=== PATIENT | male | born 1960 | race Caucasian/White ===

== ENCOUNTER → 2016-04-03 | Outpatient (CLI) | payer OTHER ==
[~2016-04-03] VITALS: Ht 170.2 cm; Wt 61.2 kg
[~2016-04-03] MED LIST: ASPI325T PO; ASPI81CH PO; FOLI1TAB86 PO; LIDOCAINE 2% INJ 100 MG/5 ML SDV (FOR ANES.) As Ordered ONE; LOPR50TA PO; METO50TA2 PO; MULT1TAB10 PO; NICO21PAT TD; NS 1,000 ML IV SCH; PROPOFOL 200 MG/20 ML VIAL As Ordered ONE; SPIR25TA2 PO; THERTAB30 PO; THIA50CA PO; TYLE325T5 PO; VITMTA PO; [UNRECOGNIZED DRUG - REMARK]
--- NOTE | 2016-04-03 10:13 | ROOR ---
Patient Name: Jayro Delgado Procedure Date: 04/03/2016 9:56 AM Date of : 1960 Age: 55 Room: [place] Gender: Male Note Status: Finalized Procedure: Colonoscopy Indications: Screening for colorectal malignant neoplasm, Last colonoscopy: December 2014, (Suboptimal prep on previous colon exam) Providers: Rajat PHILLIPS MD Referring MD: NOA VELAZQUEZ MD Requesting Provider: Medicines: Monitored Anesthesia Care Complications: No immediate complications. Procedure: Pre-Anesthesia Assessment: - The heart rate, respiratory rate, oxygen saturations, blood pressure, adequacy of pulmonary ventilation, and response to care were monitored throughout the procedure. The Colonoscope was introduced through the anus and advanced to the cecum, identified by appendiceal orifice and ileocecal valve. The colonoscopy was performed without difficulty. The patient tolerated the procedure well. The quality of the bowel preparation was adequate. Findings: The perianal and digital rectal examinations were normal. (EXAM: Complete, PREP:Adequate) Small Internal Hemorrhoids. The entire examined colon appeared normal on direct and retroflexion views. Impression: - (EXAM: Complete, PREP:Adequate) - Small Internal Hemorrhoids. - The entire examined colon is normal on direct and retroflexion views. - No specimens collected. Recommendation: - Repeat colonoscopy in 10 years for screening purposes. Rajat Phillips MD Rajat PHILLIPS MD 04/03/2016 10:12:49 AM This report has been signed electronically. Number of Addenda: 0 Note Initiated On: 04/03/2016 9:56 AM Estimated Blood Loss: Estimated blood loss: none.
[2016-04-03 10:45] VITALS: BP 150/107
== END ==
LOC: M OPP 08:28
PROVIDERS: ATTEND Internal Medicine Gastroenterology
DX: Z12.11 Encounter for screening for malignant neoplasm of colon (principal); K64.8 Other hemorrhoids; Z79.82 Long term (current) use of aspirin; Z79.899 Other long term (current) drug therapy

== ENCOUNTER 2016-05-23 13:35 | Emergency (ER) | payer OTHER ==
[~2016-05-23 13:35] MED LIST changes: -LIDOCAINE 2% INJ 100 MG/5 ML SDV (FOR ANES.) As Ordered ONE; -NS 1,000 ML IV SCH; -PROPOFOL 200 MG/20 ML VIAL As Ordered ONE
[2016-05-23] MEDS ORDERED: ONDANSETRON 4MG/2ML VIAL (J2405) As Ordered ONE (14:21)
[2016-05-23] MEDS ORDERED: MORPHINE 2 MG/ML 1ML SYRINGE As Ordered ONE (14:28)
[2016-05-23 14:50] LABS: BASO % 0.4 % (0.0-1.0); EOS % 0.2 % (0.0-3.0); LARGE UNSTAINED CELL # 0.2 K/mm3 (0.0-0.4); LARGE UNSTAINED CELL % 2.3 % (0.0-4.0); LYMPH # 1.3 K/mm3 (1.5-4.5); LYMPH % 16.3 % (24.0-44.0); MEAN CORPUSCULAR HEMOGLOBIN 33.9 pg (27.0-33.0); MEAN CORPUSCULAR HGB CONC 33.7 g/dl (32.0-36.5); MEAN CORPUSCULAR VOLUME 100.5 fl (80.0-96.0); MONO # 0.7 K/mm3 (0.0-0.8); MONO % 8.5 % (0.0-5.0); NEUTROPHILS # 5.7 K/mm3 (1.8-7.7); NEUTROPHILS % 72.3 % (36.0-66.0); PLATELET COUNT, AUTOMATED 210 k/mm3 (150-450); RED CELL DISTRIBUTION WIDTH 12.3 % (11.5-14.5); WHITE BLOOD COUNT 7.8 K/mm3 (4.0-10.0)
[2016-05-23 15:00] LABS: ALBUMIN 3.7 GM/DL (3.2-5.2); ALBUMIN/GLOBULIN RATIO 0.93 (1.00-1.93); ALKALINE PHOSPHATASE 121 U/L (45-117); ALT/SGPT 77 U/L (12-78); ANION GAP 19 MEQ/L (8-16); AST/SGOT 147 U/L (15-37); BILIRUBIN,DIRECT 0.4 MG/DL (0.0-0.2); BILIRUBIN,TOTAL 1.3 MG/DL (0.2-1.0); BLOOD UREA NITROGEN 10 MG/DL (7-18); CALCIUM LEVEL 8.6 MG/DL (8.5-10.1); CARBON DIOXIDE LEVEL 22 MEQ/L (21-32); CHLORIDE LEVEL 98 MEQ/L (98-107); CREATININE FOR GFR 1.04 MG/DL (0.70-1.30); GLOMERULAR FILTRATION RATE > 60.0 (>56); GLUCOSE, FASTING 107 MG/DL (70-105); POTASSIUM SERUM 4.1 MEQ/L (3.5-5.1); SODIUM LEVEL 139 MEQ/L (136-145); TOTAL PROTEIN 7.7 GM/DL (6.4-8.2)
[2016-05-23] MEDS ORDERED: ISOVUE-370 76% 100ML VIAL (Q9967) As Ordered ONE (16:00)
--- NOTE | 2016-05-23 16:28 | REP ---
Clinical: Abdominal pain. Technique: Axial contrast enhanced images from the lung bases to the pubic symphysis using 100 ml Isovue 370 intravenous contrast material with multiplanar re-formations. Findings: A 1 cm calcified granuloma in the left lower lobe is identified. Visualized heart and pericardium are normal. Fatty infiltration of the liver noted without focal hepatic lesion. The gallbladder is unremarkable. The spleen, pancreas, bilateral adrenal glands and kidneys are normal. The enteric system is without obstruction and a normal terminal ileum and appendix are identified in the right lower quadrant. No evidence for diverticulosis. Mild prominence to the sigmoid colon as well as loops of bowel in the left mid abdomen may reflect a mild enterocolitis and should be correlated clinically. Pelvis demonstrates normal bladder and age appropriate prostate/seminal vesicles. No ascites. No free air. No intraperitoneal or retroperitoneal adenopathy. Atherosclerotic changes to the aorta and vasculature noted without aneurysm or dissection. Surrounding musculoskeletal structures demonstrate degenerative change without focal osseous abnormality. Impression: 1. Possible mild enterocolitis. 2. No further acute abdominopelvic pathology appreciated. Signed by Martin Haynes MD 05/23/2016 04:20 P
--- NOTE | 2016-05-23 17:28 | EDDOCDS ---
Nurse's Notes [facility] Name: Jayro Delgado Age: 55 yrs Sex: Male : 1960 Arrival Date: 05/23/2016 Time: 13:35 Bed I3 / M3 Private MD: Diagnosis: Other and unspecified noninfective gastroenteritis and colitis Presentation: 05/23 13:45 Presenting complaint: Patient states: n/v/d and decreased appetite x "several weeks on kc3 and off" with chills reported. Adult Sepsis Screening: The patient does not have new or worsening altered mentation. Patient's respiratory rate is less than 22. Systolic blood pressure is greater than 100. Patient has a qSOFA score of 0- Negative Sepsis Screen. Suicide/Homicide risk assessment- the patient denies having any suicidal and/or homicidal ideations and does not present with any other emotional, behavioral or mental health complaints. Status: Patient is not a community service director or dependent. Transition of care: patient was not received from another setting of care. 13:45 Acuity: PAUL Level 3 kc3 13:45 Method Of Arrival: Walkin/Carried/Asstd kc3 Triage Assessment: 13:47 General: Appears in no apparent distress, comfortable, Behavior is appropriate for age, kc3 cooperative. Pain: Location: abdomen Pain currently is 5 out of 10 on a pain scale. HIV screening NA for this visit Offered previously. Respiratory: Respiratory effort is even, unlabored. GI: Reports diarrhea, upper abdominal pain, nausea, vomiting. Historical: - Allergies: no known allergies; - Home Meds: 1. multivitamin Oral tab daily 2. aspirin 162 mg Oral TbEC 1 tab once daily 3. Metoprolol 25mg daily - PMHx: afib; Hypertension; - PSHx: Tip of right middle finger amputated; left wrist surgery; - Social history: Smoking status: Patient uses tobacco products, heavy tobacco smoker. No barriers to communication noted, The patient speaks fluent [place]orese, Speaks appropriately for age. - Family history: Not pertinent. - : The pt / caregiver states he / she is not on anticoagulants. Home medication list is obtained from the patient. - Exposure Risk Screening:: None identified. Screenin:24 Screening information is obtained from the patient. Fall risk: No risks identified. rs3 Assistance ADL's: requires no assistance with activities of daily living. Abuse/DV Screen: The patient / caregiver reports he/she is: not in a situation that causes fear, pain or injury. Nutritional screening: No deficits noted. Advance Directives: Currently, there is no health care proxy. home support is adequate. Assessment: 14:26 General: Appears in no apparent distress, Behavior is appropriate for age, cooperative. rs3 Respiratory: Airway is patent Respiratory effort is even, unlabored, Respiratory pattern is regular, symmetrical. GI: Abdomen is non- distended Bowel sounds present X 4 quads. Abd is soft and non tender X 4 quads. Derm: Skin is pink, warm & dry. 15:51 General: Appears in no apparent distress, Behavior is appropriate for age, cooperative, rs3 denies of pain. improved after the pain medicine. resting comfortable. IVF NS bolus infusing. family at bedside. patient unable to urinate. waiting for urine sample. 16:14 General: Pt to CT via w/c and returned pts IV site remains patent and clear.. dls Vital Signs: 13:37 BP 108 / 87; Pulse 66; Resp 20; Temp 98.2(O); Pulse Ox 100% ; Weight 61.23 kg (R); lr2 Height 5 ft. 7 in. (170.18 cm) (R); Pain 5/10; 15:12 BP 124 / 76; Pulse 78; Resp 18; Temp 98.0(O); Pulse Ox 97% on R/A; Pain 0/10; dem1 17:21 BP 127 / 88; Pulse 77; Resp 18; Temp 97.8(O); Pulse Ox 100% on R/A; Pain 0/10; dem1 13:37 Body Mass Index 21.14 (61.23 kg, 170.18 cm) lr2 Vitals: 13:37 Log In Time: May 23, 2016 at 13:35. lr2 ED Course: 13:37 Patient visited by Hannah Whitaker. lr2 13:37 Patient moved to Waiting lr2 13:41 Patient moved to Pre RCE lr2 13:46 Triage Initiated kc3 13:48 Patient moved to Triage 2 kc3 13:57 [facility]. cc10 13:57 Chance Lewis MD is Attending Physician. cc10 13:57 Patient visited by Bob Redd PA-C. cc10 13:57 Patient visited by Bob Redd PA-C. cc10 14:07 Patient visited by Bob Redd PA-C. cc10 14:09 Patient moved to I3 / sew 14:24 Patient visited by Kaley Warren RN. rs3 15:01 [facility] Payment Agreement was scanned into [employer] and attached to record. lg 15:12 Patient visited by Migdalia Persaud. dem1 15:56 Patient visited by Kaley Warren RN. rs3 16:08 PHCP role handed off by Bob Redd PA-C ck7 16:08 Sly Kwok RPA-C is PHCP. ck7 16:28 Patient visited by Sly wKok RPA-C. ck7 16:31 CT ABD & PELVIS: IV Contrast Only Returned. EDMS 16:43 Urinalysis Sent. rs3 17:09 Patient visited by Kaley Warren RN. rs3 17:21 Patient visited by Migdalia Persaud. dem1 17:25 Discontinued IV lock intact, bleeding controlled, pressure dressing applied, No dls redness/swelling at site. No procedures done that require assistance. 17:27 The patient / caregiver is instructed regarding the plan of care and ED course. dls Administered Medications: 14:25 Drug: NS 0.9% 1000 ml [sodium chloride 0.9 % intravenous solution] Route: IV; Rate: dls bolus; Site: left antecubital; 17:26 Follow up: IV Status: Completed infusion dls 14:26 Drug: Ondansetron 4 mg [ondansetron HCl 2 mg/mL intravenous solution (2 mL)] Route: dls IVP; Site: left antecubital; 14:31 Drug: morphine 2 mg [morphine 2 mg/mL intravenous cartridge (1 mL)] Route: IVP; Site: dls left antecubital; 16:24 Follow up: Response: Pain is decreased rs3 Order Results: Lab Order: Basic Metabolic Profile; SPEC'M 05/23/16 14:23 Test: GLUCOSE, FASTING; Value: 107; Range: 70-105; Abnormal: Above high normal; Units: MG/DL; Status: F Test: BLOOD UREA NITROGEN; Value: 10; Range: 7-18; Units: MG/DL; Status: F Test: CREATININE FOR GFR; Value: 1.04; Range: 0.70-1.30; Units: MG/DL; Status: F Test: GLOMERULAR FILTRATION RATE; Value: > 60.0; Range: >56; Status: F Test: SODIUM LEVEL; Value: 139; Range: 136-145; Units: MEQ/L; Status: F Test: POTASSIUM SERUM; Value: 4.1; Range: 3.5-5.1; Units: MEQ/L; Status: F Test: CHLORIDE LEVEL; Value: 98; Range: 98-107; Units: MEQ/L; Status: F Test: CARBON DIOXIDE LEVEL; Value: 22; Range: 21-32; Units: MEQ/L; Status: F Test: ANION GAP; Value: 19; Range: 8-16; Abnormal: Above high normal; Units: MEQ/L; Status: F Test: CALCIUM LEVEL; Value: 8.6; Range: 8.5-10.1; Units: MG/DL; Status: F Test Note: ; Units are mL/min/1.73 m2 Chronic Kidney Disease Staging per NKF: Stage I & II GFR >=60 Normal to Mildly Decreased Stage III GFR 30-59 Moderately Decreased Stage IV GFR 15-29 Severely Decreased Stage V GFR <15 Very Little GFR Left ESRD GFR <15 on AUDIT ANALYST Lab Order: CBC with Diff; SPEC'M 05/23/16 14:23 Test: WHITE BLOOD COUNT; Value: 7.8; Range: 4.0-10.0; Units: K/mm3; Status: F Test: RED BLOOD COUNT; Value: 4.80; Range: 4.30-6.10; Units: M/mm3; Status: F Test: HEMOGLOBIN; Value: 16.3; Range: 14.0-18.0; Units: g/dl; Status: F Test: HEMATOCRIT; Value: 48.3; Range: 42.0-52.0; Units: %; Status: F Test: MEAN CORPUSCULAR VOLUME; Value: 100.5; Range: 80.0-96.0; Abnormal: Above high normal; Units: fl; Status: F Test: MEAN CORPUSCULAR HEMOGLOBIN; Value: 33.9; Range: 27.0-33.0; Abnormal: Above high normal; Units: pg; Status: F Test: MEAN CORPUSCULAR HGB CONC; Value: 33.7; Range: 32.0-36.5; Units: g/dl; Status: F Test: RED CELL DISTRIBUTION WIDTH; Value: 12.3; Range: 11.5-14.5; Units: %; Status: F Test: PLATELET COUNT, AUTOMATED; Value: 210; Range: 150-450; Units: k/mm3; Status: F Test: NEUTROPHILS %; Value: 72.3; Range: 36.0-66.0; Abnormal: Above high normal; Units: %; Status: F Test: LYMPH %; Value: 16.3; Range: 24.0-44.0; Abnormal: Below low normal; Units: %; Status: F Test: MONO %; Value: 8.5; Range: 0.0-5.0; Abnormal: Above high normal; Units: %; Status: F Test: EOS %; Value: 0.2; Range: 0.0-3.0; Units: %; Status: F Test: BASO %; Value: 0.4; Range: 0.0-1.0; Units: %; Status: F Test: LARGE UNSTAINED CELL %; Value: 2.3; Range: 0.0-4.0; Units: %; Status: F Test: NEUTROPHILS #; Value: 5.7; Range: 1.8-7.7; Units: K/mm3; Status: F Test: LYMPH #; Value: 1.3; Range: 1.5-4.5; Abnormal: Below low normal; Units: K/mm3; Status: F Test: MONO #; Value: 0.7; Range: 0.0-0.8; Units: K/mm3; Status: F Test: EOS #; Value: 0.0; Range: 0.0-0.50; Units: K/mm3; Status: F Test: BASO #; Value: 0.0; Range: 0.0-0.2; Units: K/mm3; Status: F Test: LARGE UNSTAINED CELL #; Value: 0.2; Range: 0.0-0.4; Units: K/mm3; Status: F Lab Order: Lipase; SPEC'M 05/23/16 14:23 Test: LIPASE; Value: 354; Range: 73-393; Units: U/L; Status: F Lab Order: Liver Profile; [facility] 05/23/16 14:23 Test: AST/SGOT; Value: 147; Range: 15-37; Abnormal: Above high normal; Units: U/L; Status: F Test: ALT/SGPT; Value: 77; Range: 12-78; Units: U/L; Status: F Test: ALKALINE PHOSPHATASE; Value: 121; Range: 45-117; Abnormal: Above high normal; Units: U/L; Status: F Test: BILIRUBIN,TOTAL; Value: 1.3; Range: 0.2-1.0; Abnormal: Above high normal; Units: MG/DL; Status: F Test: BILIRUBIN,DIRECT; Value: 0.4; Range: 0.0-0.2; Abnormal: Above high normal; Units: MG/DL; Status: F Test: TOTAL PROTEIN; Value: 7.7; Range: 6.4-8.2; Units: GM/DL; Status: F Test: ALBUMIN; Value: 3.7; Range: 3.2-5.2; Units: GM/DL; Status: F Test: ALBUMIN/GLOBULIN RATIO; Value: 0.93; Range: 1.00-1.93; Abnormal: Below low normal; Status: F Lab Order: Urinalysis; [facility] 05/23/16 16:31 Test: APPEARANCE, URINE; Value: CLEAR; Range: CLEAR; Status: F Test: COLOR, URINE; Value: STRAW; Range: YELLOW; Status: F Test: PH,URINE; Value: 6.0; Range: 5.0-9.0; Units: UNITS; Status: F Test: SPECIFIC GRAVITY URINE AUTO; Value: 1.042; Range: 1.002-1.035; Status: F Test: PROTEIN, URINE AUTO; Value: NEGATIVE; Range: NEGATIVE; Units: mg/dL; Status: F Test: GLUCOSE, URINE (UA) AUTO; Value: NEGATIVE; Range: NEGATIVE; Units: mg/dL; Status: F Test: KETONE, URINE AUTO; Value: 1+; Range: NEGATIVE; Abnormal: Above high normal; Units: mg/dL; Status: F Test: UROBILINOGEN, URINE AUTO; Value: 0.2; Range: 0.0-2.0; Units: mg/dL; Status: F Test: BILIRUBIN, URINE AUTO; Value: NEGATIVE; Range: NEGATIVE; Status: F Test: NITRITE, URINE AUTO; Value: NEGATIVE; Range: NEGATIVE; Status: F Test: LEUKOCYTE ESTERASE, URINE AUTO; Value: NEGATIVE; Range: NEGATIVE; Status: F Test: BLOOD, URINE BLOOD; Value: NEGATIVE; Range: NEGATIVE; Status: F Test: WBC, URINE AUTO; Value: 0; Range: 0-3; Units: /HPF; Status: F Test: RBC, URINE AUTO; Value: 2; Range: 0-3; Units: /HPF; Status: F Test: BACTERIA, URINE AUTO; Value: NEGATIVE; Range: NEGATIVE; Status: F Test: SQUAMOUS EPITHELIAL CELL UR AU; Value: 0; Range: 0-6; Units: /HPF; Status: F Test: MUCUS, URINE; Value: SMALL; Range: NEGATIVE; Status: F Test: HYALINE CAST, URINE AUTO; Value: 0; Range: 0-1; Units: /LPF; Status: F Radiology Order: CT ABD & PELVIS: IV Contrast Only Test: CT ABD & PELVIS: IV Contrast Only REASON FOR EXAMINATION: Diverticulitis; Clinical: Abdominal pain.; ; Technique: Axial contrast enhanced images from the lung bases to the pubic; symphysis using 100 ml Isovue 370 intravenous contrast material with multiplanar; re-formations.; ; Findings:; A 1 cm calcified granuloma in the left lower lobe is identified. Visualized; heart and pericardium are normal.; ; Fatty infiltration of the liver noted without focal hepatic lesion. The; gallbladder is unremarkable. The spleen, pancreas, bilateral adrenal glands and; kidneys are normal. The enteric system is without obstruction and a normal; terminal ileum and appendix are identified in the right lower quadrant. No; evidence for diverticulosis. Mild prominence to the sigmoid colon as well as; loops of bowel in the left mid abdomen may reflect a mild enterocolitis and; should be correlated clinically. Pelvis demonstrates normal bladder and age; appropriate prostate/seminal vesicles. No ascites. No free air. No; intraperitoneal or retroperitoneal adenopathy. Atherosclerotic changes to the; aorta and vasculature noted without aneurysm or dissection. Surrounding; musculoskeletal structures demonstrate degenerative change without focal osseous; abnormality.; ; Impression:; 1. Possible mild enterocolitis.; 2. No further acute abdominopelvic pathology appreciated.; ; ; Signed by; Martin Haynes MD 05/23/2016 04:20 P; Outcome: 17:14 Discharge ordered by Provider. ck7 17:26 Discharge Assessment: Patient awake, alert and oriented x 3. No cognitive and/or dls functional deficits noted. Patient verbalized understanding of disposition instructions. patient administered narcotics - yes. Pt provided with safe discharge. The following High Risk Discharge criteria are identified: None. Discharged to home ambulatory, with significant other. Condition: stable. Discharge instructions given to patient, Instructed on discharge instructions, follow up and referral plans. medication usage, Demonstrated understanding of instructions, medications, Pt was receptive of discharge instructions/ teaching. Prescriptions given X 3. CT Study completed. Property sent home with patient. 17:27 Patient left the ED. dls Signatures: Dispatcher [employer] EDMS Adilia Alvarez, JAIME RN dls Michaela Kearns, Reg Reg lg Kaley Warren RN RN rs3 Migdalia Persaud1 Sly Kwok, RPA-C RPA-Cck7 Meg Hernández Colin PA-C PA-C cc10 Margaret Marin RN RN kc3 Hannah Whitaker2 Corrections: (The following items were deleted from the chart) 15:57 15:51 General: Appears in no apparent distress, Behavior is appropriate for age, rs3 cooperative, denies of pain. improved after the pain medicine. resting comfortable. IVF NS bolus infusing. family at bedside. . rs3 MTDD
--- NOTE | 2016-05-23 17:28 | EDDOCDS ---
Physician Documentation [facility] Name: Jayro Delgado Age: 55 yrs Sex: Male : 1960 Arrival Date: 05/23/2016 Time: 13:35 Bed I3 / M3 Private MD: Disposition: 05/23/16 17:14 Discharged to Home/Self Care. Impression: Other and unspecified noninfective gastroenteritis and colitis. - Condition is Stable. - Discharge Instructions: Diarrhea, Nausea and Vomiting. - Prescriptions for Cipro 500 mg Oral Tablet - take 1 tablet by ORAL route every 12 hours; 14 tablet. Flagyl 500 mg Oral Tablet - take 1 tablet by ORAL route every 8 hours for 10 days; 30 tablet. Prednisone 20 mg Oral Tablet - take 2 tablet by ORAL route once daily for 5 days; 10 tablet. - Medication Reconciliation, Local Pharmacy Hours form. - Follow up: Private Physician; When: 1 - 2 days; Reason: Recheck today's complaints, Continuance of care. Follow up: Emergency Department; When: As needed; Reason: Worsening of conditions. - Problem is new. - Symptoms have improved. - Notes: USE MEDICATION INSTRUCTED, FOLLOW UP WITH YOUR DOCTOR ON WEDNESDAY, RETURN TO THE ER IF THE SYMPTOMS WORSEN OR BECOME CONCERNING Historical: - Allergies: no known allergies; - Home Meds: 1. multivitamin Oral tab daily 2. aspirin 162 mg Oral TbEC 1 tab once daily 3. Metoprolol 25mg daily - PMHx: afib; Hypertension; - PSHx: Tip of right middle finger amputated; left wrist surgery; - Social history: Smoking status: Patient uses tobacco products, heavy tobacco smoker. No barriers to communication noted, The patient speaks fluent Portuguese, Speaks appropriately for age. - Family history: Not pertinent. - : The pt / caregiver states he / she is not on anticoagulants. Home medication list is obtained from the patient. - Exposure Risk Screening:: None identified. Vital Signs: 05/23 13:37 BP 108 / 87; Pulse 66; Resp 20; Temp 98.2(O); Pulse Ox 100% ; Weight 61.23 kg / 134.99 lr2 lbs (R); Height 5 ft. 7 in. (170.18 cm) (R); Pain 5/10; 15:12 BP 124 / 76; Pulse 78; Resp 18; Temp 98.0(O); Pulse Ox 97% on R/A; Pain 0/10; dem1 17:21 BP 127 / 88; Pulse 77; Resp 18; Temp 97.8(O); Pulse Ox 100% on R/A; Pain 0/10; dem1 13:37 Body Mass Index 21.14 (61.23 kg, 170.18 cm) lr2 MDM: 13:58 Financial registration complete. lg 14:05 NS 0.9% 1000 ml IV at bolus once ordered. cc10 14:05 Ondansetron 4 mg IVP once ordered. cc10 14:05 IV Saline Lock ordered. cc10 14:05 Undress patient appropriately for examination ordered. cc10 14:06 Basic Metabolic Profile Ordered. EDMS 14:06 CBC with Diff Ordered. EDMS 14:06 Lipase Ordered. EDMS 14:06 Liver Profile Ordered. EDMS 14:06 Urinalysis Ordered. EDMS 14:06 morphine 2 mg IVP once ordered. cc10 14:07 NOTHING BY MOUTH+DIET ordered. EDMS 15:01 [facility] Payment Agreement was scanned into [employer] and attached to record. lg 15:52 Basic Metabolic Profile Reviewed. cc10 15:52 CBC with Diff Reviewed. cc10 15:52 Liver Profile Reviewed. cc10 15:52 Lipase Reviewed. cc10 15:54 CT ABD & PELVIS: IV Contrast Only Ordered. EDMS 16:54 CT ABD & PELVIS: IV Contrast Only Reviewed. ck7 17:17 Urinalysis Reviewed. ck7 Administered Medications: 14:25 Drug: NS 0.9% 1000 ml [sodium chloride 0.9 % intravenous solution] Route: IV; Rate: dls bolus; Site: left antecubital; 17:26 Follow up: IV Status: Completed infusion dls 14:26 Drug: Ondansetron 4 mg [ondansetron HCl 2 mg/mL intravenous solution (2 mL)] Route: dls IVP; Site: left antecubital; 14:31 Drug: morphine 2 mg [morphine 2 mg/mL intravenous cartridge (1 mL)] Route: IVP; Site: dls left antecubital; 16:24 Follow up: Response: Pain is decreased rs3 Signatures: Dispatcher [employer] EDMS Adilia Alvarez RN RN dls Michaela Kearns, Chapito Reg lg Sly Kwok, RPA-C RPA-Cck7 [place], Bob, PA-C PA-C cc10 Margaret Marin,RN RN kc3 Kaley Warren RN rs3 The chart was reviewed and I authenticate all verbal orders and agree with the evaluation and treatment provided.Attachments: 15:01 [facility] Payment Agreement lg MTDD
--- NOTE | 2016-05-25 18:28 | EDDOCDS ---
Nurse's Notes [facility] Name: Jayro Delgado Age: 55 yrs Sex: Male : 1960 Arrival Date: 05/23/2016 Time: 13:35 Bed I3 / M3 Private MD: Diagnosis: Other and unspecified noninfective gastroenteritis and colitis Presentation: 05/23 13:45 Presenting complaint: Patient states: n/v/d and decreased appetite x "several weeks on kc3 and off" with chills reported. Adult Sepsis Screening: The patient does not have new or worsening altered mentation. Patient's respiratory rate is less than 22. Systolic blood pressure is greater than 100. Patient has a qSOFA score of 0- Negative Sepsis Screen. Suicide/Homicide risk assessment- the patient denies having any suicidal and/or homicidal ideations and does not present with any other emotional, behavioral or mental health complaints. Status: Patient is not a director of rehabilitative services or dependent. Transition of care: patient was not received from another setting of care. 13:45 Acuity: PAUL Level 3 kc3 13:45 Method Of Arrival: Walkin/Carried/Asstd kc3 Triage Assessment: 13:47 General: Appears in no apparent distress, comfortable, Behavior is appropriate for age, kc3 cooperative. Pain: Location: abdomen Pain currently is 5 out of 10 on a pain scale. HIV screening NA for this visit Offered previously. Respiratory: Respiratory effort is even, unlabored. GI: Reports diarrhea, upper abdominal pain, nausea, vomiting. Historical: - Allergies: no known allergies; - Home Meds: 1. multivitamin Oral tab daily 2. aspirin 162 mg Oral TbEC 1 tab once daily 3. Metoprolol 25mg daily - PMHx: afib; Hypertension; - PSHx: Tip of right middle finger amputated; left wrist surgery; - Social history: Smoking status: Patient uses tobacco products, heavy tobacco smoker. No barriers to communication noted, The patient speaks fluent Bahamian, Speaks appropriately for age. - Family history: Not pertinent. - : The pt / caregiver states he / she is not on anticoagulants. Home medication list is obtained from the patient. - Exposure Risk Screening:: None identified. Screenin:24 Screening information is obtained from the patient. Fall risk: No risks identified. rs3 Assistance ADL's: requires no assistance with activities of daily living. Abuse/DV Screen: The patient / caregiver reports he/she is: not in a situation that causes fear, pain or injury. Nutritional screening: No deficits noted. Advance Directives: Currently, there is no health care proxy. home support is adequate. Assessment: 14:26 General: Appears in no apparent distress, Behavior is appropriate for age, cooperative. rs3 Respiratory: Airway is patent Respiratory effort is even, unlabored, Respiratory pattern is regular, symmetrical. GI: Abdomen is non- distended Bowel sounds present X 4 quads. Abd is soft and non tender X 4 quads. Derm: Skin is pink, warm & dry. 15:51 General: Appears in no apparent distress, Behavior is appropriate for age, cooperative, rs3 denies of pain. improved after the pain medicine. resting comfortable. IVF NS bolus infusing. family at bedside. patient unable to urinate. waiting for urine sample. 16:14 General: Pt to CT via w/c and returned pts IV site remains patent and clear.. dls Vital Signs: 13:37 BP 108 / 87; Pulse 66; Resp 20; Temp 98.2(O); Pulse Ox 100% ; Weight 61.23 kg (R); lr2 Height 5 ft. 7 in. (170.18 cm) (R); Pain 5/10; 15:12 BP 124 / 76; Pulse 78; Resp 18; Temp 98.0(O); Pulse Ox 97% on R/A; Pain 0/10; dem1 17:21 BP 127 / 88; Pulse 77; Resp 18; Temp 97.8(O); Pulse Ox 100% on R/A; Pain 0/10; dem1 13:37 Body Mass Index 21.14 (61.23 kg, 170.18 cm) lr2 Vitals: 13:37 Log In Time: May 23, 2016 at 13:35. lr2 ED Course: 13:37 Patient visited by Hannah Whitaker. lr2 13:37 Patient moved to Waiting lr2 13:41 Patient moved to Pre RCE lr2 13:46 Triage Initiated kc3 13:48 Patient moved to Triage 2 kc3 13:57 [facility] cc10 13:57 Chance Lewis MD is Attending Physician. cc10 13:57 Patient visited by Bob Redd PA-C. cc10 13:57 Patient visited by Bob Redd PA-C. cc10 14:07 Patient visited by Bob Redd PA-C. cc10 14:09 Patient moved to I3 / sew 14:24 Patient visited by Kaley Warren RN. rs3 15:01 [facility] Payment Agreement was scanned into [employer] and attached to record. lg 15:12 Patient visited by Migdalia Persaud. dem1 15:56 Patient visited by Kaley Warren RN. rs3 16:08 PHCP role handed off by Bob Redd PA-C ck7 16:08 Sly Kwok RPA-C is PHCP. ck7 16:28 Patient visited by Sly Kwok RPA-C. ck7 16:31 CT ABD & PELVIS: IV Contrast Only Returned. EDMS 16:43 Urinalysis Sent. rs3 17:09 Patient visited by Kaley Warren RN. rs3 17:21 Patient visited by Migdalia Persaud. dem1 17:25 Discontinued IV lock intact, bleeding controlled, pressure dressing applied, No dls redness/swelling at site. No procedures done that require assistance. 17:27 The patient / caregiver is instructed regarding the plan of care and ED course. dls 22:40 T-Sheet-- Draft Copy was scanned into [employer] and attached to record. klr Administered Medications: 14:25 Drug: NS 0.9% 1000 ml [sodium chloride 0.9 % intravenous solution] Route: IV; Rate: dls bolus; Site: left antecubital; 17:26 Follow up: IV Status: Completed infusion dls 14:26 Drug: Ondansetron 4 mg [ondansetron HCl 2 mg/mL intravenous solution (2 mL)] Route: dls IVP; Site: left antecubital; 14:31 Drug: morphine 2 mg [morphine 2 mg/mL intravenous cartridge (1 mL)] Route: IVP; Site: dls left antecubital; 16:24 Follow up: Response: Pain is decreased rs3 Order Results: Lab Order: Basic Metabolic Profile; SPEC'M 05/23/16 14:23 Test: GLUCOSE, FASTING; Value: 107; Range: 70-105; Abnormal: Above high normal; Units: MG/DL; Status: F Test: BLOOD UREA NITROGEN; Value: 10; Range: 7-18; Units: MG/DL; Status: F Test: CREATININE FOR GFR; Value: 1.04; Range: 0.70-1.30; Units: MG/DL; Status: F Test: GLOMERULAR FILTRATION RATE; Value: > 60.0; Range: >56; Status: F Test: SODIUM LEVEL; Value: 139; Range: 136-145; Units: MEQ/L; Status: F Test: POTASSIUM SERUM; Value: 4.1; Range: 3.5-5.1; Units: MEQ/L; Status: F Test: CHLORIDE LEVEL; Value: 98; Range: 98-107; Units: MEQ/L; Status: F Test: CARBON DIOXIDE LEVEL; Value: 22; Range: 21-32; Units: MEQ/L; Status: F Test: ANION GAP; Value: 19; Range: 8-16; Abnormal: Above high normal; Units: MEQ/L; Status: F Test: CALCIUM LEVEL; Value: 8.6; Range: 8.5-10.1; Units: MG/DL; Status: F Test Note: ; Units are mL/min/1.73 m2 Chronic Kidney Disease Staging per NKF: Stage I & II GFR >=60 Normal to Mildly Decreased Stage III GFR 30-59 Moderately Decreased Stage IV GFR 15-29 Severely Decreased Stage V GFR <15 Very Little GFR Left ESRD GFR <15 on [employer] Lab Order: CBC with Diff; SPEC'M 05/23/16 14:23 Test: WHITE BLOOD COUNT; Value: 7.8; Range: 4.0-10.0; Units: K/mm3; Status: F Test: RED BLOOD COUNT; Value: 4.80; Range: 4.30-6.10; Units: M/mm3; Status: F Test: HEMOGLOBIN; Value: 16.3; Range: 14.0-18.0; Units: g/dl; Status: F Test: HEMATOCRIT; Value: 48.3; Range: 42.0-52.0; Units: %; Status: F Test: MEAN CORPUSCULAR VOLUME; Value: 100.5; Range: 80.0-96.0; Abnormal: Above high normal; Units: fl; Status: F Test: MEAN CORPUSCULAR HEMOGLOBIN; Value: 33.9; Range: 27.0-33.0; Abnormal: Above high normal; Units: pg; Status: F Test: MEAN CORPUSCULAR HGB CONC; Value: 33.7; Range: 32.0-36.5; Units: g/dl; Status: F Test: RED CELL DISTRIBUTION WIDTH; Value: 12.3; Range: 11.5-14.5; Units: %; Status: F Test: PLATELET COUNT, AUTOMATED; Value: 210; Range: 150-450; Units: k/mm3; Status: F Test: NEUTROPHILS %; Value: 72.3; Range: 36.0-66.0; Abnormal: Above high normal; Units: %; Status: F Test: LYMPH %; Value: 16.3; Range: 24.0-44.0; Abnormal: Below low normal; Units: %; Status: F Test: MONO %; Value: 8.5; Range: 0.0-5.0; Abnormal: Above high normal; Units: %; Status: F Test: EOS %; Value: 0.2; Range: 0.0-3.0; Units: %; Status: F Test: BASO %; Value: 0.4; Range: 0.0-1.0; Units: %; Status: F Test: LARGE UNSTAINED CELL %; Value: 2.3; Range: 0.0-4.0; Units: %; Status: F Test: NEUTROPHILS #; Value: 5.7; Range: 1.8-7.7; Units: K/mm3; Status: F Test: LYMPH #; Value: 1.3; Range: 1.5-4.5; Abnormal: Below low normal; Units: K/mm3; Status: F Test: MONO #; Value: 0.7; Range: 0.0-0.8; Units: K/mm3; Status: F Test: EOS #; Value: 0.0; Range: 0.0-0.50; Units: K/mm3; Status: F Test: BASO #; Value: 0.0; Range: 0.0-0.2; Units: K/mm3; Status: F Test: LARGE UNSTAINED CELL #; Value: 0.2; Range: 0.0-0.4; Units: K/mm3; Status: F Lab Order: Lipase; [facility] 05/23/16 14:23 Test: LIPASE; Value: 354; Range: 73-393; Units: U/L; Status: F Lab Order: Liver Profile; [facility] 05/23/16 14:23 Test: AST/SGOT; Value: 147; Range: 15-37; Abnormal: Above high normal; Units: U/L; Status: F Test: ALT/SGPT; Value: 77; Range: 12-78; Units: U/L; Status: F Test: ALKALINE PHOSPHATASE; Value: 121; Range: 45-117; Abnormal: Above high normal; Units: U/L; Status: F Test: BILIRUBIN,TOTAL; Value: 1.3; Range: 0.2-1.0; Abnormal: Above high normal; Units: MG/DL; Status: F Test: BILIRUBIN,DIRECT; Value: 0.4; Range: 0.0-0.2; Abnormal: Above high normal; Units: MG/DL; Status: F Test: TOTAL PROTEIN; Value: 7.7; Range: 6.4-8.2; Units: GM/DL; Status: F Test: ALBUMIN; Value: 3.7; Range: 3.2-5.2; Units: GM/DL; Status: F Test: ALBUMIN/GLOBULIN RATIO; Value: 0.93; Range: 1.00-1.93; Abnormal: Below low normal; Status: F Lab Order: Urinalysis; [facility] 05/23/16 16:31 Test: APPEARANCE, URINE; Value: CLEAR; Range: CLEAR; Status: F Test: COLOR, URINE; Value: STRAW; Range: YELLOW; Status: F Test: PH,URINE; Value: 6.0; Range: 5.0-9.0; Units: UNITS; Status: F Test: SPECIFIC GRAVITY URINE AUTO; Value: 1.042; Range: 1.002-1.035; Status: F Test: PROTEIN, URINE AUTO; Value: NEGATIVE; Range: NEGATIVE; Units: mg/dL; Status: F Test: GLUCOSE, URINE (UA) AUTO; Value: NEGATIVE; Range: NEGATIVE; Units: mg/dL; Status: F Test: KETONE, URINE AUTO; Value: 1+; Range: NEGATIVE; Abnormal: Above high normal; Units: mg/dL; Status: F Test: UROBILINOGEN, URINE AUTO; Value: 0.2; Range: 0.0-2.0; Units: mg/dL; Status: F Test: BILIRUBIN, URINE AUTO; Value: NEGATIVE; Range: NEGATIVE; Status: F Test: NITRITE, URINE AUTO; Value: NEGATIVE; Range: NEGATIVE; Status: F Test: LEUKOCYTE ESTERASE, URINE AUTO; Value: NEGATIVE; Range: NEGATIVE; Status: F Test: BLOOD, URINE BLOOD; Value: NEGATIVE; Range: NEGATIVE; Status: F Test: WBC, URINE AUTO; Value: 0; Range: 0-3; Units: /HPF; Status: F Test: RBC, URINE AUTO; Value: 2; Range: 0-3; Units: /HPF; Status: F Test: BACTERIA, URINE AUTO; Value: NEGATIVE; Range: NEGATIVE; Status: F Test: SQUAMOUS EPITHELIAL CELL UR AU; Value: 0; Range: 0-6; Units: /HPF; Status: F Test: MUCUS, URINE; Value: SMALL; Range: NEGATIVE; Status: F Test: HYALINE CAST, URINE AUTO; Value: 0; Range: 0-1; Units: /LPF; Status: F Radiology Order: CT ABD & PELVIS: IV Contrast Only Test: CT ABD & PELVIS: IV Contrast Only REASON FOR EXAMINATION: Diverticulitis; Clinical: Abdominal pain.; ; Technique: Axial contrast enhanced images from the lung bases to the pubic; symphysis using 100 ml Isovue 370 intravenous contrast material with multiplanar; re-formations.; ; Findings:; A 1 cm calcified granuloma in the left lower lobe is identified. Visualized; heart and pericardium are normal.; ; Fatty infiltration of the liver noted without focal hepatic lesion. The; gallbladder is unremarkable. The spleen, pancreas, bilateral adrenal glands and; kidneys are normal. The enteric system is without obstruction and a normal; terminal ileum and appendix are identified in the right lower quadrant. No; evidence for diverticulosis. Mild prominence to the sigmoid colon as well as; loops of bowel in the left mid abdomen may reflect a mild enterocolitis and; should be correlated clinically. Pelvis demonstrates normal bladder and age; appropriate prostate/seminal vesicles. No ascites. No free air. No; intraperitoneal or retroperitoneal adenopathy. Atherosclerotic changes to the; aorta and vasculature noted without aneurysm or dissection. Surrounding; musculoskeletal structures demonstrate degenerative change without focal osseous; abnormality.; ; Impression:; 1. Possible mild enterocolitis.; 2. No further acute abdominopelvic pathology appreciated.; ; ; Signed by; Martin Haynes MD 05/23/2016 04:20 P; Outcome: 17:14 Discharge ordered by Provider. ck7 17:26 Discharge Assessment: Patient awake, alert and oriented x 3. No cognitive and/or dls functional deficits noted. Patient verbalized understanding of disposition instructions. patient administered narcotics - yes. Pt provided with safe discharge. The following High Risk Discharge criteria are identified: None. Discharged to home ambulatory, with significant other. Condition: stable. Discharge instructions given to patient, Instructed on discharge instructions, follow up and referral plans. medication usage, Demonstrated understanding of instructions, medications, Pt was receptive of discharge instructions/ teaching. Prescriptions given X 3. CT Study completed. Property sent home with patient. 17:27 Patient left the ED. dls Signatures: Dispatcher [employer] EDMS Adilia Alvarez, JAIME RN dls Michaela Kearns, [place] Reg Kaley WarrenRN RN rs3 Migdalia Persaud dem1 Sly Kwok, RPA-C RPA-Cck7 Meg Hernández Colin, PA-C PA-C cc10 Margaret Marin,JAIME RN neto3 Becki Dobbins Laura lr2 Corrections: (The following items were deleted from the chart) 15:57 15:51 General: Appears in no apparent distress, Behavior is appropriate for age, rs3 cooperative, denies of pain. improved after the pain medicine. resting comfortable. IVF NS bolus infusing. family at bedside. . rs3 Chart Complete MTDD
--- NOTE | 2016-05-25 18:28 | EDDOCDS ---
Physician Documentation [facility] Name: Jayro Delgado Age: 55 yrs Sex: Male : 1960 Arrival Date: 05/23/2016 Time: 13:35 Bed I3 / M3 Private MD: Disposition: 05/23/16 17:14 Discharged to Home/Self Care. Impression: Other and unspecified noninfective gastroenteritis and colitis. - Condition is Stable. - Discharge Instructions: Diarrhea, Nausea and Vomiting. - Prescriptions for Cipro 500 mg Oral Tablet - take 1 tablet by ORAL route every 12 hours; 14 tablet. Flagyl 500 mg Oral Tablet - take 1 tablet by ORAL route every 8 hours for 10 days; 30 tablet. Prednisone 20 mg Oral Tablet - take 2 tablet by ORAL route once daily for 5 days; 10 tablet. - Medication Reconciliation, Local Pharmacy Hours form. - Follow up: Private Physician; When: 1 - 2 days; Reason: Recheck today's complaints, Continuance of care. Follow up: Emergency Department; When: As needed; Reason: Worsening of conditions. - Problem is new. - Symptoms have improved. - Notes: USE MEDICATION INSTRUCTED, FOLLOW UP WITH YOUR DOCTOR ON WEDNESDAY, RETURN TO THE ER IF THE SYMPTOMS WORSEN OR BECOME CONCERNING Historical: - Allergies: no known allergies; - Home Meds: 1. multivitamin Oral tab daily 2. aspirin 162 mg Oral TbEC 1 tab once daily 3. Metoprolol 25mg daily - PMHx: afib; Hypertension; - PSHx: Tip of right middle finger amputated; left wrist surgery; - Social history: Smoking status: Patient uses tobacco products, heavy tobacco smoker. No barriers to communication noted, The patient speaks fluent Kuwaiti, Speaks appropriately for age. - Family history: Not pertinent. - : The pt / caregiver states he / she is not on anticoagulants. Home medication list is obtained from the patient. - Exposure Risk Screening:: None identified. Vital Signs: 05/23 13:37 BP 108 / 87; Pulse 66; Resp 20; Temp 98.2(O); Pulse Ox 100% ; Weight 61.23 kg / 134.99 lr2 lbs (R); Height 5 ft. 7 in. (170.18 cm) (R); Pain 5/10; 15:12 BP 124 / 76; Pulse 78; Resp 18; Temp 98.0(O); Pulse Ox 97% on R/A; Pain 0/10; dem1 17:21 BP 127 / 88; Pulse 77; Resp 18; Temp 97.8(O); Pulse Ox 100% on R/A; Pain 0/10; dem1 13:37 Body Mass Index 21.14 (61.23 kg, 170.18 cm) lr2 MDM: 13:58 Financial registration complete. lg 14:05 NS 0.9% 1000 ml IV at bolus once ordered. cc10 14:05 Ondansetron 4 mg IVP once ordered. cc10 14:05 IV Saline Lock ordered. cc10 14:05 Undress patient appropriately for examination ordered. cc10 14:06 Basic Metabolic Profile Ordered. EDMS 14:06 CBC with Diff Ordered. EDMS 14:06 Lipase Ordered. EDMS 14:06 Liver Profile Ordered. EDMS 14:06 Urinalysis Ordered. EDMS 14:06 morphine 2 mg IVP once ordered. cc10 14:07 NOTHING BY MOUTH+DIET ordered. EDMS 15:01 [facility] Payment Agreement was scanned into [employer] and attached to record. lg 15:52 Basic Metabolic Profile Reviewed. cc10 15:52 CBC with Diff Reviewed. cc10 15:52 Liver Profile Reviewed. cc10 15:52 Lipase Reviewed. cc10 15:54 CT ABD & PELVIS: IV Contrast Only Ordered. EDMS 16:54 CT ABD & PELVIS: IV Contrast Only Reviewed. ck7 17:17 Urinalysis Reviewed. ck7 22:40 T-Sheet-- Draft Copy was scanned into [employer] and attached to record. klr Administered Medications: 14:25 Drug: NS 0.9% 1000 ml [sodium chloride 0.9 % intravenous solution] Route: IV; Rate: dls bolus; Site: left antecubital; 17:26 Follow up: IV Status: Completed infusion dls 14:26 Drug: Ondansetron 4 mg [ondansetron HCl 2 mg/mL intravenous solution (2 mL)] Route: dls IVP; Site: left antecubital; 14:31 Drug: morphine 2 mg [morphine 2 mg/mL intravenous cartridge (1 mL)] Route: IVP; Site: dls left antecubital; 16:24 Follow up: Response: Pain is decreased rs3 Signatures: Dispatcher [employer] EDMS Adilia Alvarez RN RN dls iMchaela Kearns, Reg Reg lg Sly Kwok, RPA-C RPA-Cck7 Bob Redd, PA-C PA-C cc10 Margaret Marin RN RN kc3 Becki Dobbins Rosemary RN rs3 The chart was reviewed and I authenticate all verbal orders and agree with the evaluation and treatment provided.Attachments: 15:[address] [facility] Payment Agreement lg 22:40 T-Sheet-- Draft Copy klr Chart Complete MTDD
--- NOTE | 2016-05-25 18:28 | EDDOCDS ---
Physician Documentation [facility] Name: Jayro Delgado Age: 55 yrs Sex: Male : 1960 Arrival Date: 05/23/2016 Time: 13:35 Bed I3 / M3 Private MD: Disposition: 05/23/16 17:14 Discharged to Home/Self Care. Impression: Other and unspecified noninfective gastroenteritis and colitis. - Condition is Stable. - Discharge Instructions: Diarrhea, Nausea and Vomiting. - Prescriptions for Cipro 500 mg Oral Tablet - take 1 tablet by ORAL route every 12 hours; 14 tablet. Flagyl 500 mg Oral Tablet - take 1 tablet by ORAL route every 8 hours for 10 days; 30 tablet. Prednisone 20 mg Oral Tablet - take 2 tablet by ORAL route once daily for 5 days; 10 tablet. - Medication Reconciliation, Local Pharmacy Hours form. - Follow up: Private Physician; When: 1 - 2 days; Reason: Recheck today's complaints, Continuance of care. Follow up: Emergency Department; When: As needed; Reason: Worsening of conditions. - Problem is new. - Symptoms have improved. - Notes: USE MEDICATION INSTRUCTED, FOLLOW UP WITH YOUR DOCTOR ON WEDNESDAY, RETURN TO THE ER IF THE SYMPTOMS WORSEN OR BECOME CONCERNING Historical: - Allergies: no known allergies; - Home Meds: 1. multivitamin Oral tab daily 2. aspirin 162 mg Oral TbEC 1 tab once daily 3. Metoprolol 25mg daily - PMHx: afib; Hypertension; - PSHx: Tip of right middle finger amputated; left wrist surgery; - Social history: Smoking status: Patient uses tobacco products, heavy tobacco smoker. No barriers to communication noted, The patient speaks fluent Nicaraguan, Speaks appropriately for age. - Family history: Not pertinent. - : The pt / caregiver states he / she is not on anticoagulants. Home medication list is obtained from the patient. - Exposure Risk Screening:: None identified. Vital Signs: 05/23 13:37 BP 108 / 87; Pulse 66; Resp 20; Temp 98.2(O); Pulse Ox 100% ; Weight 61.23 kg / 134.99 lr2 lbs (R); Height 5 ft. 7 in. (170.18 cm) (R); Pain 5/10; 15:12 BP 124 / 76; Pulse 78; Resp 18; Temp 98.0(O); Pulse Ox 97% on R/A; Pain 0/10; dem1 17:21 BP 127 / 88; Pulse 77; Resp 18; Temp 97.8(O); Pulse Ox 100% on R/A; Pain 0/10; dem1 13:37 Body Mass Index 21.14 (61.23 kg, 170.18 cm) lr2 MDM: 13:58 Financial registration complete. lg 14:05 NS 0.9% 1000 ml IV at bolus once ordered. cc10 14:05 Ondansetron 4 mg IVP once ordered. cc10 14:05 IV Saline Lock ordered. cc10 14:05 Undress patient appropriately for examination ordered. cc10 14:06 Basic Metabolic Profile Ordered. EDMS 14:06 CBC with Diff Ordered. EDMS 14:06 Lipase Ordered. EDMS 14:06 Liver Profile Ordered. EDMS 14:06 Urinalysis Ordered. EDMS 14:06 morphine 2 mg IVP once ordered. cc10 14:07 NOTHING BY MOUTH+DIET ordered. EDMS 15:01 [facility] Payment Agreement was scanned into [employer] and attached to record. lg 15:52 Basic Metabolic Profile Reviewed. cc10 15:52 CBC with Diff Reviewed. cc10 15:52 Liver Profile Reviewed. cc10 15:52 Lipase Reviewed. cc10 15:54 CT ABD & PELVIS: IV Contrast Only Ordered. EDMS 16:54 CT ABD & PELVIS: IV Contrast Only Reviewed. ck7 17:17 Urinalysis Reviewed. ck7 22:40 T-Sheet-- Draft Copy was scanned into [employer] and attached to record. klr Administered Medications: 14:25 Drug: NS 0.9% 1000 ml [sodium chloride 0.9 % intravenous solution] Route: IV; Rate: dls bolus; Site: left antecubital; 17:26 Follow up: IV Status: Completed infusion dls 14:26 Drug: Ondansetron 4 mg [ondansetron HCl 2 mg/mL intravenous solution (2 mL)] Route: dls IVP; Site: left antecubital; 14:31 Drug: morphine 2 mg [morphine 2 mg/mL intravenous cartridge (1 mL)] Route: IVP; Site: dls left antecubital; 16:24 Follow up: Response: Pain is decreased rs3 Signatures: Dispatcher [employer] EDMS Adilia Alvarez RN RN dls Michaela Kearns, Reg Reg lg Sly Kwok, RPA-C RPA-Cck7 Bob Redd, PA-C PA-C cc10 Margaret Marin RN RN kc3 Becki Dobbins Rosemary RN rs3 The chart was reviewed and I authenticate all verbal orders and agree with the evaluation and treatment provided.Attachments: 15:01 [facility] Payment Agreement lg 22:40 T-Sheet-- Draft Copy klr Chart Complete MTDD
== END 2016-05-23 17:27 | disposition home or self-care (01) ==
LOC: M ED 13:35
DX: K52.9 Noninfective gastroenteritis and colitis, unspecified (principal); I48.91 Unspecified atrial fibrillation; I10 Essential (primary) hypertension; Z72.0 Tobacco use; Z79.82 Long term (current) use of aspirin; Z79.899 Other long term (current) drug therapy
CPT/HCPCS: 74177; 80048; 80076; 81001; 83690; 85025; 96361; 96374; 96375; 99284; J2405; Q9967

== ENCOUNTER 2016-05-25 11:23 | Inpatient (IN) | payer OTHER ==
[~2016-05-25] VITALS: Ht 170.2 cm; Wt 63.8 kg
[2016-05-25 13:44] LABS: BASO % 0.2 % (0.0-1.0); EOS % 0.3 % (0.0-3.0); LARGE UNSTAINED CELL # 0.2 K/mm3 (0.0-0.4); LARGE UNSTAINED CELL % 2.4 % (0.0-4.0); LYMPH # 1.3 K/mm3 (1.5-4.5); LYMPH % 16.9 % (24.0-44.0); MEAN CORPUSCULAR HEMOGLOBIN 32.7 pg (27.0-33.0); MEAN CORPUSCULAR HGB CONC 33.5 g/dl (32.0-36.5); MEAN CORPUSCULAR VOLUME 97.7 fl (80.0-96.0); MONO # 0.5 K/mm3 (0.0-0.8); MONO % 6.3 % (0.0-5.0); NEUTROPHILS # 5.9 K/mm3 (1.8-7.7); PLATELET COUNT, AUTOMATED 171 k/mm3 (150-450); RED CELL DISTRIBUTION WIDTH 12.2 % (11.5-14.5); WHITE BLOOD COUNT 7.9 K/mm3 (4.0-10.0)
[2016-05-25 13:53] LABS: ANION GAP 11 MEQ/L (8-16); BLOOD UREA NITROGEN 9 MG/DL (7-18); CALCIUM LEVEL 9.2 MG/DL (8.5-10.1); CARBON DIOXIDE LEVEL 30 MEQ/L (21-32); CHLORIDE LEVEL 96 MEQ/L (98-107); CREATININE FOR GFR 1.03 MG/DL (0.70-1.30); GLOMERULAR FILTRATION RATE > 60.0 (>56); GLUCOSE, FASTING 100 MG/DL (70-105); POTASSIUM SERUM 3.2 MEQ/L (3.5-5.1); SODIUM LEVEL 137 MEQ/L (136-145)
[2016-05-25 13:57] LABS: ABG BASE EXCESS 3.7 (-2.0-2.0); ABG DEVICE NASAL CANN; ABG PARTIAL PRESSURE CO2 25.7 mmHg (35.0-45.0); ABG PARTIAL PRESSURE O2 99.7 mmHg (75.0-100.0); ABG STANDARD HCO3 27.8 MEQ/L (22.0-26.0); ABG TOTAL CO2 24.8 MEQ/L (22.0-29.0); ABG pH (ARTERIAL) 7.588 UNITS (7.350-7.450)
--- NOTE | 2016-05-25 14:23 | REP ---
PORTABLE CHEST: AP portable view of the chest is performed. There is no acute infiltrate or pulmonary edema. The heart is normal in size. The mediastinal silhouette is unremarkable. There is a calcified granuloma in the left lung base. IMPRESSION: No acute pulmonary disease. Signed by Manuel Valerio MD 05/25/2016 04:59 P
[2016-05-25] MEDS ORDERED: ISOVUE-370 76% 100ML VIAL (Q9967) As Ordered ONE (14:37)
[2016-05-25] MEDS ORDERED: ATENOLOL 25 MG TAB As Ordered ONE (15:33)
--- NOTE | 2016-05-25 15:52 | REP ---
CT ANGIO CHEST: HISTORY: Shortness of breath. CONTRAST: Isovue-370, 75 mL Emboli are present in the distal main right and left pulmonary arteries and their proximal branches. A calcified granuloma is present in the left lower lobe. The right lung is clear. There is no pleural effusion. There is no hilar or mediastinal mass. Atherosclerotic calcification is present in the thoracic aorta. There is an old compression fracture of the T7 vertebral body with minimal height loss. IMPRESSION: There are emboli in the distal main right and left pulmonary arteries and their proximal branches. Signed by Raheel Rao MD 05/25/2016 03:57 P
[2016-05-25] MEDS ORDERED: ASPI1TAB PO (16:26)
[2016-05-25] MEDS ORDERED: FLAG500T PO (16:26)
[2016-05-25] MEDS ORDERED: METO12TA PO (16:26)
[2016-05-25] MEDS ORDERED: VITMTA PO (16:26)
[2016-05-25] MEDS ORDERED: PRED20TA PO (16:26)
[2016-05-25] MEDS ORDERED: CIPR500T3 PO (16:26)
[2016-05-25 16:36] LABS: INR 0.89
[2016-05-25] MEDS ORDERED: ENOXAPARIN 60 MG/0.6 ML SYR (J1650) As Ordered ONE (17:12)
[2016-05-25] MEDS ORDERED: ACETAMINOPHEN 500 MG TAB PO PRN (17:15)
[2016-05-25] MEDS ORDERED: ONDANSETRON 4MG/2ML VIAL (J2405) IV PRN (17:15)
--- NOTE | 2016-05-25 17:28 | REP ---
Duplex extremity venous ultrasound: Bilateral lower extremity. History: Multiple pulmonary emboli. Findings: The deep veins are anechoic and fully compressible from the groin to the popliteal fossa in the right and left lower extremity. Color flow imaging is homogeneous. Spectral Doppler interrogation demonstrates intact respiratory variation in flow and normal manual augmentation of flow. There is no evidence of deep vein thrombosis. Impression: Negative bilateral lower extremity duplex venous ultrasound. No evidence of deep vein thrombosis. Signed by Leonidas Ceballos MD 05/25/2016 05:20 P
[2016-05-25] MEDS ORDERED: KCL 40MEQ in NS 1000ML 1,000 ML IV SCH (18:00)
[2016-05-25] MEDS ORDERED: POTASSIUM CHLORIDE 10 MEQ SR TABLET PO ONE (18:30)
--- NOTE | 2016-05-25 19:39 | HPE ---
DATE OF ADMISSION: 05/25/2016 PRIMARY CARE PROVIDER: Dr. Chance Vora CHIEF COMPLAINT: Dizziness and shortness of breath for two weeks, diarrhea, and vomiting for four days. PAST MEDICAL HISTORY: Atrial fibrillation, paroxysmal. HISTORY OF PRESENT ILLNESS: This is a 55-year-old male who was in his usual state of health about 2 weeks ago, and since then he has been feeling dizziness and shortness of breath on ambulation. He would be fine, and then he would start ambulating, feel dizzy, and then he would have to sit down or squat down before his symptoms get better, and then he is able to continue walking again. About 6 days ago, he started having intractable nausea, vomiting, and diarrhea, which lasted about 4 days and now has resolved 2 days ago but came into the emergency room because his dizziness is worse, and he is getting short of breath, and he is getting more dizzy and short of breath on exertion. On presentation, patient was noted to be in sinus rhythm with a pulse rate in 80s; however, in the emergency room during evaluation, patient was noted to go into atrial fibrillation with rapid ventricular response (RVR) with rates up to 170s on ambulation. Emergency department (ED) physician spoke with Dr. Woodard and was given one dose of atenolol 25 mg and his pulse rate is settling down to around 120s. Further investigation in the emergency room showed an elevated D-dimer of greater than 2769, so patient had a CT angiogram, which revealed multiple pulmonary emboli on the right distal main and also left distal main arteries and the proximal branches. Subsequently, patient had a DVT scan of the lower extremities, which was negative. Patient is not on any anticoagulation for his atrial fibrillation. Patient only takes metoprolol and aspirin. Hospitalist service was subsequently consulted for admission for atrial fibrillation with RVR and multiple pulmonary emboli. PAST SURGICAL HISTORY: 1. 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 2. Left wrist surgery. SOCIAL HISTORY: Smokes about a pack per day. Drinks about four beers per day. Last drink was about 6-7 days ago. Does not abuse recreational drugs. ALLERGIES: No known allergies. HOME MEDICATIONS: - aspirin 81 mg daily - metoprolol 25 mg twice a day - ciprofloxacin and metronidazole, which was prescribed from the emergency room 2 days ago when he had come for evaluation for nausea, vomiting, and diarrhea. A CT scan at that time read as possible mild enterocolitis. REVIEW OF SYSTEMS: Patient denies any fevers or chills. Denies any nausea, vomiting, diarrhea at this point. Denies any crampy abdominal pain. Does complain of dizziness on ambulation and shortness of breath on ambulation. PHYSICAL EXAMINATION: VITAL SIGNS: Pulse 120, blood pressure 115/83, respiratory rate 16, temperature 98.7, pulse oximetry 98% in room air. GENERAL: Patient awake, alert, oriented times three, sitting up in bed in no acute distress. HEENT: Normocephalic, atraumatic. Moist mucous membranes. Anicteric eyes. CHEST: Clear to auscultation. CARDIOVASCULAR: S1, S2, irregular, tachycardic. No rub, murmur, or gallop. ABDOMEN: Soft, nontender. Bowel sounds present. EXTREMITIES: No edema. LABORATORY DATA: WBC 7.9, hemoglobin 15.1. Platelets 171. Sodium 137, potassium 3.2, chloride 96, bicarbonate 30, BUN 9, creatinine 1, glucose 100, calcium 9.2. Cardiac enzymes, four sets, negative. BNP 172. Blood gas: PH 7.58, pCO2 of 25, pO2 of 99. Coagulation studies have been ordered. INR Is normal. ASSESSMENT: This is a 55-year-old male admitted for multiple bilateral pulmonary emboli and atrial fibrillation with rapid ventricular response (RVR). PLAN: 1. For pulmonary embolism, will start the patient on Lovenox twice a day and then switch to oral anticoagulants when the patient is ready for discharge. There is some concern about medication compliance, so patient will need counseling prior to discharge. Will also get an echo. Will repeat cardiac enzymes. 2. Atrial fibrillation with RVR. Patient's heart rate is better controlled after one dose of atenolol. Will continue with atenolol twice a day. Further evaluation is to be done by Dr. Woodard, and then medication as per his directions. Patient did have some slightly low blood pressures in the 90s in the emergency room, so patient is getting some intravenous (IV) fluids. Patient also has hypokalemia. For that he is getting potassium replacement. 3. Deep vein thrombosis (DVT) prophylaxis. Patient is on therapeutic dose Lovenox. 4. Gastrointestinal (GI) prophylaxis has been ordered.
--- NOTE | 2016-05-25 20:20 | EDDOCDS ---
Nurse's Notes [facility] Name: Jayro Delgado Age: 55 yrs Sex: Male : 1960 Arrival Date: 05/25/2016 Time: 11:23 Bed 11 Private MD: Chance Vora J Diagnosis: Pulmonary embolism;Persistent atrial fibrillation;Hypotension;Patient's noncompliance with medical treatment and regimen Presentation: 05/25 11:28 Presenting complaint: Patient states: was seen here sat diagnosed with diarrhea, nausea dsf and vomiting. Since then when pt walks he gets dizzy and gets SOB. Adult Sepsis Screening: The patient does not have new or worsening altered mentation. Patient's respiratory rate is less than 22. Systolic blood pressure is greater than 100. Patient has a qSOFA score of 0- Negative Sepsis Screen. Suicide/Homicide risk assessment- the patient denies having any suicidal and/or homicidal ideations and does not present with any other emotional, behavioral or mental health complaints. 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 Transition of care: patient was not received from another setting of care. 11:28 Acuity: PAUL Level 3 dsf 11:28 Method Of Arrival: Wheelchair dsf Triage Assessment: 11:31 General: Appears in no apparent distress, Behavior is appropriate for age, cooperative. dsf Pain: Denies pain. HIV screening NA for this visit Offered previously. Neurological: Reports dizziness with walking . Respiratory: Onset: The symptoms/episode began/occurred yesterday, Reports shortness of breath on exertion since yesterday. Historical: - Allergies: no known allergies; - Home Meds: 1. aspirin 162 mg Oral TbEC 1 tab once daily (Last dose: 05/24/2016) 2. Metoprolol 25mg daily (Last dose: 05/24/2016) 3. multivitamin Oral tab daily (Last dose: 05/24/2016) 4. prednisone 20 mg Oral tab 2 tabs once daily (Last dose: 05/24/2016) 5. Cipro 500 mg Oral tab 1 tab every 12 hours (Last dose: 05/24/2016) 6. Flagyl 500 mg Oral tab 1 tab every 8 hours (Last dose: 05/24/2016) - PMHx: afib; Hypertension; - PSHx: Tip of right middle finger amputated; left wrist surgery; - The history from nurses notes was reviewed: and I agree with what is documented. - Social history: Smoking status: Patient uses tobacco products, current every day smoker. No barriers to communication noted, The patient speaks fluent Kyrgyz, Speaks appropriately for age. - : The pt / caregiver states he / she is not on anticoagulants. Home medication list is obtained from the patient. - Hospitalizations: : No recent hospitalization is reported. - Exposure Risk Screening:: None identified. - Immunization history:: All immunizations up-to-date. - Family history: Not pertinent. - Social history:: the patient smokes cigarettes the patient drinks alcohol. Screenin:42 Screening information is obtained from the patient. Fall risk: No risks identified. ja5 Assistance ADL's: requires no assistance with activities of daily living. Abuse/DV Screen: The patient / caregiver reports he/she is: not in a situation that causes fear, pain or injury. Nutritional screening: On low sodium, no caffeine. Advance Directives: Currently, there is no health care proxy. There is no active DNR order. There is no living will. There is no Power of Auto Specialty Services Manager. home support is adequate. Assessment: 12:39 General: Appears in no apparent distress, Behavior is appropriate for age, cooperative. ja5 Pain: Denies pain. Neurological: Level of Consciousness is awake, alert, Oriented to person, place, time. Cardiovascular: Capillary refill < 3 seconds Heart tones S1 S2 present Rhythm is sinus rhythm No ectopy. Cardiovascular: Chest pain is denied. Respiratory: Airway is patent Respiratory effort is even, unlabored, Respiratory pattern is regular, symmetrical, Breath sounds are clear bilaterally. Derm: Skin is pink, warm & dry. 13:31 General: Appears in no apparent distress, patient is resting comfortably. Harshad HARRIS in hs1 to see patient and has no other questions at this time. . Pain: Denies pain. 14:11 General: Patient up to bathroom. Ambulated with steady gait and no signs of respiratory ja5 distress noted. . 14:20 General: Upon exiting the bathroom patient became dizzy and was returned to his room ja5 via wheelchair. Patient was hooked up to the monitor which displayed a HR 170-190 afib RVR, intermittent SR with bigeminal PVCs and a triplet. Dr. Patricia aware of change in patient status.. 15:11 General: Patient is laying in stretcher with visitors at bedside. 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 Respirations are even and unlabored, color is pink. Bed in low position, call lynne in reach. . 16:06 General: Patient is laying in stretcher, awake and alert with no complaints of pain. ja5 Respirations are even and unlabored, patient denies being SOB. HR 160 afib RVR on footwear sales coordinator. Patient stated that if "feels like I have a bubble in my chest." Bed in low position, call lynne in reach, family at bedside.. 17:59 General: Appears in no apparent distress, Behavior is appropriate for age, cooperative. ja5 Pain: Denies pain. Neurological: Level of Consciousness is awake, alert, Oriented to person, place, time. Cardiovascular: Capillary refill < 3 seconds Rhythm is atrial fibrillation with rapid ventricular response. Respiratory: Airway is patent Respiratory effort is even, unlabored, Respiratory pattern is regular, symmetrical, Denies shortness of breath at rest. Derm: Skin is pink, warm & dry. 19:39 General: Appears in no apparent distress, comfortable, Behavior is cooperative, mlc pleasant. Pain: Denies pain. Neurological: Level of Consciousness is awake, alert, Oriented to person, place, time. Respiratory: Airway is patent Respiratory effort is even, unlabored, Respiratory pattern is regular. Derm: Skin is pink, warm & dry. 20:18 General: Appears in no apparent distress, comfortable. Pain: Denies pain. Neurological: mlc Level of Consciousness is awake, alert, Oriented to person, place, time. Respiratory: Airway is patent Respiratory effort is even, unlabored, Respiratory pattern is regular. Vital Signs: 11:24 BP 102 / 78; Pulse 101; Resp 18; Temp 98.0(O); Pulse Ox 100% ; Weight 61.23 kg (R); lr2 Height 5 ft. 7 in. (170.18 cm) (R); Pain 2/10; 12:01 BP 153 / 76 (auto/); ja5 12:01 Pulse 80 MON; Pulse Ox 100% ; ja5 12:44 BP 112 / 84 Supine; Pulse 98; ja5 12:44 BP 103 / 85 Sitting; Pulse 100; ja5 12:44 BP 108 / 90 Standing; Pulse 109; ja5 12:55 BP 111 / 83 (auto/); ja5 12:55 Pulse 84 MON; Pulse Ox 99% ; ja5 13:25 BP 118 / 89 (auto/); ja5 13:25 Pulse 90 MON; Pulse Ox 98% ; ja5 13:54 Pulse 76 MON; Pulse Ox 97% ; ja5 13:55 BP 88 / 63 (auto/); ja5 13:59 BP 108 / 73 (auto/); ja5 13:59 Pulse 80 MON; Pulse Ox 95% ; ja5 14:08 Pulse 76 MON; Pulse Ox 97% ; ja5 14:20 BP 108 / 78 (auto/); ja5 15:06 Pulse 138 MON; Pulse Ox 99% ; ja5 15:07 BP 108 / 67 (auto/); ja5 15:21 Pulse 152 MON; Pulse Ox 98% ; ja5 15:22 BP 110 / 59 (auto/); ja5 15:37 BP 120 / 59 (auto/); ja5 15:37 Pulse 156 MON; Pulse Ox 97% ; ja5 16:01 Pulse 126 MON; Pulse Ox 98% ; ja5 16:02 BP 88 / 59 (auto/); ja5 16:07 Pulse 156 MON; Pulse Ox 96% ; ja5 16:08 BP 85 / 64 (auto/); ja5 16:10 BP 85 / 64; Pulse 150; Resp 16; Temp 98.7(O); Pulse Ox 98% on R/A; Pain 0/10; ja5 16:18 Weight 59.87 kg (M); rn1 16:32 BP 84 / 56 LA Supine (man/reg); ja5 17:18 BP 115 / 83 (auto/); ja5 17:20 Pulse 92 MON; Pulse Ox 98% ; ja5 17:59 BP 115 / 83; Pulse 120; Resp 20; Temp 97.4(A); Pulse Ox 94% on R/A; Pain 0/10; ja5 19:38 BP 103 / 75 (auto/); mlc 19:38 Pulse 86 MON; Pulse Ox 97% ; mlc 20:08 BP 111 / 80 (auto/); mlc 20:09 Pulse 78 MON; Pulse Ox 96% ; mlc 20:18 BP 106 / 71; Pulse 91; Resp 18; Temp 99.0; Pulse Ox 98% on R/A; Pain 0/10; mlc 16:18 Body Mass Index 20.67 (59.87 kg, 170.18 cm) rn1 Vitals: 11:24 Log In Time: May 25, 2016 at 11:23. lr2 ED Course: 11:24 Patient visited by Hannah Whitaker. lr2 11:24 Patient moved to Waiting lr2 11:25 Chance Vora is Private Physician. lr2 11:26 Patient moved to Pre RCE lr2 11:29 Triage Initiated dsf 11:55 Patient moved to PR2 / 26 ead 12:01 EKG done. (by ED staff). Reviewed by Grupo Patricia MD. ar3 12:02 Patient visited by Danielle Jain PCA. ar3 12:12 Patient moved to Triage 2 dsf 12:20 Riya Hinojosa,RN is Primary Nurse. nb2 12:20 Mariah Acevedo, JAIME is Primary Nurse. nb2 12:20 Patient moved to 11 nb2 12:24 [facility] Payment Agreement was scanned into [employer] and attached to record. lg 12:26 Patient visited by Nayeli Robles. nb2 12:26 Placed in gown. Bed in low position. Call light in reach. Side rails up X2. Cardiac nb2 monitor on. Pulse ox on. NIBP on. 12:40 The patient / caregiver is instructed regarding the plan of care and ED course. ja5 12:43 Patient visited by Riya Hinojosa RN. ja5 13:05 Grupo Patricia MD is Attending Physician. pc 13:29 Patient visited by Grupo Patricia MD. pc 13:30 Inserted saline lock: 20 gauge in right antecubital area. ja5 13:49 Patient visited by Nayeli Robles. nb2 13:51 -Arterial Blood Gas Sent. js11 13:58 -Blood Culture Sent. jc4 14:25 Chest, 1 View Returned. EDMS 14:48 Patient visited by Riya Hinojosa RN. ja5 15:57 Patient visited by Riya Hinojosa RN. ja5 16:24 CT Chest Angio R/O PE Returned. EDMS 16:26 Patient moved to Ultrasound br3 16:45 Protein S Functional Activity Sent. rn1 16:45 Protein C Functional Activity Sent. rn1 16:45 Lupus Type Anticoagulant Sent. rn1 16:45 Factor V Leiden Sent. rn1 16:45 Anti-Cardiolipin Antibodies Sent. rn1 16:45 Anti Thrombin 3 Panel (ag/ac) Sent. rn1 17:06 Chest, 1 View Returned. EDMS 17:10 Patient moved to 11 br3 17:12 Patient visited by Riya Hinojosa RN. ja5 17:26 MartyYoly is Hospitalizing Provider. pc 17:51 Duplex, Ext LOWER veins, bilat Returned. EDMS 18:02 No procedures done that require assistance. ja5 19:02 Keysha Gomez,RN is Primary Nurse. mlc 19:07 Primary Nurse role handed off by Riya Hinojosa RN ja5 19:07 Primary Nurse role handed off by Mariah Acevedo RN ja5 19:40 Patient visited by Keysha Gomez RN. mlc Administered Medications: 15:35 CANCELLED (Other Intervention Used): Atenolol 25 mg PO once pc 16:20 Drug: NS 0.9% 1000 ml [sodium chloride 0.9 % intravenous solution] Route: IV; Rate: ja5 bolus; Site: right antecubital; 17:15 Drug: Enoxaparin (1mg/kg) 60 mg [enoxaparin 60 mg/0.6 mL subcutaneous syringe (0.6 mL)] ja5 {Co-Signature: jc4 (Mariah Acevedo RN).} Route: Sub-Q; Site: right lower abdomen; 19:04 CANCELLED (Other Intervention Used): Atenolol 25 mg PO once ja5 RT: 13:51 ABG's drawn from right radial artery allens test done and positive pressure held for 5 js11 minutes no bleeding noted specimen sent pt. tolerated well. Order Results: Lab Order: -Arterial Blood Gas; SPEC'M 05/25/16 13:41 Test: ABG pH (ARTERIAL); Value: 7.588; Range: 7.350-7.450; Abnormal: Above high normal; Units: UNITS; Status: F Test: ABG PARTIAL PRESSURE CO2; Value: 25.7; Range: 35.0-45.0; Abnormal: Below low normal; Units: mmHg; Status: F Test: ABG PARTIAL PRESSURE O2; Value: 99.7; Range: 75.0-100.0; Units: mmHg; Status: F Test: ABG TOTAL CO2; Value: 24.8; Range: 22.0-29.0; Units: MEQ/L; Status: F Test: ABG HCO3; Value: 24.0; Range: 22.0-26.0; Units: MEQ/L; Status: F Test: ABG BASE EXCESS; Value: 3.7; Range: -2.0-2.0; Abnormal: Above high normal; Status: F Test: ABG STANDARD HCO3; Value: 27.8; Range: 22.0-26.0; Abnormal: Above high normal; Units: MEQ/L; Status: F Test: ABG O2 SATURATION; Value: 98.4; Range: 95.0-99.0; Units: %; Status: F Test: ABG DEVICE; Value: NASAL LUIS; Status: F Lab Order: B-Type Natiuretic Peptide; [facility]' 05/25/16 12:54 Test: BRAIN NATRIURETIC PEPTIDE; Value: 172; Range: <100; Abnormal: Above high normal; Units: PG/ML; Status: F Lab Order: Basic Metabolic Profile; SPEC' 05/25/16 12:54 Test: GLUCOSE, FASTING; Value: 100; Range: 70-105; Units: MG/DL; Status: F Test: BLOOD UREA NITROGEN; Value: 9; Range: 7-18; Units: MG/DL; Status: F Test: CREATININE FOR GFR; Value: 1.03; Range: 0.70-1.30; Units: MG/DL; Status: F Test: GLOMERULAR FILTRATION RATE; Value: > 60.0; Range: >56; Status: F Test: SODIUM LEVEL; Value: 137; Range: 136-145; Units: MEQ/L; Status: F Test: POTASSIUM SERUM; Value: 3.2; Range: 3.5-5.1; Units: MEQ/L; Status: F Test: CHLORIDE LEVEL; Value: 96; Range: 98-107; Abnormal: Below low normal; Units: MEQ/L; Status: F Test: CARBON DIOXIDE LEVEL; Value: 30; Range: 21-32; Units: MEQ/L; Status: F Test: ANION GAP; Value: 11; Range: 8-16; Units: MEQ/L; Status: F Test: CALCIUM LEVEL; Value: 9.2; Range: 8.5-10.1; Units: MG/DL; Status: F Test Note: ; Units are mL/min/1.73 m2 Chronic Kidney Disease Staging per NKF: Stage I & II GFR >=60 Normal to Mildly Decreased Stage III GFR 30-59 Moderately Decreased Stage IV GFR 15-29 Severely Decreased Stage V GFR <15 Very Little GFR Left ESRD GFR <15 on SMELTER LINER Lab Order: CBC with Diff; LAMAR'Joshua 05/25/16 12:54 Test: WHITE BLOOD COUNT; Value: 7.9; Range: 4.0-10.0; Units: K/mm3; Status: F Test: RED BLOOD COUNT; Value: 4.63; Range: 4.30-6.10; Units: M/mm3; Status: F Test: HEMOGLOBIN; Value: 15.1; Range: 14.0-18.0; Units: g/dl; Status: F Test: HEMATOCRIT; Value: 45.2; Range: 42.0-52.0; Units: %; Status: F Test: MEAN CORPUSCULAR VOLUME; Value: 97.7; Range: 80.0-96.0; Abnormal: Above high normal; Units: fl; Status: F Test: MEAN CORPUSCULAR HEMOGLOBIN; Value: 32.7; Range: 27.0-33.0; Units: pg; Status: F Test: MEAN CORPUSCULAR HGB CONC; Value: 33.5; Range: 32.0-36.5; Units: g/dl; Status: F Test: RED CELL DISTRIBUTION WIDTH; Value: 12.2; Range: 11.5-14.5; Units: %; Status: F Test: PLATELET COUNT, AUTOMATED; Value: 171; Range: 150-450; Units: k/mm3; Status: F Test: NEUTROPHILS %; Value: 74.0; Range: 36.0-66.0; Abnormal: Above high normal; Units: %; Status: F Test: LYMPH %; Value: 16.9; Range: 24.0-44.0; Abnormal: Below low normal; Units: %; Status: F Test: MONO %; Value: 6.3; Range: 0.0-5.0; Abnormal: Above high normal; Units: %; Status: F Test: EOS %; Value: 0.3; Range: 0.0-3.0; Units: %; Status: F Test: BASO %; Value: 0.2; Range: 0.0-1.0; Units: %; Status: F Test: LARGE UNSTAINED CELL %; Value: 2.4; Range: 0.0-4.0; Units: %; Status: F Test: NEUTROPHILS #; Value: 5.9; Range: 1.8-7.7; Units: K/mm3; Status: F Test: LYMPH #; Value: 1.3; Range: 1.5-4.5; Abnormal: Below low normal; Units: K/mm3; Status: F Test: MONO #; Value: 0.5; Range: 0.0-0.8; Units: K/mm3; Status: F Test: EOS #; Value: 0.0; Range: 0.0-0.50; Units: K/mm3; Status: F Test: BASO #; Value: 0.0; Range: 0.0-0.2; Units: K/mm3; Status: F Test: LARGE UNSTAINED CELL #; Value: 0.2; Range: 0.0-0.4; Units: K/mm3; Status: F Lab Order: Cardiac Injury Profile; [facility] 05/25/16 12:54 Test: CPK CREATINE PHOSPHOKINASE; Value: 51; Range: 39-308; Units: U/L; Status: F Test: CK-MB VALUE MASS; Value: 1.5; Range: 0.0-3.6; Units: NG/ML; Status: F Test: MB/CK RELATIVE INDEX; Value: 2.94; Range: < OR =4; Status: F Test Note: ; DIAGNOSIS CRITERIA MMB ng/ml Relative Index (RI) NON-AMI < or = 5 N/A VALERIO ZONE > 5 < or = 4 AMI > 5 > 4 Lab Order: D-Dimer Quant; [facility]' 05/25/16 12:54 Test: D-DIMER QUANT; Value: 2769.0; Range: <500; Abnormal: Above high normal; Units: ng/ml; Status: F Lab Order: Troponin; [facility]' 05/25/16 12:54 Test: TROPONIN I; Value: < 0.02; Range: < 0.10; Units: NG/ML; Status: F Test Note: ; Troponin I Reference Interval for [employer] LOCI: 99th Percentile= 0.00-0.045 ng/ml Risk Stratification: <= 0.10 ng/ml Decreased Risk for Adverse Clinical Events. 0.10-1.50 ng/ml Increased Risk for Adverse Clinical Events. Evaluation of additional criterion and/or repeat testing in 2-6 hours is suggested to rule out myocardial damage. >= 1.50 ng/ml Indicative of Myocardial Injury. Lab Order: PT & APTT; SPEC' 05/25/16 12:54 Test: PROTHROMBIN TIME; Value: 12.1; Range: 12.3-14.5; Abnormal: Below low normal; Units: SECONDS; Status: F Test: INR; Value: 0.89; Status: F Test: PARTIAL THROMBOPLASTIN TIME; Value: 25.3; Range: 26.6-37.1; Abnormal: Below low normal; Units: SECONDS; Status: F Test Note: ; THERAPUTIC HUMAN INR VALUES INDICATIONS NORMAL RANGES PROPHYLAXIS/TREATMENT OF: VENOUS THROMBOSIS 2.0-3.0 PULMONARY EMBOLISM 2.0-3.0 PREVENTION OF SYSTEMIC EMBOLISM FROM: TISSUE HEART VALVES 2.0-3.0 ACUTE MYOCARDIAL INFARCTION 2.0-3.0 VALVULAR HEART DISEASE 2.0-3.0 ATRIAL FIBRILLATION 2.0-3.0 MECHANICAL VALVES(HIGH RISK) 2.5-3.5 RECURRENT MYOCARDIAL INFARCTION 2.5-3.5 Lab Order: CARDIAC MARKER PANEL; SPEC' 05/25/16 17:35 Test: CPK CREATINE PHOSPHOKINASE; Value: 42; Range: 39-308; Units: U/L; Status: F Test: CK-MB VALUE MASS; Value: 1.9; Range: 0.0-3.6; Units: NG/ML; Status: F Test: MB/CK RELATIVE INDEX; Value: 4.52; Range: < OR =4; Abnormal: Above high normal; Status: F Test: TROPONIN I; Value: < 0.02; Range: < 0.10; Units: NG/ML; Status: F Test Note: ; DIAGNOSIS CRITERIA MMB ng/ml Relative Index (RI) NON-AMI < or = 5 N/A VALERIO ZONE > 5 < or = 4 AMI > 5 > 4 Lab Order: ETHYL ALCOHOL (ETHANOL); SPEC' 05/25/16 17:35 Test: ETHYL ALCOHOL (ETHANOL); Value: < 0.003; Range: 0.000-0.010; Units: %; Status: F Radiology Order: Chest, 1 View Test: Chest, 1 View REASON FOR EXAMINATION: Shortness of Breath; PORTABLE CHEST:; ; AP portable view of the chest is performed.; ; There is no acute infiltrate or pulmonary edema. The heart is normal in size.; The mediastinal silhouette is unremarkable. There is a calcified granuloma in the; left lung base.; ; IMPRESSION:; ; No acute pulmonary disease.; ; ; Signed by; Manuel Valerio MD 05/25/2016 04:59 P; Radiology Order: CT Chest Angio R/O PE Test: CT Chest Angio R/O PE REASON FOR EXAMINATION: r/o PE; CT ANGIO CHEST:; ; HISTORY: Shortness of breath.; ; CONTRAST: Isovue-370, 75 mL; ; Emboli are present in the distal main right and left pulmonary arteries and; their proximal branches. A calcified granuloma is present in the left lower lobe.; The right lung is clear. There is no pleural effusion. There is no hilar or; mediastinal mass. Atherosclerotic calcification is present in the thoracic aorta.; There is an old compression fracture of the T7 vertebral body with minimal height; loss.; ; IMPRESSION:; ; There are emboli in the distal main right and left pulmonary arteries and their; proximal branches.; ; ; Signed by; Rahele Rao MD 05/25/2016 03:57 P; Radiology Order: Duplex, Ext LOWER veins, bilat Test: Duplex, Ext LOWER veins, bilat REASON FOR EXAMINATION: multiple PEs; Duplex extremity venous ultrasound: Bilateral lower extremity.; ; History: Multiple pulmonary emboli.; ; Findings: The deep veins are anechoic and fully compressible from the groin to; the popliteal fossa in the right and left lower extremity. Color flow imaging is; homogeneous. Spectral Doppler interrogation demonstrates intact respiratory; variation in flow and normal manual augmentation of flow. There is no evidence; of deep vein thrombosis.; ; Impression:; ; Negative bilateral lower extremity duplex venous ultrasound. No evidence of deep; vein thrombosis.; ; ; Signed by; Leonidas Ceballos MD 05/25/2016 05:20 P; Outcome: 17:26 Decision to Hospitalize by Provider. pc 18:01 CT Study completed. Ultrasound Study completed. [facility] 18:01 Discharge Assessment: Patient awake and alert. Oriented to person, place and time. ja5 patient administered narcotics - no. The following High Risk Discharge criteria are identified: None. Admitted to PCU accompanied by nurse, family with patient, via stretcher, on monitor, with chart. Condition: stable. Property :Personal belongings accompany Pt. 20:18 Admitted to PCU accompanied by nurse, accompanied by tech, via stretcher, with chart. mlc Condition: stable. 20:19 Patient left the ED. [facility] [place] Signatures: Dispatcher [employer] EDMS Grupo Patricia MD MD pc Ganter, Michaela, Reg Reg lg Stephanie Lemos br3 Danielle Jain, THERESA CHILD CUSTODY EVALUATOR ar3 Anna Joe, RN RN hs1 Mariah Acevedo RN RN jc4 Ami Villatoro,RN RN ellaf Juan R Ross11 Nova Karimi,RN RN Keysha SandovalRN RN Cecil Juarez rn1 Nayeli Robles2 Riya HinojosaRN RN ja5 Hannah Whitaker2 Mariah Acevedo RN jc4 Corrections: (The following items were deleted from the chart) 12:13 12:01 EKG done. (by ED staff). Reviewed by Chance Lewis MD ar3 ar3 18:04 18:04 Inserted saline lock: 20 gauge in right antecubital area [facility] ADAMD
--- NOTE | 2016-05-25 20:20 | EDDOCDS ---
Physician Documentation [facility] Name: Jayro Delgado Age: 55 yrs Sex: Male : 1960 Arrival Date: 05/25/2016 Time: 11:23 Bed 11 Private MD: Chance Vora J Disposition: 05/25 17:26 Critical Care:. pc Disposition: 05/25/16 17:26 Hospitalization ordered by Yoly Ferguson for Inpatient Admission. Preliminary diagnosis are Pulmonary embolism, Persistent atrial fibrillation, Hypotension, Patient's noncompliance with medical treatment and regimen. - Bed requested for M PCU. - Status is Inpatient Admission. mlc - Condition is Stable. - Problem is new. - Symptoms are unchanged. HPI: 13:34 This 55 yrs old Male presents to ER via Wheelchair with complaints of pc Shortness Of Breath, Dizziness. 13:34 The history is obtained from the patient. For 2 weeks, he has been having SOBOE, now pc only able to walk 20 feet without feeling dizzy, lightheaded and becoming SOB. He denies any headache, chest pain at those times. He has to sit or squat to the floor to prevent from passing out. He stays in that position for 1-2 minutes until the symptoms resolve, and then is able to continue. He had these symptoms for 10-12 days when he developed n/v/d. He was seen here 2 days ago for the GI symptoms and was started on meds. He is now able to tolerate oral fluids and food and has had only one loose stooling since. However, he is now dizzy upon standing and is debilitated with any exertion. The patient has not experienced similar symptoms in the past. Historical: - Allergies: no known allergies; - Home Meds: 1. aspirin 162 mg Oral TbEC 1 tab once daily (Last dose: 05/24/2016) 2. Metoprolol 25mg daily (Last dose: 05/24/2016) 3. multivitamin Oral tab daily (Last dose: 05/24/2016) 4. prednisone 20 mg Oral tab 2 tabs once daily (Last dose: 05/24/2016) 5. Cipro 500 mg Oral tab 1 tab every 12 hours (Last dose: 05/24/2016) 6. Flagyl 500 mg Oral tab 1 tab every 8 hours (Last dose: 05/24/2016) - PMHx: afib; Hypertension; - PSHx: Tip of right middle finger amputated; left wrist surgery; - The history from nurses notes was reviewed: and I agree with what is documented. - Social history: Smoking status: Patient uses tobacco products, current every day smoker. No barriers to communication noted, The patient speaks fluent [place], Speaks appropriately for age. - : The pt / caregiver states he / she is not on anticoagulants. Home medication list is obtained from the patient. - Hospitalizations: : No recent hospitalization is reported. - Exposure Risk Screening:: None identified. - Immunization history:: All immunizations up-to-date. - Family history: Not pertinent. - Social history:: the patient smokes cigarettes the patient drinks alcohol. ROS: 13:34 All systems are negative except as listed. pc Exam: 13:34 General Appearance: no acute distress, alert. pc 13:34 EENT: normal eye inspection, ears, nose and throat normal, pharynx normal, mucous membranes moist 13:34 Neck: The exam reveals no acute abnormalities. ROM is normal and painless. No nuchal rigidity is noted.. 13:34 Respiratory: no respiratory distress, normal breath sounds. 13:34 CVS: regular pulse rate, regular rhythm, normal S1 and S2, no murmurs, strong peripheral pulses, normal capillary refill. 13:34 Abdomen: soft, non-tender, no organomegaly, normal bowel sounds. 13:34 Back: normal inspection. 13:34 Skin: skin color is normal, warm, dry. 13:34 Extremities: The extremities have a grossly normal appearance, are non-tender, without acute ROM abnormalities. 13:34 Neuro: oriented x 3, cranial nerves normal as tested, no motor deficits, no sensory deficits. 13:34 Psych: normal mood. Vital Signs: 11:24 BP 102 / 78; Pulse 101; Resp 18; Temp 98.0(O); Pulse Ox 100% ; Weight 61.23 kg / 134.99 lr2 lbs (R); Height 5 ft. 7 in. (170.18 cm) (R); Pain 2/10; 12:01 BP 153 / 76 (auto/); ja5 12:01 Pulse 80 MON; Pulse Ox 100% ; ja5 12:44 BP 112 / 84 Supine; Pulse 98; ja5 12:44 BP 103 / 85 Sitting; Pulse 100; ja5 12:44 BP 108 / 90 Standing; Pulse 109; ja5 12:55 BP 111 / 83 (auto/); ja5 12:55 Pulse 84 MON; Pulse Ox 99% ; ja5 13:25 BP 118 / 89 (auto/); ja5 13:25 Pulse 90 MON; Pulse Ox 98% ; ja5 13:54 Pulse 76 MON; Pulse Ox 97% ; ja5 13:55 BP 88 / 63 (auto/); ja5 13:59 BP 108 / 73 (auto/); ja5 13:59 Pulse 80 MON; Pulse Ox 95% ; ja5 14:08 Pulse 76 MON; Pulse Ox 97% ; ja5 14:20 BP 108 / 78 (auto/); ja5 15:06 Pulse 138 MON; Pulse Ox 99% ; ja5 15:07 BP 108 / 67 (auto/); ja5 15:21 Pulse 152 MON; Pulse Ox 98% ; ja5 15:22 BP 110 / 59 (auto/); ja5 15:37 BP 120 / 59 (auto/); ja5 15:37 Pulse 156 MON; Pulse Ox 97% ; ja5 16:01 Pulse 126 MON; Pulse Ox 98% ; ja5 16:02 BP 88 / 59 (auto/); ja5 16:07 Pulse 156 MON; Pulse Ox 96% ; ja5 16:08 BP 85 / 64 (auto/); ja5 16:10 BP 85 / 64; Pulse 150; Resp 16; Temp 98.7(O); Pulse Ox 98% on R/A; Pain 0/10; ja5 16:18 Weight 59.87 kg / 131.99 lbs (M); rn1 16:32 BP 84 / 56 LA Supine (man/reg); ja5 17:18 BP 115 / 83 (auto/); ja5 17:20 Pulse 92 MON; Pulse Ox 98% ; ja5 17:59 BP 115 / 83; Pulse 120; Resp 20; Temp 97.4(A); Pulse Ox 94% on R/A; Pain 0/10; ja5 19:38 BP 103 / 75 (auto/); mlc 19:38 Pulse 86 MON; Pulse Ox 97% ; mlc 20:08 BP 111 / 80 (auto/); mlc 20:09 Pulse 78 MON; Pulse Ox 96% ; mlc 20:18 BP 106 / 71; Pulse 91; Resp 18; Temp 99.0; Pulse Ox 98% on R/A; Pain 0/10; mlc 16:18 Body Mass Index 20.67 (59.87 kg, 170.18 cm) rn1 MDM: 11:57 ECG WITH READING ER PHYS+CARDIAG ordered. EDMS 12:24 [facility] Payment Agreement was scanned into [employer] and attached to record. lg 13:30 Financial registration complete. lg 13:30 -Blood Culture (Adults Only), peripheral from different site, or from device/port/PICC pc etc. if present ordered. 13:30 Call Respiratory ordered. pc 13:30 Seismograph Supervisor/Pulse Ox/q 15 min VS ordered. pc 13:30 IV Saline Lock ordered. pc 13:30 Rhythm Strip to chart ordered. pc 13:32 -Arterial Blood Gas Ordered. EDMS 13:32 B-Type Natiuretic Peptide Ordered. EDMS 13:32 Basic Metabolic Profile Ordered. EDMS 13:32 CBC with Diff Ordered. EDMS 13:32 Cardiac Injury Profile Ordered. EDMS 13:32 D-Dimer Quant Ordered. EDMS 13:32 Troponin Ordered. EDMS 13:32 -Blood Culture Ordered. EDMS 13:32 Chest, 1 View Ordered. EDMS 13:34 Differential Diagnosis: exertional dyspnea r/o AFib with RVR/ACS/PE; dizziness r/o pc dehydration, electrolyte changes. Plan: labs, EKG, imaging. Test interpretation: EKG. 13:41 Call Respiratory complete. deg 13:42 -Blood Culture (Adults Only), peripheral from different site, or from device/port/PICC deg etc. if present complete. 13:43 BLOOD CULTURES Ordered. EDMS 14:28 -Arterial Blood Gas Reviewed. pc 14:28 B-Type Natiuretic Peptide Reviewed. pc 14:28 Basic Metabolic Profile Reviewed. pc 14:28 CBC with Diff Reviewed. pc 14:28 D-Dimer Quant Reviewed. pc 14:28 Cardiac Injury Profile Reviewed. pc 14:28 Troponin Reviewed. pc 14:28 Chest, 1 View Reviewed. pc 14:29 CT Chest Angio R/O PE Ordered. EDMS 15:34 Physician consultation: Dr. Odell Woodard was contacted at 15:34, regarding patient's pc condition, and advises the medications/treatment as provided. 15:37 BED REQUEST+ADM ordered. EDMS 15:53 requires 7 blue tops, 1 tiger top, 3 purple tops per lab 4.21.14 ordered. pc 15:53 Weigh Pt on scale, in Kg (Do Not Use Reported Weight) ordered. pc 15:53 Anti Thrombin 3 Panel (ag/ac) Ordered. EDMS 15:53 Anti-Cardiolipin Antibodies Ordered. EDMS 15:53 Factor V Leiden Ordered. EDMS 15:53 Lupus Type Anticoagulant Ordered. EDMS 15:53 Protein C Functional Activity Ordered. EDMS 15:53 Protein S Functional Activity Ordered. EDMS 15:56 Duplex, Ext LOWER veins, bilat Ordered. EDMS 16:13 NS 0.9% 1000 ml IV at bolus once ordered. pc 16:17 REGULAR+DIET ordered. EDMS 16:29 PT & APTT Ordered. EDMS 17:04 Enoxaparin (1mg/kg) 60 mg Sub-Q once; Ensure no Heparin in past 6hrs. Ensure any pc baseline labs are drawn. ordered. 17:23 Admission / Observation Status ordered. EDMS 17:23 ECHOCARD,DOPPLER/COLOR FLOW ordered. EDMS 17:23 REGULAR DIET ordered. EDMS 17:24 CARDIAC MARKER PANEL Ordered. EDMS 17:24 ETHYL ALCOHOL (ETHANOL) Ordered. EDMS 17:24 FACTOR II PROTHROMBIN GENE AN Ordered. EDMS 17:26 Data reviewed: old medical records, vital signs, nurses notes, EKG(s), lab test pc results, all radiology studies and available results. Test interpretation: LAB - all labs as ordered have been reviewed, interpreted and considered in the overall management of the clinical presentation; X-RAY - interpreted by Radiologist and personally reviewed, 1 view chest no acute disease, interpreted by Radiologist and personally reviewed, Chest CT; multiple PEs. The patient has been re-examined and re-evaluated. There is no appreciated change of the patient's symptoms at this time. Physician consultation: Dr. Yoly Ferguson regarding admission. Disposition: The historical points, examination findings, and any diagnostic results supporting the provided diagnosis, were discussed with the patient or legal guardian. The need for further work-up and/or treatment in the hospital was explained. 19:31 CARDIAC MARKER PANEL Ordered. EDMS 19:31 CARDIAC MARKER PANEL Ordered. EDMS 19:31 CBC WITH DIFFERENTIAL Ordered. EDMS 19:31 BASIC METABOLIC PROFILE Ordered. EDMS EC:34 Rate is 88 beats/min. Rhythm is regular, Normal Sinus Rhythm. QRS Rosser is Normal. VT pc interval is normal. QRS interval is normal. QT interval is normal. No Q waves. T waves are Normal. No ST changes noted. Clinical impression: Normal Sinus Rhythm and possible LAE. No change from previous ECG in October,. Administered Medications: 15:35 CANCELLED (Other Intervention Used): Atenolol 25 mg PO once pc 16:20 Drug: NS 0.9% 1000 ml [sodium chloride 0.9 % intravenous solution] Route: IV; Rate: ja5 bolus; Site: right antecubital; 17:15 Drug: Enoxaparin (1mg/kg) 60 mg [enoxaparin 60 mg/0.6 mL subcutaneous syringe (0.6 mL)] ja5 {Co-Signature: [email or web address] (Mariah Acevedo RN).} Route: Sub-Q; Site: right lower abdomen; 19:04 CANCELLED (Other Intervention Used): Atenolol 25 mg PO once ja5 Critical Care Time: 17:26 Critical care time: Bedside Care: 30 minutes, Consultation: 20 minutes, Family pc Intervention: 15 minutes. Total time: 65 minutes Signatures: Dispatcher [employer] EDGrupo Moore MD MD pc Analia Rosado, Tie Tamper Unit deg Michaela Kearns, Reg Reg lg Ami Villatoro,RN RN Keysha Spivey,RN RN Lakia Morris, JAIME [email or web address] Riya Hinojosa RN5 Mariah Acevedo RN [email or web address] The chart was reviewed and I authenticate all verbal orders and agree with the evaluation and treatment provided.Corrections: (The following items were deleted from the chart) 15:35 15:30 Atenolol 25 mg PO once ordered. pc pc 15:35 15:35 Atenolol 25 mg PO once ordered. pc pc 15:56 15:55 Duplex, Ext,LOWER veins,unilat+US ordered. EDMS EDMS 16:29 15:53 PT & APTT+LAB ordered. EDMS EDMS 19:04 15:39 Atenolol 25 mg PO once ordered. pc ja5 Attachments: 12:24 [place] [place] MTDD
[2016-05-25] MEDS ORDERED: LORazepam 2 MG/ML VIAL (J2060) As Ordered ONE (20:24)
[2016-05-25] MEDS ORDERED: LORazepam 2 MG/ML VIAL (J2060) IV PRN ×2 (20:45)
--- NOTE | 2016-05-25 20:55 | EDDOCDS ---
Nurse's Notes [facility] Name: Jayro Delgado Age: 55 yrs Sex: Male : 1960 Arrival Date: 05/25/2016 Time: 11:23 Bed 11 Private MD: Chance Vora J Diagnosis: Pulmonary embolism;Persistent atrial fibrillation;Hypotension;Patient's noncompliance with medical treatment and regimen Presentation: 05/25 11:28 Presenting complaint: Patient states: was seen here sat diagnosed with diarrhea, nausea dsf and vomiting. Since then when pt walks he gets dizzy and gets SOB. Adult Sepsis Screening: The patient does not have new or worsening altered mentation. Patient's respiratory rate is less than 22. Systolic blood pressure is greater than 100. Patient has a qSOFA score of 0- Negative Sepsis Screen. Suicide/Homicide risk assessment- the patient denies having any suicidal and/or homicidal ideations and does not present with any other emotional, behavioral or mental health complaints. 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 Transition of care: patient was not received from another setting of care. 11:28 Acuity: PAUL Level 3 dsf 11:28 Method Of Arrival: Wheelchair dsf Triage Assessment: 11:31 General: Appears in no apparent distress, Behavior is appropriate for age, cooperative. dsf Pain: Denies pain. HIV screening NA for this visit Offered previously. Neurological: Reports dizziness with walking . Respiratory: Onset: The symptoms/episode began/occurred yesterday, Reports shortness of breath on exertion since yesterday. Historical: - Allergies: no known allergies; - Home Meds: 1. aspirin 162 mg Oral TbEC 1 tab once daily (Last dose: 05/24/2016) 2. Metoprolol 25mg daily (Last dose: 05/24/2016) 3. multivitamin Oral tab daily (Last dose: 05/24/2016) 4. prednisone 20 mg Oral tab 2 tabs once daily (Last dose: 05/24/2016) 5. Cipro 500 mg Oral tab 1 tab every 12 hours (Last dose: 05/24/2016) 6. Flagyl 500 mg Oral tab 1 tab every 8 hours (Last dose: 05/24/2016) - PMHx: afib; Hypertension; - PSHx: Tip of right middle finger amputated; left wrist surgery; - The history from nurses notes was reviewed: and I agree with what is documented. - Social history: Smoking status: Patient uses tobacco products, current every day smoker. No barriers to communication noted, The patient speaks fluent [place]an, Speaks appropriately for age. - : The pt / caregiver states he / she is not on anticoagulants. Home medication list is obtained from the patient. - Hospitalizations: : No recent hospitalization is reported. - Exposure Risk Screening:: None identified. - Immunization history:: All immunizations up-to-date. - Family history: Not pertinent. - Social history:: the patient smokes cigarettes the patient drinks alcohol. Screenin:42 Screening information is obtained from the patient. Fall risk: No risks identified. ja5 Assistance ADL's: requires no assistance with activities of daily living. Abuse/DV Screen: The patient / caregiver reports he/she is: not in a situation that causes fear, pain or injury. Nutritional screening: On low sodium, no caffeine. Advance Directives: Currently, there is no health care proxy. There is no active DNR order. There is no living will. There is no Power of Human Resources Department Supervisor. home support is adequate. Assessment: 12:39 General: Appears in no apparent distress, Behavior is appropriate for age, cooperative. ja5 Pain: Denies pain. Neurological: Level of Consciousness is awake, alert, Oriented to person, place, time. Cardiovascular: Capillary refill < 3 seconds Heart tones S1 S2 present Rhythm is sinus rhythm No ectopy. Cardiovascular: Chest pain is denied. Respiratory: Airway is patent Respiratory effort is even, unlabored, Respiratory pattern is regular, symmetrical, Breath sounds are clear bilaterally. Derm: Skin is pink, warm & dry. 13:31 General: Appears in no apparent distress, patient is resting comfortably. Harshad HARRIS in hs1 to see patient and has no other questions at this time. . Pain: Denies pain. 14:11 General: Patient up to bathroom. Ambulated with steady gait and no signs of respiratory ja5 distress noted. . 14:20 General: Upon exiting the bathroom patient became dizzy and was returned to his room ja5 via wheelchair. Patient was hooked up to the monitor which displayed a HR 170-190 afib RVR, intermittent SR with bigeminal PVCs and a triplet. Dr. Patricia aware of change in patient status.. 15:11 General: Patient is laying in stretcher with visitors at bedside. HR 140s afib RVR on ja5 school lunch monitor. Respirations are even and unlabored, color is pink. Bed in low position, call lynne in reach. . 16:06 General: Patient is laying in stretcher, awake and alert with no complaints of pain. ja5 Respirations are even and unlabored, patient denies being SOB. HR 160 afib RVR on school lunch monitor. Patient stated that if "feels like I have a bubble in my chest." Bed in low position, call lynne in reach, family at bedside.. 17:59 General: Appears in no apparent distress, Behavior is appropriate for age, cooperative. ja5 Pain: Denies pain. Neurological: Level of Consciousness is awake, alert, Oriented to person, place, time. Cardiovascular: Capillary refill < 3 seconds Rhythm is atrial fibrillation with rapid ventricular response. Respiratory: Airway is patent Respiratory effort is even, unlabored, Respiratory pattern is regular, symmetrical, Denies shortness of breath at rest. Derm: Skin is pink, warm & dry. 19:39 General: Appears in no apparent distress, comfortable, Behavior is cooperative, mlc pleasant. Pain: Denies pain. Neurological: Level of Consciousness is awake, alert, Oriented to person, place, time. Respiratory: Airway is patent Respiratory effort is even, unlabored, Respiratory pattern is regular. Derm: Skin is pink, warm & dry. 20:18 General: Appears in no apparent distress, comfortable. Pain: Denies pain. Neurological: mlc Level of Consciousness is awake, alert, Oriented to person, place, time. Respiratory: Airway is patent Respiratory effort is even, unlabored, Respiratory pattern is regular. 20:30 General: Pt found to be having seizure activity lasting approx 90-120 Dr Patricia present edwardo and order for Ativan 1 mg ordered... 20:46 General: Dr Ferguson examining patient at this time, he awake and alert.. mar Vital Signs: 11:24 BP 102 / 78; Pulse 101; Resp 18; Temp 98.0(O); Pulse Ox 100% ; Weight 61.23 kg (R); lr2 Height 5 ft. 7 in. (170.18 cm) (R); Pain 2/10; 12:01 BP 153 / 76 (auto/); ja5 12:01 Pulse 80 MON; Pulse Ox 100% ; ja5 12:44 BP 112 / 84 Supine; Pulse 98; ja5 12:44 BP 103 / 85 Sitting; Pulse 100; ja5 12:44 BP 108 / 90 Standing; Pulse 109; ja5 12:55 BP 111 / 83 (auto/); ja5 12:55 Pulse 84 MON; Pulse Ox 99% ; ja5 13:25 BP 118 / 89 (auto/); ja5 13:25 Pulse 90 MON; Pulse Ox 98% ; ja5 13:54 Pulse 76 MON; Pulse Ox 97% ; ja5 13:55 BP 88 / 63 (auto/); ja5 13:59 BP 108 / 73 (auto/); ja5 13:59 Pulse 80 MON; Pulse Ox 95% ; ja5 14:08 Pulse 76 MON; Pulse Ox 97% ; ja5 14:20 BP 108 / 78 (auto/); ja5 15:06 Pulse 138 MON; Pulse Ox 99% ; ja5 15:07 BP 108 / 67 (auto/); ja5 15:21 Pulse 152 MON; Pulse Ox 98% ; ja5 15:22 BP 110 / 59 (auto/); ja5 15:37 BP 120 / 59 (auto/); ja5 15:37 Pulse 156 MON; Pulse Ox 97% ; ja5 16:01 Pulse 126 MON; Pulse Ox 98% ; ja5 16:02 BP 88 / 59 (auto/); ja5 16:07 Pulse 156 MON; Pulse Ox 96% ; ja5 16:08 BP 85 / 64 (auto/); ja5 16:10 BP 85 / 64; Pulse 150; Resp 16; Temp 98.7(O); Pulse Ox 98% on R/A; Pain 0/10; ja5 16:18 Weight 59.87 kg (M); rn1 16:32 BP 84 / 56 LA Supine (man/reg); ja5 17:18 BP 115 / 83 (auto/); ja5 17:20 Pulse 92 MON; Pulse Ox 98% ; ja5 17:59 BP 115 / 83; Pulse 120; Resp 20; Temp 97.4(A); Pulse Ox 94% on R/A; Pain 0/10; ja5 19:38 BP 103 / 75 (auto/); mlc 19:38 Pulse 86 MON; Pulse Ox 97% ; mlc 20:08 BP 111 / 80 (auto/); mlc 20:09 Pulse 78 MON; Pulse Ox 96% ; mlc 20:18 BP 106 / 71; Pulse 91; Resp 18; Temp 99.0; Pulse Ox 98% on R/A; Pain 0/10; mlc 20:40 BP 123 / 83; Pulse 90; Resp 18; Pulse Ox 96% on R/A; Pain 0/10; ar3 16:18 Body Mass Index 20.67 (59.87 kg, 170.18 cm) rn1 Vitals: 11:24 Log In Time: May 25, 2016 at 11:23. lr2 ED Course: 11:24 Patient visited by Hannah Whitaker. lr2 11:24 Patient moved to Waiting lr2 11:25 Chance Vora is Private Physician. lr2 11:26 Patient moved to Pre RCE lr2 11:29 Triage Initiated dsf 11:55 Patient moved to PR2 / ead 12:01 EKG done. (by ED staff). Reviewed by Grupo Patircia MD. ar3 12:02 Patient visited by Danielle Jain PCA. ar3 12:12 Patient moved to Triage 2 dsf 12:20 Riya Hinojosa,RN is Primary Nurse. nb2 12:20 Mariah Acevedo, JAIME is Primary Nurse. nb2 12:20 Patient moved to 11 nb2 12:24 [facility] Payment Agreement was scanned into Pact and attached to record. lg 12:26 Patient visited by Nayeli Robles. nb2 12:26 Placed in gown. Bed in low position. Call light in reach. Side rails up X2. Cardiac nb2 monitor on. Pulse ox on. NIBP on. 12:40 The patient / caregiver is instructed regarding the plan of care and ED course. ja5 12:43 Patient visited by Riya Hinojosa RN. ja5 13:05 Grupo Patricia MD is Attending Physician. pc 13:29 Patient visited by Grupo Patricia MD. pc 13:30 Inserted saline lock: 20 gauge in right antecubital area. ja5 13:49 Patient visited by Nayeli Robles. nb2 13:51 -Arterial Blood Gas Sent. js11 13:58 -Blood Culture Sent. jc4 14:25 Chest, 1 View Returned. EDMS 14:48 Patient visited by Riya Hinojosa RN. ja5 15:57 Patient visited by Riya Hinojosa RN. ja5 16:24 CT Chest Angio R/O PE Returned. EDMS 16:26 Patient moved to Ultrasound br3 16:45 Protein S Functional Activity Sent. rn1 16:45 Protein C Functional Activity Sent. rn1 16:45 Lupus Type Anticoagulant Sent. rn1 16:45 Factor V Leiden Sent. rn1 16:45 Anti-Cardiolipin Antibodies Sent. rn1 16:45 Anti Thrombin 3 Panel (ag/ac) Sent. rn1 17:06 Chest, 1 View Returned. EDMS 17:10 Patient moved to 11 br3 17:12 Patient visited by Riya Hinojosa RN. ja5 17:26 oYly Ferguson is Hospitalizing Provider. pc 17:51 Duplex, Ext LOWER veins, bilat Returned. EDMS 18:02 No procedures done that require assistance. ja5 19:02 Keysha Gomez,RN is Primary Nurse. mlc 19:07 Primary Nurse role handed off by Riya Hinojosa RN ja5 19:07 Primary Nurse role handed off by Mariah Acevedo RN ja5 19:40 Patient visited by Keysha Gomez RN. mlc 20:40 Patient visited by Danielle Jain PCA. ar3 Administered Medications: 15:35 CANCELLED (Other Intervention Used): Atenolol 25 mg PO once pc 16:20 Drug: NS 0.9% 1000 ml [sodium chloride 0.9 % intravenous solution] Route: IV; Rate: ja5 bolus; Site: right antecubital; 17:15 Drug: Enoxaparin (1mg/kg) 60 mg [enoxaparin 60 mg/0.6 mL subcutaneous syringe (0.6 mL)] ja5 {Co-Signature: jc4 (Mariah Acevedo RN).} Route: Sub-Q; Site: right lower abdomen; 19:04 CANCELLED (Other Intervention Used): Atenolol 25 mg PO once ja5 20:27 Drug: LORazepam 1 mg [lorazepam 2 mg/mL injection solution (0.5 mL)] Route: IVP; Site: ko2 right antecubital; RT: 13:51 ABG's drawn from right radial artery allens test done and positive pressure held for 5 js11 minutes no bleeding noted specimen sent pt. tolerated well. Order Results: Lab Order: -Arterial Blood Gas; [facility] 05/25/16 13:41 Test: ABG pH (ARTERIAL); Value: 7.588; Range: 7.350-7.450; Abnormal: Above high normal; Units: UNITS; Status: F Test: ABG PARTIAL PRESSURE CO2; Value: 25.7; Range: 35.0-45.0; Abnormal: Below low normal; Units: mmHg; Status: F Test: ABG PARTIAL PRESSURE O2; Value: 99.7; Range: 75.0-100.0; Units: mmHg; Status: F Test: ABG TOTAL CO2; Value: 24.8; Range: 22.0-29.0; Units: MEQ/L; Status: F Test: ABG HCO3; Value: 24.0; Range: 22.0-26.0; Units: MEQ/L; Status: F Test: ABG BASE EXCESS; Value: 3.7; Range: -2.0-2.0; Abnormal: Above high normal; Status: F Test: ABG STANDARD HCO3; Value: 27.8; Range: 22.0-26.0; Abnormal: Above high normal; Units: MEQ/L; Status: F Test: ABG O2 SATURATION; Value: 98.4; Range: 95.0-99.0; Units: %; Status: F Test: ABG DEVICE; Value: NASAL LUIS; Status: F Lab Order: B-Type Natiuretic Peptide; [facility] 05/25/16 12:54 Test: BRAIN NATRIURETIC PEPTIDE; Value: 172; Range: <100; Abnormal: Above high normal; Units: PG/ML; Status: F Lab Order: Basic Metabolic Profile; [facility] 05/25/16 12:54 Test: GLUCOSE, FASTING; Value: 100; Range: 70-105; Units: MG/DL; Status: F Test: BLOOD UREA NITROGEN; Value: 9; Range: 7-18; Units: MG/DL; Status: F Test: CREATININE FOR GFR; Value: 1.03; Range: 0.70-1.30; Units: MG/DL; Status: F Test: GLOMERULAR FILTRATION RATE; Value: > 60.0; Range: >56; Status: F Test: SODIUM LEVEL; Value: 137; Range: 136-145; Units: MEQ/L; Status: F Test: POTASSIUM SERUM; Value: 3.2; Range: 3.5-5.1; Units: MEQ/L; Status: F Test: CHLORIDE LEVEL; Value: 96; Range: 98-107; Abnormal: Below low normal; Units: MEQ/L; Status: F Test: CARBON DIOXIDE LEVEL; Value: 30; Range: 21-32; Units: MEQ/L; Status: F Test: ANION GAP; Value: 11; Range: 8-16; Units: MEQ/L; Status: F Test: CALCIUM LEVEL; Value: 9.2; Range: 8.5-10.1; Units: MG/DL; Status: F Test Note: ; Units are mL/min/1.73 m2 Chronic Kidney Disease Staging per NKF: Stage I & II GFR >=60 Normal to Mildly Decreased Stage III GFR 30-59 Moderately Decreased Stage IV GFR 15-29 Severely Decreased Stage V GFR <15 Very Little GFR Left ESRD GFR <15 on INBOUND INGREDIENT LOGISTICS SPECIALIST Lab Order: CBC with Diff; SPEC'M 05/25/16 12:54 Test: WHITE BLOOD COUNT; Value: 7.9; Range: 4.0-10.0; Units: K/mm3; Status: F Test: RED BLOOD COUNT; Value: 4.63; Range: 4.30-6.10; Units: M/mm3; Status: F Test: HEMOGLOBIN; Value: 15.1; Range: 14.0-18.0; Units: g/dl; Status: F Test: HEMATOCRIT; Value: 45.2; Range: 42.0-52.0; Units: %; Status: F Test: MEAN CORPUSCULAR VOLUME; Value: 97.7; Range: 80.0-96.0; Abnormal: Above high normal; Units: fl; Status: F Test: MEAN CORPUSCULAR HEMOGLOBIN; Value: 32.7; Range: 27.0-33.0; Units: pg; Status: F Test: MEAN CORPUSCULAR HGB CONC; Value: 33.5; Range: 32.0-36.5; Units: g/dl; Status: F Test: RED CELL DISTRIBUTION WIDTH; Value: 12.2; Range: 11.5-14.5; Units: %; Status: F Test: PLATELET COUNT, AUTOMATED; Value: 171; Range: 150-450; Units: k/mm3; Status: F Test: NEUTROPHILS %; Value: 74.0; Range: 36.0-66.0; Abnormal: Above high normal; Units: %; Status: F Test: LYMPH %; Value: 16.9; Range: 24.0-44.0; Abnormal: Below low normal; Units: %; Status: F Test: MONO %; Value: 6.3; Range: 0.0-5.0; Abnormal: Above high normal; Units: %; Status: F Test: EOS %; Value: 0.3; Range: 0.0-3.0; Units: %; Status: F Test: BASO %; Value: 0.2; Range: 0.0-1.0; Units: %; Status: F Test: LARGE UNSTAINED CELL %; Value: 2.4; Range: 0.0-4.0; Units: %; Status: F Test: NEUTROPHILS #; Value: 5.9; Range: 1.8-7.7; Units: K/mm3; Status: F Test: LYMPH #; Value: 1.3; Range: 1.5-4.5; Abnormal: Below low normal; Units: K/mm3; Status: F Test: MONO #; Value: 0.5; Range: 0.0-0.8; Units: K/mm3; Status: F Test: EOS #; Value: 0.0; Range: 0.0-0.50; Units: K/mm3; Status: F Test: BASO #; Value: 0.0; Range: 0.0-0.2; Units: K/mm3; Status: F Test: LARGE UNSTAINED CELL #; Value: 0.2; Range: 0.0-0.4; Units: K/mm3; Status: F Lab Order: Cardiac Injury Profile; SPEC'M 05/25/16 12:54 Test: CPK CREATINE PHOSPHOKINASE; Value: 51; Range: 39-308; Units: U/L; Status: F Test: CK-MB VALUE MASS; Value: 1.5; Range: 0.0-3.6; Units: NG/ML; Status: F Test: MB/CK RELATIVE INDEX; Value: 2.94; Range: < OR =4; Status: F Test Note: ; DIAGNOSIS CRITERIA MMB ng/ml Relative Index (RI) NON-AMI < or = 5 N/A VALERIO ZONE > 5 < or = 4 AMI > 5 > 4 Lab Order: D-Dimer Quant; [facility] 05/25/16 12:54 Test: D-DIMER QUANT; Value: 2769.0; Range: <500; Abnormal: Above high normal; Units: ng/ml; Status: F Lab Order: Troponin; [facility] 05/25/16 12:54 Test: TROPONIN I; Value: < 0.02; Range: < 0.10; Units: NG/ML; Status: F Test Note: ; Troponin I Reference Interval for [employer] LOCI: 99th Percentile= 0.00-0.045 ng/ml Risk Stratification: <= 0.10 ng/ml Decreased Risk for Adverse Clinical Events. 0.10-1.50 ng/ml Increased Risk for Adverse Clinical Events. Evaluation of additional criterion and/or repeat testing in 2-6 hours is suggested to rule out myocardial damage. >= 1.50 ng/ml Indicative of Myocardial Injury. Lab Order: PT & APTT; [facility] 05/25/16 12:54 Test: PROTHROMBIN TIME; Value: 12.1; Range: 12.3-14.5; Abnormal: Below low normal; Units: SECONDS; Status: F Test: INR; Value: 0.89; Status: F Test: PARTIAL THROMBOPLASTIN TIME; Value: 25.3; Range: 26.6-37.1; Abnormal: Below low normal; Units: SECONDS; Status: F Test Note: ; THERAPUTIC HUMAN INR VALUES INDICATIONS NORMAL RANGES PROPHYLAXIS/TREATMENT OF: VENOUS THROMBOSIS 2.0-3.0 PULMONARY EMBOLISM 2.0-3.0 PREVENTION OF SYSTEMIC EMBOLISM FROM: TISSUE HEART VALVES 2.0-3.0 ACUTE MYOCARDIAL INFARCTION 2.0-3.0 VALVULAR HEART DISEASE 2.0-3.0 ATRIAL FIBRILLATION 2.0-3.0 MECHANICAL VALVES(HIGH RISK) 2.5-3.5 RECURRENT MYOCARDIAL INFARCTION 2.5-3.5 Lab Order: CARDIAC MARKER PANEL; [facility] 05/25/16 17:35 Test: CPK CREATINE PHOSPHOKINASE; Value: 42; Range: 39-308; Units: U/L; Status: F Test: CK-MB VALUE MASS; Value: 1.9; Range: 0.0-3.6; Units: NG/ML; Status: F Test: MB/CK RELATIVE INDEX; Value: 4.52; Range: < OR =4; Abnormal: Above high normal; Status: F Test: TROPONIN I; Value: < 0.02; Range: < 0.10; Units: NG/ML; Status: F Test Note: ; DIAGNOSIS CRITERIA MMB ng/ml Relative Index (RI) NON-AMI < or = 5 N/A VALERIO ZONE > 5 < or = 4 AMI > 5 > 4 Lab Order: ETHYL ALCOHOL (ETHANOL); SPEC'M 05/25/16 17:35 Test: ETHYL ALCOHOL (ETHANOL); Value: < 0.003; Range: 0.000-0.010; Units: %; Status: F Radiology Order: Chest, 1 View Test: Chest, 1 View REASON FOR EXAMINATION: Shortness of Breath; PORTABLE CHEST:; ; AP portable view of the chest is performed.; ; There is no acute infiltrate or pulmonary edema. The heart is normal in size.; The mediastinal silhouette is unremarkable. There is a calcified granuloma in the; left lung base.; ; IMPRESSION:; ; No acute pulmonary disease.; ; ; Signed by; Manuel Valerio MD 05/25/2016 04:59 P; Radiology Order: CT Chest Angio R/O PE Test: CT Chest Angio R/O PE REASON FOR EXAMINATION: r/o PE; CT ANGIO CHEST:; ; HISTORY: Shortness of breath.; ; CONTRAST: Isovue-370, 75 mL; ; Emboli are present in the distal main right and left pulmonary arteries and; their proximal branches. A calcified granuloma is present in the left lower lobe.; The right lung is clear. There is no pleural effusion. There is no hilar or; mediastinal mass. Atherosclerotic calcification is present in the thoracic aorta.; There is an old compression fracture of the T7 vertebral body with minimal height; loss.; ; IMPRESSION:; ; There are emboli in the distal main right and left pulmonary arteries and their; proximal branches.; ; ; Signed by; Raheel Rao MD 05/25/2016 03:57 P; Radiology Order: Duplex, Ext LOWER veins, bilat Test: Duplex, Ext LOWER veins, bilat REASON FOR EXAMINATION: multiple PEs; Duplex extremity venous ultrasound: Bilateral lower extremity.; ; History: Multiple pulmonary emboli.; ; Findings: The deep veins are anechoic and fully compressible from the groin to; the popliteal fossa in the right and left lower extremity. Color flow imaging is; homogeneous. Spectral Doppler interrogation demonstrates intact respiratory; variation in flow and normal manual augmentation of flow. There is no evidence; of deep vein thrombosis.; ; Impression:; ; Negative bilateral lower extremity duplex venous ultrasound. No evidence of deep; vein thrombosis.; ; ; Signed by; Leonidas Ceballos MD 05/25/2016 05:20 P; Outcome: 17:26 Decision to Hospitalize by Provider. pc 18:01 CT Study completed. Ultrasound Study completed. ja5 18:01 Discharge Assessment: Patient awake and alert. Oriented to person, place and time. ja5 patient administered narcotics - no. The following High Risk Discharge criteria are identified: None. Admitted to PCU accompanied by nurse, family with patient, via stretcher, on monitor, with chart. Condition: stable. Property :Personal belongings accompany Pt. 20:18 Admitted to PCU accompanied by nurse, accompanied by tech, via stretcher, [place] [facility] [place]. 20:19 Patient left the [place]. [facility] [place] Discharge Assessment: pt now leaving ED, no seizure activity at this time. mar 20:54 Patient left the ED. mar Signatures: Dispatcher [employer] EDMS Grupo Patricia MD MD pc Newman, JAIME Berger RN, LoriLee, Chapito Reg lg Stephanie Lemos br3 Danielle Jain, LEAD BURNER SUPERVISOR LEAD BURNER SUPERVISOR ar3 Anna Joe RN RN hs1 Mariah Acevedo RN RN jc4 Ami VillatoroRN RN Juan R Pham js11 Nova KarimiRN RN Keysha SandovalRN RN mlc Hui Garcia RN RN ko2 Newman, Robert rn1 Nayeli Robles Jessica, RN RN ja5 Ross, Laura lr2 Mariah Acevedo RN jc4 Corrections: (The following items were deleted from the chart) 12:13 12:01 EKG done. (by ED staff). Reviewed by Chance Lewis MD ar3 ar3 18:04 18:04 Inserted saline lock: 20 gauge in right antecubital area ja5 ja5 MTDD
--- NOTE | 2016-05-25 20:55 | EDDOCDS ---
Physician Documentation [facility] Name: Jayro Delgado Age: 55 yrs Sex: Male : 1960 Arrival Date: 05/25/2016 Time: 11:23 Bed 11 Private MD: Chance Vora J Disposition: 05/25 17:26 Critical Care:. pc Disposition: 05/25/16 17:26 Hospitalization ordered by Yoly Ferguson for Inpatient Admission. Preliminary diagnosis are Pulmonary embolism, Persistent atrial fibrillation, Hypotension, Patient's noncompliance with medical treatment and regimen. - Bed requested for PCU. - Status is Inpatient Admission. edwardo - Condition is Stable. - Problem is new. - Symptoms are unchanged. HPI: 13:34 This 55 yrs old Male presents to ER via Wheelchair with complaints of pc Shortness Of Breath, Dizziness. 13:34 The history is obtained from the patient. For 2 weeks, he has been having SOBOE, now pc only able to walk 20 feet without feeling dizzy, lightheaded and becoming SOB. He denies any headache, chest pain at those times. He has to sit or squat to the floor to prevent from passing out. He stays in that position for 1-2 minutes until the symptoms resolve, and then is able to continue. He had these symptoms for 10-12 days when he developed n/v/d. He was seen here 2 days ago for the GI symptoms and was started on meds. He is now able to tolerate oral fluids and food and has had only one loose stooling since. However, he is now dizzy upon standing and is debilitated with any exertion. The patient has not experienced similar symptoms in the past. Historical: - Allergies: no known allergies; - Home Meds: 1. aspirin 162 mg Oral TbEC 1 tab once daily (Last dose: 05/24/2016) 2. Metoprolol 25mg daily (Last dose: 05/24/2016) 3. multivitamin Oral tab daily (Last dose: 05/24/2016) 4. prednisone 20 mg Oral tab 2 tabs once daily (Last dose: 05/24/2016) 5. Cipro 500 mg Oral tab 1 tab every 12 hours (Last dose: 05/24/2016) 6. Flagyl 500 mg Oral tab 1 tab every 8 hours (Last dose: 05/24/2016) - PMHx: afib; Hypertension; - PSHx: Tip of right middle finger amputated; left wrist surgery; - The history from nurses notes was reviewed: and I agree with what is documented. - Social history: Smoking status: Patient uses tobacco products, current every day smoker. No barriers to communication noted, The patient speaks fluent Icelandic, Speaks appropriately for age. - : The pt / caregiver states he / she is not on anticoagulants. Home medication list is obtained from the patient. - Hospitalizations: : No recent hospitalization is reported. - Exposure Risk Screening:: None identified. - Immunization history:: All immunizations up-to-date. - Family history: Not pertinent. - Social history:: the patient smokes cigarettes the patient drinks alcohol. ROS: 13:34 All systems are negative except as listed. pc Exam: 13:34 General Appearance: no acute distress, alert. pc 13:34 EENT: normal eye inspection, ears, nose and throat normal, pharynx normal, mucous membranes moist 13:34 Neck: The exam reveals no acute abnormalities. ROM is normal and painless. No nuchal rigidity is noted.. 13:34 Respiratory: no respiratory distress, normal breath sounds. 13:34 CVS: regular pulse rate, regular rhythm, normal S1 and S2, no murmurs, strong peripheral pulses, normal capillary refill. 13:34 Abdomen: soft, non-tender, no organomegaly, normal bowel sounds. 13:34 Back: normal inspection. 13:34 Skin: skin color is normal, warm, dry. 13:34 Extremities: The extremities have a grossly normal appearance, are non-tender, without acute ROM abnormalities. 13:34 Neuro: oriented x 3, cranial nerves normal as tested, no motor deficits, no sensory deficits. 13:34 Psych: normal mood. Vital Signs: 11:24 BP 102 / 78; Pulse 101; Resp 18; Temp 98.0(O); Pulse Ox 100% ; Weight 61.23 kg / 134.99 lr2 lbs (R); Height 5 ft. 7 in. (170.18 cm) (R); Pain 2/10; 12:01 BP 153 / 76 (auto/); ja5 12:01 Pulse 80 MON; Pulse Ox 100% ; ja5 12:44 BP 112 / 84 Supine; Pulse 98; ja5 12:44 BP 103 / 85 Sitting; Pulse 100; ja5 12:44 BP 108 / 90 Standing; Pulse 109; ja5 12:55 BP 111 / 83 (auto/); ja5 12:55 Pulse 84 MON; Pulse Ox 99% ; ja5 13:25 BP 118 / 89 (auto/); ja5 13:25 Pulse 90 MON; Pulse Ox 98% ; ja5 13:54 Pulse 76 MON; Pulse Ox 97% ; ja5 13:55 BP 88 / 63 (auto/); ja5 13:59 BP 108 / 73 (auto/); ja5 13:59 Pulse 80 MON; Pulse Ox 95% ; ja5 14:08 Pulse 76 MON; Pulse Ox 97% ; ja5 14:20 BP 108 / 78 (auto/); ja5 15:06 Pulse 138 MON; Pulse Ox 99% ; ja5 15:07 BP 108 / 67 (auto/); ja5 15:21 Pulse 152 MON; Pulse Ox 98% ; ja5 15:22 BP 110 / 59 (auto/); ja5 15:37 BP 120 / 59 (auto/); ja5 15:37 Pulse 156 MON; Pulse Ox 97% ; ja5 16:01 Pulse 126 MON; Pulse Ox 98% ; ja5 16:02 BP 88 / 59 (auto/); ja5 16:07 Pulse 156 MON; Pulse Ox 96% ; ja5 16:08 BP 85 / 64 (auto/); ja5 16:10 BP 85 / 64; Pulse 150; Resp 16; Temp 98.7(O); Pulse Ox 98% on R/A; Pain 0/10; ja5 16:18 Weight 59.87 kg / 131.99 lbs (M); rn1 16:32 BP 84 / 56 LA Supine (man/reg); ja5 17:18 BP 115 / 83 (auto/); ja5 17:20 Pulse 92 MON; Pulse Ox 98% ; ja5 17:59 BP 115 / 83; Pulse 120; Resp 20; Temp 97.4(A); Pulse Ox 94% on R/A; Pain 0/10; ja5 19:38 BP 103 / 75 (auto/); mlc 19:38 Pulse 86 MON; Pulse Ox 97% ; mlc 20:08 BP 111 / 80 (auto/); mlc 20:09 Pulse 78 MON; Pulse Ox 96% ; mlc 20:18 BP 106 / 71; Pulse 91; Resp 18; Temp 99.0; Pulse Ox 98% on R/A; Pain 0/10; mlc 20:40 BP 123 / 83; Pulse 90; Resp 18; Pulse Ox 96% on R/A; Pain 0/10; ar3 16:18 Body Mass Index 20.67 (59.87 kg, 170.18 cm) rn1 MDM: 11:57 ECG WITH READING ER PHYS+CARDIAG ordered. EDMS 12:24 [facility] Payment Agreement was scanned into [email or web address] and attached to record. lg 13:30 Financial registration complete. lg 13:30 -Blood Culture (Adults Only), peripheral from different site, or from device/port/PICC pc etc. if present ordered. 13:30 Call Respiratory ordered. pc 13:30 Eligibility Supervisor/Pulse Ox/q 15 min VS ordered. pc 13:30 IV Saline Lock ordered. pc 13:30 Rhythm Strip to chart ordered. pc 13:32 -Arterial Blood Gas Ordered. EDMS 13:32 B-Type Natiuretic Peptide Ordered. EDMS 13:32 Basic Metabolic Profile Ordered. EDMS 13:32 CBC with Diff Ordered. EDMS 13:32 Cardiac Injury Profile Ordered. EDMS 13:32 D-Dimer Quant Ordered. EDMS 13:32 Troponin Ordered. EDMS 13:32 -Blood Culture Ordered. EDMS 13:32 Chest, 1 View Ordered. EDMS 13:34 Differential Diagnosis: exertional dyspnea r/o AFib with RVR/ACS/PE; dizziness r/o pc dehydration, electrolyte changes. Plan: labs, EKG, imaging. Test interpretation: EKG. 13:41 Call Respiratory complete. deg 13:42 -Blood Culture (Adults Only), peripheral from different site, or from device/port/PICC deg etc. if present complete. 13:43 BLOOD CULTURES Ordered. EDMS 14:28 -Arterial Blood Gas Reviewed. pc 14:28 B-Type Natiuretic Peptide Reviewed. pc 14:28 Basic Metabolic Profile Reviewed. pc 14:28 CBC with Diff Reviewed. pc 14:28 D-Dimer Quant Reviewed. pc 14:28 Cardiac Injury Profile Reviewed. pc 14:28 Troponin Reviewed. pc 14:28 Chest, 1 View Reviewed. pc 14:29 CT Chest Angio R/O PE Ordered. EDMS 15:34 Physician consultation: Dr. Odell Woodard was contacted at 15:34, regarding patient's pc condition, and advises the medications/treatment as provided. 15:37 BED REQUEST+ADM ordered. EDMS 15:53 requires 7 blue tops, 1 tiger top, 3 purple tops per lab 4.21.14 ordered. pc 15:53 Weigh Pt on scale, in Kg (Do Not Use Reported Weight) ordered. pc 15:53 Anti Thrombin 3 Panel (ag/ac) Ordered. EDMS 15:53 Anti-Cardiolipin Antibodies Ordered. EDMS 15:53 Factor V Leiden Ordered. EDMS 15:53 Lupus Type Anticoagulant Ordered. EDMS 15:53 Protein C Functional Activity Ordered. EDMS 15:53 Protein S Functional Activity Ordered. EDMS 15:56 Duplex, Ext LOWER veins, bilat Ordered. EDMS 16:13 NS 0.9% 1000 ml IV at bolus once ordered. pc 16:29 PT & APTT Ordered. EDMS 17:04 Enoxaparin (1mg/kg) 60 mg Sub-Q once; Ensure no Heparin in past 6hrs. Ensure any pc baseline labs are drawn. ordered. 17:23 Admission / Observation Status ordered. EDMS 17:23 ECHOCARD,DOPPLER/COLOR FLOW ordered. EDMS 17:24 CARDIAC MARKER PANEL Ordered. EDMS 17:24 ETHYL ALCOHOL (ETHANOL) Ordered. EDMS 17:24 FACTOR II PROTHROMBIN GENE AN Ordered. EDMS 17:26 Data reviewed: old medical records, vital signs, nurses notes, EKG(s), lab test pc results, all radiology studies and available results. Test interpretation: LAB - all labs as ordered have been reviewed, interpreted and considered in the overall management of the clinical presentation; X-RAY - interpreted by Radiologist and personally reviewed, 1 view chest no acute disease, interpreted by Radiologist and personally reviewed, Chest CT; multiple PEs. The patient has been re-examined and re-evaluated. There is no appreciated change of the patient's symptoms at this time. Physician consultation: Dr. Yoly Ferguson regarding admission. Disposition: The historical points, examination findings, and any diagnostic results supporting the provided diagnosis, were discussed with the patient or legal guardian. The need for further work-up and/or treatment in the hospital was explained. 19:31 CARDIAC MARKER PANEL Ordered. EDMS 19:31 CARDIAC MARKER PANEL Ordered. EDMS 19:31 CBC WITH DIFFERENTIAL Ordered. EDMS 19:31 BASIC METABOLIC PROFILE Ordered. EDMS 20:23 LORazepam 1 mg IVP once ordered. pc 20:39 NPO DIET ordered. EDMS 20:52 CT Head without contrast Ordered. EDMS EC:34 Rate is 88 beats/min. Rhythm is regular, Normal Sinus Rhythm. QRS [place] is Normal. DC pc interval is normal. QRS interval is normal. QT interval is normal. No Q waves. T waves are Normal. No ST changes noted. Clinical impression: Normal Sinus Rhythm and possible LAE. No change from previous ECG in October,. Administered Medications: 15:35 CANCELLED (Other Intervention Used): Atenolol 25 mg PO once pc 16:20 Drug: NS 0.9% 1000 ml [sodium chloride 0.9 % intravenous solution] Route: IV; Rate: ja5 bolus; Site: right antecubital; 17:15 Drug: Enoxaparin (1mg/kg) 60 mg [enoxaparin 60 mg/0.6 mL subcutaneous syringe (0.6 mL)] ja5 {Co-Signature: dorotyh (Mariah Acevedo RN).} Route: Sub-Q; Site: right lower abdomen; 19:04 CANCELLED (Other Intervention Used): Atenolol 25 mg PO once ja5 20:27 Drug: LORazepam 1 mg [lorazepam 2 mg/mL injection solution (0.5 mL)] Route: IVP; Site: ko2 right antecubital; Critical Care Time: 17:26 Critical care time: Bedside Care: 30 minutes, Consultation: 20 minutes, Family pc Intervention: 15 minutes. Total time: 65 minutes Signatures: Dispatcher [employer] Patricia MD MD pc Murray, Denise, [employer] Ashley Mooney, RN Michaela Luo Reg Reg lg Fuller, Desiree,RN RN Keysha SpiveyRN Lakia Carrizales RN RN sls2 Ogden, Kari RN ko2 Anderson, Jessica RN ja5 Mariah [id number] The chart was reviewed and I authenticate all verbal orders and agree with the evaluation and treatment provided.Corrections: (The following items were deleted from the chart) 15:35 15:30 Atenolol 25 mg PO once ordered. pc pc 15:35 15:35 Atenolol 25 mg PO once ordered. pc pc 15:56 15:55 Duplex, Ext,LOWER veins,unilat+US ordered. EDMS EDMS 16:29 15:53 PT & APTT+LAB ordered. EDMS EDMS 19:04 15:39 Atenolol 25 mg PO once ordered. pc ja5 20:39 16:17 REGULAR+DIET ordered. EDMS EDMS 20:39 17:23 REGULAR DIET ordered. EDMS EDMS Attachments: 12:24 [facility] Agreement lg MTDD
[2016-05-25 21:00] VITALS: BP_SYST 142; BP_SYST 168; BP_DIAS 60; BP_DIAS 80
[2016-05-25] MEDS ORDERED: DIGOXIN INJ 0.5 MG/2 ML AMP (J1160) IV ONE (21:00)
[2016-05-25] MEDS: OXAZEPAM 10 MG CAP PO SCH (21:30)
--- NOTE | 2016-05-25 22:20 | REPUSA ---
CT of the head Clinical history: seizure. Technique: Multiple axial CT images were obtained through the head without administration of contrast . Comparison: 05/19/2015. Findings: The ventricles and sulci are symmetric bilaterally. There is no evidence of acute hemorrhag e or infarct. There is no midline shift, mass effect, or extra-axial fluid collection. The osseous st ructures are unremarkable. The visualized paranasal sinuses and mastoid air cells are clear. Impression: Negative study.
[2016-05-26] VITALS: BP 118/79
[2016-05-26] MEDS ORDERED: METOPROLOL 5 MG/5 ML VIAL IV STA (02:46)
--- NOTE | 2016-05-26 03:01 | IPNPDOC ---
Date Seen The patient was seen on 05/26/16. Progress Note SUBJECTIVE: Called to evaluate pt because telemetry showed afib. OBJECTIVE PHYSICAL EXAMINATION: VITAL SIGNS: Please see below. GENERAL: Sleeping, woke up and conversed. NAD CARDIOVASCULAR: irregular, no murmurs RESPIRATORY: clear b/l ASSESSMENT AND PLAN: This is a 55 y/o male admitted for PE and Atrial fibrillation with RVR. Pt is converting in and out of afib. We will give IV dose of Lopressor 5mg and continue to monitor. Pt appears asymptomatic at this time. VS, I&O, 24H, Fishbone Vital Signs/I&O Vital Signs Date Time Temp Pulse Resp B/P Pulse Ox O2 Delivery O2 Flow Rate FiO2 05/26/16 00:00 96.3 71 18 118/79 96 Room Air I&O- Last 24 Hours up to 6 AM 05/26/16 06:00 Intake Total 695 ml Output Total 0 ml Balance 695 ml Laboratory Data 24H LABS Laboratory Tests 2 05/25/16 12:54: Activated Partial Thromboplast Time 25.3L, Anion Gap 11, B-Type Natriuretic Peptide 172H, White Blood Count 7.9, Red Blood Count 4.63, Hemoglobin 15.1, Hematocrit 45.2, Mean Corpuscular Volume 97.7H, Mean Corpuscular Hemoglobin 32.7 , Mean Corpuscular Hemoglobin Concent 33.5, Red Cell Distribution Width 12.2, Platelet Count 171, Neutrophils (%) (Auto) 74.0H, Lymphocytes (%) (Auto) 16.9L, Monocytes (%) (Auto) 6.3H, Eosinophils (%) (Auto) 0.3, Basophils (%) (Auto) 0.2 , Neutrophils # (Auto) 5.9, Lymphocytes # (Auto) 1.3L, Monocytes # (Auto) 0.5, Eosinophils # (Auto) 0.0, Basophils # (Auto) 0.0, Blood Urea Nitrogen 9, Creatinine 1.03, Sodium Level 137, Potassium Level 3.2#L, Chloride Level 96L, Carbon Dioxide Level 30, Calcium Level 9.2, Total Creatine Kinase 51, Creatine Kinase MB 1.5, Creatine Kinase MB Relative Index 2.94, D-Dimer, Quantitative 2769.0H, Glomerular Filtration Rate > 60.0, Large Unclassified Cells # 0.2, Large Unclassified Cells % 2.4, Prothromb Time International Ratio 0.89, Prothrombin Time 12.1L, Troponin I < 0.02 05/25/16 13:41: Arterial Blood pH 7.588H, Arterial Blood Partial Pressure CO2 25.7L, Arterial Blood Partial Pressure O2 99.7, Arterial Blood Total CO2 24.8, Arterial Blood HCO3 24.0, Arterial Blood Base Excess 3.7H, Arterial Blood Oxygen Saturation 98.4, Blood Gas Bicarbonate Standard 27.8H, Oxygen Delivery Device NASAL LUIS 05/25/16 16:38: 05/25/16 16:40: 05/25/16 17:35: Creatine Kinase MB 1.9, Creatine Kinase MB Relative Index 4.52H, Ethyl Alcohol Level < 0.003, Total Creatine Kinase 42, Troponin I < 0.02 05/25/16 23:44: Creatine Kinase MB 2.9, Creatine Kinase MB Relative Index 3.62, Total Creatine Kinase 80#, Troponin I < 0.02 CBC/BMP Laboratory Tests 05/25/16 12:54 Calcium Level 9.2, Total Creatine Kinase 51, Red Blood Count 4.63, Mean Corpuscular Volume 97.7 H, Mean Corpuscular Hemoglobin 32.7, Mean Corpuscular Hemoglobin Concent 33.5, Red Cell Distribution Width 12.2, Neutrophils (%) (Auto ) 74.0 H, Lymphocytes (%) (Auto) 16.9 L, Monocytes (%) (Auto) 6.3 H, Eosinophils (%) (Auto) 0.3, Basophils (%) (Auto) 0.2, Neutrophils # (Auto) 5.9, Lymphocytes # (Auto) 1.3 L, Monocytes # (Auto) 0.5, Eosinophils # (Auto) 0.0, Basophils # (Auto) 0.0 Microbiology Microbiology 05/25/16 Blood Culture, Received Pending 05/25/16 Blood Culture, Received Pending GME ATTESTATION GME ATTESTATION My preceptor for this patient encounter was physically present in the building during the encounter and was fully available. As needed, all aspects of the patient interview, examination, medical decision making process, and medical care plan development were reviewed and approved by the preceptor. Preceptor is aware and concurs with the plan as stated in the body of this note and will attest to such by his/her cosignature. RICHARD VITAL DO May 26, 2016 03:01 FERCHO WEIR MD May 26, 2016 05:18
[2016-05-26 04:00] VITALS: BP 120/88
[2016-05-26] MEDS ORDERED: ENOXAPARIN 60 MG/0.6 ML SYR (J1650) SC SCH (06:00)
[2016-05-26] MEDS ORDERED: METOPROLOL TART 25 MG TABLET PO SCH (06:00)
[2016-05-26 06:30] LABS: BASO % 0.5 % (0.0-1.0); EOS # 0.2 K/mm3 (0.0-0.50); EOS % 2.3 % (0.0-3.0); LARGE UNSTAINED CELL # 0.2 K/mm3 (0.0-0.4); LARGE UNSTAINED CELL % 2.9 % (0.0-4.0); LYMPH # 2.4 K/mm3 (1.5-4.5); LYMPH % 33.3 % (24.0-44.0); MEAN CORPUSCULAR HEMOGLOBIN 33.7 pg (27.0-33.0); MEAN CORPUSCULAR HGB CONC 33.6 g/dl (32.0-36.5); MEAN CORPUSCULAR VOLUME 100.4 fl (80.0-96.0); MONO # 0.6 K/mm3 (0.0-0.8); MONO % 8.5 % (0.0-5.0); NEUTROPHILS # 3.5 K/mm3 (1.8-7.7); NEUTROPHILS % 52.6 % (36.0-66.0); PLATELET COUNT, AUTOMATED 159 k/mm3 (150-450); RED CELL DISTRIBUTION WIDTH 12.5 % (11.5-14.5); WHITE BLOOD COUNT 6.6 K/mm3 (4.0-10.0)
--- NOTE | 2016-05-26 06:31 | ECHO ---
DATE OF PROCEDURE: 05/25/2016 AGE: 55 GENDER: Male REFERRING PHYSICIAN: Dr. Yoly Ferguson. HEIGHT: 67 inches. WEIGHT: 134 pounds. BODY SURFACE AREA: 1.71 sq m. INPATIENT: PCU. INDICATION: Dyspnea. MEASUREMENTS: 2D MEASUREMENTS: RV - 4.2 cm LV- 3.5 cm Septum - 1.1 cm Posterior wall - 1.1 cm Aortic root: 3.6 cm LA - 2.8 cm LVEF - 75% DOPPLER MEASUREMENTS: AV - 1.3 m/s LVOT - 1.0 m/s LVOT diameter - 2.0 cm MV-E: 42 A: 51 EA ratio 0.8 Early mitral deacceleration time - 165 ms E-prime - 5.2 A-prime - 11 E/E prime ratio - 8 PV - 0.6 m/s Pulmonary artery acceleration time - 92 ms RVSP - 38 mmHg IVC - 1.5 cm COMMENTS: Normal sinus rhythm without intraventricular conduction disturbance. Normal left heart chamber sizes. Borderline dilated right heart chambers. Normal LV wall thickness. On real-time imaging from the parasternal and apical projections, wall motion was symmetrical and hyperkinetic. Normal-appearing mitral valvular apparatus and leaflet excursion with no posterior systolic buckling. Three equal size aortic cusps of normal thickness and cusp separation. Normal appearing aortic root size. No intracardiac mass or pericardial effusion. Color flow Doppler study taken from the parasternal and apical projection showed very mild mitral and mild tricuspid but no aortic insufficiency (physiological findings). Guided continuous wave Doppler of his aortic valve showed a normal peak systolic velocity against LV outflow tract obstruction. Pulsed and continuous wave Doppler of his LV inflow tract taken from the apical four-chamber projection showed normal diastolic filling velocities against mitral stenosis. There was a marginally more prominent late diastolic/atrial dependent filling pattern. There were no other Doppler findings to suggest LV diastolic dysfunction. Estimated mean left atrial pressure was within normal limits. Pulsed and continuous wave Doppler of his pulmonary trunk showed a normal peak systolic velocity against RV outflow tract obstruction. His pulmonary artery acceleration time was abbreviated suggestive of a mildly elevated pulmonary vascular resistance. Guided continuous wave Doppler of his tricuspid valve allowed our estimation of his right ventricular systolic pressure (mildly increased). His inferior vena cava was of normal size with normal respiratory collapse against an elevated central venous pressure. CONCLUSIONS: Normal left ventricular size, wall thickness and hyperkinetic wall motion. Normal left atrial size and Doppler assessment of LV diastolic function and estimated mean left atrial pressure. Mildly dilated right heart chambers with Doppler evidence of at least mild pulmonary hypertension. Normal IVC size and collapse against right heart failure.
[2016-05-26 06:43] LABS: ANION GAP 10 MEQ/L (8-16); BLOOD UREA NITROGEN 9 MG/DL (7-18); CALCIUM LEVEL 8.2 MG/DL (8.5-10.1); CARBON DIOXIDE LEVEL 25 MEQ/L (21-32); CHLORIDE LEVEL 105 MEQ/L (98-107); CREATININE FOR GFR 0.69 MG/DL (0.70-1.30); GLOMERULAR FILTRATION RATE > 60.0 (>56); GLUCOSE, FASTING 80 MG/DL (70-105); POTASSIUM SERUM 3.5 MEQ/L (3.5-5.1); SODIUM LEVEL 140 MEQ/L (136-145)
[2016-05-26 07:45] VITALS: BP 108/75
[2016-05-26] MEDS: FOLIC ACID 1 MG TAB PO SCH (08:48)
[2016-05-26] MEDS: OXAZEPAM 10 MG CAP PO SCH ×3 (08:48→20:55)
[2016-05-26] MEDS: PANTOPRAZOLE 40MG TAB (PROTONIX) PO SCH (08:48)
[2016-05-26] MEDS: THIAMINE 100 MG TAB PO SCH (08:48)
[2016-05-26] MEDS ORDERED: DIGOXIN 0.25 MG TAB PO SCH (09:00)
[2016-05-26] MEDS ORDERED: ATENOLOL 25 MG TAB PO SCH ×2 (09:00)
[2016-05-26 10:19] LABS: T UPTAKE 36 % (33-40); THYROXINE (T4) 6.6 UG/DL (4.5-12.0)
[2016-05-26 12:00] VITALS: BP 107/76
--- NOTE | 2016-05-26 14:16 | IPNPDOC ---
Subjective Date Seen The patient was seen on 05/26/16. Subjective Chief Complaint/HPI The patient is a 55-year-old male admitted with a reason for visit of Afib; Pulmonary Embolism. Events since last encounter Patient admitted yesterday, seizure overnight, with afib RVR on tele, back to sinus is am, aaox3, no chest pain, headache, lightheadedness, reported a bit tired almost back to baseline. dose not remenber the seizure General: Reports: Fatigue, Denies: Chills Constitutional: Denies: Chills, Fever, Night Sweats Eyes: Denies: Pain, Vision change ENT: Denies: Ear Pain, Head Aches Skin: Denies: Lesions, Rash Pulmonary: Denies: Dyspnea Cardiovascular: Denies: Chest Pain, Palpitations Gastrointestinal: Denies: Abdominal Pain, Nausea, Vomiting Genitourinary: Denies: Dysuria Hematologic: Denies: Bruising Objective Physical Examination General Exam: Positive: Alert, Cooperative, No Acute Distress Eye Exam: Positive: Conjunctiva & lids normal, EOMI, PERRLA ENT Exam: Positive: Atraumatic, Mucous membr. moist/pink Neck Exam: Positive: Supple Chest Exam: Positive: Clear to auscultation, Normal air movement Heart Exam: Positive: Normal S1, Normal S2, Rate Normal Telemetry: Positive: Other Telemetry: (episode of afib with rvr overnight), Sinus Abdomen Exam: Positive: Normal bowel sounds, Soft, Negative: Hepatospenomegaly, Tenderness Male Exam: Positive: Normal Genital Exam Extremity Exam: Negative: Edema Assessment /Plan Problems (1) Withdrawal seizures Status: Acute Problem Text: withdraw precaution serax standing PRN valium (2) Pulmonary embolism Status: Acute Problem Text: eliquis (3) Afib Status: Acute Problem Text: h/o a fib a fib with RVR given dig, cardiac enzyme appreciated thyroid profile appreciated cardiology consulted tele atenolol Elquis (4) Hypertension Status: Chronic Problem Text: borderline bp, close monitor (5) Tobacco abuse Status: Acute Problem Text: counseling provider refused nicotine patch (6) Alcohol dependence Status: Acute (7) Syncope Status: Acute Problem Text: possible related to PE vs ETOH, PT, orthostatic BP, tele Plan/VTE VTE Prophylaxis Ordered?: Yes (Eliquis) Disposition Pending PT, clinical improvement, VS, I&O, 24H, Lucian Vital Signs/I&O Vital Signs Date Time Temp Pulse Resp B/P Pulse Ox O2 Delivery O2 Flow Rate FiO2 05/26/16 08:47 84 05/26/16 08:00 05/26/16 07:45 98.3 22 97 Room Air I&O- Last 24 Hours up to 6 AM 05/26/16 06:00 Intake Total 1265 ml Output Total 0 ml Balance 1265 ml Laboratory Data 24H LABS Laboratory Tests 2 05/25/16 13:41: Arterial Blood pH 7.588H, Arterial Blood Partial Pressure CO2 25.7L, Arterial Blood Partial Pressure O2 99.7, Arterial Blood Total CO2 24.8, Arterial Blood HCO3 24.0, Arterial Blood Base Excess 3.7H, Arterial Blood Oxygen Saturation 98.4, Blood Gas Bicarbonate Standard 27.8H, Oxygen Delivery Device NASAL LUIS 05/25/16 16:38: 05/25/16 16:40: 05/25/16 17:35: Creatine Kinase MB 1.9, Creatine Kinase MB Relative Index 4.52H, Ethyl Alcohol Level < 0.003, Total Creatine Kinase 42, Troponin I < 0.02 05/25/16 23:44: Creatine Kinase MB 2.9, Creatine Kinase MB Relative Index 3.62, Total Creatine Kinase 80#, Troponin I < 0.02 05/26/16 06:12: Anion Gap 10, White Blood Count 6.6, Red Blood Count 3.96L, Hemoglobin 13.4L, Hematocrit 39.8L, Mean Corpuscular Volume 100.4H, Mean Corpuscular Hemoglobin 33.7H, Mean Corpuscular Hemoglobin Concent 33.6, Red Cell Distribution Width 12.5, Platelet Count 159, Neutrophils (%) (Auto) 52.6, Lymphocytes (%) (Auto) 33.3, Monocytes (%) (Auto) 8.5H, Eosinophils (%) (Auto) 2.3, Basophils (%) (Auto ) 0.5, Neutrophils # (Auto) 3.5, Lymphocytes # (Auto) 2.4, Monocytes # (Auto) 0.6, Eosinophils # (Auto) 0.2, Basophils # (Auto) 0.0, Blood Urea Nitrogen 9, Creatinine 0.69L, Sodium Level 140, Potassium Level 3.5, Chloride Level 105, Carbon Dioxide Level 25, Calcium Level 8.2L, Glomerular Filtration Rate > 60.0, Large Unclassified Cells # 0.2, Large Unclassified Cells % 2.9 05/26/16 09:22: Creatine Kinase MB 3.7H, Creatine Kinase MB Relative Index 3.24, Total Creatine Kinase 114, Troponin I < 0.02, Free Thyroxine Index 2.4, Thyroid Stimulating Hormone (TSH) 1.420, Thyroxine (T4) 6.6, Triiodothyronine (T3) Uptake 36 CBC/BMP Laboratory Tests 05/26/16 06:12 Calcium Level 8.2 L, Red Blood Count 3.96 L, Mean Corpuscular Volume 100.4 H, Mean Corpuscular Hemoglobin 33.7 H, Mean Corpuscular Hemoglobin Concent 33.6, Red Cell Distribution Width 12.5, Neutrophils (%) (Auto) 52.6, Lymphocytes (%) ( Auto) 33.3, Monocytes (%) (Auto) 8.5 H, Eosinophils (%) (Auto) 2.3, Basophils (% ) (Auto) 0.5, Neutrophils # (Auto) 3.5, Lymphocytes # (Auto) 2.4, Monocytes # ( Auto) 0.6, Eosinophils # (Auto) 0.2, Basophils # (Auto) 0.0 Microbiology Microbiology 05/25/16 Blood Culture, Received Pending 05/25/16 Blood Culture, Received Pending SUSANNE DIXON MD May 26, 2016 14:16
[2016-05-26 16:30] VITALS: BP_SYST 107; BP_SYST 120; BP_SYST 140; BP_DIAS 69; BP_DIAS 72; BP_DIAS 83
[2016-05-26 19:45] VITALS: BP 114/72
[2016-05-26] MEDS: APIXABAN 5 MG TAB (ELIQUIS) PO SCH (20:54)
[2016-05-26] MEDS: ATENOLOL 25 MG TAB PO SCH (20:55)
--- NOTE | 2016-05-26 22:06 | ECGEPIP ---
Stationary ECG Study [facility] Test Date: 2016-05-26 Pat Name: LAILA BLEDSOE Department: PCU Room: [place] [address] Gender: M Director [employer]: SHEILA : 1960 Requested By: ASHU SANTIZO Order Number: [id number] Reading MD: Rajat Harper Measurements Intervals [place] Rate: 117 P: ND: 0 QRS: 66 QRSD: 110 T: 43 QT: 347 QTc: 486 Interpretive Statements ATRIAL FIBRILLATION WITH RAPID VENTRICULAR RESPONSE Nonspecific ST-T wave abnormalities Electronically Signed On 05-26-2016 22:06:24 EST by Rajat Harper
[2016-05-27] VITALS: BP 108/59
[2016-05-27] MEDS ORDERED: SLF 3 ML SYR IV PRN (03:30)
[2016-05-27 04:00] VITALS: BP 106/73
[2016-05-27] MEDS: SLF 3 ML SYR IV SCH ×3 (05:39→20:38)
[2016-05-27 05:51] LABS: BASO % 0.4 % (0.0-1.0); EOS # 0.2 K/mm3 (0.0-0.50); EOS % 3.5 % (0.0-3.0); LARGE UNSTAINED CELL # 0.3 K/mm3 (0.0-0.4); LARGE UNSTAINED CELL % 3.8 % (0.0-4.0); LYMPH # 2.3 K/mm3 (1.5-4.5); LYMPH % 34.1 % (24.0-44.0); MEAN CORPUSCULAR HEMOGLOBIN 33.3 pg (27.0-33.0); MEAN CORPUSCULAR HGB CONC 33.1 g/dl (32.0-36.5); MEAN CORPUSCULAR VOLUME 100.4 fl (80.0-96.0); MONO # 0.5 K/mm3 (0.0-0.8); MONO % 7.7 % (0.0-5.0); NEUTROPHILS # 3.4 K/mm3 (1.8-7.7); NEUTROPHILS % 50.5 % (36.0-66.0); PLATELET COUNT, AUTOMATED 177 k/mm3 (150-450); RED CELL DISTRIBUTION WIDTH 12.3 % (11.5-14.5); WHITE BLOOD COUNT 6.7 K/mm3 (4.0-10.0)
[2016-05-27 06:08] LABS: ALBUMIN 2.7 GM/DL (3.2-5.2); ALKALINE PHOSPHATASE 103 U/L (45-117); ALT/SGPT 68 U/L (12-78); ANION GAP 7 MEQ/L (8-16); AST/SGOT 84 U/L (15-37); BILIRUBIN,TOTAL 0.3 MG/DL (0.2-1.0); BLOOD UREA NITROGEN 9 MG/DL (7-18); CALCIUM LEVEL 8.6 MG/DL (8.5-10.1); CARBON DIOXIDE LEVEL 29 MEQ/L (21-32); CHLORIDE LEVEL 104 MEQ/L (98-107); CREATININE FOR GFR 0.77 MG/DL (0.70-1.30); GLOMERULAR FILTRATION RATE > 60.0 (>56); GLUCOSE, FASTING 91 MG/DL (70-105); POTASSIUM SERUM 3.8 MEQ/L (3.5-5.1); SODIUM LEVEL 140 MEQ/L (136-145); TOTAL PROTEIN 5.7 GM/DL (6.4-8.2)
[2016-05-27 07:30] VITALS: BP_SYST 117; BP_SYST 127; BP_SYST 132; BP_DIAS 89; BP_DIAS 93
[2016-05-27] MEDS: APIXABAN 5 MG TAB (ELIQUIS) PO SCH ×2 (08:28→20:36)
[2016-05-27] MEDS: FOLIC ACID 1 MG TAB PO SCH (08:29)
[2016-05-27] MEDS: OXAZEPAM 10 MG CAP PO SCH ×2 (08:29→20:37)
[2016-05-27] MEDS: ATENOLOL 25 MG TAB PO SCH ×2 (08:29→20:37)
[2016-05-27] MEDS: PANTOPRAZOLE 40MG TAB (PROTONIX) PO SCH (08:29)
[2016-05-27] MEDS: THIAMINE 100 MG TAB PO SCH (08:29)
[2016-05-27] MEDS ORDERED: INFLUENZA QUADRIVALENT PF VACCINE 0.5ML SYRINGE/VIAL (90686) IM ONE (09:00)
--- NOTE | 2016-05-27 09:17 | CR ---
DATE OF CARDIOLOGY CONSULTATION: 05/26/2016 REFERRING PHYSICIAN: Yoly Ferguson MD INDICATION: Recurrent paroxysmal atrial fibrillation with rapid ventricular response. 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 He is known to my cardiology practice since outpatient consultation April 2013 for most intermittent palpitations and near syncope. 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 Had been having palpitations beginning approximately 2012, presented to [facility] Emergency Room then subsequently referred to my cardiology practice. In light of his history of palpitations, near syncope and abnormal EKG, an echocardiogram was performed April 2013, which showed normal cardiac chamber sizes, wall thickness and wall motion with pulmonary arterial pressure upper limits of normal, but normal appearing and functioning valvular structures. A treadmill study May 25, 2013 showed fair exercise tolerance with him completing 9 minutes of standard [facility] protocol. Peak heart rate (HR) 181, blood pressure 130/95. Effort limited by shortness of breath and calf discomfort. Baseline chest discomfort did not change. No EKG ST-T wave abnormality or arhythmia was observed. A 30 day event monitor was performed May 2013 and showed underlying sinus rhythm with premature atrial contractions (PACs) and episodic nonsustained bouts of paroxysmal supraventricular tachyarrhythmias. There were 38 mostly asymptomatic bouts of brief multifocal atrial tachycardia with maximal rate 150-170 beats per minute (BPM). A followup presentation to [facility] for sustained palpitations documented atrial fibrillation. His rhythm disturbances were believed to be related to his longstanding smoking history and moderate alcoholism. He had been encouraged to stop smoking and drinking. He was placed on metoprolol 50 mg twice a day with spironolactone 12.5 mg daily and aspirin 81 mg tablets, two tablets daily. He was again encouraged to stop drinking. A nicotine patch was prescribed briefly to help him stop smoking. His last office visit with us was April 19, 2015. He was given a followup appointment for 12 months, but he did not show for this visit May 12, 2016. He presented to [facility] ER May 23, 2016 with nausea, vomiting and diarrhea-diagnosed with noninfective gastroenteritis/colitis attributed to alcoholism. He admits to not having taken his customary medications but interestingly was in sustained sinus rhythm during his visit May 23, 2016. He presented back to the [facility] emergency room May 25, 2016 because of recurrent palpitations and bouts of near syncope/dyspnea. Again he was not taking his antiarrhythmic medications. Upon his presentation, his initial pulse was 101 and subsequently in the 80s per minute and regular. EKG showed sinus rhythm at 80 beats per minute but while in the emergency room he had paroxysmal atrial fibrillation with rapid ventricular response up to 150 beats per minute with associated drop in his blood pressure to 85/64. ER investigations included complete blood count, chemistry and D-dimer with troponin I as well as blood cultures. His D-dimer was markedly elevated at 2769. Chest x-ray was reported as showing normal heart size and clear lung hartman, but in light of his positive D-dimer a chest CT angiogram was performed which showed multiple pulmonary emboli in the distal right and left main pulmonary arteries and their proximal branches. In light of this he was admitted to the hospitalist service for anticoagulation. Consultation was placed with out cardiology service because of his current bout of atrial fibrillation with some rapid ventricular response. Given a single dose of atenolol in the emergency room his blood pressure, systolic, was in the 90s, but he was asymptomatic. He was receiving IV fluids in light of his recent GI problems. When I saw him this morning he claimed to be comfortable while at rest, but describes dyspnea with simply even walking in his room with subsequent palpitations and near-syncope. He has not fallen. Denies any chest discomfort but has had epigastric distress and abdominal pain with his GI upset as described above. Denies any lateralized neurological deficit, flank pain, hematuria or blue toe syndrome. Does admit to ingesting alcohol and smoking. Denies any calf discomfort or lower leg swelling. CORONARY RISK FACTORS: Male gender, age, longstanding smoking history. No history of obesity, hypercholesterolemia, hypertension, diabetes mellitus or family history of premature coronary heart disease. OTHER PAST MEDICAL HISTORY/SURGICAL HISTORY: History of moderate alcoholism complicated digital paresthesia. Chest CT angiogram March 2013 showed bibasilar bronchiectasis with 1 cm calcified granuloma left lower lobe, which is unchanged at the present. There was no pulmonary embolism on that study, but his liver showed diffuse hepatic hypodensities in keeping with cirrhosis. There was also a small left thyroid nodule. Remote right third distal third finger amputation. Colonoscopy 2014, which was reportedly negative. Raynaud's disease. SYSTEMS REVIEW: Denies any actual fever, chills or rigors, but does describe episodic diaphoresis with his profound lightheadedness. No apparent visual problems. Does not wear glasses. No hearing problems. Intermittent cough, nonproductive. Denies prior history of hemoptysis or pneumonia. Reduces appetite and occasional difficulty swallowing, abdominal cramps and loose motions as mentioned, but denies actually GI bleeding or melena. No urinary complaints. 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 Some cold intolerance and Raynaud's phenomenon as mentioned. No recent weight loss. All other systems review is negative. MEDICATIONS: When we last saw him he was prescribed Lopressor 50 mg twice a day, spironolactone 12.5 mg daily, aspirin 81 mg two tablets daily and a multivitamin. His dosage of Lopressor had been decreased to 25 mg twice a day by his primary care physician. ALLERGIES: None known. PHYSICAL EXAMINATION: VITAL SIGNS: Current heart rate was 78 BPM and regular. Blood pressure 110/75, respiratory rate 18 per minute with O2 saturation 97% on room air. He was afebrile. Weight 132 pounds, height 67 inches, body mass index (BMI) 20.7. CONSTITUTIONAL: Middle-aged male of medium body build with slight facial rubor, rhinophyma, and sun exposure. No current distress at rest. EYES: Conjunctiva were slightly injected. No pallor or icterus. No xanthelasma. ENT: Edentulous upper jaw with lower teeth showing decay. Smells of tobacco. Normal oral moisture. NECK: Trachea midline, thyroid not enlarged. Jugular veins were at the level of the sternal angle. RESPIRATORY: Slightly increased anterior to posterior chest diameter with slightly decreased respiratory excursion. A few scattered inspiratory crepitations both lower lobes posteriorly. Slight prolongation of expiration but no audible wheeze. CARDIOVASCULAR: Apical impulse was not palpable. Heart sounds were distant. No audible gallop or murmur. Normal carotids upstrokes and volume with no bruits. Abdominal aorta was not palpable. No bruits. Femoral pulses were symmetrical and normal as were pedal pulses. EXTREMITIES: There was no dependent edema. No varicose veins. No clubbing, peripheral cyanosis or splinter hemorrhages. GI: Currently soft with slightly tender epigastric region to deep palpations. Normal bowel sounds. No hepatosplenomegaly. Liver span 9 cm in the right midclavicular line. RECTAL EXAM: Not indicated at this time. MUSCULOSKELETAL: Gait was not tested at this time. No obvious joint deformities. Muscular strength and tone appeared to be fairly normal. SKIN: Facial changes as mentioned above. No other rashes, ecchymotic lesions. NEUROLOGICAL/PSYCH: Bright, alert and oriented. Gave a lucid history. Eye, facial and extremity movements were symmetrical with no abnormal movements. Affect was normal. INVESTIGATIONS: Chest x-ray May 25, 2016 performed in the emergency room yesterday afternoon was reviewed independently - portable upright study showing a normal appearing heart size even allowing for this technique. Greater vessels were also normal. Lung hartman appear to be slightly hyperinflated with calcified nodule left lower lobe as previously noted. Chest CT angiogram performed yesterday was also reviewed independently and has obvious cut off both pulmonary arteries related to thrombus/emboli. Heart chamber sizes appeared to be abnormal with slightly dilated right ventricle and right atrium as well as pulmonary trunk with the latter measuring 3.0 cm. His inferior vena cava (IVC) measures 2.2 cm upper limits of normal to mildly dilated. There was no pericardial effusion. Thoracic aorta was not abnormal. EKG: Study performed May 25 at 12:00 noon showed sinus rhythm at 88 BPM with left atrial conduction disturbance. There was an incomplete left bundle branch block configuration. This did not appear dramatically changed from our last study April 19, 2015. Followup study May 26 at 2:40 a.m. showed atrial fibrillation with somewhat rapid ventricular response averaging 117 BPM. Associated with his rhythm change, he did develop subtle diffuse ST-T wave abnormalities. LABORATORY DATA: Admission hemoglobin 15.1 with normal white blood cell count and platelet count with IV fluid administration. His hemoglobin has drifted to 13.4. Baseline PT/INR/PTT were essentially normal. Arterial blood gas on supplemental oxygen by nasal prongs showed a pH of 7.59, pCO2 of 26, pO2 of 99.7. Admission chemistry showed hypokalemia, calcium 3.2, other electrolytes were normal. BUN 9, creatinine 1.0. Random glucose 100. CPK was normal. Troponin I was negative. BNP was marginally increased at 172. Believed to be a reflection of his pulmonary embolism. Ultrasensitive TSH was normal. His followup serial troponin I levels have been negative. Following potassium replacement his potassium this morning was 3.5. Urine toxicology yesterday: Ethyl alcohol was negative. Study for hypercoagulative state were requested yesterday. Echocardiogram: A followup study was requested yesterday by the primary physician and this showed normal left heart chamber sizes and left ventricle (LV) wall thickness with hyperkinetic wall motion estimated left ventricular ejection fraction (LVEF) of 75%. Normal Doppler assessment of LV diastolic function. His right heart chambers were mildly dilated with Doppler evidence of at least mild pulmonary hypertension. His IVC size was upper limits of normal with normal respiratory collapse against right heart failure. Normal appearing and functioning valvular structures. IMPRESSION/PLAN: 1. Paroxysmal atrial fibrillation: Well recognized entity in this gentleman, believed to be related to his alcoholism. Admits to continuing to drink caffeinated beverages and imbibe alcohol despite this problem. Current relatively rapid ventricular responses observed due to recent inability to keep his medications down with his GI upset. It is likely his recent pulmonary emboli may well have contributed to atrial ectopic activity and increased risk of recurrent atrial tachyarrhythmias. As there appears to be a clear cut trigger for his rhythm disturbance that he is not modifying on his own, I would focus on control of his ventricular response with paroxysms of arrhythmia rather than administer antiarrhythmic therapy especially with prior CT scan evidence suggestive of cirrhosis. I believe this may require a combination of digoxin with low dose atenolol. I would recommend going for once a day medications in order to improve compliance. Aspirin antiplatelet therapy of course at this point is replaced with anticoagulation primarily because of his multiple pulmonary emboli. Fortunately, he has been of any symptom or sign to suggest systemic embolic phenomenon. 2. Abnormal EKG: Despite his multiple pulmonary emboli and multiple coronary risks factors, he has been free of chest pain. Despite the observed ST-T wave abnormalities noted with his paroxysm of atrial fibrillation with rapid ventricular response, prior regular treadmill study showed a favorable coronary prognosis in 2014. Despite his tachyarrhythmia and the stress of his pulmonary emboli, serial troponin I levels here have been negative. Will continue on protective beta otis atenolol and oral anticoagulation. I would recommend the use of once a day Xarelto upon his discharge again primarily to improve compliance. 3. Shortness of breath. Believed to be related to multiple factors including his longstanding smoking induced obstructive lung disease. Chest x-ray shows hyperinflated lung hartman consistent with air trapping. Obviously his multiple pulmonary emboli are also contributing. We have again emphasized the importance of smoking cessation. He is being treated with oral anticoagulation per his primary service for his pulmonary emboli. I believe anticoagulation therapy should be lifelong in the absence of clear cut precipitating factor and his multiple pulmonary emboli. 4. Cor pulmonale: Has both CT scan and echocardiographic evidence of at least right heart chamber enlargement and dilatation of his pulmonary trunk in keeping with pulmonary hypertension that is not attributable to left heart disease. Fortunately, though he described effort related near-syncope, and has had soft blood pressures with bouts of his atrial fibrillation and rapid ventricular response, his current blood pressure in sinus rhythm is fine and he does not have elevated neck veins to suggest right heart failure. We will follow him briefly with you and appreciate the opportunity to participate in his care. Best regards, Odell Woodard MD [facility]
--- NOTE | 2016-05-27 09:46 | ECGEPIP ---
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
[2016-05-27] MEDS ORDERED: ELIQ5TAB PO (11:31)
[2016-05-27 12:00] VITALS: BP 131/91
[2016-05-27] MEDS: DIGOXIN 0.25 MG TAB PO SCH (14:08)
[2016-05-27 16:00] VITALS: BP 116/76
--- NOTE | 2016-05-27 18:59 | IPNPDOC ---
Subjective Date Seen The patient was seen on 05/27/16. Subjective Chief Complaint/HPI The patient is a 55-year-old male admitted with a reason for visit of Afib; Pulmonary Embolism. Events since last encounter no acute events, denied cp, sob, f/c/n/v. no further seizure General: Denies: Chills, Fatigue Constitutional: Denies: Chills, Fever, Weakness Eyes: Denies: Pain, Vision change ENT: Denies: Ear Pain, Head Aches Skin: Denies: Rash Pulmonary: Denies: Cough, Dyspnea Cardiovascular: Denies: Chest Pain, Palpitations Gastrointestinal: Denies: Abdominal Pain, Nausea, Vomiting Genitourinary: Denies: Dysuria, Frequency Objective Physical Examination General Exam: Positive: Alert, Cooperative, No Acute Distress Eye Exam: Positive: Conjunctiva & lids normal, EOMI, PERRLA ENT Exam: Positive: Atraumatic, Mucous membr. moist/pink Neck Exam: Positive: Supple Chest Exam: Positive: Clear to auscultation, Normal air movement Heart Exam: Positive: Normal S1, Normal S2, Rate Normal Telemetry: Positive: Other Telemetry: (episode of afib with rvr overnight), Sinus Abdomen Exam: Positive: Normal bowel sounds, Soft, Negative: Hepatospenomegaly, Tenderness Male Exam: Positive: Normal Genital Exam Extremity Exam: Negative: Edema Assessment /Plan Problems (1) Withdrawal seizures Status: Acute Problem Text: withdraw precaution serax standing decreased PRN valium (2) Pulmonary embolism Status: Acute Problem Text: eliquis PFS for aproval (3) Afib Status: Acute Problem Text: h/o a fib a fib with RVR given dig, cardiac enzyme appreciated thyroid profile appreciated cardiology consulted tele atenolol Elquis (4) Hypertension Status: Chronic Problem Text: borderline bp, close monitor, orthostatic + likely 2/2 to autonomic disfuction 2/2 to ETOH (5) Tobacco abuse Status: Acute Problem Text: counseling provider refused nicotine patch (6) Alcohol dependence Status: Acute (7) Syncope Status: Acute Problem Text: possible related to PE vs ETOH, PT, orthostatic BP + 2/2 to likely autonomic dysfunction due to ETOH , tele Plan/VTE VTE Prophylaxis Ordered?: Yes (Eliquis) Disposition PT, PFS for Eliquis VS, I&O, 24H, Fishbone Vital Signs/I&O Vital Signs Date Time Temp Pulse Resp B/P Pulse Ox O2 Delivery O2 Flow Rate FiO2 05/27/16 14:08 69 05/27/16 12:00 98.2 20 131/91 97 Room Air I&O- Last 24 Hours up to 6 AM 05/27/16 05:59 Intake Total 2070 ml Output Total 0 ml Balance 2070 ml Laboratory Data 24H LABS Laboratory Tests 2 05/27/16 05:31: Blood Urea Nitrogen 9, Creatinine 0.77, Sodium Level 140, Potassium Level 3.8, Chloride Level 104, Carbon Dioxide Level 29, Calcium Level 8.6, Aspartate Amino Transf (AST/SGOT) 84H, Alanine Aminotransferase (ALT/SGPT) 68, Alkaline Phosphatase 103, Total Bilirubin 0.3, Total Protein 5.7L, Albumin 2.7L, Albumin/ Globulin Ratio 0.90L, Anion Gap 7L, White Blood Count 6.7, Red Blood Count 3.89L , Hemoglobin 12.9L, Hematocrit 39.0L, Mean Corpuscular Volume 100.4H, Mean Corpuscular Hemoglobin 33.3H, Mean Corpuscular Hemoglobin Concent 33.1, Red Cell Distribution Width 12.3, Platelet Count 177, Neutrophils (%) (Auto) 50.5, Lymphocytes (%) (Auto) 34.1, Monocytes (%) (Auto) 7.7H, Eosinophils (%) (Auto) 3.5H, Basophils (%) (Auto) 0.4, Neutrophils # (Auto) 3.4, Lymphocytes # (Auto) 2.3, Monocytes # (Auto) 0.5, Eosinophils # (Auto) 0.2, Basophils # (Auto) 0.0, Glomerular Filtration Rate > 60.0, Large Unclassified Cells # 0.3, Large Unclassified Cells % 3.8 05/27/16 17:02: Bedside Glucose (Misc Panel) 108H CBC/BMP Laboratory Tests 05/27/16 05:31 Calcium Level 8.6, Aspartate Amino Transf (AST/SGOT) 84 H, Alanine Aminotransferase (ALT/SGPT) 68, Alkaline Phosphatase 103, Total Bilirubin 0.3, Total Protein 5.7 L, Albumin 2.7 L, Red Blood Count 3.89 L, Mean Corpuscular Volume 100.4 H, Mean Corpuscular Hemoglobin 33.3 H, Mean Corpuscular Hemoglobin Concent 33.1, Red Cell Distribution Width 12.3, Neutrophils (%) (Auto) 50.5, Lymphocytes (%) (Auto) 34.1, Monocytes (%) (Auto) 7.7 H, Eosinophils (%) (Auto) 3.5 H, Basophils (%) (Auto) 0.4, Neutrophils # (Auto) 3.4, Lymphocytes # (Auto) 2.3, Monocytes # (Auto) 0.5, Eosinophils # (Auto) 0.2, Basophils # (Auto) 0.0 Microbiology Microbiology 05/25/16 Blood Culture - Preliminary, Resulted No Growth after 48 hours. All Specime... 05/25/16 Blood Culture - Preliminary, Resulted No Growth after 48 hours. All Specime... SUSANNE DIXON MD May 27, 2016 18:59
--- NOTE | 2016-05-27 19:06 | IPN ---
DATE: 05/27/2016 CARDIOLOGY PROGRESS NOTE SUBJECTIVE: Has been up on the hirsch ambulating with physical therapy and has been free of effort dyspnea or recurrent effort dizziness as he had when he came into the hospital. No recurrent palpitations today. Denies any bleeding problems on his current oral anticoagulation. OBJECTIVE: Pleasant, middle-aged male, of medium body build, in no acute distress. Heart rate 74 beats per minute (BPM) and regular, blood pressure 118/70 supine, 112/70 standing, respiratory rate 16 per minute, oxygen saturation 97% on room air. Afebrile. Curiously, his weight is 3 kg more than yesterday, questionable, questionable. No pallor or cyanosis, normal oral moisture. Trachea midline. Neck veins did not appear to be elevated. Has good air entry over both lung hartman at this time with no inspiratory rales. Slight prolongation of expiration but no audible wheeze. Heart sounds were unchanged. No dependent edema. 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 On his combination therapy has been free of recurrent atrial fibrillation with rapid ventricular response as we observed yesterday. INVESTIGATIONS: Blood work today showed hemoglobin had drifted slightly down to 12.9 from 13.4 yesterday. Normal white blood cell count and platelet count. His chemistry confirmed an electrolyte balance with normal BUN and creatinine, fasting glucose 91, serum albumin 2.7, with calcium 8.6. Liver function studies were normal. IMPRESSION/PLAN: 1. Paroxysmal atrial fibrillation: Gratifyingly, on his combination digoxin, atenolol, and oral anticoagulation, has been free of recurrent atrial tachyarrhythmia. I would like to monitor him with increasing ambulation for the next 48 hours in order to confirm the efficacy of his current combination beta otis and digoxin. I am sure his pulmonary embolic events contributed to triggering recurrent atrial tachyarrhythmia. 2. Shortness of breath: Undoubtedly related to his multiple pulmonary emboli. The fact he has been able to ambulate without dyspnea or faintness I believe is a reflection of a reduction in pulmonary vascular resistance and improved flow to the left ventricle now that he has been receiving his oral anticoagulation. 3. Abnormal EKG: Has remained free of effort related chest pressure. Tolerating his beta otis therapy without aggravating his pulmonic problems. Will remain on combination of protective atenolol and oral anticoagulant indefinitely. 4. Cor pulmonale: Noninvasive cardiac testing has confirmed significant right heart chamber enlargement and pulmonary hypertension likely related to his multiple pulmonary emboli. I am convinced oral anticoagulation and gradual relief of pulmonary vascular obstruction posed by his pulmonary emboli will improve his pulmonary arterial pressure. I will plan on continuing to follow him with you and appreciate the opportunity to participate in his care. Best regards.
[2016-05-27 20:00] VITALS: BP_SYST 123; BP_SYST 127; BP_SYST 140; BP_DIAS 81; BP_DIAS 88; BP_DIAS 91
[2016-05-27] MEDS: LR 1,000 ML IV SCH (20:36)
--- NOTE | 2016-05-27 21:56 | EDDOCDS ---
Nurse's Notes [facility] Name: Jayro Delgado Age: 55 yrs Sex: Male : 1960 Arrival Date: 05/25/2016 Time: 11:23 Bed 11 Private MD: Chance Vora J Diagnosis: Pulmonary embolism;Persistent atrial fibrillation;Hypotension;Patient's noncompliance with medical treatment and regimen Presentation: 05/25 11:28 Presenting complaint: Patient states: was seen here sat diagnosed with diarrhea, nausea dsf and vomiting. Since then when pt walks he gets dizzy and gets SOB. Adult Sepsis Screening: The patient does not have new or worsening altered mentation. Patient's respiratory rate is less than 22. Systolic blood pressure is greater than 100. Patient has a qSOFA score of 0- Negative Sepsis Screen. Suicide/Homicide risk assessment- the patient denies having any suicidal and/or homicidal ideations and does not present with any other emotional, behavioral or mental health complaints. 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 Transition of care: patient was not received from another setting of care. 11:28 Acuity: PAUL Level 3 dsf 11:28 Method Of Arrival: Wheelchair dsf Triage Assessment: 11:31 General: Appears in no apparent distress, Behavior is appropriate for age, cooperative. dsf Pain: Denies pain. HIV screening NA for this visit Offered previously. Neurological: Reports dizziness with walking . Respiratory: Onset: The symptoms/episode began/occurred yesterday, Reports shortness of breath on exertion since yesterday. Historical: - Allergies: no known allergies; - Home Meds: 1. aspirin 162 mg Oral TbEC 1 tab once daily (Last dose: 05/24/2016) 2. Metoprolol 25mg daily (Last dose: 05/24/2016) 3. multivitamin Oral tab daily (Last dose: 05/24/2016) 4. prednisone 20 mg Oral tab 2 tabs once daily (Last dose: 05/24/2016) 5. Cipro 500 mg Oral tab 1 tab every 12 hours (Last dose: 05/24/2016) 6. Flagyl 500 mg Oral tab 1 tab every 8 hours (Last dose: 05/24/2016) - PMHx: afib; Hypertension; - PSHx: Tip of right middle finger amputated; left wrist surgery; - The history from nurses notes was reviewed: and I agree with what is documented. - Social history: Smoking status: Patient uses tobacco products, current every day smoker. No barriers to communication noted, The patient speaks fluent Pakistani, Speaks appropriately for age. - : The pt / caregiver states he / she is not on anticoagulants. Home medication list is obtained from the patient. - Hospitalizations: : No recent hospitalization is reported. - Exposure Risk Screening:: None identified. - Immunization history:: All immunizations up-to-date. - Family history: Not pertinent. - Social history:: the patient smokes cigarettes the patient drinks alcohol. Screenin:42 Screening information is obtained from the patient. Fall risk: No risks identified. ja5 Assistance ADL's: requires no assistance with activities of daily living. Abuse/DV Screen: The patient / caregiver reports he/she is: not in a situation that causes fear, pain or injury. Nutritional screening: On low sodium, no caffeine. Advance Directives: Currently, there is no health care proxy. There is no active DNR order. There is no living will. There is no Power of Ophthalmic Asst. home support is adequate. Assessment: 12:39 General: Appears in no apparent distress, Behavior is appropriate for age, cooperative. ja5 Pain: Denies pain. Neurological: Level of Consciousness is awake, alert, Oriented to person, place, time. Cardiovascular: Capillary refill < 3 seconds Heart tones S1 S2 present Rhythm is sinus rhythm No ectopy. Cardiovascular: Chest pain is denied. Respiratory: Airway is patent Respiratory effort is even, unlabored, Respiratory pattern is regular, symmetrical, Breath sounds are clear bilaterally. Derm: Skin is pink, warm & dry. 13:31 General: Appears in no apparent distress, patient is resting comfortably. Harshad HARRIS in hs1 to see patient and has no other questions at this time. . Pain: Denies pain. 14:11 General: Patient up to bathroom. Ambulated with steady gait and no signs of respiratory ja5 distress noted. . 14:20 General: Upon exiting the bathroom patient became dizzy and was returned to his room ja5 via wheelchair. Patient was hooked up to the monitor which displayed a HR 170-190 afib RVR, intermittent SR with bigeminal PVCs and a triplet. Dr. Patricia aware of change in patient status.. 15:11 General: Patient is laying in stretcher with visitors at bedside. HR 140s afib RVR on ja5 hall monitor. Respirations are even and unlabored, color is pink. Bed in low position, call lynne in reach. . 16:06 General: Patient is laying in stretcher, awake and alert with no complaints of pain. ja5 Respirations are even and unlabored, patient denies being SOB. HR 160 afib RVR on hall monitor. Patient stated that if "feels like I have a bubble in my chest." Bed in low position, call lynne in reach, family at bedside.. 17:59 General: Appears in no apparent distress, Behavior is appropriate for age, cooperative. ja5 Pain: Denies pain. Neurological: Level of Consciousness is awake, alert, Oriented to person, place, time. Cardiovascular: Capillary refill < 3 seconds Rhythm is atrial fibrillation with rapid ventricular response. Respiratory: Airway is patent Respiratory effort is even, unlabored, Respiratory pattern is regular, symmetrical, Denies shortness of breath at rest. Derm: Skin is pink, warm & dry. 19:39 General: Appears in no apparent distress, comfortable, Behavior is cooperative, mlc pleasant. Pain: Denies pain. Neurological: Level of Consciousness is awake, alert, Oriented to person, place, time. Respiratory: Airway is patent Respiratory effort is even, unlabored, Respiratory pattern is regular. Derm: Skin is pink, warm & dry. 20:18 General: Appears in no apparent distress, comfortable. Pain: Denies pain. Neurological: mlc Level of Consciousness is awake, alert, Oriented to person, place, time. Respiratory: Airway is patent Respiratory effort is even, unlabored, Respiratory pattern is regular. 20:30 General: Pt found to be having seizure activity lasting approx 90-120 Dr Patricia present edwardo and order for Ativan 1 mg ordered... 20:46 General: Dr Ferguson examining patient at this time, he awake and alert.. mar Vital Signs: 11:24 BP 102 / 78; Pulse 101; Resp 18; Temp 98.0(O); Pulse Ox 100% ; Weight 61.23 kg (R); lr2 Height 5 ft. 7 in. (170.18 cm) (R); Pain 2/10; 12:01 BP 153 / 76 (auto/); ja5 12:01 Pulse 80 MON; Pulse Ox 100% ; ja5 12:44 BP 112 / 84 Supine; Pulse 98; ja5 12:44 BP 103 / 85 Sitting; Pulse 100; ja5 12:44 BP 108 / 90 Standing; Pulse 109; ja5 12:55 BP 111 / 83 (auto/); ja5 12:55 Pulse 84 MON; Pulse Ox 99% ; ja5 13:25 BP 118 / 89 (auto/); ja5 13:25 Pulse 90 MON; Pulse Ox 98% ; ja5 13:54 Pulse 76 MON; Pulse Ox 97% ; ja5 13:55 BP 88 / 63 (auto/); ja5 13:59 BP 108 / 73 (auto/); ja5 13:59 Pulse 80 MON; Pulse Ox 95% ; ja5 14:08 Pulse 76 MON; Pulse Ox 97% ; ja5 14:20 BP 108 / 78 (auto/); ja5 15:06 Pulse 138 MON; Pulse Ox 99% ; ja5 15:07 BP 108 / 67 (auto/); ja5 15:21 Pulse 152 MON; Pulse Ox 98% ; ja5 15:22 BP 110 / 59 (auto/); ja5 15:37 BP 120 / 59 (auto/); ja5 15:37 Pulse 156 MON; Pulse Ox 97% ; ja5 16:01 Pulse 126 MON; Pulse Ox 98% ; ja5 16:02 BP 88 / 59 (auto/); ja5 16:07 Pulse 156 MON; Pulse Ox 96% ; ja5 16:08 BP 85 / 64 (auto/); ja5 16:10 BP 85 / 64; Pulse 150; Resp 16; Temp 98.7(O); Pulse Ox 98% on R/A; Pain 0/10; ja5 16:18 Weight 59.87 kg (M); rn1 16:32 BP 84 / 56 LA Supine (man/reg); ja5 17:18 BP 115 / 83 (auto/); ja5 17:20 Pulse 92 MON; Pulse Ox 98% ; ja5 17:59 BP 115 / 83; Pulse 120; Resp 20; Temp 97.4(A); Pulse Ox 94% on R/A; Pain 0/10; ja5 19:38 BP 103 / 75 (auto/); mlc 19:38 Pulse 86 MON; Pulse Ox 97% ; mlc 20:08 BP 111 / 80 (auto/); mlc 20:09 Pulse 78 MON; Pulse Ox 96% ; mlc 20:18 BP 106 / 71; Pulse 91; Resp 18; Temp 99.0; Pulse Ox 98% on R/A; Pain 0/10; mlc 20:40 BP 123 / 83; Pulse 90; Resp 18; Pulse Ox 96% on R/A; Pain 0/10; ar3 16:18 Body Mass Index 20.67 (59.87 kg, 170.18 cm) rn1 Vitals: 11:24 Log In Time: May 25, 2016 at 11:23. lr2 ED Course: 11:24 Patient visited by Hannah Whitaker. lr2 11:24 Patient moved to Waiting lr2 11:25 Chance Vora is Private Physician. lr2 11:26 Patient moved to Pre RCE lr2 11:29 Triage Initiated dsf 11:55 Patient moved to PR2 / ead 12:01 EKG done. (by ED staff). Reviewed by Grupo aPtricia MD. ar3 12:02 Patient visited by Danielle Jain PCA. ar3 12:12 Patient moved to Triage 2 dsf 12:20 Riya Hinojosa,RN is Primary Nurse. nb2 12:20 Mariah Acevedo, JAIME is Primary Nurse. nb2 12:20 Patient moved to 11 nb2 12:24 COUNTS INCLUDE 234 BEDS AT THE [facility] Payment Agreement was scanned into [employer] and attached to record. lg 12:26 Patient visited by Nayeli Robles. nb2 12:26 Placed in gown. Bed in low position. Call light in reach. Side rails up X2. Cardiac nb2 monitor on. Pulse ox on. NIBP on. 12:40 The patient / caregiver is instructed regarding the plan of care and ED course. ja5 12:43 Patient visited by Riya Hinojosa RN. ja5 13:05 Grupo Patricia MD is Attending Physician. pc 13:29 Patient visited by Grupo Patricia MD. pc 13:30 Inserted saline lock: 20 gauge in right antecubital area. ja5 13:49 Patient visited by Nayeli Robles. nb2 13:51 -Arterial Blood Gas Sent. js11 13:58 -Blood Culture Sent. jc4 14:25 Chest, 1 View Returned. EDMS 14:48 Patient visited by Riya Hinojosa RN. ja5 15:57 Patient visited by Riya Hinojosa RN. ja5 16:24 CT Chest Angio R/O PE Returned. EDMS 16:26 Patient moved to Ultrasound br3 16:45 Protein S Functional Activity Sent. rn1 16:45 Protein C Functional Activity Sent. rn1 16:45 Lupus Type Anticoagulant Sent. rn1 16:45 Factor V Leiden Sent. rn1 16:45 Anti-Cardiolipin Antibodies Sent. rn1 16:45 Anti Thrombin 3 Panel (ag/ac) Sent. rn1 17:06 Chest, 1 View Returned. EDMS 17:10 Patient moved to 11 br3 17:12 Patient visited by Riya Hinojosa RN. ja5 17:26 Yoly Ferguson is Hospitalizing Provider. pc 17:51 Duplex, Ext LOWER veins, bilat Returned. EDMS 18:02 No procedures done that require assistance. ja5 19:02 Keysha Gomez,RN is Primary Nurse. mlc 19:07 Primary Nurse role handed off by Riya Hinojosa RN ja5 19:07 Primary Nurse role handed off by Mariah Acevedo RN ja5 19:40 Patient visited by Keysha Gomez RN. mlc 20:40 Patient visited by Danielle Jain PCA. ar3 Administered Medications: 15:35 CANCELLED (Other Intervention Used): Atenolol 25 mg PO once pc 16:20 Drug: NS 0.9% 1000 ml [sodium chloride 0.9 % intravenous solution] Route: IV; Rate: ja5 bolus; Site: right antecubital; 17:15 Drug: Enoxaparin (1mg/kg) 60 mg [enoxaparin 60 mg/0.6 mL subcutaneous syringe (0.6 mL)] ja5 {Co-Signature: jc4 (Mariah Acevedo RN).} Route: Sub-Q; Site: right lower abdomen; 19:04 CANCELLED (Other Intervention Used): Atenolol 25 mg PO once ja5 20:27 Drug: LORazepam 1 mg [lorazepam 2 mg/mL injection solution (0.5 mL)] Route: IVP; Site: ko2 right antecubital; RT: 13:51 ABG's drawn from right radial artery allens test done and positive pressure held for 5 js11 minutes no bleeding noted specimen sent pt. tolerated well. Order Results: Lab Order: -Arterial Blood Gas; [facility] 05/25/16 13:41 Test: ABG pH (ARTERIAL); Value: 7.588; Range: 7.350-7.450; Abnormal: Above high normal; Units: UNITS; Status: F Test: ABG PARTIAL PRESSURE CO2; Value: 25.7; Range: 35.0-45.0; Abnormal: Below low normal; Units: mmHg; Status: F Test: ABG PARTIAL PRESSURE O2; Value: 99.7; Range: 75.0-100.0; Units: mmHg; Status: F Test: ABG TOTAL CO2; Value: 24.8; Range: 22.0-29.0; Units: MEQ/L; Status: F Test: ABG HCO3; Value: 24.0; Range: 22.0-26.0; Units: MEQ/L; Status: F Test: ABG BASE EXCESS; Value: 3.7; Range: -2.0-2.0; Abnormal: Above high normal; Status: F Test: ABG STANDARD HCO3; Value: 27.8; Range: 22.0-26.0; Abnormal: Above high normal; Units: MEQ/L; Status: F Test: ABG O2 SATURATION; Value: 98.4; Range: 95.0-99.0; Units: %; Status: F Test: ABG DEVICE; Value: NASAL LUIS; Status: F Lab Order: B-Type Natiuretic Peptide; [facility] 05/25/16 12:54 Test: BRAIN NATRIURETIC PEPTIDE; Value: 172; Range: <100; Abnormal: Above high normal; Units: PG/ML; Status: F Lab Order: Basic Metabolic Profile; [facility] 05/25/16 12:54 Test: GLUCOSE, FASTING; Value: 100; Range: 70-105; Units: MG/DL; Status: F Test: BLOOD UREA NITROGEN; Value: 9; Range: 7-18; Units: MG/DL; Status: F Test: CREATININE FOR GFR; Value: 1.03; Range: 0.70-1.30; Units: MG/DL; Status: F Test: GLOMERULAR FILTRATION RATE; Value: > 60.0; Range: >56; Status: F Test: SODIUM LEVEL; Value: 137; Range: 136-145; Units: MEQ/L; Status: F Test: POTASSIUM SERUM; Value: 3.2; Range: 3.5-5.1; Units: MEQ/L; Status: F Test: CHLORIDE LEVEL; Value: 96; Range: 98-107; Abnormal: Below low normal; Units: MEQ/L; Status: F Test: CARBON DIOXIDE LEVEL; Value: 30; Range: 21-32; Units: MEQ/L; Status: F Test: ANION GAP; Value: 11; Range: 8-16; Units: MEQ/L; Status: F Test: CALCIUM LEVEL; Value: 9.2; Range: 8.5-10.1; Units: MG/DL; Status: F Test Note: ; Units are mL/min/1.73 m2 Chronic Kidney Disease Staging per NKF: Stage I & II GFR >=60 Normal to Mildly Decreased Stage III GFR 30-59 Moderately Decreased Stage IV GFR 15-29 Severely Decreased Stage V GFR <15 Very Little GFR Left ESRD GFR <15 on JACKET CHANGER Lab Order: CBC with Diff; [facility] 05/25/16 12:54 Test: WHITE BLOOD COUNT; Value: 7.9; Range: 4.0-10.0; Units: K/mm3; Status: F Test: RED BLOOD COUNT; Value: 4.63; Range: 4.30-6.10; Units: M/mm3; Status: F Test: HEMOGLOBIN; Value: 15.1; Range: 14.0-18.0; Units: g/dl; Status: F Test: HEMATOCRIT; Value: 45.2; Range: 42.0-52.0; Units: %; Status: F Test: MEAN CORPUSCULAR VOLUME; Value: 97.7; Range: 80.0-96.0; Abnormal: Above high normal; Units: fl; Status: F Test: MEAN CORPUSCULAR HEMOGLOBIN; Value: 32.7; Range: 27.0-33.0; Units: pg; Status: F Test: MEAN CORPUSCULAR HGB CONC; Value: 33.5; Range: 32.0-36.5; Units: g/dl; Status: F Test: RED CELL DISTRIBUTION WIDTH; Value: 12.2; Range: 11.5-14.5; Units: %; Status: F Test: PLATELET COUNT, AUTOMATED; Value: 171; Range: 150-450; Units: k/mm3; Status: F Test: NEUTROPHILS %; Value: 74.0; Range: 36.0-66.0; Abnormal: Above high normal; Units: %; Status: F Test: LYMPH %; Value: 16.9; Range: 24.0-44.0; Abnormal: Below low normal; Units: %; Status: F Test: MONO %; Value: 6.3; Range: 0.0-5.0; Abnormal: Above high normal; Units: %; Status: F Test: EOS %; Value: 0.3; Range: 0.0-3.0; Units: %; Status: F Test: BASO %; Value: 0.2; Range: 0.0-1.0; Units: %; Status: F Test: LARGE UNSTAINED CELL %; Value: 2.4; Range: 0.0-4.0; Units: %; Status: F Test: NEUTROPHILS #; Value: 5.9; Range: 1.8-7.7; Units: K/mm3; Status: F Test: LYMPH #; Value: 1.3; Range: 1.5-4.5; Abnormal: Below low normal; Units: K/mm3; Status: F Test: MONO #; Value: 0.5; Range: 0.0-0.8; Units: K/mm3; Status: F Test: EOS #; Value: 0.0; Range: 0.0-0.50; Units: K/mm3; Status: F Test: BASO #; Value: 0.0; Range: 0.0-0.2; Units: K/mm3; Status: F Test: LARGE UNSTAINED CELL #; Value: 0.2; Range: 0.0-0.4; Units: K/mm3; Status: F Lab Order: Cardiac Injury Profile; [facility] 05/25/16 12:54 Test: CPK CREATINE PHOSPHOKINASE; Value: 51; Range: 39-308; Units: U/L; Status: F Test: CK-MB VALUE MASS; Value: 1.5; Range: 0.0-3.6; Units: NG/ML; Status: F Test: MB/CK RELATIVE INDEX; Value: 2.94; Range: < OR =4; Status: F Test Note: ; DIAGNOSIS CRITERIA MMB ng/ml Relative Index (RI) NON-AMI < or = 5 N/A VALERIO ZONE > 5 < or = 4 AMI > 5 > 4 Lab Order: D-Dimer Quant; [facility] 05/25/16 12:54 Test: D-DIMER QUANT; Value: 2769.0; Range: <500; Abnormal: Above high normal; Units: ng/ml; Status: F Lab Order: Troponin; [facility] 05/25/16 12:54 Test: TROPONIN I; Value: < 0.02; Range: < 0.10; Units: NG/ML; Status: F Test Note: ; Troponin I Reference Interval for [employer] LOCI: 99th Percentile= 0.00-0.045 ng/ml Risk Stratification: <= 0.10 ng/ml Decreased Risk for Adverse Clinical Events. 0.10-1.50 ng/ml Increased Risk for Adverse Clinical Events. Evaluation of additional criterion and/or repeat testing in 2-6 hours is suggested to rule out myocardial damage. >= 1.50 ng/ml Indicative of Myocardial Injury. Lab Order: PT & APTT; [facility] 05/25/16 12:54 Test: PROTHROMBIN TIME; Value: 12.1; Range: 12.3-14.5; Abnormal: Below low normal; Units: SECONDS; Status: F Test: INR; Value: 0.89; Status: F Test: PARTIAL THROMBOPLASTIN TIME; Value: 25.3; Range: 26.6-37.1; Abnormal: Below low normal; Units: SECONDS; Status: F Test Note: ; THERAPUTIC HUMAN INR VALUES INDICATIONS NORMAL RANGES PROPHYLAXIS/TREATMENT OF: VENOUS THROMBOSIS 2.0-3.0 PULMONARY EMBOLISM 2.0-3.0 PREVENTION OF SYSTEMIC EMBOLISM FROM: TISSUE HEART VALVES 2.0-3.0 ACUTE MYOCARDIAL INFARCTION 2.0-3.0 VALVULAR HEART DISEASE 2.0-3.0 ATRIAL FIBRILLATION 2.0-3.0 MECHANICAL VALVES(HIGH RISK) 2.5-3.5 RECURRENT MYOCARDIAL INFARCTION 2.5-3.5 Lab Order: CARDIAC MARKER PANEL; [facility] 05/25/16 17:35 Test: CPK CREATINE PHOSPHOKINASE; Value: 42; Range: 39-308; Units: U/L; Status: F Test: CK-MB VALUE MASS; Value: 1.9; Range: 0.0-3.6; Units: NG/ML; Status: F Test: MB/CK RELATIVE INDEX; Value: 4.52; Range: < OR =4; Abnormal: Above high normal; Status: F Test: TROPONIN I; Value: < 0.02; Range: < 0.10; Units: NG/ML; Status: F Test Note: ; DIAGNOSIS CRITERIA MMB ng/ml Relative Index (RI) NON-AMI < or = 5 N/A VALERIO ZONE > 5 < or = 4 AMI > 5 > 4 Lab Order: ETHYL ALCOHOL (ETHANOL); SPEC'[facility] 05/25/16 17:35 Test: ETHYL ALCOHOL (ETHANOL); Value: < 0.003; Range: 0.000-0.010; Units: %; Status: F Radiology Order: Chest, 1 View Test: Chest, 1 View REASON FOR EXAMINATION: Shortness of Breath; PORTABLE CHEST:; ; AP portable view of the chest is performed.; ; There is no acute infiltrate or pulmonary edema. The heart is normal in size.; The mediastinal silhouette is unremarkable. There is a calcified granuloma in the; left lung base.; ; IMPRESSION:; ; No acute pulmonary disease.; ; ; Signed by; Manuel Valerio MD 05/25/2016 04:59 P; Radiology Order: CT Chest Angio R/O PE Test: CT Chest Angio R/O PE REASON FOR EXAMINATION: r/o PE; CT ANGIO CHEST:; ; HISTORY: Shortness of breath.; ; CONTRAST: Isovue-370, 75 mL; ; Emboli are present in the distal main right and left pulmonary arteries and; their proximal branches. A calcified granuloma is present in the left lower lobe.; The right lung is clear. There is no pleural effusion. There is no hilar or; mediastinal mass. Atherosclerotic calcification is present in the thoracic aorta.; There is an old compression fracture of the T7 vertebral body with minimal height; loss.; ; IMPRESSION:; ; There are emboli in the distal main right and left pulmonary arteries and their; proximal branches.; ; ; Signed by; Raheel Rao MD 05/25/2016 03:57 P; Radiology Order: Duplex, Ext LOWER veins, bilat Test: Duplex, Ext LOWER veins, bilat REASON FOR EXAMINATION: multiple PEs; Duplex extremity venous ultrasound: Bilateral lower extremity.; ; History: Multiple pulmonary emboli.; ; Findings: The deep veins are anechoic and fully compressible from the groin to; the popliteal fossa in the right and left lower extremity. Color flow imaging is; homogeneous. Spectral Doppler interrogation demonstrates intact respiratory; variation in flow and normal manual augmentation of flow. There is no evidence; of deep vein thrombosis.; ; Impression:; ; Negative bilateral lower extremity duplex venous ultrasound. No evidence of deep; vein thrombosis.; ; ; Signed by; Leonidas Ceballos MD 05/25/2016 05:20 P; Outcome: 17:26 Decision to Hospitalize by Provider. pc 18:01 CT Study completed. Ultrasound Study completed. ja5 18:01 Discharge Assessment: Patient awake and alert. Oriented to person, place and time. ja5 patient administered narcotics - no. The following High Risk Discharge criteria are identified: None. Admitted to PCU accompanied by nurse, family with patient, via stretcher, on monitor, with chart. Condition: stable. Property :Personal belongings accompany Pt. 20:18 Admitted to PCU accompanied by nurse, accompanied by tech, via stretcher, with chart. [facility] Condition: stable. 20:19 Patient left the ED. [facility] 20:52 Discharge Assessment: pt now leaving ED, no seizure activity at this time. mar 20:54 Patient left the ED. mar Signatures: Dispatcher [employer] EDMS Grupo Patricia MD MD pc Newman, JAIME Berger RN, LoriLee, Chapito Reg lg Stephanie Lemos br3 Danielle Jain, FACILITY ADMINISTRATOR FACILITY ADMINISTRATOR ar3 Anna Joe RN RN hs1 Mariah Acevedo RN RN jc4 Ami VillatoroRN RN Juan R Pham js11 Nova KarimiRN RN Keysha SandovalRN RN mlc Hui Garcia RN RN ko2 Newman, Robert rn1 Nayeli Robles Jessica, RN RN ja5 Ross, Laura lr2 Mariah Acevedo RN jc4 Corrections: (The following items were deleted from the chart) 12:13 12:01 EKG done. (by ED staff). Reviewed by Chance Lewis MD ar3 ar3 18:04 18:04 Inserted saline lock: 20 gauge in right antecubital area ja5 ja5 Chart Complete MTDD
--- NOTE | 2016-05-27 21:56 | EDDOCDS ---
Physician Documentation [facility] Name: Jayro Delgado Age: 55 yrs Sex: Male : 1960 Arrival Date: 05/25/2016 Time: 11:23 Bed 11 Private MD: Chance Vora J Disposition: 05/25 17:26 Critical Care:. pc Disposition: 05/25/16 17:26 Hospitalization ordered by Yoly Ferguson for Inpatient Admission. Preliminary diagnosis are Pulmonary embolism, Persistent atrial fibrillation, Hypotension, Patient's noncompliance with medical treatment and regimen. - Bed requested for PCU. - Status is Inpatient Admission. edwardo - Condition is Stable. - Problem is new. - Symptoms are unchanged. HPI: 13:34 This 55 yrs old Male presents to ER via Wheelchair with complaints of pc Shortness Of Breath, Dizziness. 13:34 The history is obtained from the patient. For 2 weeks, he has been having SOBOE, now pc only able to walk 20 feet without feeling dizzy, lightheaded and becoming SOB. He denies any headache, chest pain at those times. He has to sit or squat to the floor to prevent from passing out. He stays in that position for 1-2 minutes until the symptoms resolve, and then is able to continue. He had these symptoms for 10-12 days when he developed n/v/d. He was seen here 2 days ago for the GI symptoms and was started on meds. He is now able to tolerate oral fluids and food and has had only one loose stooling since. However, he is now dizzy upon standing and is debilitated with any exertion. The patient has not experienced similar symptoms in the past. Historical: - Allergies: no known allergies; - Home Meds: 1. aspirin 162 mg Oral TbEC 1 tab once daily (Last dose: 05/24/2016) 2. Metoprolol 25mg daily (Last dose: 05/24/2016) 3. multivitamin Oral tab daily (Last dose: 05/24/2016) 4. prednisone 20 mg Oral tab 2 tabs once daily (Last dose: 05/24/2016) 5. Cipro 500 mg Oral tab 1 tab every 12 hours (Last dose: 05/24/2016) 6. Flagyl 500 mg Oral tab 1 tab every 8 hours (Last dose: 05/24/2016) - PMHx: afib; Hypertension; - PSHx: Tip of right middle finger amputated; left wrist surgery; - The history from nurses notes was reviewed: and I agree with what is documented. - Social history: Smoking status: Patient uses tobacco products, current every day smoker. No barriers to communication noted, The patient speaks fluent [place] Zeal[place], Speaks appropriately for age. - : The pt / caregiver states he / she is not on anticoagulants. Home medication list is obtained from the patient. - Hospitalizations: : No recent hospitalization is reported. - Exposure Risk Screening:: None identified. - Immunization history:: All immunizations up-to-date. - Family history: Not pertinent. - Social history:: the patient smokes cigarettes the patient drinks alcohol. ROS: 13:34 All systems are negative except as listed. pc Exam: 13:34 General Appearance: no acute distress, alert. pc 13:34 EENT: normal eye inspection, ears, nose and throat normal, pharynx normal, mucous membranes moist 13:34 Neck: The exam reveals no acute abnormalities. ROM is normal and painless. No nuchal rigidity is noted.. 13:34 Respiratory: no respiratory distress, normal breath sounds. 13:34 CVS: regular pulse rate, regular rhythm, normal S1 and S2, no murmurs, strong peripheral pulses, normal capillary refill. 13:34 Abdomen: soft, non-tender, no organomegaly, normal bowel sounds. 13:34 Back: normal inspection. 13:34 Skin: skin color is normal, warm, dry. 13:34 Extremities: The extremities have a grossly normal appearance, are non-tender, without acute ROM abnormalities. 13:34 Neuro: oriented x 3, cranial nerves normal as tested, no motor deficits, no sensory deficits. 13:34 Psych: normal mood. Vital Signs: 11:24 BP 102 / 78; Pulse 101; Resp 18; Temp 98.0(O); Pulse Ox 100% ; Weight 61.23 kg / 134.99 lr2 lbs (R); Height 5 ft. 7 in. (170.18 cm) (R); Pain 2/10; 12:01 BP 153 / 76 (auto/); ja5 12:01 Pulse 80 MON; Pulse Ox 100% ; ja5 12:44 BP 112 / 84 Supine; Pulse 98; ja5 12:44 BP 103 / 85 Sitting; Pulse 100; ja5 12:44 BP 108 / 90 Standing; Pulse 109; ja5 12:55 BP 111 / 83 (auto/); ja5 12:55 Pulse 84 MON; Pulse Ox 99% ; ja5 13:25 BP 118 / 89 (auto/); ja5 13:25 Pulse 90 MON; Pulse Ox 98% ; ja5 13:54 Pulse 76 MON; Pulse Ox 97% ; ja5 13:55 BP 88 / 63 (auto/); ja5 13:59 BP 108 / 73 (auto/); ja5 13:59 Pulse 80 MON; Pulse Ox 95% ; ja5 14:08 Pulse 76 MON; Pulse Ox 97% ; ja5 14:20 BP 108 / 78 (auto/); ja5 15:06 Pulse 138 MON; Pulse Ox 99% ; ja5 15:07 BP 108 / 67 (auto/); ja5 15:21 Pulse 152 MON; Pulse Ox 98% ; ja5 15:22 BP 110 / 59 (auto/); ja5 15:37 BP 120 / 59 (auto/); ja5 15:37 Pulse 156 MON; Pulse Ox 97% ; ja5 16:01 Pulse 126 MON; Pulse Ox 98% ; ja5 16:02 BP 88 / 59 (auto/); ja5 16:07 Pulse 156 MON; Pulse Ox 96% ; ja5 16:08 BP 85 / 64 (auto/); ja5 16:10 BP 85 / 64; Pulse 150; Resp 16; Temp 98.7(O); Pulse Ox 98% on R/A; Pain 0/10; ja5 16:18 Weight 59.87 kg / 131.99 lbs (M); rn1 16:32 BP 84 / 56 LA Supine (man/reg); ja5 17:18 BP 115 / 83 (auto/); ja5 17:20 Pulse 92 MON; Pulse Ox 98% ; ja5 17:59 BP 115 / 83; Pulse 120; Resp 20; Temp 97.4(A); Pulse Ox 94% on R/A; Pain 0/10; ja5 19:38 BP 103 / 75 (auto/); mlc 19:38 Pulse 86 MON; Pulse Ox 97% ; mlc 20:08 BP 111 / 80 (auto/); mlc 20:09 Pulse 78 MON; Pulse Ox 96% ; mlc 20:18 BP 106 / 71; Pulse 91; Resp 18; Temp 99.0; Pulse Ox 98% on R/A; Pain 0/10; mlc 20:40 BP 123 / 83; Pulse 90; Resp 18; Pulse Ox 96% on R/A; Pain 0/10; ar3 16:18 Body Mass Index 20.67 (59.87 kg, 170.18 cm) rn1 MDM: 11:57 ECG WITH READING ER PHYS+CARDIAG ordered. EDMS 12:24 [facility] Payment Agreement was scanned into [employer] [place] and attached to record. lg 13:30 Financial registration complete. lg 13:30 -Blood Culture (Adults Only), peripheral from different site, or from device/port/PICC pc etc. if present ordered. 13:30 Call Respiratory ordered. pc 13:30 Psychiatric Rn/Pulse Ox/q 15 min VS ordered. pc 13:30 IV Saline Lock ordered. pc 13:30 Rhythm Strip to chart ordered. pc 13:32 -Arterial Blood Gas Ordered. EDMS 13:32 B-Type Natiuretic Peptide Ordered. EDMS 13:32 Basic Metabolic Profile Ordered. EDMS 13:32 CBC with Diff Ordered. EDMS 13:32 Cardiac Injury Profile Ordered. EDMS 13:32 D-Dimer Quant Ordered. EDMS 13:32 Troponin Ordered. EDMS 13:32 -Blood Culture Ordered. EDMS 13:32 Chest, 1 View Ordered. EDMS 13:34 Differential Diagnosis: exertional dyspnea r/o AFib with RVR/ACS/PE; dizziness r/o pc dehydration, electrolyte changes. Plan: labs, EKG, imaging. Test interpretation: EKG. 13:41 Call Respiratory complete. deg 13:42 -Blood Culture (Adults Only), peripheral from different site, or from device/port/PICC deg etc. if present complete. 13:43 BLOOD CULTURES Ordered. EDMS 14:28 -Arterial Blood Gas Reviewed. pc 14:28 B-Type Natiuretic Peptide Reviewed. pc 14:28 Basic Metabolic Profile Reviewed. pc 14:28 CBC with Diff Reviewed. pc 14:28 D-Dimer Quant Reviewed. pc 14:28 Cardiac Injury Profile Reviewed. pc 14:28 Troponin Reviewed. pc 14:28 Chest, 1 View Reviewed. pc 14:29 CT Chest Angio R/O PE Ordered. EDMS 15:34 Physician consultation: Dr. Odell Woodard was contacted at 15:34, regarding patient's pc condition, and advises the medications/treatment as provided. 15:37 BED REQUEST+ADM ordered. EDMS 15:53 requires 7 blue tops, 1 tiger top, 3 purple tops per lab 4.21.14 ordered. pc 15:53 Weigh Pt on scale, in Kg (Do Not Use Reported Weight) ordered. pc 15:53 Anti Thrombin 3 Panel (ag/ac) Ordered. EDMS 15:53 Anti-Cardiolipin Antibodies Ordered. EDMS 15:53 Factor V Leiden Ordered. EDMS 15:53 Lupus Type Anticoagulant Ordered. EDMS 15:53 Protein C Functional Activity Ordered. EDMS 15:53 Protein S Functional Activity Ordered. EDMS 15:56 Duplex, Ext LOWER veins, bilat Ordered. EDMS 16:13 NS 0.9% 1000 ml IV at bolus once ordered. pc 16:29 PT & APTT Ordered. EDMS 17:04 Enoxaparin (1mg/kg) 60 mg Sub-Q once; Ensure no Heparin in past 6hrs. Ensure any pc baseline labs are drawn. ordered. 17:23 Admission / Observation Status ordered. EDMS 17:23 ECHOCARD,DOPPLER/COLOR FLOW ordered. EDMS 17:24 CARDIAC MARKER PANEL Ordered. EDMS 17:24 ETHYL ALCOHOL (ETHANOL) Ordered. EDMS 17:24 FACTOR II PROTHROMBIN GENE AN Ordered. EDMS 17:26 Data reviewed: old medical records, vital signs, nurses notes, EKG(s), lab test pc results, all radiology studies and available results. Test interpretation: LAB - all labs as ordered have been reviewed, interpreted and considered in the overall management of the clinical presentation; X-RAY - interpreted by Radiologist and personally reviewed, 1 view chest no acute disease, interpreted by Radiologist and personally reviewed, Chest CT; multiple PEs. The patient has been re-examined and re-evaluated. There is no appreciated change of the patient's symptoms at this time. Physician consultation: Dr. Yoly Ferguson regarding admission. Disposition: The historical points, examination findings, and any diagnostic results supporting the provided diagnosis, were discussed with the patient or legal guardian. The need for further work-up and/or treatment in the hospital was explained. 19:31 CARDIAC MARKER PANEL Ordered. EDMS 19:31 CARDIAC MARKER PANEL Ordered. EDMS 19:31 CBC WITH DIFFERENTIAL Ordered. EDMS 19:31 BASIC METABOLIC PROFILE Ordered. EDMS 20:23 LORazepam 1 mg IVP once ordered. pc 20:39 NPO DIET ordered. EDMS 20:52 CT Head without contrast Ordered. EDMS EC:34 Rate is 88 beats/min. Rhythm is regular, Normal Sinus Rhythm. QRS [place] is Normal. [place] pc interval is normal. QRS interval is normal. QT interval is normal. No Q waves. T waves are Normal. No ST changes noted. Clinical impression: Normal Sinus Rhythm and possible LAE. No change from previous ECG in October,. Administered Medications: 15:35 CANCELLED (Other Intervention Used): Atenolol 25 mg PO once pc 16:20 Drug: NS 0.9% 1000 ml [sodium chloride 0.9 % intravenous solution] Route: IV; Rate: ja5 bolus; Site: right antecubital; 17:15 Drug: Enoxaparin (1mg/kg) 60 mg [enoxaparin 60 mg/0.6 mL subcutaneous syringe (0.6 mL)] ja5 {Co-Signature: dorothy (Mariah Acevedo RN).} Route: Sub-Q; Site: right lower abdomen; 19:04 CANCELLED (Other Intervention Used): Atenolol 25 mg PO once ja5 20:27 Drug: LORazepam 1 mg [lorazepam 2 mg/mL injection solution (0.5 mL)] Route: IVP; Site: ko2 right antecubital; Critical Care Time: 17:26 Critical care time: Bedside Care: 30 minutes, Consultation: 20 minutes, Family pc Intervention: 15 minutes. Total time: 65 minutes Signatures: Dispatcher [employer] EDHI Grupo Patricia MD MD pc Murray, Denise, [employer]oving [employer] [facility] Ashley Mooney, RN Michaela Luo Reg Reg lg Fuller, Desiree,RN RN Keysha SpiveyRN Lakia Carrizales RN RN sls2 Ogden, Kari RN ko2 Anderson, Jessica RN ja5 Mariah [id number] The chart was reviewed and I authenticate all verbal orders and agree with the evaluation and treatment provided.Corrections: (The following items were deleted from the chart) 15:35 15:30 Atenolol 25 mg PO once ordered. pc pc 15:35 15:35 Atenolol 25 mg PO once ordered. pc pc 15:56 15:55 Duplex, Ext,LOWER veins,unilat+US ordered. EDMS EDMS 16:29 15:53 PT & APTT+LAB ordered. EDMS EDMS 19:04 15:39 Atenolol 25 mg PO once ordered. pc ja5 20:39 16:17 REGULAR+DIET ordered. EDMS EDMS 20:39 17:23 REGULAR DIET ordered. EDMS EDMS Attachments: 12:24 [facility] Payment Agreement lg Chart [facility]
[2016-05-28] VITALS (7 sets, daily range): BP systolic 110–140; BP diastolic 66–90
[2016-05-28] MEDS: SLF 3 ML SYR IV SCH ×3 (05:36→21:09)
[2016-05-28 06:09] LABS: ANION GAP 5 MEQ/L (8-16); BLOOD UREA NITROGEN 7 MG/DL (7-18); CALCIUM LEVEL 8.8 MG/DL (8.5-10.1); CARBON DIOXIDE LEVEL 31 MEQ/L (21-32); CHLORIDE LEVEL 101 MEQ/L (98-107); CREATININE FOR GFR 0.74 MG/DL (0.70-1.30); GLOMERULAR FILTRATION RATE > 60.0 (>56); GLUCOSE, FASTING 90 MG/DL (70-105); POTASSIUM SERUM 4.2 MEQ/L (3.5-5.1); SODIUM LEVEL 137 MEQ/L (136-145)
[2016-05-28 06:10] LABS: BASO % 0.7 % (0.0-1.0); EOS # 0.2 K/mm3 (0.0-0.50); LARGE UNSTAINED CELL # 0.2 K/mm3 (0.0-0.4); LARGE UNSTAINED CELL % 4.3 % (0.0-4.0); LYMPH # 1.3 K/mm3 (1.5-4.5); LYMPH % 24.5 % (24.0-44.0); MEAN CORPUSCULAR HEMOGLOBIN 33.3 pg (27.0-33.0); MEAN CORPUSCULAR HGB CONC 33.2 g/dl (32.0-36.5); MEAN CORPUSCULAR VOLUME 100.3 fl (80.0-96.0); MONO # 0.5 K/mm3 (0.0-0.8); MONO % 9.3 % (0.0-5.0); NEUTROPHILS % 58.3 % (36.0-66.0); PLATELET COUNT, AUTOMATED 189 k/mm3 (150-450); RED CELL DISTRIBUTION WIDTH 12.2 % (11.5-14.5); WHITE BLOOD COUNT 5.1 K/mm3 (4.0-10.0)
[2016-05-28] MEDS ORDERED: OXAZEPAM 10 MG CAP PO PRN (08:15)
--- NOTE | 2016-05-28 08:37 | EDDOCDS ---
Physician Documentation [facility] Name: Jayro Delgado Age: 55 yrs Sex: Male : 1960 Arrival Date: 05/25/2016 Time: 11:23 Bed 11 Private MD: Chance Vora J Disposition: 05/25 17:26 Critical Care:. pc Disposition: 05/25/16 17:26 Hospitalization ordered by Yoly Ferguson for Inpatient Admission. Preliminary diagnosis are Pulmonary embolism, Persistent atrial fibrillation, Hypotension, Patient's noncompliance with medical treatment and regimen. - Bed requested for PCU. - Status is Inpatient Admission. edwardo - Condition is Stable. - Problem is new. - Symptoms are unchanged. HPI: 13:34 This 55 yrs old Male presents to ER via Wheelchair with complaints of pc Shortness Of Breath, Dizziness. 13:34 The history is obtained from the patient. For 2 weeks, he has been having SOBOE, now pc only able to walk 20 feet without feeling dizzy, lightheaded and becoming SOB. He denies any headache, chest pain at those times. He has to sit or squat to the floor to prevent from passing out. He stays in that position for 1-2 minutes until the symptoms resolve, and then is able to continue. He had these symptoms for 10-12 days when he developed n/v/d. He was seen here 2 days ago for the GI symptoms and was started on meds. He is now able to tolerate oral fluids and food and has had only one loose stooling since. However, he is now dizzy upon standing and is debilitated with any exertion. The patient has not experienced similar symptoms in the past. Historical: - Allergies: no known allergies; - Home Meds: 1. aspirin 162 mg Oral TbEC 1 tab once daily (Last dose: 05/24/2016) 2. Metoprolol 25mg daily (Last dose: 05/24/2016) 3. multivitamin Oral tab daily (Last dose: 05/24/2016) 4. prednisone 20 mg Oral tab 2 tabs once daily (Last dose: 05/24/2016) 5. Cipro 500 mg Oral tab 1 tab every 12 hours (Last dose: 05/24/2016) 6. Flagyl 500 mg Oral tab 1 tab every 8 hours (Last dose: 05/24/2016) - PMHx: afib; Hypertension; - PSHx: Tip of right middle finger amputated; left wrist surgery; - The history from nurses notes was reviewed: and I agree with what is documented. - Social history: Smoking status: Patient uses tobacco products, current every day smoker. No barriers to communication noted, The patient speaks fluent Samoan, Speaks appropriately for age. - : The pt / caregiver states he / she is not on anticoagulants. Home medication list is obtained from the patient. - Hospitalizations: : No recent hospitalization is reported. - Exposure Risk Screening:: None identified. - Immunization history:: All immunizations up-to-date. - Family history: Not pertinent. - Social history:: the patient smokes cigarettes the patient drinks alcohol. ROS: 13:34 All systems are negative except as listed. pc Exam: 13:34 General Appearance: no acute distress, alert. pc 13:34 EENT: normal eye inspection, ears, nose and throat normal, pharynx normal, mucous membranes moist 13:34 Neck: The exam reveals no acute abnormalities. ROM is normal and painless. No nuchal rigidity is noted.. 13:34 Respiratory: no respiratory distress, normal breath sounds. 13:34 CVS: regular pulse rate, regular rhythm, normal S1 and S2, no murmurs, strong peripheral pulses, normal capillary refill. 13:34 Abdomen: soft, non-tender, no organomegaly, normal bowel sounds. 13:34 Back: normal inspection. 13:34 Skin: skin color is normal, warm, dry. 13:34 Extremities: The extremities have a grossly normal appearance, are non-tender, without acute ROM abnormalities. 13:34 Neuro: oriented x 3, cranial nerves normal as tested, no motor deficits, no sensory deficits. 13:34 Psych: normal mood. Vital Signs: 11:24 BP 102 / 78; Pulse 101; Resp 18; Temp 98.0(O); Pulse Ox 100% ; Weight 61.23 kg / 134.99 lr2 lbs (R); Height 5 ft. 7 in. (170.18 cm) (R); Pain 2/10; 12:01 BP 153 / 76 (auto/); ja5 12:01 Pulse 80 MON; Pulse Ox 100% ; ja5 12:44 BP 112 / 84 Supine; Pulse 98; ja5 12:44 BP 103 / 85 Sitting; Pulse 100; ja5 12:44 BP 108 / 90 Standing; Pulse 109; ja5 12:55 BP 111 / 83 (auto/); ja5 12:55 Pulse 84 MON; Pulse Ox 99% ; ja5 13:25 BP 118 / 89 (auto/); ja5 13:25 Pulse 90 MON; Pulse Ox 98% ; ja5 13:54 Pulse 76 MON; Pulse Ox 97% ; ja5 13:55 BP 88 / 63 (auto/); ja5 13:59 BP 108 / 73 (auto/); ja5 13:59 Pulse 80 MON; Pulse Ox 95% ; ja5 14:08 Pulse 76 MON; Pulse Ox 97% ; ja5 14:20 BP 108 / 78 (auto/); ja5 15:06 Pulse 138 MON; Pulse Ox 99% ; ja5 15:07 BP 108 / 67 (auto/); ja5 15:21 Pulse 152 MON; Pulse Ox 98% ; ja5 15:22 BP 110 / 59 (auto/); ja5 15:37 BP 120 / 59 (auto/); ja5 15:37 Pulse 156 MON; Pulse Ox 97% ; ja5 16:01 Pulse 126 MON; Pulse Ox 98% ; ja5 16:02 BP 88 / 59 (auto/); ja5 16:07 Pulse 156 MON; Pulse Ox 96% ; ja5 16:08 BP 85 / 64 (auto/); ja5 16:10 BP 85 / 64; Pulse 150; Resp 16; Temp 98.7(O); Pulse Ox 98% on R/A; Pain 0/10; ja5 16:18 Weight 59.87 kg / 131.99 lbs (M); rn1 16:32 BP 84 / 56 LA Supine (man/reg); ja5 17:18 BP 115 / 83 (auto/); ja5 17:20 Pulse 92 MON; Pulse Ox 98% ; ja5 17:59 BP 115 / 83; Pulse 120; Resp 20; Temp 97.4(A); Pulse Ox 94% on R/A; Pain 0/10; ja5 19:38 BP 103 / 75 (auto/); mlc 19:38 Pulse 86 MON; Pulse Ox 97% ; mlc 20:08 BP 111 / 80 (auto/); mlc 20:09 Pulse 78 MON; Pulse Ox 96% ; mlc 20:18 BP 106 / 71; Pulse 91; Resp 18; Temp 99.0; Pulse Ox 98% on R/A; Pain 0/10; mlc 20:40 BP 123 / 83; Pulse 90; Resp 18; Pulse Ox 96% on R/A; Pain 0/10; ar3 16:18 Body Mass Index 20.67 (59.87 kg, 170.18 cm) rn1 MDM: 11:57 ECG WITH READING ER PHYS+CARDIAG ordered. EDMS 12:24 [facility] Payment Agreement was scanned into [employer] and attached to record. lg 13:30 Financial registration complete. lg 13:30 -Blood Culture (Adults Only), peripheral from different site, or from device/port/PICC pc etc. if present ordered. 13:30 Call Respiratory ordered. pc 13:30 Party Plan Sales Unit Advisor/Pulse Ox/q 15 min VS ordered. pc 13:30 IV Saline Lock ordered. pc 13:30 Rhythm Strip to chart ordered. pc 13:32 -Arterial Blood Gas Ordered. EDMS 13:32 B-Type Natiuretic Peptide Ordered. EDMS 13:32 Basic Metabolic Profile Ordered. EDMS 13:32 CBC with Diff Ordered. EDMS 13:32 Cardiac Injury Profile Ordered. EDMS 13:32 D-Dimer Quant Ordered. EDMS 13:32 Troponin Ordered. EDMS 13:32 -Blood Culture Ordered. EDMS 13:32 Chest, 1 View Ordered. EDMS 13:34 Differential Diagnosis: exertional dyspnea r/o AFib with RVR/ACS/PE; dizziness r/o pc dehydration, electrolyte changes. Plan: labs, EKG, imaging. Test interpretation: EKG. 13:41 Call Respiratory complete. deg 13:42 -Blood Culture (Adults Only), peripheral from different site, or from device/port/PICC deg etc. if present complete. 13:43 BLOOD CULTURES Ordered. EDMS 14:28 -Arterial Blood Gas Reviewed. pc 14:28 B-Type Natiuretic Peptide Reviewed. pc 14:28 Basic Metabolic Profile Reviewed. pc 14:28 CBC with Diff Reviewed. pc 14:28 D-Dimer Quant Reviewed. pc 14:28 Cardiac Injury Profile Reviewed. pc 14:28 Troponin Reviewed. pc 14:28 Chest, 1 View Reviewed. pc 14:29 CT Chest Angio R/O PE Ordered. EDMS 15:34 Physician consultation: Dr. Odell Woodard was contacted at 15:34, regarding patient's pc condition, and advises the medications/treatment as provided. 15:37 BED REQUEST+ADM ordered. EDMS 15:53 requires 7 blue tops, 1 tiger top, 3 purple tops per lab 4.21.14 ordered. pc 15:53 Weigh Pt on scale, in Kg (Do Not Use Reported Weight) ordered. pc 15:53 Anti Thrombin 3 Panel (ag/ac) Ordered. EDMS 15:53 Anti-Cardiolipin Antibodies Ordered. EDMS 15:53 Factor V Leiden Ordered. EDMS 15:53 Lupus Type Anticoagulant Ordered. EDMS 15:53 Protein C Functional Activity Ordered. EDMS 15:53 Protein S Functional Activity Ordered. EDMS 15:56 Duplex, Ext LOWER veins, bilat Ordered. EDMS 16:13 NS 0.9% 1000 ml IV at bolus once ordered. pc 16:29 PT & APTT Ordered. EDMS 17:04 Enoxaparin (1mg/kg) 60 mg Sub-Q once; Ensure no Heparin in past 6hrs. Ensure any pc baseline labs are drawn. ordered. 17:23 Admission / Observation Status ordered. EDMS 17:23 ECHOCARD,DOPPLER/COLOR FLOW ordered. EDMS 17:24 CARDIAC MARKER PANEL Ordered. EDMS 17:24 ETHYL ALCOHOL (ETHANOL) Ordered. EDMS 17:24 FACTOR II PROTHROMBIN GENE AN Ordered. EDMS 17:26 Data reviewed: old medical records, vital signs, nurses notes, EKG(s), lab test pc results, all radiology studies and available results. Test interpretation: LAB - all labs as ordered have been reviewed, interpreted and considered in the overall management of the clinical presentation; X-RAY - interpreted by Radiologist and personally reviewed, 1 view chest no acute disease, interpreted by Radiologist and personally reviewed, Chest CT; multiple PEs. The patient has been re-examined and re-evaluated. There is no appreciated change of the patient's symptoms at this time. Physician consultation: Dr. Yoly Ferguson regarding admission. Disposition: The historical points, examination findings, and any diagnostic results supporting the provided diagnosis, were discussed with the patient or legal guardian. The need for further work-up and/or treatment in the hospital was explained. 19:31 CARDIAC MARKER PANEL Ordered. EDMS 19:31 CARDIAC MARKER PANEL Ordered. EDMS 19:31 CBC WITH DIFFERENTIAL Ordered. EDMS 19:31 BASIC METABOLIC PROFILE Ordered. EDMS 20:23 LORazepam 1 mg IVP once ordered. pc 20:39 NPO DIET ordered. EDMS 20:52 CT Head without contrast Ordered. EDMS EC:34 Rate is 88 beats/min. Rhythm is regular, Normal Sinus Rhythm. QRS [place] is Normal. [place] pc interval is normal. QRS interval is normal. QT interval is normal. No Q waves. T waves are Normal. No ST changes noted. Clinical impression: Normal Sinus Rhythm and possible LAE. No change from previous ECG in October,. Administered Medications: 15:35 CANCELLED (Other Intervention Used): Atenolol 25 mg PO once pc 16:20 Drug: NS 0.9% 1000 ml [sodium chloride 0.9 % intravenous solution] Route: IV; Rate: ja5 bolus; Site: right antecubital; 17:15 Drug: Enoxaparin (1mg/kg) 60 mg [enoxaparin 60 mg/0.6 mL subcutaneous syringe (0.6 mL)] ja5 {Co-Signature: dorothy (Mariah Acevedo RN).} Route: Sub-Q; Site: right lower abdomen; 19:04 CANCELLED (Other Intervention Used): Atenolol 25 mg PO once ja5 20:27 Drug: LORazepam 1 mg [lorazepam 2 mg/mL injection solution (0.5 mL)] Route: IVP; Site: ko2 right antecubital; Critical Care Time: 17:26 Critical care time: Bedside Care: 30 minutes, Consultation: 20 minutes, Family pc Intervention: 15 minutes. Total time: 65 minutes Signatures: Dispatcher [employer] EDAR Grupo Patricia MD MD pc Murray, Denise, [employer] Ashley Mooney, RN Michaela Luo Reg Reg lg Fuller, Desiree,RN RN Keysha SpiveyRN Lakia Carrizales RN RN sls2 Ogden, Kari RN ko2 Anderson, Jessica RN ja5 Mariah [id number] The chart was reviewed and I authenticate all verbal orders and agree with the evaluation and treatment provided.Corrections: (The following items were deleted from the chart) 15:35 15:30 Atenolol 25 mg PO once ordered. pc pc 15:35 15:35 Atenolol 25 mg PO once ordered. pc pc 15:56 15:55 Duplex, Ext,LOWER veins,unilat+US ordered. EDMS EDMS 16:29 15:53 PT & APTT+LAB ordered. EDMS EDMS 19:04 15:39 Atenolol 25 mg PO once ordered. pc ja5 20:39 16:17 REGULAR+DIET ordered. EDMS EDMS 20:39 17:23 REGULAR DIET ordered. EDMS EDMS Attachments: 12:24 [facility] Payment Agreement lg Chart [facility]
--- NOTE | 2016-05-28 08:37 | EDDOCDS ---
Nurse's Notes [facility] Name: Jayro Delgado Age: 55 yrs Sex: Male : 1960 Arrival Date: 05/25/2016 Time: 11:23 Bed 11 Private MD: Chance Vora J Diagnosis: Pulmonary embolism;Persistent atrial fibrillation;Hypotension;Patient's noncompliance with medical treatment and regimen Presentation: 05/25 11:28 Presenting complaint: Patient states: was seen here sat diagnosed with diarrhea, nausea dsf and vomiting. Since then when pt walks he gets dizzy and gets SOB. Adult Sepsis Screening: The patient does not have new or worsening altered mentation. Patient's respiratory rate is less than 22. Systolic blood pressure is greater than 100. Patient has a qSOFA score of 0- Negative Sepsis Screen. Suicide/Homicide risk assessment- the patient denies having any suicidal and/or homicidal ideations and does not present with any other emotional, behavioral or mental health complaints. 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 Transition of care: patient was not received from another setting of care. 11:28 Acuity: PAUL Level 3 dsf 11:28 Method Of Arrival: Wheelchair dsf Triage Assessment: 11:31 General: Appears in no apparent distress, Behavior is appropriate for age, cooperative. dsf Pain: Denies pain. HIV screening NA for this visit Offered previously. Neurological: Reports dizziness with walking . Respiratory: Onset: The symptoms/episode began/occurred yesterday, Reports shortness of breath on exertion since yesterday. Historical: - Allergies: no known allergies; - Home Meds: 1. aspirin 162 mg Oral TbEC 1 tab once daily (Last dose: 05/24/2016) 2. Metoprolol 25mg daily (Last dose: 05/24/2016) 3. multivitamin Oral tab daily (Last dose: 05/24/2016) 4. prednisone 20 mg Oral tab 2 tabs once daily (Last dose: 05/24/2016) 5. Cipro 500 mg Oral tab 1 tab every 12 hours (Last dose: 05/24/2016) 6. Flagyl 500 mg Oral tab 1 tab every 8 hours (Last dose: 05/24/2016) - PMHx: afib; Hypertension; - PSHx: Tip of right middle finger amputated; left wrist surgery; - The history from nurses notes was reviewed: and I agree with what is documented. - Social history: Smoking status: Patient uses tobacco products, current every day smoker. No barriers to communication noted, The patient speaks fluent Ghanaian, Speaks appropriately for age. - : The pt / caregiver states he / she is not on anticoagulants. Home medication list is obtained from the patient. - Hospitalizations: : No recent hospitalization is reported. - Exposure Risk Screening:: None identified. - Immunization history:: All immunizations up-to-date. - Family history: Not pertinent. - Social history:: the patient smokes cigarettes the patient drinks alcohol. Screenin:42 Screening information is obtained from the patient. Fall risk: No risks identified. ja5 Assistance ADL's: requires no assistance with activities of daily living. Abuse/DV Screen: The patient / caregiver reports he/she is: not in a situation that causes fear, pain or injury. Nutritional screening: On low sodium, no caffeine. Advance Directives: Currently, there is no health care proxy. There is no active DNR order. There is no living will. 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 home support is adequate. Assessment: 12:39 General: Appears in no apparent distress, Behavior is appropriate for age, cooperative. ja5 Pain: Denies pain. Neurological: Level of Consciousness is awake, alert, Oriented to person, place, time. Cardiovascular: Capillary refill < 3 seconds Heart tones S1 S2 present Rhythm is sinus rhythm No ectopy. Cardiovascular: Chest pain is denied. Respiratory: Airway is patent Respiratory effort is even, unlabored, Respiratory pattern is regular, symmetrical, Breath sounds are clear bilaterally. Derm: Skin is pink, warm & dry. 13:31 General: Appears in no apparent distress, patient is resting comfortably. Harshad HARRIS in hs1 to see patient and has no other questions at this time. . Pain: Denies pain. 14:11 General: Patient up to bathroom. Ambulated with steady gait and no signs of respiratory ja5 distress noted. . 14:20 General: Upon exiting the bathroom patient became dizzy and was returned to his room ja5 via wheelchair. Patient was hooked up to the monitor which displayed a HR 170-190 afib RVR, intermittent SR with bigeminal PVCs and a triplet. Dr. Patricia aware of change in patient status.. 15:11 General: Patient is laying in stretcher with visitors at bedside. HR 140s afib RVR on ja5 air sampling and monitoring. Respirations are even and unlabored, color is pink. Bed in low position, call lynne in reach. . 16:06 General: Patient is laying in stretcher, awake and alert with no complaints of pain. ja5 Respirations are even and unlabored, patient denies being SOB. HR 160 afib RVR on air sampling and monitoring. Patient stated that if "feels like I have a bubble in my chest." Bed in low position, call lynne in reach, family at bedside.. 17:59 General: Appears in no apparent distress, Behavior is appropriate for age, cooperative. ja5 Pain: Denies pain. Neurological: Level of Consciousness is awake, alert, Oriented to person, place, time. Cardiovascular: Capillary refill < 3 seconds Rhythm is atrial fibrillation with rapid ventricular response. Respiratory: Airway is patent Respiratory effort is even, unlabored, Respiratory pattern is regular, symmetrical, Denies shortness of breath at rest. Derm: Skin is pink, warm & dry. 19:39 General: Appears in no apparent distress, comfortable, Behavior is cooperative, mlc pleasant. Pain: Denies pain. Neurological: Level of Consciousness is awake, alert, Oriented to person, place, time. Respiratory: Airway is patent Respiratory effort is even, unlabored, Respiratory pattern is regular. Derm: Skin is pink, warm & dry. 20:18 General: Appears in no apparent distress, comfortable. Pain: Denies pain. Neurological: mlc Level of Consciousness is awake, alert, Oriented to person, place, time. Respiratory: Airway is patent Respiratory effort is even, unlabored, Respiratory pattern is regular. 20:30 General: Pt found to be having seizure activity lasting approx 90-120 Dr Patricia present edwardo and order for Ativan 1 mg ordered... 20:46 General: Dr Ferguson examining patient at this time, he awake and alert.. mar Vital Signs: 11:24 BP 102 / 78; Pulse 101; Resp 18; Temp 98.0(O); Pulse Ox 100% ; Weight 61.23 kg (R); lr2 Height 5 ft. 7 in. (170.18 cm) (R); Pain 2/10; 12:01 BP 153 / 76 (auto/); ja5 12:01 Pulse 80 MON; Pulse Ox 100% ; ja5 12:44 BP 112 / 84 Supine; Pulse 98; ja5 12:44 BP 103 / 85 Sitting; Pulse 100; ja5 12:44 BP 108 / 90 Standing; Pulse 109; ja5 12:55 BP 111 / 83 (auto/); ja5 12:55 Pulse 84 MON; Pulse Ox 99% ; ja5 13:25 BP 118 / 89 (auto/); ja5 13:25 Pulse 90 MON; Pulse Ox 98% ; ja5 13:54 Pulse 76 MON; Pulse Ox 97% ; ja5 13:55 BP 88 / 63 (auto/); ja5 13:59 BP 108 / 73 (auto/); ja5 13:59 Pulse 80 MON; Pulse Ox 95% ; ja5 14:08 Pulse 76 MON; Pulse Ox 97% ; ja5 14:20 BP 108 / 78 (auto/); ja5 15:06 Pulse 138 MON; Pulse Ox 99% ; ja5 15:07 BP 108 / 67 (auto/); ja5 15:21 Pulse 152 MON; Pulse Ox 98% ; ja5 15:22 BP 110 / 59 (auto/); ja5 15:37 BP 120 / 59 (auto/); ja5 15:37 Pulse 156 MON; Pulse Ox 97% ; ja5 16:01 Pulse 126 MON; Pulse Ox 98% ; ja5 16:02 BP 88 / 59 (auto/); ja5 16:07 Pulse 156 MON; Pulse Ox 96% ; ja5 16:08 BP 85 / 64 (auto/); ja5 16:10 BP 85 / 64; Pulse 150; Resp 16; Temp 98.7(O); Pulse Ox 98% on R/A; Pain 0/10; ja5 16:18 Weight 59.87 kg (M); rn1 16:32 BP 84 / 56 LA Supine (man/reg); ja5 17:18 BP 115 / 83 (auto/); ja5 17:20 Pulse 92 MON; Pulse Ox 98% ; ja5 17:59 BP 115 / 83; Pulse 120; Resp 20; Temp 97.4(A); Pulse Ox 94% on R/A; Pain 0/10; ja5 19:38 BP 103 / 75 (auto/); mlc 19:38 Pulse 86 MON; Pulse Ox 97% ; mlc 20:08 BP 111 / 80 (auto/); mlc 20:09 Pulse 78 MON; Pulse Ox 96% ; mlc 20:18 BP 106 / 71; Pulse 91; Resp 18; Temp 99.0; Pulse Ox 98% on R/A; Pain 0/10; mlc 20:40 BP 123 / 83; Pulse 90; Resp 18; Pulse Ox 96% on R/A; Pain 0/10; ar3 16:18 Body Mass Index 20.67 (59.87 kg, 170.18 cm) rn1 Vitals: 11:24 Log In Time: May 25, 2016 at 11:23. lr2 ED Course: 11:24 Patient visited by Hannah Whitaker. lr2 11:24 Patient moved to Waiting lr2 11:25 Chance Vora is Private Physician. lr2 11:26 Patient moved to Pre RCE lr2 11:29 Triage Initiated dsf 11:55 Patient moved to PR2 / ead 12:01 EKG done. (by ED staff). Reviewed by Grupo Patricia MD. ar3 12:02 Patient visited by Danielle Jain PCA. ar3 12:12 Patient moved to Triage 2 dsf 12:20 Riya Hinojosa,RN is Primary Nurse. nb2 12:20 Mariah Acevedo, JAIME is Primary Nurse. nb2 12:20 Patient moved to 11 nb2 12:24 [facility] Payment Agreement was scanned into [employer] and attached to record. lg 12:26 Patient visited by Nayeli Robles. nb2 12:26 Placed in gown. Bed in low position. Call light in reach. Side rails up X2. Cardiac nb2 monitor on. Pulse ox on. NIBP on. 12:40 The patient / caregiver is instructed regarding the plan of care and ED course. ja5 12:43 Patient visited by Riya Hinojosa RN. ja5 13:05 Grupo Patricia MD is Attending Physician. pc 13:29 Patient visited by Grupo Patricia MD. pc 13:30 Inserted saline lock: 20 gauge in right antecubital area. ja5 13:49 Patient visited by Nayeli Robles. nb2 13:51 -Arterial Blood Gas Sent. js11 13:58 -Blood Culture Sent. jc4 14:25 Chest, 1 View Returned. EDMS 14:48 Patient visited by Riya Hinojosa RN. ja5 15:57 Patient visited by Riya Hinojosa RN. ja5 16:24 CT Chest Angio R/O PE Returned. EDMS 16:26 Patient moved to Ultrasound br3 16:45 Protein S Functional Activity Sent. rn1 16:45 Protein C Functional Activity Sent. rn1 16:45 Lupus Type Anticoagulant Sent. rn1 16:45 Factor V Leiden Sent. rn1 16:45 Anti-Cardiolipin Antibodies Sent. rn1 16:45 Anti Thrombin 3 Panel (ag/ac) Sent. rn1 17:06 Chest, 1 View Returned. EDMS 17:10 Patient moved to 11 br3 17:12 Patient visited by Riya Hinojosa RN. ja5 17:26 Yoly Ferguson is Hospitalizing Provider. pc 17:51 Duplex, Ext LOWER veins, bilat Returned. EDMS 18:02 No procedures done that require assistance. ja5 19:02 Keysha Gomez,RN is Primary Nurse. mlc 19:07 Primary Nurse role handed off by Ryia Hinojosa RN ja5 19:07 Primary Nurse role handed off by Mariah Acevedo RN ja5 19:40 Patient visited by Keysha Gomez RN. mlc 20:40 Patient visited by Danielle Jain PCA. ar3 Administered Medications: 15:35 CANCELLED (Other Intervention Used): Atenolol 25 mg PO once pc 16:20 Drug: NS 0.9% 1000 ml [sodium chloride 0.9 % intravenous solution] Route: IV; Rate: ja5 bolus; Site: right antecubital; 17:15 Drug: Enoxaparin (1mg/kg) 60 mg [enoxaparin 60 mg/0.6 mL subcutaneous syringe (0.6 mL)] ja5 {Co-Signature: jc4 (Mariah Acevedo RN).} Route: Sub-Q; Site: right lower abdomen; 19:04 CANCELLED (Other Intervention Used): Atenolol 25 mg PO once ja5 20:27 Drug: LORazepam 1 mg [lorazepam 2 mg/mL injection solution (0.5 mL)] Route: IVP; Site: ko2 right antecubital; RT: 13:51 ABG's drawn from right radial artery allens test done and positive pressure held for 5 js11 minutes no bleeding noted specimen sent pt. tolerated well. Order Results: Lab Order: -Arterial Blood Gas; [facility] 05/25/16 13:41 Test: ABG pH (ARTERIAL); Value: 7.588; Range: 7.350-7.450; Abnormal: Above high normal; Units: UNITS; Status: F Test: ABG PARTIAL PRESSURE CO2; Value: 25.7; Range: 35.0-45.0; Abnormal: Below low normal; Units: mmHg; Status: F Test: ABG PARTIAL PRESSURE O2; Value: 99.7; Range: 75.0-100.0; Units: mmHg; Status: F Test: ABG TOTAL CO2; Value: 24.8; Range: 22.0-29.0; Units: MEQ/L; Status: F Test: ABG HCO3; Value: 24.0; Range: 22.0-26.0; Units: MEQ/L; Status: F Test: ABG BASE EXCESS; Value: 3.7; Range: -2.0-2.0; Abnormal: Above high normal; Status: F Test: ABG STANDARD HCO3; Value: 27.8; Range: 22.0-26.0; Abnormal: Above high normal; Units: MEQ/L; Status: F Test: ABG O2 SATURATION; Value: 98.4; Range: 95.0-99.0; Units: %; Status: F Test: ABG DEVICE; Value: NASAL LUIS; Status: F Lab Order: B-Type Natiuretic Peptide; [facility] 05/25/16 12:54 Test: BRAIN NATRIURETIC PEPTIDE; Value: 172; Range: <100; Abnormal: Above high normal; Units: PG/ML; Status: F Lab Order: Basic Metabolic Profile; [facility] 05/25/16 12:54 Test: GLUCOSE, FASTING; Value: 100; Range: 70-105; Units: MG/DL; Status: F Test: BLOOD UREA NITROGEN; Value: 9; Range: 7-18; Units: MG/DL; Status: F Test: CREATININE FOR GFR; Value: 1.03; Range: 0.70-1.30; Units: MG/DL; Status: F Test: GLOMERULAR FILTRATION RATE; Value: > 60.0; Range: >56; Status: F Test: SODIUM LEVEL; Value: 137; Range: 136-145; Units: MEQ/L; Status: F Test: POTASSIUM SERUM; Value: 3.2; Range: 3.5-5.1; Units: MEQ/L; Status: F Test: CHLORIDE LEVEL; Value: 96; Range: 98-107; Abnormal: Below low normal; Units: MEQ/L; Status: F Test: CARBON DIOXIDE LEVEL; Value: 30; Range: 21-32; Units: MEQ/L; Status: F Test: ANION GAP; Value: 11; Range: 8-16; Units: MEQ/L; Status: F Test: CALCIUM LEVEL; Value: 9.2; Range: 8.5-10.1; Units: MG/DL; Status: F Test Note: ; Units are mL/min/1.73 m2 Chronic Kidney Disease Staging per NKF: Stage I & II GFR >=60 Normal to Mildly Decreased Stage III GFR 30-59 Moderately Decreased Stage IV GFR 15-29 Severely Decreased Stage V GFR <15 Very Little GFR Left ESRD GFR <15 on BAND SHOVER Lab Order: CBC with Diff; SPEC'M 05/25/16 12:54 Test: WHITE BLOOD COUNT; Value: 7.9; Range: 4.0-10.0; Units: K/mm3; Status: F Test: RED BLOOD COUNT; Value: 4.63; Range: 4.30-6.10; Units: M/mm3; Status: F Test: HEMOGLOBIN; Value: 15.1; Range: 14.0-18.0; Units: g/dl; Status: F Test: HEMATOCRIT; Value: 45.2; Range: 42.0-52.0; Units: %; Status: F Test: MEAN CORPUSCULAR VOLUME; Value: 97.7; Range: 80.0-96.0; Abnormal: Above high normal; Units: fl; Status: F Test: MEAN CORPUSCULAR HEMOGLOBIN; Value: 32.7; Range: 27.0-33.0; Units: pg; Status: F Test: MEAN CORPUSCULAR HGB CONC; Value: 33.5; Range: 32.0-36.5; Units: g/dl; Status: F Test: RED CELL DISTRIBUTION WIDTH; Value: 12.2; Range: 11.5-14.5; Units: %; Status: F Test: PLATELET COUNT, AUTOMATED; Value: 171; Range: 150-450; Units: k/mm3; Status: F Test: NEUTROPHILS %; Value: 74.0; Range: 36.0-66.0; Abnormal: Above high normal; Units: %; Status: F Test: LYMPH %; Value: 16.9; Range: 24.0-44.0; Abnormal: Below low normal; Units: %; Status: F Test: MONO %; Value: 6.3; Range: 0.0-5.0; Abnormal: Above high normal; Units: %; Status: F Test: EOS %; Value: 0.3; Range: 0.0-3.0; Units: %; Status: F Test: BASO %; Value: 0.2; Range: 0.0-1.0; Units: %; Status: F Test: LARGE UNSTAINED CELL %; Value: 2.4; Range: 0.0-4.0; Units: %; Status: F Test: NEUTROPHILS #; Value: 5.9; Range: 1.8-7.7; Units: K/mm3; Status: F Test: LYMPH #; Value: 1.3; Range: 1.5-4.5; Abnormal: Below low normal; Units: K/mm3; Status: F Test: MONO #; Value: 0.5; Range: 0.0-0.8; Units: K/mm3; Status: F Test: EOS #; Value: 0.0; Range: 0.0-0.50; Units: K/mm3; Status: F Test: BASO #; Value: 0.0; Range: 0.0-0.2; Units: K/mm3; Status: F Test: LARGE UNSTAINED CELL #; Value: 0.2; Range: 0.0-0.4; Units: K/mm3; Status: F Lab Order: Cardiac Injury Profile; SPEC'M 05/25/16 12:54 Test: CPK CREATINE PHOSPHOKINASE; Value: 51; Range: 39-308; Units: U/L; Status: F Test: CK-MB VALUE MASS; Value: 1.5; Range: 0.0-3.6; Units: NG/ML; Status: F Test: MB/CK RELATIVE INDEX; Value: 2.94; Range: < OR =4; Status: F Test Note: ; DIAGNOSIS CRITERIA MMB ng/ml Relative Index (RI) NON-AMI < or = 5 N/A VALERIO ZONE > 5 < or = 4 AMI > 5 > 4 Lab Order: D-Dimer Quant; [facility] 05/25/16 12:54 Test: D-DIMER QUANT; Value: 2769.0; Range: <500; Abnormal: Above high normal; Units: ng/ml; Status: F Lab Order: Troponin; [facility] 05/25/16 12:54 Test: TROPONIN I; Value: < 0.02; Range: < 0.10; Units: NG/ML; Status: F Test Note: ; Troponin I Reference Interval for HRsoft LOCI: 99th Percentile= 0.00-0.045 ng/ml Risk Stratification: <= 0.10 ng/ml Decreased Risk for Adverse Clinical Events. 0.10-1.50 ng/ml Increased Risk for Adverse Clinical Events. Evaluation of additional criterion and/or repeat testing in 2-6 hours is suggested to rule out myocardial damage. >= 1.50 ng/ml Indicative of Myocardial Injury. Lab Order: PT & APTT; [facility] 05/25/16 12:54 Test: PROTHROMBIN TIME; Value: 12.1; Range: 12.3-14.5; Abnormal: Below low normal; Units: SECONDS; Status: F Test: INR; Value: 0.89; Status: F Test: PARTIAL THROMBOPLASTIN TIME; Value: 25.3; Range: 26.6-37.1; Abnormal: Below low normal; Units: SECONDS; Status: F Test Note: ; THERAPUTIC HUMAN INR VALUES INDICATIONS NORMAL RANGES PROPHYLAXIS/TREATMENT OF: VENOUS THROMBOSIS 2.0-3.0 PULMONARY EMBOLISM 2.0-3.0 PREVENTION OF SYSTEMIC EMBOLISM FROM: TISSUE HEART VALVES 2.0-3.0 ACUTE MYOCARDIAL INFARCTION 2.0-3.0 VALVULAR HEART DISEASE 2.0-3.0 ATRIAL FIBRILLATION 2.0-3.0 MECHANICAL VALVES(HIGH RISK) 2.5-3.5 RECURRENT MYOCARDIAL INFARCTION 2.5-3.5 Lab Order: CARDIAC MARKER PANEL; [facility] 05/25/16 17:35 Test: CPK CREATINE PHOSPHOKINASE; Value: 42; Range: 39-308; Units: U/L; Status: F Test: CK-MB VALUE MASS; Value: 1.9; Range: 0.0-3.6; Units: NG/ML; Status: F Test: MB/CK RELATIVE INDEX; Value: 4.52; Range: < OR =4; Abnormal: Above high normal; Status: F Test: TROPONIN I; Value: < 0.02; Range: < 0.10; Units: NG/ML; Status: F Test Note: ; DIAGNOSIS CRITERIA MMB ng/ml Relative Index (RI) NON-AMI < or = 5 N/A VALERIO ZONE > 5 < or = 4 AMI > 5 > 4 Lab Order: ETHYL ALCOHOL (ETHANOL); SPEC'M 05/25/16 17:35 Test: ETHYL ALCOHOL (ETHANOL); Value: < 0.003; Range: 0.000-0.010; Units: %; Status: F Radiology Order: Chest, 1 View Test: Chest, 1 View REASON FOR EXAMINATION: Shortness of Breath; PORTABLE CHEST:; ; AP portable view of the chest is performed.; ; There is no acute infiltrate or pulmonary edema. The heart is normal in size.; The mediastinal silhouette is unremarkable. There is a calcified granuloma in the; left lung base.; ; IMPRESSION:; ; No acute pulmonary disease.; ; ; Signed by; Manuel Valerio MD 05/25/2016 04:59 P; Radiology Order: CT Chest Angio R/O PE Test: CT Chest Angio R/O PE REASON FOR EXAMINATION: r/o PE; CT ANGIO CHEST:; ; HISTORY: Shortness of breath.; ; CONTRAST: Isovue-370, 75 mL; ; Emboli are present in the distal main right and left pulmonary arteries and; their proximal branches. A calcified granuloma is present in the left lower lobe.; The right lung is clear. There is no pleural effusion. There is no hilar or; mediastinal mass. Atherosclerotic calcification is present in the thoracic aorta.; There is an old compression fracture of the T7 vertebral body with minimal height; loss.; ; IMPRESSION:; ; There are emboli in the distal main right and left pulmonary arteries and their; proximal branches.; ; ; Signed by; Raheel Rao MD 05/25/2016 03:57 P; Radiology Order: Duplex, Ext LOWER veins, bilat Test: Duplex, Ext LOWER veins, bilat REASON FOR EXAMINATION: multiple PEs; Duplex extremity venous ultrasound: Bilateral lower extremity.; ; History: Multiple pulmonary emboli.; ; Findings: The deep veins are anechoic and fully compressible from the groin to; the popliteal fossa in the right and left lower extremity. Color flow imaging is; homogeneous. Spectral Doppler interrogation demonstrates intact respiratory; variation in flow and normal manual augmentation of flow. There is no evidence; of deep vein thrombosis.; ; Impression:; ; Negative bilateral lower extremity duplex venous ultrasound. No evidence of deep; vein thrombosis.; ; ; Signed by; Leonidas Ceballos MD 05/25/2016 05:20 P; Outcome: 17:26 Decision to Hospitalize by Provider. pc 18:01 CT Study completed. Ultrasound Study completed. ja5 18:01 Discharge Assessment: Patient awake and alert. Oriented to person, place and time. ja5 patient administered narcotics - no. The following High Risk Discharge criteria are identified: None. Admitted to PCU accompanied by nurse, family with patient, via stretcher, on monitor, with chart. Condition: stable. Property :Personal belongings accompany Pt. 20:18 Admitted to PCU accompanied by nurse, accompanied by tech, via stretcher, with chart[place] [facility] [place]: stable. 20:19 Patient left the ED. [facility] [place] Discharge Assessment: pt now leaving ED, no seizure activity at this time. mar 20:54 Patient left the ED. mar Addendum: 05/28/2016 08:35 Narrative:. as Signatures: Dispatcher [employer] EDMS Grupo Patricia MD MD pc Newman, JAIME Berger RN, LoriLee, Chapito Reg lg Short,Osmar as Stephanie Lemos br3 Danielle Jain, PHOTOGRAPHIC HAND DEVELOPER PHOTOGRAPHIC HAND DEVELOPER ar3 Anna Joe RN RN hs1 Mariah Acevedo RN RN jc4 Ami VillatoroRN RN ellaf Juan R Ross js11 Nova KarimiRN Keysha GarciaRN Hui Mcknight RN RN ko2 Newman, Robert rn1 Nayeli Robles nb2 Riya Hinojosa RN RN Hannah Aguilar lr2 Mariah Acevedo RN jc4 Corrections: (The following items were deleted from the chart) 05/25 12:13 12:01 EKG done. (by ED staff). Reviewed by Chance Lewis MD ar3 ar3 18:04 18:04 Inserted saline lock: 20 gauge in right antecubital area ja5 ja5 Chart Complete MTDD
--- NOTE | 2016-05-28 08:37 | EDDOCDS ---
Nurse's Notes [facility] Name: Jayro Delgado Age: 55 yrs Sex: Male : 1960 Arrival Date: 05/25/2016 Time: 11:23 Bed 11 Private MD: Chance Vora J Diagnosis: Pulmonary embolism;Persistent atrial fibrillation;Hypotension;Patient's noncompliance with medical treatment and regimen Presentation: 05/25 11:28 Presenting complaint: Patient states: was seen here sat diagnosed with diarrhea, nausea dsf and vomiting. Since then when pt walks he gets dizzy and gets SOB. Adult Sepsis Screening: The patient does not have new or worsening altered mentation. Patient's respiratory rate is less than 22. Systolic blood pressure is greater than 100. Patient has a qSOFA score of 0- Negative Sepsis Screen. Suicide/Homicide risk assessment- the patient denies having any suicidal and/or homicidal ideations and does not present with any other emotional, behavioral or mental health complaints. Status: Patient is not a clinical services consultant or dependent. Transition of care: patient was not received from another setting of care. 11:28 Acuity: PAUL Level 3 dsf 11:28 Method Of Arrival: Wheelchair dsf Triage Assessment: 11:31 General: Appears in no apparent distress, Behavior is appropriate for age, cooperative. dsf Pain: Denies pain. HIV screening NA for this visit Offered previously. Neurological: Reports dizziness with walking . Respiratory: Onset: The symptoms/episode began/occurred yesterday, Reports shortness of breath on exertion since yesterday. Historical: - Allergies: no known allergies; - Home Meds: 1. aspirin 162 mg Oral TbEC 1 tab once daily (Last dose: 05/24/2016) 2. Metoprolol 25mg daily (Last dose: 05/24/2016) 3. multivitamin Oral tab daily (Last dose: 05/24/2016) 4. prednisone 20 mg Oral tab 2 tabs once daily (Last dose: 05/24/2016) 5. Cipro 500 mg Oral tab 1 tab every 12 hours (Last dose: 05/24/2016) 6. Flagyl 500 mg Oral tab 1 tab every 8 hours (Last dose: 05/24/2016) - PMHx: afib; Hypertension; - PSHx: Tip of right middle finger amputated; left wrist surgery; - The history from nurses notes was reviewed: and I agree with what is documented. - Social history: Smoking status: Patient uses tobacco products, current every day smoker. No barriers to communication noted, The patient speaks fluent Faroese, Speaks appropriately for age. - : The pt / caregiver states he / she is not on anticoagulants. Home medication list is obtained from the patient. - Hospitalizations: : No recent hospitalization is reported. - Exposure Risk Screening:: None identified. - Immunization history:: All immunizations up-to-date. - Family history: Not pertinent. - Social history:: the patient smokes cigarettes the patient drinks alcohol. Screenin:42 Screening information is obtained from the patient. Fall risk: No risks identified. ja5 Assistance ADL's: requires no assistance with activities of daily living. Abuse/DV Screen: The patient / caregiver reports he/she is: not in a situation that causes fear, pain or injury. Nutritional screening: On low sodium, no caffeine. Advance Directives: Currently, there is no health care proxy. There is no active DNR order. There is no living will. There is no Power of Director Nurses' Registry. home support is adequate. Assessment: 12:39 General: Appears in no apparent distress, Behavior is appropriate for age, cooperative. ja5 Pain: Denies pain. Neurological: Level of Consciousness is awake, alert, Oriented to person, place, time. Cardiovascular: Capillary refill < 3 seconds Heart tones S1 S2 present Rhythm is sinus rhythm No ectopy. Cardiovascular: Chest pain is denied. Respiratory: Airway is patent Respiratory effort is even, unlabored, Respiratory pattern is regular, symmetrical, Breath sounds are clear bilaterally. Derm: Skin is pink, warm & dry. 13:31 General: Appears in no apparent distress, patient is resting comfortably. Harshad HARRIS in hs1 to see patient and has no other questions at this time. . Pain: Denies pain. 14:11 General: Patient up to bathroom. Ambulated with steady gait and no signs of respiratory ja5 distress noted. . 14:20 General: Upon exiting the bathroom patient became dizzy and was returned to his room ja5 via wheelchair. Patient was hooked up to the monitor which displayed a HR 170-190 afib RVR, intermittent SR with bigeminal PVCs and a triplet. Dr. Patricia aware of change in patient status.. 15:11 General: Patient is laying in stretcher with visitors at bedside. 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 Respirations are even and unlabored, color is pink. Bed in low position, call lynne in reach. . 16:06 General: Patient is laying in stretcher, awake and alert with no complaints of pain. ja5 Respirations are even and unlabored, patient denies being SOB. 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 Patient stated that if "feels like I have a bubble in my chest." Bed in low position, call lynne in reach, family at bedside.. 17:59 General: Appears in no apparent distress, Behavior is appropriate for age, cooperative. ja5 Pain: Denies pain. Neurological: Level of Consciousness is awake, alert, Oriented to person, place, time. Cardiovascular: Capillary refill < 3 seconds Rhythm is atrial fibrillation with rapid ventricular response. Respiratory: Airway is patent Respiratory effort is even, unlabored, Respiratory pattern is regular, symmetrical, Denies shortness of breath at rest. Derm: Skin is pink, warm & dry. 19:39 General: Appears in no apparent distress, comfortable, Behavior is cooperative, mlc pleasant. Pain: Denies pain. Neurological: Level of Consciousness is awake, alert, Oriented to person, place, time. Respiratory: Airway is patent Respiratory effort is even, unlabored, Respiratory pattern is regular. Derm: Skin is pink, warm & dry. 20:18 General: Appears in no apparent distress, comfortable. Pain: Denies pain. Neurological: mlc Level of Consciousness is awake, alert, Oriented to person, place, time. Respiratory: Airway is patent Respiratory effort is even, unlabored, Respiratory pattern is regular. 20:30 General: Pt found to be having seizure activity lasting approx 90-120 Dr Patricia present edwardo and order for Ativan 1 mg ordered... 20:46 General: Dr Ferguson examining patient at this time, he awake and alert.. mar Vital Signs: 11:24 BP 102 / 78; Pulse 101; Resp 18; Temp 98.0(O); Pulse Ox 100% ; Weight 61.23 kg (R); lr2 Height 5 ft. 7 in. (170.18 cm) (R); Pain 2/10; 12:01 BP 153 / 76 (auto/); ja5 12:01 Pulse 80 MON; Pulse Ox 100% ; ja5 12:44 BP 112 / 84 Supine; Pulse 98; ja5 12:44 BP 103 / 85 Sitting; Pulse 100; ja5 12:44 BP 108 / 90 Standing; Pulse 109; ja5 12:55 BP 111 / 83 (auto/); ja5 12:55 Pulse 84 MON; Pulse Ox 99% ; ja5 13:25 BP 118 / 89 (auto/); ja5 13:25 Pulse 90 MON; Pulse Ox 98% ; ja5 13:54 Pulse 76 MON; Pulse Ox 97% ; ja5 13:55 BP 88 / 63 (auto/); ja5 13:59 BP 108 / 73 (auto/); ja5 13:59 Pulse 80 MON; Pulse Ox 95% ; ja5 14:08 Pulse 76 MON; Pulse Ox 97% ; ja5 14:20 BP 108 / 78 (auto/); ja5 15:06 Pulse 138 MON; Pulse Ox 99% ; ja5 15:07 BP 108 / 67 (auto/); ja5 15:21 Pulse 152 MON; Pulse Ox 98% ; ja5 15:22 BP 110 / 59 (auto/); ja5 15:37 BP 120 / 59 (auto/); ja5 15:37 Pulse 156 MON; Pulse Ox 97% ; ja5 16:01 Pulse 126 MON; Pulse Ox 98% ; ja5 16:02 BP 88 / 59 (auto/); ja5 16:07 Pulse 156 MON; Pulse Ox 96% ; ja5 16:08 BP 85 / 64 (auto/); ja5 16:10 BP 85 / 64; Pulse 150; Resp 16; Temp 98.7(O); Pulse Ox 98% on R/A; Pain 0/10; ja5 16:18 Weight 59.87 kg (M); rn1 16:32 BP 84 / 56 LA Supine (man/reg); ja5 17:18 BP 115 / 83 (auto/); ja5 17:20 Pulse 92 MON; Pulse Ox 98% ; ja5 17:59 BP 115 / 83; Pulse 120; Resp 20; Temp 97.4(A); Pulse Ox 94% on R/A; Pain 0/10; ja5 19:38 BP 103 / 75 (auto/); mlc 19:38 Pulse 86 MON; Pulse Ox 97% ; mlc 20:08 BP 111 / 80 (auto/); mlc 20:09 Pulse 78 MON; Pulse Ox 96% ; mlc 20:18 BP 106 / 71; Pulse 91; Resp 18; Temp 99.0; Pulse Ox 98% on R/A; Pain 0/10; mlc 20:40 BP 123 / 83; Pulse 90; Resp 18; Pulse Ox 96% on R/A; Pain 0/10; ar3 16:18 Body Mass Index 20.67 (59.87 kg, 170.18 cm) rn1 Vitals: 11:24 Log In Time: May 25, 2016 at 11:23. lr2 ED Course: 11:24 Patient visited by Hannah Whitaker. lr2 11:24 Patient moved to Waiting lr2 11:25 Chance Vora is Private Physician. lr2 11:26 Patient moved to Pre RCE lr2 11:29 Triage Initiated dsf 11:55 Patient moved to PR2 / ead 12:01 EKG done. (by ED staff). Reviewed by Grupo Patricia MD. ar3 12:02 Patient visited by Danielle Jain PCA. ar3 12:12 Patient moved to Triage 2 dsf 12:20 Riya Hinojosa,RN is Primary Nurse. nb2 12:20 Mariah Acevedo, JAIME is Primary Nurse. nb2 12:20 Patient moved to 11 nb2 12:24 REPLACED BY [facility] Payment Agreement was scanned into [employer] and attached to record. lg 12:26 Patient visited by Nayeli Robles. nb2 12:26 Placed in gown. Bed in low position. Call light in reach. Side rails up X2. Cardiac nb2 monitor on. Pulse ox on. NIBP on. 12:40 The patient / caregiver is instructed regarding the plan of care and ED course. ja5 12:43 Patient visited by Riya Hinojosa RN. ja5 13:05 Grupo Patricia MD is Attending Physician. pc 13:29 Patient visited by Grupo Patricia MD. pc 13:30 Inserted saline lock: 20 gauge in right antecubital area. ja5 13:49 Patient visited by Nayeli Robles. nb2 13:51 -Arterial Blood Gas Sent. js11 13:58 -Blood Culture Sent. jc4 14:25 Chest, 1 View Returned. EDMS 14:48 Patient visited by Riya Hinojosa RN. ja5 15:57 Patient visited by Riya Hinojosa RN. ja5 16:24 CT Chest Angio R/O PE Returned. EDMS 16:26 Patient moved to Ultrasound br3 16:45 Protein S Functional Activity Sent. rn1 16:45 Protein C Functional Activity Sent. rn1 16:45 Lupus Type Anticoagulant Sent. rn1 16:45 Factor V Leiden Sent. rn1 16:45 Anti-Cardiolipin Antibodies Sent. rn1 16:45 Anti Thrombin 3 Panel (ag/ac) Sent. rn1 17:06 Chest, 1 View Returned. EDMS 17:10 Patient moved to 11 br3 17:12 Patient visited by Riya Hinojosa RN. ja5 17:26 Yoly Ferguson is Hospitalizing Provider. pc 17:51 Duplex, Ext LOWER veins, bilat Returned. EDMS 18:02 No procedures done that require assistance. ja5 19:02 Keysha Gomez,RN is Primary Nurse. mlc 19:07 Primary Nurse role handed off by Riya Hinojosa RN ja5 19:07 Primary Nurse role handed off by Mariah Acevedo RN ja5 19:40 Patient visited by Keysha Gomez RN. mlc 20:40 Patient visited by Danielle Jain PCA. ar3 Administered Medications: 15:35 CANCELLED (Other Intervention Used): Atenolol 25 mg PO once pc 16:20 Drug: NS 0.9% 1000 ml [sodium chloride 0.9 % intravenous solution] Route: IV; Rate: ja5 bolus; Site: right antecubital; 17:15 Drug: Enoxaparin (1mg/kg) 60 mg [enoxaparin 60 mg/0.6 mL subcutaneous syringe (0.6 mL)] ja5 {Co-Signature: jc4 (Mariah Acevedo RN).} Route: Sub-Q; Site: right lower abdomen; 19:04 CANCELLED (Other Intervention Used): Atenolol 25 mg PO once ja5 20:27 Drug: LORazepam 1 mg [lorazepam 2 mg/mL injection solution (0.5 mL)] Route: IVP; Site: ko2 right antecubital; RT: 13:51 ABG's drawn from right radial artery allens test done and positive pressure held for 5 js11 minutes no bleeding noted specimen sent pt. tolerated well. Order Results: Lab Order: -Arterial Blood Gas; [facility] 05/25/16 13:41 Test: ABG pH (ARTERIAL); Value: 7.588; Range: 7.350-7.450; Abnormal: Above high normal; Units: UNITS; Status: F Test: ABG PARTIAL PRESSURE CO2; Value: 25.7; Range: 35.0-45.0; Abnormal: Below low normal; Units: mmHg; Status: F Test: ABG PARTIAL PRESSURE O2; Value: 99.7; Range: 75.0-100.0; Units: mmHg; Status: F Test: ABG TOTAL CO2; Value: 24.8; Range: 22.0-29.0; Units: MEQ/L; Status: F Test: ABG HCO3; Value: 24.0; Range: 22.0-26.0; Units: MEQ/L; Status: F Test: ABG BASE EXCESS; Value: 3.7; Range: -2.0-2.0; Abnormal: Above high normal; Status: F Test: ABG STANDARD HCO3; Value: 27.8; Range: 22.0-26.0; Abnormal: Above high normal; Units: MEQ/L; Status: F Test: ABG O2 SATURATION; Value: 98.4; Range: 95.0-99.0; Units: %; Status: F Test: ABG DEVICE; Value: NASAL LUIS; Status: F Lab Order: B-Type Natiuretic Peptide; [facility] 05/25/16 12:54 Test: BRAIN NATRIURETIC PEPTIDE; Value: 172; Range: <100; Abnormal: Above high normal; Units: PG/ML; Status: F Lab Order: Basic Metabolic Profile; [facility] 05/25/16 12:54 Test: GLUCOSE, FASTING; Value: 100; Range: 70-105; Units: MG/DL; Status: F Test: BLOOD UREA NITROGEN; Value: 9; Range: 7-18; Units: MG/DL; Status: F Test: CREATININE FOR GFR; Value: 1.03; Range: 0.70-1.30; Units: MG/DL; Status: F Test: GLOMERULAR FILTRATION RATE; Value: > 60.0; Range: >56; Status: F Test: SODIUM LEVEL; Value: 137; Range: 136-145; Units: MEQ/L; Status: F Test: POTASSIUM SERUM; Value: 3.2; Range: 3.5-5.1; Units: MEQ/L; Status: F Test: CHLORIDE LEVEL; Value: 96; Range: 98-107; Abnormal: Below low normal; Units: MEQ/L; Status: F Test: CARBON DIOXIDE LEVEL; Value: 30; Range: 21-32; Units: MEQ/L; Status: F Test: ANION GAP; Value: 11; Range: 8-16; Units: MEQ/L; Status: F Test: CALCIUM LEVEL; Value: 9.2; Range: 8.5-10.1; Units: MG/DL; Status: F Test Note: ; Units are mL/min/1.73 m2 Chronic Kidney Disease Staging per NKF: Stage I & II GFR >=60 Normal to Mildly Decreased Stage III GFR 30-59 Moderately Decreased Stage IV GFR 15-29 Severely Decreased Stage V GFR <15 Very Little GFR Left ESRD 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 Lab Order: CBC with Diff; SPE[facility] 05/25/16 12:54 Test: WHITE BLOOD COUNT; Value: 7.9; Range: 4.0-10.0; Units: K/mm3; Status: F Test: RED BLOOD COUNT; Value: 4.63; Range: 4.30-6.10; Units: M/mm3; Status: F Test: HEMOGLOBIN; Value: 15.1; Range: 14.0-18.0; Units: g/dl; Status: F Test: HEMATOCRIT; Value: 45.2; Range: 42.0-52.0; Units: %; Status: F Test: MEAN CORPUSCULAR VOLUME; Value: 97.7; Range: 80.0-96.0; Abnormal: Above high normal; Units: fl; Status: F Test: MEAN CORPUSCULAR HEMOGLOBIN; Value: 32.7; Range: 27.0-33.0; Units: pg; Status: F Test: MEAN CORPUSCULAR HGB CONC; Value: 33.5; Range: 32.0-36.5; Units: g/dl; Status: F Test: RED CELL DISTRIBUTION WIDTH; Value: 12.2; Range: 11.5-14.5; Units: %; Status: F Test: PLATELET COUNT, AUTOMATED; Value: 171; Range: 150-450; Units: k/mm3; Status: F Test: NEUTROPHILS %; Value: 74.0; Range: 36.0-66.0; Abnormal: Above high normal; Units: %; Status: F Test: LYMPH %; Value: 16.9; Range: 24.0-44.0; Abnormal: Below low normal; Units: %; Status: F Test: MONO %; Value: 6.3; Range: 0.0-5.0; Abnormal: Above high normal; Units: %; Status: F Test: EOS %; Value: 0.3; Range: 0.0-3.0; Units: %; Status: F Test: BASO %; Value: 0.2; Range: 0.0-1.0; Units: %; Status: F Test: LARGE UNSTAINED CELL %; Value: 2.4; Range: 0.0-4.0; Units: %; Status: F Test: NEUTROPHILS #; Value: 5.9; Range: 1.8-7.7; Units: K/mm3; Status: F Test: LYMPH #; Value: 1.3; Range: 1.5-4.5; Abnormal: Below low normal; Units: K/mm3; Status: F Test: MONO #; Value: 0.5; Range: 0.0-0.8; Units: K/mm3; Status: F Test: EOS #; Value: 0.0; Range: 0.0-0.50; Units: K/mm3; Status: F Test: BASO #; Value: 0.0; Range: 0.0-0.2; Units: K/mm3; Status: F Test: LARGE UNSTAINED CELL #; Value: 0.2; Range: 0.0-0.4; Units: K/mm3; Status: F Lab Order: Cardiac Injury Profile; SPEC'M 05/25/16 12:54 Test: CPK CREATINE PHOSPHOKINASE; Value: 51; Range: 39-308; Units: U/L; Status: F Test: CK-MB VALUE MASS; Value: 1.5; Range: 0.0-3.6; Units: NG/ML; Status: F Test: MB/CK RELATIVE INDEX; Value: 2.94; Range: < OR =4; Status: F Test Note: ; DIAGNOSIS CRITERIA MMB ng/ml Relative Index (RI) NON-AMI < or = 5 N/A VALERIO ZONE > 5 < or = 4 AMI > 5 > 4 Lab Order: D-Dimer Quant; [facility] 05/25/16 12:54 Test: D-DIMER QUANT; Value: 2769.0; Range: <500; Abnormal: Above high normal; Units: ng/ml; Status: F Lab Order: Troponin; [facility] 05/25/16 12:54 Test: TROPONIN I; Value: < 0.02; Range: < 0.10; Units: NG/ML; Status: F Test Note: ; Troponin I Reference Interval for [employer] LOCI: 99th Percentile= 0.00-0.045 ng/ml Risk Stratification: <= 0.10 ng/ml Decreased Risk for Adverse Clinical Events. 0.10-1.50 ng/ml Increased Risk for Adverse Clinical Events. Evaluation of additional criterion and/or repeat testing in 2-6 hours is suggested to rule out myocardial damage. >= 1.50 ng/ml Indicative of Myocardial Injury. Lab Order: PT & APTT; [facility] 05/25/16 12:54 Test: PROTHROMBIN TIME; Value: 12.1; Range: 12.3-14.5; Abnormal: Below low normal; Units: SECONDS; Status: F Test: INR; Value: 0.89; Status: F Test: PARTIAL THROMBOPLASTIN TIME; Value: 25.3; Range: 26.6-37.1; Abnormal: Below low normal; Units: SECONDS; Status: F Test Note: ; THERAPUTIC HUMAN INR VALUES INDICATIONS NORMAL RANGES PROPHYLAXIS/TREATMENT OF: VENOUS THROMBOSIS 2.0-3.0 PULMONARY EMBOLISM 2.0-3.0 PREVENTION OF SYSTEMIC EMBOLISM FROM: TISSUE HEART VALVES 2.0-3.0 ACUTE MYOCARDIAL INFARCTION 2.0-3.0 VALVULAR HEART DISEASE 2.0-3.0 ATRIAL FIBRILLATION 2.0-3.0 MECHANICAL VALVES(HIGH RISK) 2.5-3.5 RECURRENT MYOCARDIAL INFARCTION 2.5-3.5 Lab Order: CARDIAC MARKER PANEL; [facility] 05/25/16 17:35 Test: CPK CREATINE PHOSPHOKINASE; Value: 42; Range: 39-308; Units: U/L; Status: F Test: CK-MB VALUE MASS; Value: 1.9; Range: 0.0-3.6; Units: NG/ML; Status: F Test: MB/CK RELATIVE INDEX; Value: 4.52; Range: < OR =4; Abnormal: Above high normal; Status: F Test: TROPONIN I; Value: < 0.02; Range: < 0.10; Units: NG/ML; Status: F Test Note: ; DIAGNOSIS CRITERIA MMB ng/ml Relative Index (RI) NON-AMI < or = 5 N/A VALERIO ZONE > 5 < or = 4 AMI > 5 > 4 Lab Order: ETHYL ALCOHOL (ETHANOL); SPEC'M 05/25/16 17:35 Test: ETHYL ALCOHOL (ETHANOL); Value: < 0.003; Range: 0.000-0.010; Units: %; Status: F Radiology Order: Chest, 1 View Test: Chest, 1 View REASON FOR EXAMINATION: Shortness of Breath; PORTABLE CHEST:; ; AP portable view of the chest is performed.; ; There is no acute infiltrate or pulmonary edema. The heart is normal in size.; The mediastinal silhouette is unremarkable. There is a calcified granuloma in the; left lung base.; ; IMPRESSION:; ; No acute pulmonary disease.; ; ; Signed by; Manuel Valerio MD 05/25/2016 04:59 P; Radiology Order: CT Chest Angio R/O PE Test: CT Chest Angio R/O PE REASON FOR EXAMINATION: r/o PE; CT ANGIO CHEST:; ; HISTORY: Shortness of breath.; ; CONTRAST: Isovue-370, 75 mL; ; Emboli are present in the distal main right and left pulmonary arteries and; their proximal branches. A calcified granuloma is present in the left lower lobe.; The right lung is clear. There is no pleural effusion. There is no hilar or; mediastinal mass. Atherosclerotic calcification is present in the thoracic aorta.; There is an old compression fracture of the T7 vertebral body with minimal height; loss.; ; IMPRESSION:; ; There are emboli in the distal main right and left pulmonary arteries and their; proximal branches.; ; ; Signed by; Raheel Rao MD 05/25/2016 03:57 P; Radiology Order: Duplex, Ext LOWER veins, bilat Test: Duplex, Ext LOWER veins, bilat REASON FOR EXAMINATION: multiple PEs; Duplex extremity venous ultrasound: Bilateral lower extremity.; ; History: Multiple pulmonary emboli.; ; Findings: The deep veins are anechoic and fully compressible from the groin to; the popliteal fossa in the right and left lower extremity. Color flow imaging is; homogeneous. Spectral Doppler interrogation demonstrates intact respiratory; variation in flow and normal manual augmentation of flow. There is no evidence; of deep vein thrombosis.; ; Impression:; ; Negative bilateral lower extremity duplex venous ultrasound. No evidence of deep; vein thrombosis.; ; ; Signed by; Leonidas Ceballos MD 05/25/2016 05:20 P; Outcome: 17:26 Decision to Hospitalize by Provider. pc 18:01 CT Study completed. Ultrasound Study completed. ja5 18:01 Discharge Assessment: Patient awake and alert. Oriented to person, place and time. ja5 patient administered narcotics - no. The following High Risk Discharge criteria are identified: None. Admitted to PCU accompanied by nurse, family with patient, via stretcher, on monitor, with chart. Condition: stable. Property :Personal belongings accompany Pt. 20:18 Admitted to PCU accompanied by nurse, accompanied by tech, via stretcher, with chart. [facility] [place], [place] Condition: stable. 20:19 Patient left the ED. [facility] [place], [place] 20:52 Discharge Assessment: pt now leaving ED, no seizure activity at this time. mar 20:54 Patient left the ED. mar Addendum: 05/28/2016 08:35 Narrative:. as Signatures: Dispatcher [employer] EDMS Grupo Patricia MD MD pc Newman, JAIME Berger RN, LoriLee, Chapito Reg lg Short,Osmar as Stephanie Lemos br3 Danielle Jain, INTERVENTIONAL SALE CONSULTANT INTERVENTIONAL SALE CONSULTANT ar3 Anna Joe RN RN hs1 Mariah Acevedo RN RN jc4 Ami VillatoroRN RN ellaf Juan R Ross js11 Nova KarimiRN Keysha GarciaRN Hui Mcknight RN RN ko2 Newman, Robert rn1 Nayeli Robles nb2 Riya Hinojosa RN RN Hannah Aguilar lr2 Mariah Acevedo RN jc4 Corrections: (The following items were deleted from the chart) 05/25 12:13 12:01 EKG done. (by ED staff). Reviewed by Chanec Lewis MD ar3 ar3 18:04 18:04 Inserted saline lock: 20 gauge in right antecubital area ja5 ja5 ADAMD
[2016-05-28] MEDS: THIAMINE 100 MG TAB PO SCH (09:40)
[2016-05-28] MEDS: ATENOLOL 25 MG TAB PO SCH ×2 (09:40→21:08)
[2016-05-28] MEDS: LR 1,000 ML IV SCH (09:40)
[2016-05-28] MEDS: FOLIC ACID 1 MG TAB PO SCH (09:40)
[2016-05-28] MEDS: PANTOPRAZOLE 40MG TAB (PROTONIX) PO SCH (09:40)
[2016-05-28] MEDS: APIXABAN 5 MG TAB (ELIQUIS) PO SCH (09:40)
[2016-05-28] MEDS: DIGOXIN 0.25 MG TAB PO SCH (09:41)
[2016-05-28] MEDS ORDERED: XARE20TA PO (10:48)
--- NOTE | 2016-05-28 12:55 | ECGEPIP ---
Stationary ECG Study [facility] Test Date: 2016-05-28 Pat Name: LAILA BLEDSOE Department: Room: [place] [address] Gender: M Winterizer: SHANIQUA : 1960 Requested By: SVETLANA Swenson Order Number: [id number] Reading MD: Rajat Harper Measurements Intervals [place] Rate: 62 P: 58 MA: 171 QRS: 57 QRSD: 104 T: 49 QT: 398 QTc: 407 Interpretive Statements SINUS RHYTHM Resolved atrial fibrillation and normalized rate when compared to tracing done 05-26-16 Electronically Signed On 05-28-2016 12:54:54 EST by Rajat Harper
--- NOTE | 2016-05-28 18:58 | IPN ---
DATE: 05/28/2016 CARDIOLOGY PROGRESS NOTE SUBJECTIVE: Has been ambulating on the floor without further shortness of breath or lightheadedness. Remained free of any chest discomfort or palpitations. Appears to tolerate his current medications without adverse effect. OBJECTIVE: Pleasant, middle-aged male, medium body build, currently in no distress. Heart rate 68 beats per minute and regular, blood pressure 122/68 sitting on the edge of his bed, respiratory rate 16 per minute, oxygen saturation 98% on room air. Afebrile. His weight has been stable. No pallor or cyanosis. Normal oral moisture. Trachea midline. Neck veins were not elevated. Good air entry over both lung hartman with no adventitious to sounds. No dependent edema. 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 LABORATORY DATA: Hemoglobin 13.7 with normal white blood cell count and platelet count. Electrolytes were normal with BUN 7, creatinine 0.7, glucose 90. Ultra-sensitive TSH earlier this week was normal at 1.4. IMPRESSION/PLAN: 1. Paroxysmal atrial fibrillation: It appears that his current combination of digoxin and atenolol has prevented him from having any further atrial tachyarrhythmia. Has been ambulating and tolerating these agents well. As discussed, we are hoping to switch his oral anticoagulation to Xarelto, so all of his medications will be once a day to improve compliance. 2. Shortness of breath: Currently free of further dyspnea or faintness that is most likely attributed to his pulmonary emboli. He is tolerating oral anticoagulation as mentioned above. 3. Abnormal EKG: No repeat study was performed but has been ambulating without chest pressure and tolerating his current beta otis therapy without a problem. 4. Cor pulmonale: Noninvasive studies have confirmed right heart enlargement and pulmonary hypertension but is free of right heart failure despite his pulmonary emboli. I agree with his tentative discharge home tomorrow. We will plan on seeing him in my office in approximately 7 days' time.
--- NOTE | 2016-05-28 21:11 | IPNPDOC ---
Subjective Date Seen The patient was seen on 05/28/16. Subjective Chief Complaint/HPI The patient is a 55-year-old male admitted with a reason for visit of Afib; Pulmonary Embolism. Events since last encounter No acute events overnight. able to ambulated. episodes of jeremiah on tele down to 47HR, asymptomatic stable vitals, cardio team informed. denied, n/v/cp/ abd pain. Objective Physical Examination General Exam: Positive: Alert, Cooperative, No Acute Distress Eye Exam: Positive: Conjunctiva & lids normal, EOMI, PERRLA ENT Exam: Positive: Atraumatic, Mucous membr. moist/pink Neck Exam: Positive: Supple Chest Exam: Positive: Clear to auscultation, Normal air movement Heart Exam: Positive: Irregular Rhythm, Normal S1, Normal S2 Telemetry: Positive: Atrial fibrillation, Other Telemetry: (episode of afib with rvr overnight) Abdomen Exam: Positive: Normal bowel sounds, Soft, Negative: Hepatospenomegaly, Tenderness Male Exam: Positive: Normal Genital Exam Extremity Exam: Negative: Edema Assessment /Plan Problems (1) Withdrawal seizures Status: Acute Problem Text: withdraw precaution serax down to PRN PRN valium DCed (2) Pulmonary embolism Status: Acute Problem Text: eliquis changed to xarelto as per cardiology PFS helped with xarelto approval (3) Afib Status: Acute Problem Text: h/o a fib a fib with RVR dig, atenolol cardiac enzyme appreciated thyroid profile appreciated cardiology consulted tele Elquis changed to xarelto as per cardio, given poor compliance once a day med is better for patient (4) Hypertension Status: Chronic Problem Text: borderline bp, close monitor, orthostatic + likely 2/2 to autonomic dysfunction 2/2 to ETOH (5) Tobacco abuse Status: Acute Problem Text: counseling provided refused nicotine patch (6) Alcohol dependence Status: Acute Problem Text: see above, counseling provided (7) Syncope Status: Acute Problem Text: possible related to PE vs ETOH, PT, orthostatic BP + 2/2 to likely autonomic dysfunction due to ETOH , tele Plan/VTE VTE Prophylaxis Ordered?: Yes (Xarelto) Disposition likely DC tomorrow, pending better A fib control VS, I&O, 24H, Fishbone Vital Signs/I&O Vital Signs Date Time Temp Pulse Resp B/P Pulse Ox O2 Delivery O2 Flow Rate FiO2 05/28/16 20:00 97.7 65 20 128/84 97 Room Air I&O- Last 24 Hours up to 6 AM 05/28/16 06:00 Intake Total 2440 ml Output Total 2475 ml Balance -35 ml Laboratory Data 24H LABS Laboratory Tests 2 05/28/16 05:30: Anion Gap 5L, White Blood Count 5.1, Red Blood Count 4.11L, Hemoglobin 13.7L, Hematocrit 41.2L, Mean Corpuscular Volume 100.3H, Mean Corpuscular Hemoglobin 33.3H, Mean Corpuscular Hemoglobin Concent 33.2, Red Cell Distribution Width 12.2, Platelet Count 189, Neutrophils (%) (Auto) 58.3, Lymphocytes (%) (Auto) 24.5, Monocytes (%) (Auto) 9.3H, Eosinophils (%) (Auto) 3.0, Basophils (%) (Auto ) 0.7, Neutrophils # (Auto) 3.0, Lymphocytes # (Auto) 1.3L, Monocytes # (Auto) 0.5, Eosinophils # (Auto) 0.2, Basophils # (Auto) 0.0, Blood Urea Nitrogen 7, Creatinine 0.74, Sodium Level 137, Potassium Level 4.2, Chloride Level 101, Carbon Dioxide Level 31, Calcium Level 8.8, Glomerular Filtration Rate > 60.0, Large Unclassified Cells # 0.2, Large Unclassified Cells % 4.3H CBC/BMP Laboratory Tests 05/28/16 05:30 Calcium Level 8.8, Red Blood Count 4.11 L, Mean Corpuscular Volume 100.3 H, Mean Corpuscular Hemoglobin 33.3 H, Mean Corpuscular Hemoglobin Concent 33.2, Red Cell Distribution Width 12.2, Neutrophils (%) (Auto) 58.3, Lymphocytes (%) ( Auto) 24.5, Monocytes (%) (Auto) 9.3 H, Eosinophils (%) (Auto) 3.0, Basophils (% ) (Auto) 0.7, Neutrophils # (Auto) 3.0, Lymphocytes # (Auto) 1.3 L, Monocytes # (Auto) 0.5, Eosinophils # (Auto) 0.2, Basophils # (Auto) 0.0 Microbiology Microbiology 05/25/16 Blood Culture - Preliminary, Resulted No Growth after 72 hours. All specime... 05/25/16 Blood Culture - Preliminary, Resulted No Growth after 72 hours. All specime... SUSANNE DIXON MD May 28, 2016 21:11
[2016-05-28] MEDS ORDERED: RIVAROXABAN 20 MG TAB (XARELTO) PO ONE (22:00)
[2016-05-29 04:00] VITALS: BP 107/72
[2016-05-29 05:56] LABS: BASO % 0.5 % (0.0-1.0); EOS # 0.3 K/mm3 (0.0-0.50); EOS % 3.8 % (0.0-3.0); LARGE UNSTAINED CELL # 0.4 K/mm3 (0.0-0.4); LARGE UNSTAINED CELL % 6.2 % (0.0-4.0); LYMPH # 1.5 K/mm3 (1.5-4.5); LYMPH % 21.8 % (24.0-44.0); MEAN CORPUSCULAR HEMOGLOBIN 32.8 pg (27.0-33.0); MEAN CORPUSCULAR HGB CONC 32.9 g/dl (32.0-36.5); MEAN CORPUSCULAR VOLUME 99.8 fl (80.0-96.0); MONO # 0.9 K/mm3 (0.0-0.8); MONO % 13.4 % (0.0-5.0); NEUTROPHILS # 3.7 K/mm3 (1.8-7.7); NEUTROPHILS % 54.3 % (36.0-66.0); PLATELET COUNT, AUTOMATED 243 k/mm3 (150-450); RED CELL DISTRIBUTION WIDTH 12.3 % (11.5-14.5); WHITE BLOOD COUNT 6.9 K/mm3 (4.0-10.0)
[2016-05-29 06:10] LABS: BLOOD UREA NITROGEN 8 MG/DL (7-18); CARBON DIOXIDE LEVEL 31 MEQ/L (21-32); CREATININE FOR GFR 0.75 MG/DL (0.70-1.30); GLUCOSE, FASTING 90 MG/DL (70-105)
[2016-05-29 06:20] LABS: ANION GAP 4 MEQ/L (8-16); CHLORIDE LEVEL 102 MEQ/L (98-107); SODIUM LEVEL 137 MEQ/L (136-145)
[2016-05-29] MEDS: SLF 3 ML SYR IV SCH (06:50)
[2016-05-29 07:35] VITALS: BP 114/82
[2016-05-29] MEDS: DIGOXIN 0.25 MG TAB PO SCH (08:37)
[2016-05-29 08:38] VITALS: BP 107/72
[2016-05-29] MEDS: THIAMINE 100 MG TAB PO SCH (08:38)
[2016-05-29] MEDS: PANTOPRAZOLE 40MG TAB (PROTONIX) PO SCH (08:38)
[2016-05-29] MEDS: ATENOLOL 25 MG TAB PO SCH (08:38)
[2016-05-29] MEDS: FOLIC ACID 1 MG TAB PO SCH (08:38)
[2016-05-29] MEDS ORDERED: MULT1TAB18 PO (10:35)
[2016-05-29] MEDS ORDERED: THIA100TA PO (10:35)
[2016-05-29] MEDS ORDERED: DIGO0.25 PO (10:35)
[2016-05-29] MEDS ORDERED: ATEN25TA PO (10:35)
[2016-05-29] MEDS ORDERED: FOLI1TAB2 PO (10:35)
[2016-05-29] MEDS ORDERED: ASPI1TAB PO (16:22)
[2016-05-29] MEDS ORDERED: RIVAROXABAN 20 MG TAB (XARELTO) PO SCH (18:00)
--- NOTE | 2016-05-31 11:35 | DSES ---
DATE OF ADMISSION: 05/25/2016 DATE OF DISCHARGE: 05/29/2016 PRIMARY CARE PROVIDER: Dr. Chance Vora. JIG BORE OPERATOR: Dr. Woodard. FINAL DIAGNOSES: Withdrawal seizure. Acute pulmonary embolism (PE). Atrial fibrillation (AFIB) with rapid ventricular response. Hypertension. Smoking. Alcohol dependence. Alcohol withdrawal. Syncope. Orthostatic positive blood pressure. 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 About two weeks ago since then, he has been feeling dizzy, had shortness of breath with ambulation. Furthermore, patient also reported stop alcohol drinking about 5-6 days ago. He used to drink a lot. Patient reports feeling lightheaded and has to squat down before symptoms get better and continues to walk again. About 6 days ago, patient started having nausea and vomiting and diarrhea which lasted 4 days and now has resolved. Two days ago before coming to the emergency room with worsening lightheadedness and dizziness and shortness of breath. He has worsening dyspnea on exertion. On presentation, patient was noted to be in sinus rhythm with a pulse of 80, however, in the emergency room, patient noted to be in atrial fibrillation with rapid ventricular response, given Lopressor. Atenolol was given with improvement of heart rate. Furthermore, investigation with D-dimer was very elevated. CT angio shows multiple pulmonary embolism on right distal main and also left distal main artery and proximal branches. Ultrasound Doppler negative for deep venous thrombosis (DVT). Patient was not on any anticoagulation for atrial fibrillation, taking only metoprolol and aspirin. Hospitalist service was consulted for admission. Subsequently patient was admitted to the hospital. Anticoagulation, patient initially placed on Eliquis. Cardiology was consulted. Patient's Lopressor was switch to metoprolol and digoxin has also been given. Patient reverted back to sinus. Cardiac enzyme was done. Thyroid profile was done. Telemetry was observed. Eliquis was switched to Xarelto as per cardiology recommendation given Xarelto is a once a day medication, patient is reportedly compliant. Patient and family services (PFS) consulted for prior authorization. During the hospital course, patient developed episode of withdrawal seizure, given Ativan and was placed on Serax standing and also as needed Valium with alcohol withdrawal. Vitamins provided to the patient. Serax was progressively tapered off. Smoking cessation and alcohol cessation consultation was provided. Social work was consulted. Patient's IV fluids were given for orthostatic positive vital signs which has improved. Was thought to be possibly associated with autonomic dysfunction due to alcohol versus pulmonary embolism. Nicotine patch was offered but patient refused. Patient currently comfortable. Passed physical therapy evaluation. Tolerating oral. Ready for discharge for further care and management as outpatient. Vital signs: Temperature 96.3, pulse 59, respiration 18, blood pressure 107/72, pulse ox 97% on room air. Laboratory: WBC 6.9, hemoglobin and hematocrit 13.2/40, platelets 243. Chemistry: Sodium 137, potassium 4, chloride 102, bicarbonate 31, BUN 8, creatinine 0.75. DISCHARGE MEDICATION: - atenolol 25 mg by mouth twice daily with holding parameter - digoxin 0.25 mg by mouth daily - folic acid 1 mg by mouth daily - multivitamin one tablet by mouth daily - Xarelto 20 mg by mouth daily - thiamine 100 mg by mouth daily - aspirin 81 mg by mouth daily - multivitamin one tablet by mouth daily DISCHARGE INSTRUCTIONS: Patient is instructed to followup with primary care provider in 7 days and also followup with student outreach coordinator Dr. Woodard in 7 days. Return to the hospital if symptoms worsen. Fall precaution.
== END 2016-05-29 13:41 | disposition home or self-care (01) | DRG 201 ==
LOC: M ED 11:23 → M ED INP 17:14 → M PCU 20:56
PROVIDERS: ADMIT Internal Medicine Nephrology; ATTEND Internal Medicine
DX: I48.0 Paroxysmal atrial fibrillation (principal); I26.99 Other pulmonary embolism without acute cor pulmonale; I27.81 Cor pulmonale (chronic); G40.89 Other seizures; I10 Essential (primary) hypertension; F17.210 Nicotine dependence, cigarettes, uncomplicated; F10.239 Alcohol dependence with withdrawal, unspecified; R55 Syncope and collapse; Z79.82 Long term (current) use of aspirin; Z79.899 Other long term (current) drug therapy; Z89.021 Acquired absence of right finger(s)

== ENCOUNTER 2016-07-21 23:06 | Emergency (ER) | payer OTHER ==
[~2016-07-21] VITALS: Ht 170.2 cm; Wt 61.2 kg
[~2016-07-21 23:06] MED LIST changes: +ASPI1TAB PO; +ATEN25TA PO; +CIPR500T3 PO; +DIGO0.25 PO; +ELIQ5TAB PO; +FLAG500T PO; +FOLI1TAB2 PO; +METO12TA PO; +MULT1TAB18 PO; +PRED20TA PO; +THIA100TA PO; +XARE20TA PO
[2016-07-21 23:39] LABS: BASO % 0.3 % (0.0-1.0); EOS # 0.1 K/mm3 (0.0-0.50); EOS % 2.5 % (0.0-3.0); LARGE UNSTAINED CELL # 0.2 K/mm3 (0.0-0.4); LARGE UNSTAINED CELL % 3.4 % (0.0-4.0); LYMPH # 2.7 K/mm3 (1.5-4.5); LYMPH % 55.9 % (24.0-44.0); MEAN CORPUSCULAR HEMOGLOBIN 33.2 pg (27.0-33.0); MEAN CORPUSCULAR HGB CONC 32.9 g/dl (32.0-36.5); MONO # 0.2 K/mm3 (0.0-0.8); MONO % 5.2 % (0.0-5.0); NEUTROPHILS # 1.5 K/mm3 (1.8-7.7); NEUTROPHILS % 32.7 % (36.0-66.0); PLATELET COUNT, AUTOMATED 133 k/mm3 (150-450); RED CELL DISTRIBUTION WIDTH 13.3 % (11.5-14.5); WHITE BLOOD COUNT 4.2 K/mm3 (4.0-10.0)
[2016-07-21 23:58] LABS: ANION GAP 11 MEQ/L (8-16); BLOOD UREA NITROGEN 4 MG/DL (7-18); CALCIUM LEVEL 8.7 MG/DL (8.5-10.1); CARBON DIOXIDE LEVEL 29 MEQ/L (21-32); CHLORIDE LEVEL 95 MEQ/L (98-107); CREATININE FOR GFR 0.78 MG/DL (0.70-1.30); GLOMERULAR FILTRATION RATE > 60.0 (>56); GLUCOSE, FASTING 110 MG/DL (70-105); POTASSIUM SERUM 3.7 MEQ/L (3.5-5.1); SODIUM LEVEL 135 MEQ/L (136-145)
--- NOTE | 2016-07-22 00:10 | REPUSA ---
CT of the head Clinical history: Headache, trauma. Technique: Multiple axial CT images were obtained through the head without administration of contrast . Findings: The ventricles and sulci are symmetric bilaterally. There is no evidence of acute hemorrhag e or infarct. There is no midline shift, mass effect, or extra-axial fluid collection. The osseous st ructures are unremarkable. The visualized paranasal sinuses and mastoid air cells are clear. Impression: Negative study.
[2016-07-22] MEDS ORDERED: MORPHINE 4 MG/ML 1ML SYRINGE IV ONE (00:15)
[2016-07-22] MEDS ORDERED: ONDANSETRON 4MG/2ML VIAL (J2405) IV ONE (00:15)
[2016-07-22] MEDS ORDERED: ISOVUE-370 76% 100ML VIAL (Q9967) As Ordered ONE (00:26)
[2016-07-22] MEDS ORDERED: METAL LOCK LOOP XX ONE (01:42)
--- NOTE | 2016-07-22 05:58 | ECGEPIP ---
Stationary ECG Study [facility] - ED Test Date: 2016-07-21 Pat Name: LAILA BLEDSOE Department: Room: - Gender: M Manager Procurement: samuel : 1960 Requested By: MELY Wilhelm Order Number: [id number] Reading MD: Grupo Patricia Measurements Intervals [place] Rate: 84 P: 54 TN: 148 QRS: 64 QRSD: 114 T: 48 QT: 370 QTc: 439 Interpretive Statements SINUS RHYTHM POSSIBLE INFERIOR MYOCARDIAL INFARCTION, PROBABLY OLD SIMILAR TO 05/28/16 Electronically Signed On 07-22-2016 5:58:30 EDT by Grupo Patricia
[2016-07-22 06:33] VITALS: BP 104/71
[2016-07-22] MEDS ORDERED: traMADol 50 MG TAB As Ordered ONE (06:34)
[2016-07-22] MEDS ORDERED: traMADol 50 MG TAB (BULK 4 TAB ED) PO ONE (06:45)
--- NOTE | 2016-07-22 09:18 | REP ---
Chest CT with IV contrast, CT pulmonary angiography: Comparisons 05/25/2016. The multiple bilateral pulmonary emboli identified on the previous study have resolved. There are no pulmonary emboli today. The lung hartman are clear. There are no infiltrates, effusions, or masses. There is a left lower lobe calcified granuloma, unchanged. The thoracic aorta is unremarkable. Cardiac size is normal. There is no pericardial effusion. In the upper abdomen. The hepatic parenchyma is diffusely less dense than the spleen compatible with hepato steatosis. Chronic grade 1 compression deformity of the T7 vertebral body is again noted, unchanged. Impression: No pulmonary emboli. No infiltrates, effusions or masses. Stable calcified granuloma. Chronic grade 1 compression of the T7 vertebral body, unchanged. Signed by Manuel Campos MD 07/22/2016 09:10 A
--- NOTE | 2016-07-22 11:45 | ED PDOC ---
Post-Departure Follow-Up This record was completely or partially completed on paper due to EMR downtime. Please see scanned paper chart. Meg Awan MD Jul 22, 2016 11:45
--- NOTE | 2016-08-03 18:26 | ECGEPIP ---
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
== END 2016-07-22 06:46 | disposition home or self-care (01) ==
LOC: EDBD 23:06 → M ED 23:45
DX: R07.89 Other chest pain (principal); S06.0X0A Concussion without loss of consciousness, initial encounter; W01.198A Fall on same level from slipping, tripping and stumbling with subsequent striking against other object, initial encounter; Y92.099 Unspecified place in other non-institutional residence as the place of occurrence of the external cause; Y93.89 Activity, other specified; Y99.8 Other external cause status; Z79.899 Other long term (current) drug therapy; Z79.01 Long term (current) use of anticoagulants; Z79.82 Long term (current) use of aspirin
CPT/HCPCS: 70450; 71275; 80048; 82550; 82553; 85025; 93005; 93041; 94760; 96374; 96375; 99285; J2405; Q9967

== ENCOUNTER 2016-10-05 13:34 | Emergency (ER) | payer OTHER ==
[~2016-10-05] VITALS: Ht 170.2 cm; Wt 59.6 kg
[~2016-10-05 13:34] MED LIST changes: -FOLI1TAB2 PO; +FOLI1TAB4 PO; -METO12TA PO; +METO1TAB87 PO; -METO50TA2 PO; +METO50TA7 PO
[2016-10-05] MEDS ORDERED: NS 1,000 ML IV SCH (13:57)
[2016-10-05] MEDS ORDERED: PANTOPRAZOLE 40MG INJ (PROTONIX) (C9113) IV ONE (14:00)
[2016-10-05] MEDS ORDERED: METOCLOPRAMIDE INJ 10MG/2ML VIAL (J2765) IV ONE (14:00)
[2016-10-05 14:43] LABS: BASO % 0.7 % (0.0-1.0); EOS % 0.6 % (0.0-3.0); LARGE UNSTAINED CELL # 0.2 K/mm3 (0.0-0.4); LARGE UNSTAINED CELL % 2.9 % (0.0-4.0); LYMPH # 2.1 K/mm3 (1.5-4.5); LYMPH % 29.9 % (24.0-44.0); MEAN CORPUSCULAR HEMOGLOBIN 35.7 pg (27.0-33.0); MONO # 0.6 K/mm3 (0.0-0.8); MONO % 7.7 % (0.0-5.0); NEUTROPHILS # 4.2 K/mm3 (1.8-7.7); NEUTROPHILS % 58.2 % (36.0-66.0); PLATELET COUNT, AUTOMATED 171 k/mm3 (150-450); RED CELL DISTRIBUTION WIDTH 14.8 % (11.5-14.5); WHITE BLOOD COUNT 7.2 K/mm3 (4.0-10.0)
[2016-10-05 15:04] LABS: ALBUMIN 2.1 GM/DL (3.2-5.2); ALBUMIN/GLOBULIN RATIO 0.51 (1.00-1.93); ALKALINE PHOSPHATASE 415 U/L (45-117); ALT/SGPT 87 U/L (12-78); AMYLASE 57 U/L (25-115); ANION GAP 10 MEQ/L (8-16); AST/SGOT 235 U/L (15-37); BILIRUBIN,DIRECT 1.4 MG/DL (0.0-0.2); BILIRUBIN,TOTAL 2.2 MG/DL (0.2-1.0); BLOOD UREA NITROGEN 5 MG/DL (7-18); CARBON DIOXIDE LEVEL 23 MEQ/L (21-32); CHLORIDE LEVEL 98 MEQ/L (98-107); CREATININE FOR GFR 0.46 MG/DL (0.70-1.30); GLOMERULAR FILTRATION RATE > 60.0 (>56); GLUCOSE, FASTING 112 MG/DL (70-105); POTASSIUM SERUM 3.6 MEQ/L (3.5-5.1); SODIUM LEVEL 131 MEQ/L (136-145); TOTAL PROTEIN 6.2 GM/DL (6.4-8.2)
--- NOTE | 2016-10-05 15:07 | REP ---
ABDOMINAL SERIES: Supine and erect views of the abdomen demonstrate no free air and no evidence for bowel obstruction. No dilated small bowel loops are seen. There are scattered vascular calcifications in the pelvis. There are degenerative changes of the spine. An accompanying view of the chest demonstrates a calcified granuloma in the left lung base with no acute infiltrate. Heart is normal in size. IMPRESSION: No free air or obstruction. Signed by Manuel Valerio MD 10/05/2016 05:09 P
[2016-10-05] MEDS ORDERED: NORCOTAB PO (15:25)
[2016-10-05] MEDS ORDERED: ZOFR4TAB3 PO (15:25)
[2016-10-05 15:35] VITALS: BP 119/78
[2016-11-16] MEDS ORDERED: VITA100T2 PO (13:50)
[2016-11-16] MEDS ORDERED: B-1100TA2 PO (13:50)
[2016-11-16] MEDS ORDERED: SPIR100T PO (13:50)
[2016-11-16] MEDS ORDERED: FOLI1TAB4 PO (13:50)
== END 2016-10-05 15:43 | disposition home or self-care (01) ==
LOC: M ED 13:34
DX: K85.90 Acute pancreatitis without necrosis or infection, unspecified (principal); B19.9 Unspecified viral hepatitis without hepatic coma; R91.1 Solitary pulmonary nodule; M79.89 Other specified soft tissue disorders; I10 Essential (primary) hypertension; F17.200 Nicotine dependence, unspecified, uncomplicated; Z86.711 Personal history of pulmonary embolism; Z79.82 Long term (current) use of aspirin; Z79.899 Other long term (current) drug therapy

== ENCOUNTER → 2016-10-21 | Outpatient (CLI) | payer OTHER ==
[~2016-10-21] MED LIST changes: +B-1100TA2 PO; +GASTROGRAFIN SOLUTION 30ML (Q9963) As Ordered ONE; +ISOVUE-370 76% 100ML VIAL (Q9967) As Ordered ONE; +NORCOTAB PO; +SPIR100T PO; +VITA100T2 PO; +ZOFR4TAB3 PO
[2016-10-21 14:04] LABS: ALBUMIN 2.1 GM/DL (3.2-5.2); ALBUMIN/GLOBULIN RATIO 0.53 (1.00-1.93); ALKALINE PHOSPHATASE 293 U/L (45-117); ALT/SGPT 48 U/L (12-78); AMYLASE 61 U/L (25-115); ANION GAP 9 MEQ/L (8-16); AST/SGOT 129 U/L (15-37); BILIRUBIN,TOTAL 1.4 MG/DL (0.2-1.0); BLOOD UREA NITROGEN 2 MG/DL (7-18); CALCIUM LEVEL 8.4 MG/DL (8.5-10.1); CARBON DIOXIDE LEVEL 27 MEQ/L (21-32); CHLORIDE LEVEL 101 MEQ/L (98-107); CREATININE FOR GFR 0.52 MG/DL (0.70-1.30); GLOMERULAR FILTRATION RATE > 60.0 (>56); GLUCOSE, FASTING 91 MG/DL (70-105); POTASSIUM SERUM 4.3 MEQ/L (3.5-5.1); SODIUM LEVEL 137 MEQ/L (136-145); TOTAL PROTEIN 6.1 GM/DL (6.4-8.2)
[2016-10-21 14:08] LABS: HEPATITIS B SURFACE ANTIBODY NEGATIVE (POSITIVE)
--- NOTE | 2016-10-22 04:51 | REP ---
Clinical: Ascites. Technique: Axial contrast enhanced images from the lung bases to the pubic symphysis using oral and 100 ml Isovue 370 intravenous contrast material with coronal and sagittal re-formations. Comparison: 05/23/2016. Findings: A moderate amount of ascites is appreciated predominately in the fidelina hepatic distribution and extending into the pelvis via the bilateral pericolic gutters. The liver demonstrates areas of low density in a somewhat geographic pattern without mass effect or changes to the vascular architecture, and findings may represent areas of fatty infiltration and/or hepatocellular disease. No focal hepatic lesion identified. Spleen, pancreas, gallbladder, bilateral adrenal glands and kidneys are normal. The enteric system is without obstruction or acute inflammatory process. Normal terminal ileum and appendix identified in the right lower quadrant. Pelvis demonstrates partially collapsed normal bladder and age appropriate prostate/seminal vesicles. Atherosclerotic changes to the aorta and vasculature noted without aneurysm or dissection. Surrounding musculoskeletal structures are intact. Lung bases are stable calcified granuloma in the left lower lobe again noted. Impression: Moderate ascites and changes related to the liver may reflect fatty infiltration and/or hepatocellular disease as well as cirrhosis. No focal hepatic lesion identified. Signed by Martin Haynes MD 10/22/2016 04:43 A
== END ==
LOC: M RAD 13:36
PROVIDERS: ATTEND Student in an Organized Health Care Education/Training Program
DX: R18.8 Other ascites (principal); Z11.59 Encounter for screening for other viral diseases; R79.89 Other specified abnormal findings of blood chemistry; Z12.5 Encounter for screening for malignant neoplasm of prostate; K85.90 Acute pancreatitis without necrosis or infection, unspecified; R93.8 Abnormal findings on diagnostic imaging of other specified body structures

== ENCOUNTER → 2016-10-30 | Outpatient (CLI) | payer OTHER ==
[~2016-10-30] MED LIST changes: -GASTROGRAFIN SOLUTION 30ML (Q9963) As Ordered ONE; -ISOVUE-370 76% 100ML VIAL (Q9967) As Ordered ONE
--- NOTE | 2016-10-30 10:40 | REP ---
Abdominal upper quadrant ultrasound: Comparison is the CT of the abdomen pelvis dated 10/21/2016. There is no cholelithiasis. There is a small volume of ascites surrounding the liver. The gallbladder wall is thickened measuring up to 6 mm, likely secondary to the ascites. There is no intrahepatic biliary duct dilatation. However, the common duct is dilated measuring up to 13 mm. This is similar to the comparison CT. The visualized portion of the pancreatic head is unremarkable. The body and tail are obscured by bowel gas. The pancreatic duct is not dilated measuring 1.8 mm. The hepatic parenchyma is mildly echogenic compatible with hepato steatosis. There are no hepatic masses. The margin of the liver is small. There is no right renal calculus, mass, cyst or hydronephrosis. The right kidney is normal size, and centimeters cranial caudad length. Impression: The hepatic parenchyma is mildly echogenic compatible with hepato steatosis. No hepatic masses. There is no intrahepatic biliary duct dilatation. The common duct is dilated measuring up to 13 mm. There is no pancreatic duct dilatation. There is a small volume of ascites surrounding the liver. The gallbladder wall is thickened measuring up to 6 mm, likely secondary to the ascites. There is no cholelithiasis. Signed by Manuel Campos MD 10/30/2016 10:31 A
== END ==
LOC: M RAD 08:46
PROVIDERS: ATTEND Student in an Organized Health Care Education/Training Program
DX: K70.31 Alcoholic cirrhosis of liver with ascites (principal)

== ENCOUNTER → 2016-11-12 | Outpatient (CLI) | payer OTHER ==
[2016-11-12 13:36] LABS: BASO % 0.4 % (0.0-1.0); EOS % 0.7 % (0.0-3.0); LARGE UNSTAINED CELL # 0.2 K/mm3 (0.0-0.4); LARGE UNSTAINED CELL % 2.3 % (0.0-4.0); LYMPH # 1.5 K/mm3 (1.5-4.5); LYMPH % 20.6 % (24.0-44.0); MEAN CORPUSCULAR HEMOGLOBIN 35.7 pg (27.0-33.0); MEAN CORPUSCULAR HGB CONC 34.4 g/dl (32.0-36.5); MONO # 0.6 K/mm3 (0.0-0.8); MONO % 7.9 % (0.0-5.0); NEUTROPHILS # 5.1 K/mm3 (1.8-7.7); PLATELET COUNT, AUTOMATED 306 k/mm3 (150-450); WHITE BLOOD COUNT 7.5 K/mm3 (4.0-10.0)
[2016-11-12 13:40] LABS: INR 1.08
[2016-11-12 14:39] LABS: ALBUMIN 2.9 GM/DL (3.2-5.2); ALBUMIN/GLOBULIN RATIO 0.67 (1.00-1.93); ALKALINE PHOSPHATASE 262 U/L (45-117); ALT/SGPT 51 U/L (12-78); ANION GAP 9 MEQ/L (8-16); AST/SGOT 120 U/L (15-37); BLOOD UREA NITROGEN 5 MG/DL (7-18); CARBON DIOXIDE LEVEL 27 MEQ/L (21-32); CHLORIDE LEVEL 98 MEQ/L (98-107); GLOMERULAR FILTRATION RATE > 60.0 (>56); GLUCOSE, FASTING 110 MG/DL (70-105); PERCENT SATURATION 41.7 % (19.7-50.0); POTASSIUM SERUM 4.5 MEQ/L (3.5-5.1); SODIUM LEVEL 134 MEQ/L (136-145); TOTAL IRON BINDING CAPACITY 264 UG/DL (250-450); TOTAL PROTEIN 7.2 GM/DL (6.4-8.2)
== END ==
LOC: M LAB 12:55
PROVIDERS: ATTEND Internal Medicine Gastroenterology
DX: K85.90 Acute pancreatitis without necrosis or infection, unspecified (principal); K70.31 Alcoholic cirrhosis of liver with ascites

== ENCOUNTER 2016-11-20 09:53 | Outpatient (CLI) | payer OTHER ==
[~2016-11-20] VITALS: Ht 170.2 cm; Wt 54.4 kg
[2016-11-20] MEDS ORDERED: NS 1,000 ML IV ONE (10:00)
[2016-11-20] MEDS ORDERED: LIDOCAINE 2% INJ 100 MG/5 ML SDV (FOR ANES.) As Ordered ONE (10:22)
[2016-11-20] MEDS ORDERED: PROPOFOL 200 MG/20 ML VIAL As Ordered ONE (10:22)
[2016-11-20] MEDS ORDERED: TRYPAN BLUE 0.06 % 2.25 ML OPHTH SYR (VISIONBLUE) As Ordered ONE (10:39)
[2016-11-20] MEDS ORDERED: PHENYLephrine HCL 500 MCG/5 ML (100MCG/ML) SYRINGE (J2370) As Ordered ONE (10:55)
--- NOTE | 2016-11-20 11:06 | ROOR ---
Patient Name: Jayro Delgado Procedure Date: 11/20/2016 10:45 AM Date of : 1960 Age: 56 Room: [facility] Gender: Male Note Status: Finalized Procedure: Upper GI endoscopy Indications: Cirrhosis rule out esophageal varices, For therapy of esophageal varices Providers: Rajat PHILLIPS MD Referring MD: NOA VELAZQUEZ MD Requesting Provider: Medicines: Monitored Anesthesia Care Complications: No immediate complications. Procedure: Pre-Anesthesia Assessment: - The heart rate, respiratory rate, oxygen saturations, blood pressure, adequacy of pulmonary ventilation, and response to care were monitored throughout the procedure. The Endoscope was introduced through the mouth, and advanced to the third part of duodenum. The upper GI endoscopy was accomplished without difficulty. The patient tolerated the procedure well. Findings: The examined esophagus was normal. Diffuse moderate inflammation characterized by congestion (edema) and erythema was found in the entire examined stomach. Biopsies were taken with a cold forceps for Helicobacter pylori testing. The exam of the stomach was otherwise normal. Mucosal flattening was found in the entire examined duodenum. Biopsies were taken with a cold forceps for histology. Impression: - Normal esophagus. No varices seen. - Mild to moderate Gastritis. - r/o H pylori, r/o portal gastropathy. Biopsied - Stomach otherwise normal. No varices seen. - Mildly flattened mucosa was found in the duodenum. Biopsied. - Duodenum otherwise normal. Recommendation: - Telephone endoscopist for pathology results in 2 weeks. - Return to referring physician as previously scheduled. - Repeat upper endoscopy in 1 year for surveillance. - Use Prilosec (omeprazole) 40 mg PO daily. - (the script was sent to your pharmacy on file) Rajat Phillips MD Rajat PHILLIPS MD 11/20/2016 11:06:22 AM This report has been signed electronically. Number of Addenda: 0 Note Initiated On: 11/20/2016 10:45 AM Estimated Blood Loss: Estimated blood loss: none.
[2016-11-20 11:24] VITALS: BP 116/79
== END 2016-11-20 11:27 | disposition home or self-care (01) ==
LOC: M OPP 09:53
PROVIDERS: ATTEND Internal Medicine Gastroenterology
DX: K74.60 Unspecified cirrhosis of liver (principal); I85.00 Esophageal varices without bleeding; K29.70 Gastritis, unspecified, without bleeding; K31.89 Other diseases of stomach and duodenum; I10 Essential (primary) hypertension; I48.91 Unspecified atrial fibrillation; M19.90 Unspecified osteoarthritis, unspecified site; J44.9 Chronic obstructive pulmonary disease, unspecified; F17.210 Nicotine dependence, cigarettes, uncomplicated; Z86.718 Personal history of other venous thrombosis and embolism; Z86.711 Personal history of pulmonary embolism; Z79.82 Long term (current) use of aspirin; Z79.899 Other long term (current) drug therapy
CPT/HCPCS: 43239; 87507; 88305; J2370

== ENCOUNTER → 2016-12-16 | Outpatient (CLI) | payer OTHER ==
[2016-12-16 19:28] LABS: ALBUMIN 3.2 GM/DL (3.2-5.2); ALBUMIN/GLOBULIN RATIO 0.74 (1.00-1.93); ALKALINE PHOSPHATASE 168 U/L (45-117); ALT/SGPT 43 U/L (12-78); ANION GAP 10 MEQ/L (8-16); AST/SGOT 69 U/L (15-37); BILIRUBIN,DIRECT 0.3 MG/DL (0.0-0.2); BILIRUBIN,TOTAL 0.5 MG/DL (0.2-1.0); BLOOD UREA NITROGEN 5 MG/DL (7-18); CALCIUM LEVEL 9.3 MG/DL (8.5-10.1); CARBON DIOXIDE LEVEL 28 MEQ/L (21-32); CHLORIDE LEVEL 93 MEQ/L (98-107); CREATININE FOR GFR 0.67 MG/DL (0.70-1.30); FERRITIN 342 NG/ML (26-388); GAMMA GLUTAMYLTRANSPEPTIDASE 446 U/L (15-85); GLOMERULAR FILTRATION RATE > 60.0 (>56); GLUCOSE, FASTING 104 MG/DL (70-105); POTASSIUM SERUM 4.2 MEQ/L (3.5-5.1); SODIUM LEVEL 131 MEQ/L (136-145); TOTAL PROTEIN 7.5 GM/DL (6.4-8.2)
== END ==
LOC: M WUC 13:37
PROVIDERS: ATTEND Student in an Organized Health Care Education/Training Program
DX: K70.31 Alcoholic cirrhosis of liver with ascites (principal); R73.03 Prediabetes

== ENCOUNTER → 2017-05-19 | Outpatient (CLI) | payer OTHER ==
[2017-05-19 13:46] LABS: BASO # 0.1 10^3/uL (0.0-0.2); BASO % 0.8 % (0.0-1.0); EOS # 0.2 10^3/uL (0.0-0.50); EOS % 2.7 % (0.0-3.0); HEMATOCRIT 46.1 % (42.0-52.0); HEMOGLOBIN 15.9 g/dl (14.0-18.0); IMMATURE GRANULOCYTE % 0.4 % (0-3.0); LYMPH % 28.7 % (24.0-44.0); MEAN CORPUSCULAR HEMOGLOBIN 33.1 pg (27.0-33.0); MEAN CORPUSCULAR HGB CONC 34.5 g/dl (32.0-36.5); MEAN CORPUSCULAR VOLUME 95.8 fl (80.0-96.0); MONO # 0.9 10^3/uL (0.0-0.8); NEUTROPHILS # 3.9 10^3/uL (1.8-7.7); NEUTROPHILS % 55.4 % (36.0-66.0); PLATELET COUNT, AUTOMATED 338 10^3/uL (150-450); RED BLOOD COUNT 4.81 10^6/uL (4.30-6.10); RED CELL DISTRIBUTION WIDTH 12.7 % (11.5-14.5); WHITE BLOOD COUNT 7.1 10^3/uL (4.0-10.0)
[2017-05-19 14:46] LABS: ALBUMIN 3.6 GM/DL (3.2-5.2); ALKALINE PHOSPHATASE 141 U/L (45-117); ALT/SGPT 63 U/L (12-78); ANION GAP 6 MEQ/L (8-16); AST/SGOT 91 U/L (7-37); BILIRUBIN,TOTAL 0.7 MG/DL (0.2-1.0); BLOOD UREA NITROGEN 6 MG/DL (7-18); CALCIUM LEVEL 9.3 MG/DL (8.5-10.1); CARBON DIOXIDE LEVEL 34 MEQ/L (21-32); CHLORIDE LEVEL 96 MEQ/L (98-107); CHOLESTEROL LEVEL 213 MG/DL (<200); CREATININE FOR GFR 0.72 MG/DL (0.70-1.30); DIGOXIN LEVEL 1.4 NG/ML (0.5-2.0); GLOMERULAR FILTRATION RATE > 60.0 (>56); GLUCOSE, FASTING 112 MG/DL (70-100); HDL CHOLESTEROL 59 MG/DL (>40); LDL CHOLESTEROL 127.2 MG/DL (<100); NON-HDL-C 154 MG/DL; POTASSIUM SERUM 4.3 MEQ/L (3.5-5.1); SODIUM LEVEL 136 MEQ/L (136-145); TOTAL PROTEIN 7.6 GM/DL (6.4-8.2); TRIGLYCERIDES LEVEL 134 MG/DL (<150)
== END ==
LOC: M WUC 08:37
DX: K21.9 Gastro-esophageal reflux disease without esophagitis (principal); I48.0 Paroxysmal atrial fibrillation; I10 Essential (primary) hypertension; Z13.220 Encounter for screening for lipoid disorders
CPT/HCPCS: 80162

== ENCOUNTER 2017-07-31 13:52 | Emergency (ER) | payer OTHER ==
[2017-07-31 14:23] LABS: BASO % 0.5 % (0.0-1.0); EOS % 0.4 % (0.0-3.0); HEMATOCRIT 42.6 % (42.0-52.0); HEMOGLOBIN 14.5 g/dl (13.5-17.5); IMMATURE GRANULOCYTE % 0.3 % (0-3.0); LYMPH # 1.4 10^3/uL (1.5-4.5); LYMPH % 17.2 % (24.0-44.0); MEAN CORPUSCULAR HEMOGLOBIN 32.1 pg (27.0-33.0); MEAN CORPUSCULAR VOLUME 94.2 fl (80.0-96.0); MONO # 0.8 10^3/uL (0.0-0.8); MONO % 9.5 % (0.0-5.0); NEUTROPHILS # 5.8 10^3/uL (1.8-7.7); NEUTROPHILS % 72.1 % (36.0-66.0); PLATELET COUNT, AUTOMATED 335 10^3/uL (150-450); RED BLOOD COUNT 4.52 10^6/uL (4.30-6.10); RED CELL DISTRIBUTION WIDTH 15.1 % (11.5-14.5)
[2017-07-31 14:33] LABS: INR 1.07
[2017-07-31 14:34] LABS: PARTIAL THROMBOPLASTIN TIME 28.5 SECONDS (26.8-37.9)
[2017-07-31 14:56] LABS: ALBUMIN 3.5 GM/DL (3.2-5.2); ALBUMIN/GLOBULIN RATIO 0.88 (1.00-1.93); ALKALINE PHOSPHATASE 151 U/L (45-117); ALT/SGPT 49 U/L (12-78); ANION GAP 9 MEQ/L (8-16); AST/SGOT 83 U/L (7-37); BILIRUBIN,DIRECT 0.3 MG/DL (0.0-0.2); BILIRUBIN,TOTAL 0.7 MG/DL (0.2-1.0); BLOOD UREA NITROGEN 3 MG/DL (7-18); CARBON DIOXIDE LEVEL 28 MEQ/L (21-32); CHLORIDE LEVEL 102 MEQ/L (98-107); CK-MB VALUE MASS < 1.0 NG/ML (<3.6); CPK CREATINE PHOSPHOKINASE 49 U/L (39-308); CREATININE FOR GFR 0.68 MG/DL (0.70-1.30); GLOMERULAR FILTRATION RATE > 60.0 (>56); GLUCOSE, FASTING 96 MG/DL (70-100); MB/CK RELATIVE INDEX 2.04 (< OR =4); POTASSIUM SERUM 3.9 MEQ/L (3.5-5.1); SODIUM LEVEL 139 MEQ/L (136-145); TOTAL PROTEIN 7.5 GM/DL (6.4-8.2); TROPONIN I < 0.02 NG/ML (< 0.10)
[2017-07-31] MEDS: GI COCKTAIL 50ML BTL(HYOSCYAMINE/MAALOX/LIDOCAINE VISCOUS)(1:3:1) PO (14:58)
[2017-07-31] MEDS: ONDANSETRON 4MG/2ML VIAL (J2405) IV (14:58)
[2017-07-31] MEDS: PANTOPRAZOLE 40MG INJ (PROTONIX) (C9113) IV (14:58)
[2017-07-31 15:04] LABS: LIPASE 482 U/L (73-393)
[2017-07-31] MEDS ORDERED: ISOVUE-370 76% 100ML VIAL (Q9967) As Ordered (15:06)
[2017-07-31] MEDS ORDERED: NITROGLYCERIN 0.4 MG SUBL TABLET SL (16:15)
[2017-07-31] MEDS: ASPIRIN 81 MG CHEW TABLET PO (16:18)
[2017-07-31] MEDS: NS 1,000 ML IV (16:18)
[2017-07-31 20:35] LABS: CK-MB VALUE MASS < 1.0 NG/ML (<3.6); CPK CREATINE PHOSPHOKINASE 46 U/L (39-308); LIPASE 395 U/L (73-393); MB/CK RELATIVE INDEX 2.17 (< OR =4); TROPONIN I < 0.02 NG/ML (< 0.10)
== END 2017-07-31 21:25 | disposition home or self-care (01) ==
LOC: M ED 13:52
DX: R07.9 Chest pain, unspecified (principal); R11.10 Vomiting, unspecified; I10 Essential (primary) hypertension; I48.91 Unspecified atrial fibrillation; K74.60 Unspecified cirrhosis of liver; Z86.711 Personal history of pulmonary embolism; Z79.01 Long term (current) use of anticoagulants; F17.200 Nicotine dependence, unspecified, uncomplicated
CPT/HCPCS: C9113

== ENCOUNTER → 2018-02-21 | Outpatient (CLI) | payer OTHER ==
[2018-02-21 20:16] LABS: BASO # 0.1 10^3/uL (0.0-0.2); BASO % 0.8 % (0.0-1.0); EOS # 0.2 10^3/uL (0.0-0.50); EOS % 1.7 % (0.0-3.0); HEMATOCRIT 45.2 % (42.0-52.0); HEMOGLOBIN 15.7 g/dl (13.5-17.5); IMMATURE GRANULOCYTE % 0.5 % (0-3.0); LYMPH # 3.4 10^3/uL (1.5-4.5); MEAN CORPUSCULAR HEMOGLOBIN 32.2 pg (27.0-33.0); MEAN CORPUSCULAR HGB CONC 34.7 g/dl (32.0-36.5); MEAN CORPUSCULAR VOLUME 92.8 fl (80.0-96.0); MONO # 1.4 10^3/uL (0.0-0.8); MONO % 12.8 % (0.0-5.0); NEUTROPHILS # 5.8 10^3/uL (1.8-7.7); NEUTROPHILS % 53.2 % (36.0-66.0); PLATELET COUNT, AUTOMATED 352 10^3/uL (150-450); RED BLOOD COUNT 4.87 10^6/uL (4.30-6.10); RED CELL DISTRIBUTION WIDTH 14.5 % (11.5-14.5)
[2018-02-21 20:49] LABS: ALBUMIN 3.8 GM/DL (3.2-5.2); ALBUMIN/GLOBULIN RATIO 0.97 (1.00-1.93); ALKALINE PHOSPHATASE 158 U/L (45-117); ALT/SGPT 45 U/L (12-78); ANION GAP 8 MEQ/L (8-16); AST/SGOT 61 U/L (7-37); BILIRUBIN,TOTAL 0.7 MG/DL (0.2-1.0); BLOOD UREA NITROGEN 6 MG/DL (7-18); CALCIUM LEVEL 8.9 MG/DL (8.5-10.1); CARBON DIOXIDE LEVEL 32 MEQ/L (21-32); CHLORIDE LEVEL 88 MEQ/L (98-107); CHOLESTEROL LEVEL 252 MG/DL (<200); CHOLESTEROL RISK RATIO 4.421 (<5); CREATININE FOR GFR 0.83 MG/DL (0.70-1.30); DIGOXIN LEVEL 2.1 NG/ML (0.5-2.0); GLOMERULAR FILTRATION RATE > 60.0 (>56); GLUCOSE, FASTING 114 MG/DL (70-100); HDL CHOLESTEROL 57 MG/DL (>40); LDL CHOLESTEROL 157 MG/DL (<100); NON-HDL-C 195 MG/DL; POTASSIUM SERUM 3.5 MEQ/L (3.5-5.1); SODIUM LEVEL 128 MEQ/L (136-145); TOTAL PROTEIN 7.7 GM/DL (6.4-8.2); TRIGLYCERIDES LEVEL 188 MG/DL (<150)
== END ==
LOC: M WUC 15:58
DX: I10 Essential (primary) hypertension (principal); I48.0 Paroxysmal atrial fibrillation; E78.5 Hyperlipidemia, unspecified
CPT/HCPCS: 80162

== ENCOUNTER → 2018-03-17 | Outpatient (CLI) | payer OTHER ==
[~2018-03-17] MED LIST changes: -FOLI1TAB4 PO; +FOLI1TAB5 PO; +FURO40TA2; +OMEP40CA2; +SPIR-10 PO; -SPIR100T PO; +SPIR100T3 PO; -SPIR25TA2 PO; -VITA100T2 PO; +VITA100T8 PO; +ZOFR4TAB14 PO; -ZOFR4TAB3 PO
== END ==
LOC: M LAB 08:51
PROVIDERS: ATTEND Internal Medicine Gastroenterology
DX: K70.31 Alcoholic cirrhosis of liver with ascites (principal)

== ENCOUNTER → 2018-03-17 | Outpatient (CLI) | payer OTHER ==
[2018-03-17 10:23] LABS: BLOOD UREA NITROGEN 5 MG/DL (7-18); CALCIUM LEVEL 8.6 MG/DL (8.5-10.1); CARBON DIOXIDE LEVEL 29 MEQ/L (21-32); CHLORIDE LEVEL 96 MEQ/L (98-107); CREATININE FOR GFR 0.75 MG/DL (0.70-1.30); GLOMERULAR FILTRATION RATE > 60.0 (>56); GLUCOSE, FASTING 112 MG/DL (70-100); SODIUM LEVEL 135 MEQ/L (136-145)
== END ==
LOC: M LAB 08:45
PROVIDERS: ATTEND Nurse Practitioner Family
DX: I48.0 Paroxysmal atrial fibrillation (principal); I10 Essential (primary) hypertension

== ENCOUNTER → 2018-03-23 | Outpatient (CLI) | payer OTHER ==
[~2018-03-23] MED LIST changes: +FOLI1TAB11 PO; -FOLI1TAB5 PO; +OMEP40CA2 PO
--- NOTE | 2018-03-23 08:26 | REP ---
Clinical: Alcoholic cirrhosis. Technique: Real time contreras scale ultrasound examination using curved array transducer. Findings: The liver is increased echogenicity with poor through transmission. No focal hepatic lesions are identified. The pancreas is incompletely evaluated due to interposed bowel gas but visualized portions appear normal. The gallbladder is unremarkable and without gallstones, wall thickening, or pericholecystic fluid. No biliary ductal dilatation is appreciated and the common bile duct measures 6.1 mm diameter. Right kidney is normal in reniform shape without hydronephrosis and measures 10.9 x 5.4 x 4.5 cm. No ascites. Impression: Hepatic steatosis. Electronically Signed by Martin Haynes MD 03/23/2018 08:17 A
== END ==
LOC: M RAD 07:35
PROVIDERS: ATTEND Internal Medicine Gastroenterology
DX: K76.0 Fatty (change of) liver, not elsewhere classified (principal); K70.30 Alcoholic cirrhosis of liver without ascites

== ENCOUNTER 2018-04-15 12:03 | Day surgery (SDC) | payer OTHER ==
[~2018-04-15] VITALS: Ht 172.7 cm; Wt 65.7 kg
[~2018-04-15 12:03] MED LIST changes: +NS 1,000 ML IV ONE
[2018-04-15] MEDS ORDERED: PROPOFOL 200 MG/20 ML VIAL As Ordered ONE (12:38)
[2018-04-15] MEDS ORDERED: LIDOCAINE 2% INJ 100 MG/5 ML SDV (FOR ANES.) As Ordered ONE (12:39)
[2018-04-15] MEDS ORDERED: fentaNYL 100 MCG/2 ML INJECTION (J3010) As Ordered ONE (12:40)
--- NOTE | 2018-04-15 13:24 | ROOR ---
Patient Name: Jayro Delgado Procedure Date: 04/15/2018 1:06 PM Date of : 1960 Age: 57 Room: [facility] Gender: Male Note Status: Finalized Procedure: Upper GI endoscopy Indications: Cirrhosis rule out esophageal varices Providers: Rajat MARKHAM MD Referring MD: Korey Flores NP Requesting Provider: Medicines: Monitored Anesthesia Care Complications: No immediate complications. Procedure: Pre-Anesthesia Assessment: - The heart rate, respiratory rate, oxygen saturations, blood pressure, adequacy of pulmonary ventilation, and response to care were monitored throughout the procedure. The Endoscope was introduced through the mouth, and advanced to the second part of duodenum. The upper GI endoscopy was accomplished without difficulty. The patient tolerated the procedure well. Findings: The examined esophagus was normal. There is no endoscopic evidence of varices in the entire esophagus. Mild portal hypertensive gastropathy was found in the stomach. The exam of the stomach was otherwise normal. There is no endoscopic evidence of varices in the cardia. The examined duodenum was normal. Impression: - Normal esophagus. - Mild portal hypertensive gastropathy. - The stomach is otherwise normal - Normal examined duodenum. - No specimens collected. -(no esophageal or gastric varices seen today) Recommendation: - Continue present medications. - Patient has a contact number available for emergencies. The signs and symptoms of potential delayed complications were discussed with the patient. Return to normal activities tomorrow. Written discharge instructions were provided to the patient. - Return to referring physician as previously scheduled. - Return to my office in 1 year. Rajat Markahm MD Rajat MARKHAM MD 04/15/2018 1:23:24 PM This report has been signed electronically. Number of Addenda: 0 Note Initiated On: 04/15/2018 1:06 PM Estimated Blood Loss: Estimated blood loss: none.
[2018-04-15 13:40] VITALS: BP 123/79
[2018-04-20 00:06] LABS: AFP TUMOR TOTAL 9.1 ng/mL (0.0-8.0)
== END 2018-04-15 13:52 | disposition home or self-care (01) ==
LOC: M OPP 12:03
PROVIDERS: ATTEND Internal Medicine Gastroenterology
DX: K74.60 Unspecified cirrhosis of liver (principal); K76.6 Portal hypertension; I48.91 Unspecified atrial fibrillation; I10 Essential (primary) hypertension; K21.9 Gastro-esophageal reflux disease without esophagitis; J44.9 Chronic obstructive pulmonary disease, unspecified; M19.90 Unspecified osteoarthritis, unspecified site; F17.210 Nicotine dependence, cigarettes, uncomplicated; Z98.890 Other specified postprocedural states; Z86.711 Personal history of pulmonary embolism; Z79.82 Long term (current) use of aspirin; Z79.899 Other long term (current) drug therapy; Z79.01 Long term (current) use of anticoagulants
CPT/HCPCS: 36415; 43235; 82107; J3010

== ENCOUNTER → 2018-08-16 | Outpatient (CLI) | payer OTHER ==
[~2018-08-16] MED LIST changes: -ASPI1TAB PO; -ASPI81CH PO; +ASPI81CH49 PO; +ASPI81TA26 PO; +HYDR-3715 PO; +NICO21DI3 TD; -NICO21PAT TD; -NORCOTAB PO; -NS 1,000 ML IV ONE
[2018-08-16 17:26] LABS: BASO # 0.1 10^3/uL (0.0-0.2); EOS # 0.1 10^3/uL (0.0-0.50); EOS % 1.8 % (0.0-3.0); HEMATOCRIT 42.2 % (42.0-52.0); HEMOGLOBIN 13.8 g/dl (13.5-17.5); LYMPH # 2.6 10^3/uL (1.5-4.5); LYMPH % 33.3 % (24.0-44.0); MEAN CORPUSCULAR HEMOGLOBIN 28.6 pg (27.0-33.0); MEAN CORPUSCULAR HGB CONC 32.7 g/dl (32.0-36.5); MEAN CORPUSCULAR VOLUME 87.4 fl (80.0-96.0); MONO % 12.2 % (0.0-5.0); NEUTROPHILS % 51.3 % (36.0-66.0); PLATELET COUNT, AUTOMATED 379 10^3/uL (150-450); RED BLOOD COUNT 4.83 10^6/uL (4.30-6.10); WHITE BLOOD COUNT 7.9 10^3/uL (4.0-10.0)
[2018-08-16 17:27] LABS: ALBUMIN 3.6 GM/DL (3.2-5.2); ALT/SGPT 41 U/L (12-78); BILIRUBIN,TOTAL 0.4 MG/DL (0.2-1.0); BLOOD UREA NITROGEN 6 MG/DL (7-18); CALCIUM LEVEL 8.8 MG/DL (8.5-10.1); CARBON DIOXIDE LEVEL 28 MEQ/L (21-32); CHLORIDE LEVEL 101 MEQ/L (98-107); CHOLESTEROL LEVEL 189 MG/DL (<200); CHOLESTEROL RISK RATIO 3.857 (<5); CREATININE FOR GFR 0.64 MG/DL (0.70-1.30); GLOMERULAR FILTRATION RATE > 60.0 (>56); GLUCOSE, FASTING 90 MG/DL (70-100); HDL CHOLESTEROL 49 MG/DL (>40); LDL CHOLESTEROL 120 MG/DL (<100); NON-HDL-C 140 MG/DL; POTASSIUM SERUM 4.4 MEQ/L (3.5-5.1); SODIUM LEVEL 136 MEQ/L (136-145); TOTAL PROTEIN 7.4 GM/DL (6.4-8.2); TRIGLYCERIDES LEVEL 98 MG/DL (<150)
[2018-08-19 00:06] LABS: PSA TOTAL 1.3 ng/mL (0.0-4.0)
== END ==
LOC: M WUC 13:59
PROVIDERS: ATTEND Nurse Practitioner Family
DX: Z12.5 Encounter for screening for malignant neoplasm of prostate (principal); E78.5 Hyperlipidemia, unspecified; I10 Essential (primary) hypertension

== ENCOUNTER → 2018-08-26 | Outpatient (CLI) | payer OTHER ==
--- NOTE | 2018-08-26 10:26 | REP ---
HEPATIC SONOGRAPHY: HISTORY: Alcoholic hepatitis with ascites. Comparison CT study July 31, 2017. Comparison sonography March 23, 2018. FINDINGS: Scanning through the right upper quadrant of the abdomen demonstrates normal sized thin-walled gallbladder without evidence of stone or polyp. Common bile duct is mildly prominent measuring 1.1 cm in diameter. No stone is seen. The main pancreatic duct is mildly prominent as well measuring 3 mm in diameter. The common bile and main pancreatic ducts showed mild prominence on July 31, 2017 and October 21, 2016 prior studies and are unchanged. No pancreatic mass or cyst is seen. There is no evidence of ascites. No right renal abnormality. The right kidney measures 10.5 x 4.8 x 5.2 cm. Evidence of mild fatty infiltration of the liver is seen. No focal liver lesion is seen. IMPRESSION: Fatty liver change. Somewhat dilated common bile and main pancreatic duct unchanged. No stone is seen. Electronically Signed by Leonidas Ceballos MD 08/26/2018 03:54 P
== END ==
LOC: M RAD 07:38
PROVIDERS: ATTEND Nurse Practitioner Family
DX: K70.11 Alcoholic hepatitis with ascites (principal)

== ENCOUNTER 2019-03-12 09:02 | Inpatient (IN) | payer MEDICARE, OTHER ==
[~2019-03-12] VITALS: Ht 172.7 cm; Wt 59.0 kg
[~2019-03-12 09:02] MED LIST changes: +DIGO0.253 PO; -OMEP40CA2; -OMEP40CA2 PO; +OMEP40CA97; +OMEP40CA97 PO
[2019-03-12] MEDS ORDERED: LORazepam 2 MG/ML VIAL (J2060) IV STA (09:39)
[2019-03-12] MEDS ORDERED: NS 1,000 ML IV ONE ×2 (09:45→13:15)
[2019-03-12] MEDS ORDERED: ONDANSETRON 4MG/2ML VIAL (J2405) IV ONE (09:45)
[2019-03-12 10:25] LABS: BASO % 0.4 % (0.0-1.0); EOS % 0.3 % (0.0-3.0); HEMATOCRIT 44.3 % (42.0-52.0); HEMOGLOBIN 14.8 g/dl (13.5-17.5); LYMPH # 0.9 10^3/uL (1.5-5.0); LYMPH % 10.9 % (24.0-44.0); MEAN CORPUSCULAR HEMOGLOBIN 30.3 pg (27.0-33.0); MEAN CORPUSCULAR HGB CONC 33.4 g/dl (32.0-36.5); MEAN CORPUSCULAR VOLUME 90.6 fl (80.0-96.0); MONO # 0.8 10^3/uL (0.0-0.8); MONO % 10.3 % (0.0-5.0); NEUTROPHILS # 6.1 10^3/uL (1.5-8.5); NEUTROPHILS % 77.6 % (36.0-66.0); PLATELET COUNT, AUTOMATED 238 10^3/uL (150-450); RED BLOOD COUNT 4.89 10^6/uL (4.30-6.10); WHITE BLOOD COUNT 7.9 10^3/uL (4.0-10.0)
[2019-03-12 10:36] LABS: INR 1.99; PROTHROMBIN TIME 22.3 SECONDS (11.8-14.0)
[2019-03-12 10:37] LABS: PARTIAL THROMBOPLASTIN TIME 36.7 SECONDS (25.0-38.4)
[2019-03-12] MEDS ORDERED: ISOVUE-370 76% 100ML VIAL (Q9967) As Ordered ONE (10:55)
[2019-03-12 11:03] LABS: ALBUMIN 3.5 GM/DL (3.2-5.2); ALT/SGPT 57 U/L (12-78); BILIRUBIN,DIRECT 0.4 MG/DL (0.0-0.2); BILIRUBIN,TOTAL 1.2 MG/DL (0.2-1.0); CK-MB VALUE MASS 1.1 NG/ML (<3.6); CPK CREATINE PHOSPHOKINASE 47 U/L (39-308); DIGOXIN LEVEL 0.8 NG/ML (0.5-2.0); LIPASE 284 U/L (73-393); MB/CK RELATIVE INDEX 2.34 (< OR =4); TOTAL PROTEIN 7.2 GM/DL (6.4-8.2); TROPONIN I < 0.02 NG/ML (< 0.10)
[2019-03-12] MEDS: OXAZEPAM 10 MG CAP PO SCH ×2 (12:00→17:16)
[2019-03-12] MEDS ORDERED: LORazepam 2 MG TAB PO PRN (12:30)
--- NOTE | 2019-03-12 12:42 | REP ---
CT pulmonary angiogram: With IV contrast. History: Vomiting. History of pulmonary embolus with similar symptoms. Comparison studies: Comparison CT angiography July 31, 2017. Contrast dose: 100 mL of Isovue [address] technique: Helical scanning is acquired and overlapping 1.5 mm and contiguous 3 mm axial images are reformatted. In addition, maximum intensity projection and multiplanar re-formation images are generated in sagittal and coronal imaging projections. CT pulmonary angiographic findings: There is good opacification of the pulmonary arterial tree. There is no evidence of vessel cutoff or filling defect to suggest pulmonary embolism. The thoracic aorta shows no evidence of aneurysm or dissection. There is vascular calcification in the left coronary artery and great vessel origins. There is no evidence of pleural or pericardial effusion. No adrenal lesion is seen. The visualized upper abdominal structures are unremarkable. There are granulomatous lymph node residuals in the left hilus. There is a calcified granuloma in the left lower lobe of the lung. There is a calcified granuloma in the right middle lobe. There is a ground-glass opacity with one or two dilated airways within it in the left upper lobe. This it is seen on page 43 of 113 in series 402 of today's study. It measures 21 mm in greatest diameter. It is not previously apparent and may be inflammatory. There is a similar but smaller ground-glass opacity in the right upper lobe on page 49. This was not apparent on the prior study. No solid noncalcified nodule is seen. No other evidence of infiltrate. Impression: No CT evidence of pulmonary embolus. Old granulomatous calcifications. There are two ground-glass opacities noted, the largest of which is in the left upper lobe, 21 mm in greatest diameter. Neither of these were apparent previously. They may be inflammatory. 6-month follow-up chest CT suggested. Electronically Signed by Leonidas Ceballos MD 03/12/2019 01:31 P
--- NOTE | 2019-03-12 12:44 | REP ---
CT abdomen and pelvis with IV but without oral contrast: History: Vomiting. History of prior pulmonary embolus. Comparison CT study July 31, 2017. CT contrast dose: 100 mL of intravenous Isovue 370. CT findings: Moderate degree of fatty infiltration of the liver is again seen with areas of fat sparing near the gallbladder and terry. This is unchanged. No focal liver lesion is seen. Spleen is not enlarged and is homogeneous. Liver is not felt to be enlarged. No adrenal lesion is seen. Common bile duct is unchanged measuring 10 mm in greatest diameter. Main pancreatic duct is unchanged. The kidneys enhance symmetrically and are morphologically intact. There is a small cyst in the upper pole of the right kidney unchanged. Vascular calcification is noted. A normal appendix is seen posterior to the cecal tip. Small and large intestinal bowel loops are normal in the abdomen and pelvis. Urinary bladder is unremarkable. There are dystrophic calcifications in the prostate. Seminal vesicles are unremarkable. No abdominal wall defect is seen. Impression: Moderate degree of fatty infiltration of the liver. Mildly prominent CBD, 10 mm, unchanged from the comparison study. Small cyst upper pole right kidney. Otherwise negative. Electronically Signed by Leonidas Ceballos MD 03/12/2019 01:31 P
[2019-03-12] MEDS ORDERED: NICO21DI31 TD (12:46)
[2019-03-12] MEDS ORDERED: ASPI81TA85 PO (12:46)
[2019-03-12] MEDS ORDERED: NICOTINE 21MG/24HR 1 EA TRANSDERMAL TD PRN (13:45)
[2019-03-12 14:45] VITALS: BP 136/100
[2019-03-12] MEDS: NICOTINE 21MG/24HR 1 EA TRANSDERMAL TD PRN (15:09)
[2019-03-12] MEDS: ONDANSETRON 4MG/2ML VIAL (J2405) IV SCH ×2 (15:10→22:07)
[2019-03-12 17:11] VITALS: BP 134/93
--- NOTE | 2019-03-12 19:47 | ECGEPIP ---
[facility] - ED Test Date: 2019-03-12 Pat Name: LAILA BLEDSOE Department: Room: - Gender: Male Reservation Manager: GEORGE : 1960 Requested By: Gerson Turner Order Number: [id number] Reading MD: Gerson Turner Measurements Intervals [place] Rate: 98 P: 69 [place]: 150 QRS: 66 QRSD: 100 T: 61 QT: 349 QTc: 446 Interpretive Statements SINUS RHYTHM WITH SINUS ARRHYTHMIA POSSIBLE LEFT ATRIAL ENLARGEMENT NONSPECIFIC ST T WAVE CHANGES 07/31/[address] T WAVE CHANGES Electronically Signed on 03-12-2019 19:46:43 EST by Gerson Turner
--- NOTE | 2019-03-12 21:52 | HPE ---
DATE OF ADMISSION: 03/12/2019 CHIEF COMPLAINT: Vomiting. HISTORY OF PRESENT ILLNESS: This is a 58-year-old male with a known history of alcoholic liver cirrhosis, fatty liver, portal hypertensive gastropathy, paroxysmal atrial fibrillation on chronic anticoagulation, pulmonary embolism who presented to the emergency room with a 4 day history of intractable nausea and vomiting, dry heaving at home with complaints of feeling sweaty. The patient has not had any weight loss, diarrhea, fever or chills. He has abdominal cramping when he vomits. He also complains of a runny nose, shortness of breath, some chills, and decrease in appetite. The patient denies any dysuria, urgency, or frequency. He felt some palpitations today and dizziness. He has continued to take his oral anticoagulants for his history of atrial fibrillation and deep vein thrombosis (DVT) and has been exposed to his significant other's grandson, who has croup. The patient otherwise denies any cough. Denies any sputum production. The hospitalist was called to admit. CT of the abdomen and pelvis are notable for history of liver cirrhosis, fatty liver, granulomatous calcifications with two ground glass opacities, largest left upper lobe, which may be inflammatory with 6 month followup recommended. He had mild prominent common bile duct, 10 mm, unchanged from prior study. Denies any hematemesis, coffee ground emesis, bright red blood per rectum, melena or black, tarry stools. PAST MEDICAL HISTORY: 1. Alcoholic liver cirrhosis. 2. Portal hypertensive gastropathy. 3. Paroxysmal atrial fibrillation. 4. Pulmonary embolism. 5. Alcohol withdrawal. 6. Abnormal electrocardiogram (EKG). 7. Cor pulmonale. PAST SURGICAL HISTORY: 1. Amputation of the tip of the right middle finger. 2. Left wrist surgery. SOCIAL HISTORY: Smokes one pack per day for over 40 years. He drinks two 6-packs daily, last drink was yesterday. No recreational drug use. Lives with significant other and her grandchild. ALLERGIES: No known drug allergies. HOME MEDICATIONS: - aspirin 81 mg daily - atenolol 25 mg twice a day - Digoxin 250 mcg daily - nicotine patch 21 mg - omeprazole 40 mg daily - Xarelto 20 mg daily ALLERGIES: No known drug allergies. FAMILY HISTORY: Mother , unknown cancer and psoriasis. Father with hypertension. One brother with diabetes. REVIEW OF SYSTEMS: As per history of present illness. 12-point system otherwise negative. PHYSICAL EXAMINATION: VITAL SIGNS: Temperature 98.5, pulse 75, respiratory rate 18, blood pressure 141/97, 97% on room air. GENERAL: The patient is awake, alert, oriented times three. Anicteric sclerae. No jaundice. Appears older than his stated age. Disheveled appearing. Dry mucous membranes. Poor dentition. No jugular venous distention (JVD), thyromegaly or cervical lymphadenopathy. LUNGS: Clear to auscultation. No wheezing or rales. HEART: S1, S2. Irregularly irregular. ABDOMEN: Soft, nontender, nondistended. Positive bowel sounds. No rebound or guarding. No hepatosplenomegaly. EXTREMITIES: No cyanosis, clubbing or pitting edema. LABORATORY DATA: White count 7.9, hemoglobin 14, hematocrit 44, platelet count 238. Sodium 138, potassium 3.6, chloride 97, bicarbonate 23, BUN 6, creatinine 0.5, ionized calcium 4.4, glucose 85. Toxicology screen: Digoxin 0.8. Urinalysis: 1+ ketones. INR of 1.99. Respiratory panel pending. Two sets of blood cultures pending. CT of the chest showed no evidence of pulmonary embolism. Calcified granuloma in the left lower lobe, left hilum and right middle lobe. Ground glass opacity with one or two dilated airways within the left upper lobe. This may be inflammatory, [address] chest suggested. CT of the abdomen and pelvis showed moderate fatty infiltration of the liver, mildly prominent common bile duct, 10 mm, unchanged from prior comparison study. ASSESSMENT AND PLAN: This is a 58-year-old male with a history of alcoholic liver cirrhosis, portal hypertensive gastropathy, atrial fibrillation, cor pulmonale, abnormal EKG, continues to smoke cigarettes and drink alcohol, presents with intractable vomiting, Digoxin level is 0.8. The patient is admitted for the following issues: 1. Intractable vomiting, most likely gastroenteritis of a viral source. We will continue with supportive care with IV fluids, antiemetics. If diarrhea should occur, we will check a GI panel. Monitor for fluid overload and third spacing. Check respiratory panel. 2. Alcoholic liver cirrhosis with portal hypertensive gastropathy. Continue on proton pump inhibitor. No signs of overt decompensated liver cirrhosis at this time, as the patient has no pitting edema or ascites on examination or on CT of the abdomen and pelvis. We will continue to monitor for alcohol withdrawal, as the patient is a two 6-pack per day beer drinker for the past 40 years. The patient will be kept on Serax 10 mg every 6 hours, multivitamin, thiamine, folate, and as needed Ativan. Increase Serax if needed for better control. Monitor for withdrawal and delirium tremens. 3. Active tobacco use. Continue on nicotine supplementation. Tobacco cessation counseling has been provided at bedside. The patient is refusing to quit cigarettes and was informed that this is a smoke free property and therefore he is to have a nicotine patch, nicotine gum as needed if required. 4. History of pulmonary embolism. On chronic anticoagulation, which is resumed. 5. Paroxysmal atrial fibrillation. Currently on anticoagulation. Continue on telemetry monitoring for now. Digoxin level appears to be 0.8. Nausea and vomiting do not appear to be related to possible Digoxin toxicity. Continue with atenolol and Digoxin for now. 6. Deep vein thrombosis (DVT) prophylaxis. Already on anticoagulation. DISPOSITION: Discharge in the morning if negative workup. [facility]
[2019-03-12 22:00] VITALS: BP 122/77
[2019-03-12] MEDS: THIAMINE 100 MG TAB PO SCH (22:07)
[2019-03-12] MEDS: atenoloL 25 MG TAB PO SCH (22:08)
[2019-03-13] MEDS: OXAZEPAM 10 MG CAP PO SCH ×2 (01:17→06:48)
[2019-03-13] MEDS: ONDANSETRON 4MG/2ML VIAL (J2405) IV SCH ×2 (01:17→09:52)
[2019-03-13 05:55] LABS: HEMOGLOBIN 13.2 g/dl (13.5-17.5); MEAN CORPUSCULAR HEMOGLOBIN 29.9 pg (27.0-33.0); MEAN CORPUSCULAR VOLUME 90.5 fl (80.0-96.0); PLATELET COUNT, AUTOMATED 209 10^3/uL (150-450); RED BLOOD COUNT 4.42 10^6/uL (4.30-6.10); WHITE BLOOD COUNT 5.4 10^3/uL (4.0-10.0)
[2019-03-13 06:00] VITALS: BP 123/81
[2019-03-13 06:22] LABS: ALT/SGPT 40 U/L (12-78); BILIRUBIN,TOTAL 1.2 MG/DL (0.2-1.0); BLOOD UREA NITROGEN 10 MG/DL (7-18); CALCIUM LEVEL 8.9 MG/DL (8.5-10.1); CARBON DIOXIDE LEVEL 29 MEQ/L (21-32); CHLORIDE LEVEL 99 MEQ/L (98-107); CREATININE FOR GFR 0.76 MG/DL (0.70-1.30); GLOMERULAR FILTRATION RATE > 60.0 (>56); GLUCOSE, FASTING 83 MG/DL (70-100); POTASSIUM SERUM 3.6 MEQ/L (3.5-5.1); SODIUM LEVEL 136 MEQ/L (136-145); TOTAL PROTEIN 6.6 GM/DL (6.4-8.2)
[2019-03-13] MEDS ORDERED: MULTIVITAMINS/MINERALS THERAP 1 TAB PO SCH (09:00)
[2019-03-13] MEDS ORDERED: OMEPRAZOLE 20 MG CAP PO SCH (09:00)
[2019-03-13] MEDS ORDERED: ASPIRIN 81 MG ENTERIC TAB PO SCH (09:00)
[2019-03-13] MEDS ORDERED: FLUBLOK(EGG FREE)(QUAD)INFLUENZA VACC 0.5ML SYRINGE (90682)18YRS&OLDER IM ONE (09:00)
[2019-03-13] MEDS ORDERED: FOLIC ACID 1 MG TAB PO SCH (09:00)
[2019-03-13] MEDS ORDERED: DIGOXIN 0.25 MG TAB PO SCH (09:00)
[2019-03-13 09:51] VITALS: BP 123/81
[2019-03-13] MEDS: atenoloL 25 MG TAB PO SCH (09:51)
[2019-03-13] MEDS: THIAMINE 100 MG TAB PO SCH (09:51)
[2019-03-13] MEDS: NICOTINE 21MG/24HR 1 EA TRANSDERMAL TD PRN (09:52)
[2019-03-13] MEDS ORDERED: RIVAROXABAN 20 MG TAB (XARELTO) PO SCH (18:00)
--- NOTE | 2019-04-04 10:55 | DSES ---
DATE OF ADMISSION: 03/12/2019 DATE OF DISCHARGE: 03/13/2019 PRIMARY DISCHARGE DIAGNOSES: 1. Gastroenteritis. 2. Alcohol liver cirrhosis with portal hypertensive gastropathy. 3. Active tobacco abuse. Tobacco cessation counseling has been provided. 4. History of pulmonary embolism, on chronic anticoagulation. 5. Paroxysmal atrial fibrillation. 6. Incidental Finding Left Upper Lobe nodule-repeat CT chest in 6months recommended DISCHARGE MEDICATIONS: - atenolol 25 mg twice a day - digoxin 250 mcg daily - omeprazole 40 mg daily - Xarelto 20 mg daily - aspirin 81 mg daily DISCHARGE INSTRUCTIONS: The patient advised to see his primary care physician within one week of hospital discharge. Followup CT of chest in 6 months regarding left upper lobe pulmonary nodule. This has been discussed with the patient along with tobacco cessation counseling, and possible biopsy if increase in size or irregular borders. HOSPITAL COURSE: This is a 58-year-old male with history of leaving against medical advice with alcoholic liver cirrhosis, fatty liver, portal hypertensive gastropathy, paroxysmal atrial fibrillation on chronic anticoagulation, and pulmonary embolism who presented with four day history of intractable nausea, vomiting and dry heaving at home with complaints of diaphoresis. He denies any diarrhea, fever, chills, or weight loss. He complained of viral symptoms with runny nose, shortness of breath and decrease in appetite without any weight loss. He complained of dizziness and palpitations. With his history of atrial fibrillation, EKG in the ER showed cor pulmonale, abnormal EKG. Troponin was negative. Respiratory panel was negative. Two sets of blood cultures were negative. CT of chest showed no evidence of pulmonary embolism. Two ground glass opacities were noted, largest in the left upper lobe, neither were apparent previously. Followup CT of chest recommended in 6 months. The patient was advised to stop smoking and to followup with repeat CT of the chest with his primary care physician as an outpatient in [address] of abdomen and pelvis showed moderate fatty liver with prominent CBD, unchanged from prior study. Otherwise negative study. The patient was given intravenous fluids and resumed on home medications. The patient did not want to stay further, was tolerating his diet . DISCHARGE PHYSICAL EXAMINATION: VITALS: 98.5 60 17 123/81 95% Room Air HEENT: anicteric no jaundice no jvd PERRLA EOMI no cervical LAD no thyromegaly dry mucus membranes LUNGS: AEBE CTAB no wheezing,rales, or rhonchi, no adventitious breath sounds HEART:S1S2 RRR no murmurs rubs or gallops ABD:soft nontender nondistended (+)BS no HSM EXT: no cyanosis, clubbing or edema LABORATORY DATA: White count 5.4, hemoglobin 13, hematocrit 40, and platelet count 209. Sodium 136, potassium 3.6, chloride 99, bicarbonate 29, BUN 10, creatinine 0.76, glucose 83, lactic acid 1.5, total bilirubin 1.2, AST 46, ALT 40, alkaline phosphatase 125, total protein 6.6, albumin 3, lipase 284. Digoxin 0.8. Urinalysis with 1+ ketones, otherwise negative. INR was 1.99. Microbiology: Two sets of blood cultures on 03/12/2019 with no growth after [address] of chest with no pulmonary embolism, two ground glass opacities, 21 mm on the left upper lobe, repeat CT chest recommended. CT of abdomen and pelvis with fatty liver, mildly prominent CBD 10 mm, unchanged from comparison, small cyst upper pole, right kidney otherwise negative. DISCHARGE INSTRUCTIONS: Followup CT of chest in 6 months regarding left upper lobe pulmonary nodule. This has been discussed with the patient along with tobacco cessation counseling, and possible biopsy if increase in size or irregular borders. primary care physician to order repeat CT chest in 6months. TIME SPENT ON DISCHARGE: 30 minutes MTDMelonie
== END 2019-03-13 11:45 | disposition home or self-care (01) | DRG 392 ==
LOC: EDSEX 09:02 → M ED 09:02 → EDBD 09:02 → M ED INP 12:55 → ENRESERVTM 13:33 → ENRESERVDT 13:33 → M MS5PR 14:31
PROVIDERS: ADMIT General Practice; ATTEND General Practice
DX: A08.4 Viral intestinal infection, unspecified (principal); F10.288 Alcohol dependence with other alcohol-induced disorder; K70.30 Alcoholic cirrhosis of liver without ascites; K31.89 Other diseases of stomach and duodenum; I48.0 Paroxysmal atrial fibrillation; I27.20 Pulmonary hypertension, unspecified; Z86.711 Personal history of pulmonary embolism; Z89.021 Acquired absence of right finger(s); F17.210 Nicotine dependence, cigarettes, uncomplicated; Z79.82 Long term (current) use of aspirin; Z79.01 Long term (current) use of anticoagulants; Z79.899 Other long term (current) drug therapy

== ENCOUNTER 2019-03-24 18:29 | Inpatient (IN) | payer MEDICARE, OTHER ==
[~2019-03-24] VITALS: Ht 175.3 cm; Wt 59.1 kg
[~2019-03-24 18:29] MED LIST changes: +ASPI81TA85 PO; +NICO21DI31 TD
--- NOTE | 2019-03-24 19:28 | REP ---
Clinical: Altered mental status . Comparison: 07/31/2017 Findings: The mediastinum and cardiac silhouette are stable and within normal limits for portable technique. The lung hartman are clear without acute consolidation, effusion, or pneumothorax. Stable calcified granuloma in the left base unchanged. Skeletal structures are intact. Impression: No acute cardiopulmonary process appreciated. Electronically Signed by Martin Haynes MD 03/24/2019 07:19 P
[2019-03-24] MEDS ORDERED: HYDROMORPHONE HCL 0.5 MG/ 0.5 ML SYRINGE (J1170 PER 1) IV PRN (19:30)
[2019-03-24 19:31] LABS: BASO # 0.1 10^3/uL (0.0-0.2); BASO % 0.5 % (0.0-1.0); EOS % 0.2 % (0.0-3.0); HEMATOCRIT 43.4 % (42.0-52.0); HEMOGLOBIN 14.5 g/dl (13.5-17.5); LYMPH # 1.1 10^3/uL (1.5-5.0); LYMPH % 10.1 % (24.0-44.0); MEAN CORPUSCULAR HEMOGLOBIN 30.3 pg (27.0-33.0); MEAN CORPUSCULAR HGB CONC 33.4 g/dl (32.0-36.5); MEAN CORPUSCULAR VOLUME 90.8 fl (80.0-96.0); MONO # 0.9 10^3/uL (0.0-0.8); MONO % 8.8 % (0.0-5.0); NEUTROPHILS # 8.2 10^3/uL (1.5-8.5); NEUTROPHILS % 79.1 % (36.0-66.0); PLATELET COUNT, AUTOMATED 280 10^3/uL (150-450); RED BLOOD COUNT 4.78 10^6/uL (4.30-6.10); WHITE BLOOD COUNT 10.4 10^3/uL (4.0-10.0)
[2019-03-24] MEDS ORDERED: METAL LOCK LOOP XX ONE (19:53)
[2019-03-24] MEDS ORDERED: ISOVUE-370 76% 100ML VIAL (Q9967) As Ordered ONE (20:07)
[2019-03-24 20:14] LABS: ALBUMIN 3.7 GM/DL (3.2-5.2); ALT/SGPT 109 U/L (12-78); BILIRUBIN,DIRECT 0.3 MG/DL (0.0-0.2); BILIRUBIN,TOTAL 0.8 MG/DL (0.2-1.0); BLOOD UREA NITROGEN 5 MG/DL (7-18); CARBON DIOXIDE LEVEL 20 MEQ/L (21-32); CHLORIDE LEVEL 95 MEQ/L (98-107); CK-MB VALUE MASS 2.9 NG/ML (<3.6); CPK CREATINE PHOSPHOKINASE 90 U/L (39-308); CREATININE FOR GFR 0.94 MG/DL (0.70-1.30); ETHYL ALCOHOL (ETHANOL) < 0.003 % (0.000-0.010); GLOMERULAR FILTRATION RATE > 60.0 (>56); GLUCOSE, FASTING 133 MG/DL (70-100); MB/CK RELATIVE INDEX 3.22 (< OR =4); POTASSIUM SERUM 3.5 MEQ/L (3.5-5.1); SODIUM LEVEL 132 MEQ/L (136-145); TOTAL PROTEIN 7.6 GM/DL (6.4-8.2); TROPONIN I < 0.02 NG/ML (< 0.10)
--- NOTE | 2019-03-24 20:35 | REPVR ---
PROCEDURE INFORMATION: Exam: CT Head Without Contrast Exam date and time: 03/24/2019 8:10 PM Age: 58 years old Clinical indication: Condition or disease; Convulsions or seizures; Additional info: Newonset seizure TECHNIQUE: Imaging protocol: Computed tomography of the head without contrast. Radiation optimization: All CT scans at this facility use at least one of these dose optimization techniques: automated exposure control; mA and/or kV adjustment per patient size (includes targeted exams where dose is matched to clinical indication); or iterative reconstruction. COMPARISON: CT Head without contrast 07/21/2016 11:43 PM FINDINGS: Brain: Normal. No hemorrhage. Unremarkable white matter. No mass effect. Ventricles: Normal. No ventriculomegaly. Bones/joints: Unremarkable. No acute fracture. Sinuses: Visualized sinuses are unremarkable. No fluid levels. Mastoid air cells: Visualized mastoid air cells are well aerated. Soft tissues: Unremarkable. IMPRESSION: No acute intracranial abnormality. Electronically signed by: Korey Moncada On 03/24/2019 20:34:05 PM
--- NOTE | 2019-03-24 20:42 | REPVR ---
PROCEDURE INFORMATION: Exam: CT Angiography Chest With Contrast Exam date and time: 03/24/2019 8:10 PM Age: 58 years old Clinical indication: Chest pain; Additional info: Seizure, chest/back pain, R/O aaa TECHNIQUE: Imaging protocol: Computed tomographic angiography of the chest with intravenous contrast. 3D rendering: MIP and/or 3D reconstructed images were created by the technologist. Radiation optimization: All CT scans at this facility use at least one of these dose optimization techniques: automated exposure control; mA and/or kV adjustment per patient size (includes targeted exams where dose is matched to clinical indication); or iterative reconstruction. Contrast material: ISOVUE 370; Contrast volume: 100 ml; Contrast route: IV; COMPARISON: CT ANGIO CHEST 03/12/2019 11:09 AM FINDINGS: Pulmonary arteries: There are no pulmonary emboli. Aorta: There is no aortic dissection or aneurysm. Lungs: 9 mm calcified granuloma left lower lobe and 5 mm calcified granuloma right middle lobe. Small reticular opacity containing central lucencies in the left upper lobe likely represents a focus of peripheral airway disease. Pleural space: Unremarkable. No pneumothorax. No pleural effusion. Heart: There is mild atherosclerotic calcification of the coronary arteries. Lymph nodes: Small calcified left hilar lymph nodes. Bones/joints: Old rib fracture right 6th rib. Age indeterminate compression deformity at T8. Clinical correlation to exclude acute fracture suggested. MRI correlation may be helpful. The spine demonstrates mild degenerative changes. Soft tissues: Unremarkable. IMPRESSION: 1. There is no aortic dissection or aneurysm. 2. There are no pulmonary emboli. 3. Age indeterminate compression deformity at T8. Clinical correlation to exclude acute fracture suggested. MRI correlation may be helpful. 4. No acute pulmonary parenchymal abnormalities. 5. Findings consistent with remote intrathoracic granulomatous infection. Electronically signed by: Korey Moncada On 03/24/2019 20:41:53 PM
--- NOTE | 2019-03-24 20:48 | REPVR ---
PROCEDURE INFORMATION: Exam: CT Angiography Abdomen and Pelvis With Contrast Exam date and time: 03/24/2019 8:10 PM Age: 58 years old Clinical indication: Abdominal pain; Other: Back pain; Additional info: Seizure, chest/back pain, R/O aaa TECHNIQUE: Imaging protocol: Computed tomographic angiography of the abdomen and pelvis with intravenous contrast material. 3D rendering: MIP and/or 3D reconstructed images were created by the technologist. Radiation optimization: All CT scans at this facility use at least one of these dose optimization techniques: automated exposure control; mA and/or kV adjustment per patient size (includes targeted exams where dose is matched to clinical indication); or iterative reconstruction. Contrast material: ISOVUE 370; Contrast volume: 100 ml; Contrast route: IV; COMPARISON: CT ANGIO CHEST 03/12/2019 11:09 AM FINDINGS: Aorta: The aorta demonstrates moderate atherosclerotic calcification. No aneurysm or dissection. Celiac trunk and mesenteric arteries: No occlusion or significant stenosis. Renal arteries: Mild atherosclerotic changes at the origin of the renal arteries without significant stenosis or post in attic dilatation. Right iliac arteries: Atherosclerotic changes in the right iliac artery. No aneurysm or significant stenosis. Right femoral/popliteal arteries: Atherosclerotic changes in the right common femoral artery without significant stenosis. Left iliac arteries: Atherosclerotic changes in the left iliac artery. No aneurysm or significant stenosis. Left femoral/popliteal arteries: Atherosclerotic changes in the left common femoral artery without significant stenosis. Liver: There is a diffuse decrease in hepatic parenchymal density, consistent with fatty infiltration. Gallbladder and bile ducts: Common hepatic duct measures 1.4 cm in common bile duct measures 8.7 mm. No obvious obstructing etiology demonstrated. Further evaluation with MRCP may be helpful if clinically desired. Pancreas: Unremarkable. No mass. No ductal dilation. Spleen: Unremarkable. No splenomegaly. Adrenals: Unremarkable. No mass. Kidneys and ureters: 7 mm cyst right kidney. Stomach and bowel: Unremarkable. No obstruction. No mucosal thickening. Appendix: No evidence of appendicitis. Intraperitoneal space: See Gallbladder And Bile Ducts Finding. Lymph nodes: Several subcentimeter lymph nodes in the gastrohepatic ligament. Bladder: The bladder demonstrates diffuse thickening of the bladder wall without trabeculation or diverticuli. The findings suggest changes related to chronic bladder outlet obstruction in the absence of any significant perivesicular inflammatory changes. Reproductive: The prostate gland demonstrates mild hyperplasia. Bones/joints: Mild central spinal stenosis L2-L3, moderate to severe central spinal stenosis L3-L4, mild central spinal stenosis L4-L5. Soft tissues: Unremarkable. IMPRESSION: 1. There is a diffuse decrease in hepatic parenchymal density, consistent with fatty infiltration. 2. Dilated common hepatic and common bile duct without obvious obstructing etiology. Further evaluation with MRCP is suggested. 3. Mild prostatic hyperplasia. 4. The bladder demonstrates diffuse thickening of the bladder wall without trabeculation or diverticuli. The findings suggest changes related to chronic bladder outlet obstruction in the absence of any significant perivesicular inflammatory changes. 5. Mild atherosclerotic changes in the abdominal aorta and branch arteries without evidence of a high-grade obstruction or aneurysm. No dissection demonstrated. Electronically signed by: Korey Moncada On 03/24/2019 20:47:48 PM
[2019-03-24 21:34] LABS: DIGOXIN LEVEL 0.5 NG/ML (0.5-2.0)
[2019-03-24] MEDS ORDERED: NS 1,000 ML IV ONE (22:45)
[2019-03-25] MEDS ORDERED: OXAZEPAM 15 MG CAP PO ONE (00:15)
[2019-03-25] MEDS ORDERED: HYDROMORPHONE HCL 0.5 MG/ 0.5 ML SYRINGE (J1170 PER 1) IV PRN (00:15)
[2019-03-25 00:36] LABS: AMPHETAMINES LEVEL URINE NEGATIVE (NEGATIVE); BARBITURATES URINE NEGATIVE (NEGATIVE); BENZODIAZEPINES URINE NEGATIVE (NEGATIVE); CANNABINOIDS URINE NEGATIVE (NEGATIVE); COCAINE METABOLITE URINE NEGATIVE (NEGATIVE); METHADONE URINE NEGATIVE (NEGATIVE); OPIATES URINE POSITIVE (NEGATIVE); PHENCYCLIDINE URINE NEGATIVE (NEGATIVE)
[2019-03-25] MEDS ORDERED: PERCOCET 5MG/325MG TAB PO PRN (02:30)
[2019-03-25] MEDS ORDERED: LORazepam 2 MG TAB PO PRN (02:30)
[2019-03-25] MEDS ORDERED: MORPHINE 2 MG/ML 1ML VIAL (J2270) IV PRN (02:30)
--- NOTE | 2019-03-25 02:40 | HPEPDOC ---
[facility] Medical History & Physical Date of Admission Mar 25, 2019 Date of Service: Mar 25, 2019 Attending Physician: DIOGENES AGUILAR MD History and Physical CHIEF COMPLAINT: Seizure and vomiting HISTORY OF PRESENT ILLNESS: 58-year-old male, past medical history of alcoholic cirrhosis, atrial fibrillation on Xarelto, PE, and cor pulmonale presents from home with seizure activity. Patient reports having one witnessed tonic-clonic seizure at home, likely due to alcohol withdrawal. Patient has had 1 seizure in the past few years ago due to alcohol withdrawal, he has been an alcoholic for 40 years, stopped drinking 3-4 days ago because he didn't feel like drinking. After he stopped drinking, he developed significant vomiting and diarrhea followed by 1 seizure yesterday. Otherwise, he denies any shortness of breath, chest pain, headache or urinary issues. Patient does report back pain, CT in the ED consistent with T8 compression fracture. 10 point review of system is negative except for above PAST MEDICAL HISTORY: 1. Alcoholic cirrhosis. 2. Atrial fibrillation. 3. PE. 4. Cor pulmonale PAST SURGICAL HISTORY: 1. None. SOCIAL HISTORY: Current smoker, 1 pack per day for 40 years. Alcoholic, has been drinking for 40 years Denies drug use FAMILY HISTORY: No family history of cancer, heart disease ALLERGIES: Please see below. HOME MEDICATIONS: Please see below. PHYSICAL EXAMINATION: VITAL SIGNS: Please see below. GENERAL: No distress HEENT: Normocephalic, atraumatic, dry mucous membranes NECK: Supple CARDIOVASCULAR EXAMINATION: S1, S2, no murmurs RESPIRATORY EXAMINATION: Clear to auscultation, no wheezing ABDOMINAL EXAMINATION: Soft, mild tenderness, nondistended, positive bowel sounds EXTREMITIES: Range of motion intact SKIN: No rash NEUROLOGICAL EXAMINATION: Alert and oriented 3, no focal deficits PSYCHIATRIC EXAMINATION: Calm and cooperative LABORATORY DATA: See below. IMAGING: CT showing T8 compression fracture MICROBIOLOGY: Please see below. ASSESSMENT: 58-year-old male with past medical history of alcoholic cirrhosis, atrial fibrillation on Xarelto PE and cor pulmonale presents with alcohol withdrawal seizure and T8 compression fracture. PLAN: 1. Alcohol withdrawal seizure. Stopped drinking abruptly 3-4 days ago followed by nausea, vomiting and asia rrhea, tonic-clonic seizure 1. CIWA protocol, thiamine/multivitamin/folic acid. Seizure precautions. 2. T8 compression fracture Possibly due to seizure activity, pain control, consider orthopedic evaluation in the morning. 3. Dehydration Recent vomiting and diarrhea, lactate elevated, improved with IV fluids in the ED, continue gentle IV hydration. 4. Current smoker. NicoDerm 5. Atrial fibrillation. Continue atenolol and digoxin for rate control, Xarelto for anticoagulation. DVT per flexes: On Xarelto GI prophylaxis: Home PPI Vital Signs Vital Signs Date Time Temp Pulse Resp B/P (MAP) Pulse Ox O2 Delivery O2 Flow Rate FiO2 03/25/19 02:00 55 96 Room Air 03/24/19 23:30 157/97 (117) 03/24/19 21:24 18 03/24/19 18:59 97.8 Laboratory Data Labs 24H Laboratory Tests 2 03/24/19 19:09: Anion Gap 17H, Glomerular Filtration Rate > 60.0, Lactic Acid Level 8.2*H, Calcium Level 9.0, Total Bilirubin 0.8, Direct Bilirubin 0.3H, Aspartate Amino Transf (AST/SGOT) 137H, Alanine Aminotransferase (ALT/SGPT) 109H, Alkaline Phosphatase 205H, Ammonia 14, Total Creatine Kinase 90, Creatine Kinase MB 2.9, Creatine Kinase MB Relative Index 3.22, Troponin I < 0.02, Total Protein 7.6, Albumin 3.7, Albumin/Globulin Ratio 0.95L, Thyroid Stimulating Hormone (TSH) 5.310H, Digoxin Level 0.5, Ethyl Alcohol Level < 0.003 03/24/19 19:24: Immature Granulocyte % (Auto) 1.3, Neutrophils (%) (Auto) 79.1H, Lymphocytes (%) (Auto) 10.1L, Monocytes (%) (Auto) 8.8H, Eosinophils (%) (Auto) 0.2, Basophils (%) (Auto) 0.5, Neutrophils # (Auto) 8.2, Lymphocytes # (Auto) 1.1L, Monocytes # (Auto) 0.9H, Eosinophils # (Auto) 0.0, Basophils # (Auto) 0.1, Nucleated Red Blood Cells % (auto) 0.0 03/24/19 19:30: Bedside Glucose (Misc Panel) 145H 03/24/19 23:44: Lactic Acid Followup at 4 Hours 3.0*H 03/25/19 00:00: Urine Color YELLOW, Urine Appearance CLEAR, Urine pH 6.0, Urine Specific [place] 1.050, Urine Protein NEGATIVE, Urine Glucose (UA) NEGATIVE, Urine Ketones TRACEH, Urine Blood NEGATIVE, Urine Nitrite NEGATIVE, Urine Bilirubin NEGATIVE, Urine Urobilinogen 0.2, Urine Leukocyte Esterase NEGATIVE, Urine WBC (Auto) 1, Urine RBC (Auto) 1, Urine Hyaline Casts (Auto) 0, Urine Bacteria (Auto) NEGATIVE, Urine Squamous Epithelial Cells 0, Urine Sperm (Auto) , Urine Opiates Screen POSITIVEH, Urine Methadone Screen NEGATIVE, Urine Barbiturates Screen NEGATIVE, Urine Phencyclidine Screen NEGATIVE, Urine Amphetamines Screen NEGATIVE, Urine Benzodiazepines Screen NEGATIVE, Urine Cocaine Metabolite Screen NEGATIVE, Urine Cannabinoids Screen NEGATIVE CBC/BMP Laboratory Tests 03/24/19 19:09 03/24/19 19:24 Microbiology Microbiology 03/24/19 Blood Culture, Received Pending 03/24/19 Blood Culture, Received Pending Home Medications Scheduled Aspirin (Aspir 81) 81 Mg Tablet.dr, 81 MG PO DAILY Atenolol (Atenolol) 25 Mg Tab, 25 MG PO BID Digoxin (Digoxin) 250 Mcg Tab, 250 MCG PO DAILY Omeprazole (Omeprazole) 40 Mg Cap, 40 MG PO DAILY Rivaroxaban (Xarelto) 20 Mg Tab, 20 MG PO DAILY Allergies Coded Allergies: No Known Allergies (Verified Allergy, Unknown, 03/12/19) A-FIB/CHADSVASC A-FIB History Current/History of A-Fib/PAF?: Yes Current PO Anticoag Therapy: Yes DIOGENES AGUILAR MD Mar 25, 2019 02:40
[2019-03-25] MEDS ORDERED: POTASSIUM CHLORIDE 10 MEQ SR TABLET PO ONE (02:45)
[2019-03-25 04:00] VITALS: BP 160/94
[2019-03-25] MEDS ORDERED: METAL LOCK LOOP XX ONE (04:18)
[2019-03-25] MEDS: NS 1,000 ML IV SCH ×2 (04:36→13:46)
[2019-03-25 06:00] VITALS: BP 160/94
[2019-03-25 07:54] LABS: HEMOGLOBIN 13.9 g/dl (13.5-17.5); MEAN CORPUSCULAR HGB CONC 32.3 g/dl (32.0-36.5); MEAN CORPUSCULAR VOLUME 92.9 fl (80.0-96.0); PLATELET COUNT, AUTOMATED 225 10^3/uL (150-450); RED BLOOD COUNT 4.63 10^6/uL (4.30-6.10); WHITE BLOOD COUNT 8.1 10^3/uL (4.0-10.0)
[2019-03-25 08:00] VITALS: BP 130/73
[2019-03-25] MEDS: DIGOXIN 0.25 MG TAB PO SCH (08:12)
[2019-03-25] MEDS: ASPIRIN 81 MG ENTERIC TAB PO SCH (08:12)
[2019-03-25] MEDS: MULTIVITAMINS/MINERALS THERAP 1 TAB PO SCH (08:12)
[2019-03-25] MEDS: FOLIC ACID 1 MG TAB PO SCH (08:12)
[2019-03-25] MEDS: NICOTINE 21MG/24HR 1 EA TRANSDERMAL TD SCH (08:13)
[2019-03-25] MEDS: OMEPRAZOLE 20 MG CAP PO SCH (08:13)
[2019-03-25] MEDS: atenoloL 25 MG TAB PO SCH ×2 (08:13→22:04)
[2019-03-25] MEDS: RIVAROXABAN 20 MG TAB (XARELTO) PO SCH (08:13)
[2019-03-25] MEDS: THIAMINE 100 MG TAB PO SCH ×2 (08:13→22:04)
[2019-03-25 08:21] LABS: ALBUMIN 3.4 GM/DL (3.2-5.2); ALT/SGPT 91 U/L (12-78); BILIRUBIN,TOTAL 0.8 MG/DL (0.2-1.0); BLOOD UREA NITROGEN 5 MG/DL (7-18); CALCIUM LEVEL 8.8 MG/DL (8.5-10.1); CARBON DIOXIDE LEVEL 25 MEQ/L (21-32); CHLORIDE LEVEL 97 MEQ/L (98-107); CREATININE FOR GFR 0.74 MG/DL (0.70-1.30); GLOMERULAR FILTRATION RATE > 60.0 (>56); GLUCOSE, FASTING 70 MG/DL (70-100); MAGNESIUM LEVEL 1.9 MG/DL (1.8-2.4); POTASSIUM SERUM 3.8 MEQ/L (3.5-5.1); SODIUM LEVEL 133 MEQ/L (136-145); TOTAL PROTEIN 7.3 GM/DL (6.4-8.2)
[2019-03-25] MEDS ORDERED: ONDANSETRON 4MG/2ML VIAL (J2405) IV PRN (11:00)
--- NOTE | 2019-03-25 11:07 | IPNPDOC ---
Text Note Date of Service The patient was seen on 03/25/19. NOTE SUBJECTIVE: Feels a little better this morning. no further vomiting or diarrhea, denies any abdominal pain. pateint is alert and oriented. Complains of back pain. PHYSICAL EXAMINATION: VITAL SIGNS: Please see below. GENERAL: No distress HEENT: Normocephalic, atraumatic, dry mucous membranes NECK: Supple CARDIOVASCULAR EXAMINATION: S1, S2, no murmurs RESPIRATORY EXAMINATION: Clear to auscultation, no wheezing ABDOMINAL EXAMINATION: Soft, mild tenderness, nondistended, positive bowel sounds EXTREMITIES: Range of motion intact SKIN: No rash NEUROLOGICAL EXAMINATION: Alert and oriented 3, no focal deficits PSYCHIATRIC EXAMINATION: Calm and cooperative LABORATORY DATA: Reviewed See below. IMAGING: CT showing T8 compression fracture MICROBIOLOGY: Please see below. Assessment and Plan: 58-year-old male, past medical history of alcoholic cirrhosis, atrial fibrillation on Xarelto, PE, and cor pulmonale presents from home with seizure activity. Patient reports having one witnessed tonic-clonic seizure at home, likely due to alcohol withdrawal. Patient has had 1 seizure in the past few years ago due to alcohol withdrawal, he has been an alcoholic for 40 years, stopped drinking 3-4 days ago because he didn't feel like drinking. After he stopped drinking, he developed significant vomiting and diarrhea followed by 1 seizure yesterday. Otherwise, he denies any shortness of breath, chest pain, headache or urinary issues. Patient does report back pain, CT in the ED consistent with T8 compression fracture. Alcohol abuse with Alcohol withdrawal seizure Stopped drinking abruptly 3-4 days ago followed by nausea, vomiting and diarrhea, tonic-clonic seizure 1. [place] protocol, thiamine/multivitamin/folic acid. will put on routine serax. Seizure precautions. Monitor electrolytes and replace as needed. look out for refeeding syndrome Transaminitis possible alcoholic hepatitis, slight improvement today there is CBD dilatation and intrahepatic ductal dilatation without any obvious obstruction If no improvement in liver enzymes will get an MRCP. Dehydration Recent vomiting and diarrhea, lactate elevated, improved with IV fluids in the ED T8 compression fracture pain control with oxycodone, NSAIDS. Alcoholic liver cirrhosis with Portal hypertensive gastropathy. Paroxysmal atrial fibrillation. Continue atenolol and digoxin for rate control, Xarelto for anticoagulation. DVT and Pulmonary embolism. on xarelto Nicotine dependence discussed about smoking cessation Abnormal electrocardiogram (EKG). Cor pulmonale. DVT prophylaxis : On Xarelto GI prophylaxis: Home PPI VS,Fishbone, I+O VS, Fishbone, I+O Laboratory Tests 03/24/19 19:09 03/24/19 19:24 03/25/19 07:42 Vital Signs Date Time Temp Pulse Resp B/P (MAP) Pulse Ox O2 Delivery O2 Flow Rate FiO2 03/25/19 08:13 66 130/73 03/25/19 08:03 20 Room Air 03/25/19 08:00 96.6 96 I&O- Last 24 Hours up to 6 AM 03/25/19 05:59 Intake Total 1000 ml Balance 1000 ml ASHU SANTIZO MD Mar 25, 2019 08:32
[2019-03-25] MEDS ORDERED: KETOROLAC 30 MG/ML VIAL (J1885) IV PRN (11:15)
[2019-03-25] MEDS: OXAZEPAM 10 MG CAP PO SCH ×2 (11:38→22:04)
[2019-03-25] MEDS: oxyCODONE 5MG TAB PO PRN ×2 (11:39→22:50)
[2019-03-25 12:00] VITALS: BP 128/80
[2019-03-25 16:00] VITALS: BP 168/60
[2019-03-25 22:00] VITALS: BP_SYST 142; BP_SYST 152; BP_DIAS 65; BP_DIAS 88
[2019-03-26 06:00] VITALS: BP_SYST 140; BP_DIAS 80; BP_DIAS 82
[2019-03-26 06:02] LABS: BASO % 0.4 % (0.0-1.0); EOS # 0.1 10^3/uL (0.0-0.5); EOS % 1.4 % (0.0-3.0); HEMATOCRIT 40.8 % (42.0-52.0); HEMOGLOBIN 13.5 g/dl (13.5-17.5); LYMPH # 1.5 10^3/uL (1.5-5.0); LYMPH % 21.9 % (24.0-44.0); MEAN CORPUSCULAR HEMOGLOBIN 30.1 pg (27.0-33.0); MEAN CORPUSCULAR HGB CONC 33.1 g/dl (32.0-36.5); MEAN CORPUSCULAR VOLUME 90.9 fl (80.0-96.0); MONO % 13.9 % (0.0-5.0); NEUTROPHILS # 4.3 10^3/uL (1.5-8.5); NEUTROPHILS % 61.3 % (36.0-66.0); PLATELET COUNT, AUTOMATED 192 10^3/uL (150-450); RED BLOOD COUNT 4.49 10^6/uL (4.30-6.10)
[2019-03-26 06:28] LABS: ALT/SGPT 69 U/L (12-78); BILIRUBIN,TOTAL 0.8 MG/DL (0.2-1.0); BLOOD UREA NITROGEN 6 MG/DL (7-18); CALCIUM LEVEL 8.5 MG/DL (8.5-10.1); CARBON DIOXIDE LEVEL 25 MEQ/L (21-32); CHLORIDE LEVEL 97 MEQ/L (98-107); CREATININE FOR GFR 0.55 MG/DL (0.70-1.30); GLOMERULAR FILTRATION RATE > 60.0 (>56); GLUCOSE, FASTING 68 MG/DL (70-100); POTASSIUM SERUM 3.3 MEQ/L (3.5-5.1); SODIUM LEVEL 132 MEQ/L (136-145); TOTAL PROTEIN 6.8 GM/DL (6.4-8.2)
[2019-03-26] MEDS ORDERED: POTASSIUM CHLORIDE 10 MEQ SR TABLET PO ONE (07:15)
[2019-03-26 07:37] LABS: MAGNESIUM LEVEL 1.6 MG/DL (1.8-2.4); PHOSPHORUS LEVEL 2.8 MG/DL (2.5-4.9)
[2019-03-26] MEDS: NICOTINE 21MG/24HR 1 EA TRANSDERMAL TD SCH (07:43)
[2019-03-26] MEDS: ASPIRIN 81 MG ENTERIC TAB PO SCH (07:44)
[2019-03-26] MEDS: THIAMINE 100 MG TAB PO SCH ×2 (07:44→22:18)
[2019-03-26] MEDS: MULTIVITAMINS/MINERALS THERAP 1 TAB PO SCH (07:44)
[2019-03-26] MEDS: atenoloL 25 MG TAB PO SCH ×2 (07:44→22:21)
[2019-03-26] MEDS: FOLIC ACID 1 MG TAB PO SCH (07:45)
[2019-03-26] MEDS: RIVAROXABAN 20 MG TAB (XARELTO) PO SCH (07:45)
[2019-03-26] MEDS: OMEPRAZOLE 20 MG CAP PO SCH (07:45)
[2019-03-26] MEDS: OXAZEPAM 10 MG CAP PO SCH ×2 (07:45→22:18)
[2019-03-26] MEDS: DIGOXIN 0.25 MG TAB PO SCH (07:45)
[2019-03-26] MEDS: oxyCODONE 5MG TAB PO PRN ×2 (07:46→22:19)
--- NOTE | 2019-03-26 08:49 | IPNPDOC ---
Text Note Date of Service The patient was seen on 03/26/19. NOTE SUBJECTIVE: Feels well this morning. no further vomiting or diarrhea, denies any abdominal pain. patient is alert and oriented. Complains of back pain and left rib pain on the lateral as pect of the chest wall. PHYSICAL EXAMINATION: VITAL SIGNS: Please see below. GENERAL: No distress HEENT: Normocephalic, atraumatic, moist mucous membranes, anicteric eyes NECK: Supple CARDIOVASCULAR EXAMINATION: S1, S2 regular, no murmurs, rub or gallop RESPIRATORY EXAMINATION: Clear to auscultation, no wheezing or ronchi ABDOMINAL EXAMINATION: Soft, non tenderness, nondistended, normal bowel sounds EXTREMITIES: Range of motion intact, no edema. SKIN: No rash NEUROLOGICAL EXAMINATION: Alert and oriented 3, no focal deficits PSYCHIATRIC EXAMINATION: Calm and cooperative LABORATORY DATA: Reviewed See below. IMAGING: CT showing T8 compression fracture of undeterminable age. CT or CXR did not show any rib fractures. MICROBIOLOGY: Please see below. Assessment and Plan: 58-year-old male, past medical history of alcoholic cirrhosis, atrial fibrillation on Xarelto, PE, and cor pulmonale presents from home with seizure activity. Patient reports having one witnessed tonic-clonic seizure at home, likely due to alcohol withdrawal. Patient has had 1 seizure in the past few years ago due to alcohol withdrawal, he has been an alcoholic for 40 years, stopped drinking 3-4 days ago because he didn't feel like drinking. After he stopped drinking, he developed significant vomiting and diarrhea followed by 1 seizure yesterday. Otherwise, he denies any shortness of breath, c hest pain, headache or urinary issues. Patient does report back pain, CT in the ED consistent with T8 compression fracture. Alcohol abuse with Alcohol withdrawal seizure Stopped drinking abruptly 3-4 days ago followed by nausea, vomiting and diarrhea, tonic-clonic seizure 1. CIWA protocol, thiamine/multivitamin/folic acid. will put on routine serax. Seizure precautions. Monitor electrolytes and replace as needed. look out for refeeding syndrome Hypomagnesemia will replace. Transaminitis possible alcoholic hepatitis, improvement today there is CBD dilatation and intrahepatic ductal dilatation without any obvious obstruction If no improvement in liver enzymes will get an MRCP. Alcoholic liver cirrhosis with Portal hypertensive gastropathy. outpateint follow up with GI. Counselled about abstaining from alcohol. Dehydration Recent vomiting and diarrhea, lactate elevated, improved with IV fluids in the ED T8 compression fracture undeterminate time. pain control with oxycodone, NSAIDS. Paroxysmal atrial fibrillation. Continue atenolol and digoxin for rate control, Xarelto for anticoagulation. H/O DVT and Pulmonary embolism with corpulmonale. on xarelto Nicotine dependence discussed about smoking cessation Abnormal electrocardiogram (EKG). DVT prophylaxis : On Xarelto GI prophylaxis: Home PPI VS,Fishbone, I+O VS, Fishbone, I+O Laboratory Tests 03/26/19 05:41 Vital Signs Date Time Temp Pulse Resp B/P (MAP) Pulse Ox O2 Delivery O2 Flow Rate FiO2 03/26/19 08:16 16 03/26/19 07:45 63 03/26/19 07:44 140/82 03/26/19 06:00 97.6 98 03/25/19 12:09 Room Air I&O- Last 24 Hours up to 6 AM 03/26/19 05:59 Intake Total 2630 ml Output Total 2050 ml Balance 580 ml ASHU SANTIZO MD Mar 26, 2019 08:49
[2019-03-26] MEDS: MAGNESIUM OXIDE 400 MG TAB (MAG-OX) PO SCH (10:02)
[2019-03-26] MEDS: POTASSIUM CHLORIDE 10 MEQ SR TABLET PO SCH (10:02)
[2019-03-26] MEDS: MAG SULF 1GM/100ML (MAG RUN) 1 GM in IV 1 EA IV SCH ×2 (10:02→11:35)
[2019-03-26 14:00] VITALS: BP 132/75
--- NOTE | 2019-03-26 15:16 | ECGEPIP ---
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
[2019-03-26 22:00] VITALS: BP 152/88
[2019-03-27 06:00] VITALS: BP 135/83
[2019-03-27 06:05] LABS: BASO % 0.4 % (0.0-1.0); EOS # 0.1 10^3/uL (0.0-0.5); EOS % 0.9 % (0.0-3.0); HEMATOCRIT 40.1 % (42.0-52.0); HEMOGLOBIN 13.3 g/dl (13.5-17.5); LYMPH # 1.4 10^3/uL (1.5-5.0); LYMPH % 18.6 % (24.0-44.0); MEAN CORPUSCULAR HGB CONC 33.2 g/dl (32.0-36.5); MEAN CORPUSCULAR VOLUME 90.3 fl (80.0-96.0); NEUTROPHILS % 66.8 % (36.0-66.0); PLATELET COUNT, AUTOMATED 202 10^3/uL (150-450); RED BLOOD COUNT 4.44 10^6/uL (4.30-6.10); WHITE BLOOD COUNT 7.5 10^3/uL (4.0-10.0)
[2019-03-27 06:39] LABS: ALT/SGPT 60 U/L (12-78); BILIRUBIN,TOTAL 0.9 MG/DL (0.2-1.0); BLOOD UREA NITROGEN 6 MG/DL (7-18); CALCIUM LEVEL 8.7 MG/DL (8.5-10.1); CARBON DIOXIDE LEVEL 25 MEQ/L (21-32); CHLORIDE LEVEL 98 MEQ/L (98-107); CREATININE FOR GFR 0.54 MG/DL (0.70-1.30); GLOMERULAR FILTRATION RATE > 60.0 (>56); GLUCOSE, FASTING 92 MG/DL (70-100); POTASSIUM SERUM 3.7 MEQ/L (3.5-5.1); SODIUM LEVEL 131 MEQ/L (136-145); TOTAL PROTEIN 6.8 GM/DL (6.4-8.2)
[2019-03-27] MEDS: OMEPRAZOLE 20 MG CAP PO SCH (08:34)
[2019-03-27] MEDS: OXAZEPAM 10 MG CAP PO SCH (08:34)
[2019-03-27] MEDS: FOLIC ACID 1 MG TAB PO SCH (08:34)
[2019-03-27] MEDS: POTASSIUM CHLORIDE 10 MEQ SR TABLET PO SCH (08:34)
[2019-03-27] MEDS: MULTIVITAMINS/MINERALS THERAP 1 TAB PO SCH (08:35)
[2019-03-27] MEDS: ASPIRIN 81 MG ENTERIC TAB PO SCH (08:35)
[2019-03-27] MEDS: THIAMINE 100 MG TAB PO SCH (08:35)
[2019-03-27] MEDS: MAGNESIUM OXIDE 400 MG TAB (MAG-OX) PO SCH (08:35)
[2019-03-27] MEDS: RIVAROXABAN 20 MG TAB (XARELTO) PO SCH (08:35)
[2019-03-27] MEDS: DIGOXIN 0.25 MG TAB PO SCH (08:35)
[2019-03-27 08:36] VITALS: BP 135/83
[2019-03-27] MEDS: NICOTINE 21MG/24HR 1 EA TRANSDERMAL TD SCH (08:36)
[2019-03-27] MEDS: atenoloL 25 MG TAB PO SCH (08:36)
[2019-03-27] MEDS: oxyCODONE 5MG TAB PO PRN (08:39)
[2019-03-27] MEDS ORDERED: MAG400TA PO (08:47)
[2019-03-27] MEDS ORDERED: FOLI1TAB11 PO (08:47)
[2019-03-27] MEDS ORDERED: OXAZ10CA3 PO (08:47)
[2019-03-27] MEDS ORDERED: VITMTA PO (08:47)
[2019-03-27] MEDS ORDERED: THIA100TA PO (08:47)
--- NOTE | 2019-03-27 08:59 | DS.PDOC ---
Discharge Summary General Date of Admission Mar 25, 2019 at 02:28 Date of Discharge 03/27/19 Discharge Summary PROCEDURES PERFORMED DURING STAY: [None]. DISCHARGE DIAGNOSES: Alcohol withdrawal Seizure Alcoholic Hepatitis T8 compression fracture of undeterminate age. Hypomagnesemia Dehydration from diarrhea and vomiting Alcohol dependence with withdrawal SECONDARY DIAGNOSIS: Alcoholic cirrhosis with portal hypertensive gastropathy, Paroxysmal atrial fibrillation on Xarelto, PE, and cor pulmonale COMPLICATIONS/CHIEF COMPLAINT: Afib,Alcohol Withdrawal Seizure,Cirrhosis,Compress. HISTORY OF PRESENT ILLNESS: See History and physical HOSPITAL COURSE: 58-year-old male, past medical history of alcoholic cirrhosis, atrial fibrillation on Xarelto, PE, and cor pulmonale presents from home with seizure activity. Patient reports having one witnessed tonic-clonic seizure at home, likely due to alcohol withdrawal. Patient has had 1 seizure in the past few years ago due to alcohol withdrawal, he has been an alcoholic for 40 years, stopped drinking 3-4 days ago because he didn't feel like drinking. After he stopped drinking, he developed significant vomiting and diarrhea followed by 1 seizure yesterday. Otherwise, he denies any shortness of breath, chest pain, headache or urinary issues. Patient does report back pain, CT in the ED consistent with T8 compression fracture. Alcohol abuse with Alcohol withdrawal seizure Stopped drinking abruptly 3-4 days prior to admission due to abdominal pain and nausea and vomting. nausea and vomiting continued along with diarrehea then had a tonic-clonic seizure 1. thiamine/multivitamin/folic acid. taper and stop serax. Hypomagnesemia will replaced. Transaminitis alcoholic hepatitis, improving there is CBD dilatation and intrahepatic ductal dilatation without any obvious obstruction Liver enzymes improved , no further abdominal symptoms. Alcoholic liver cirrhosis with Portal hypertensive gastropathy. outpatient follow up with GI. Counselled about abstaining from alcohol. Dehydration Recent vomiting and diarrhea, lactate elevated, improved with IV fluids in the ED T8 compression fracture undeterminate time. pain control with NSAIDS. Paroxysmal atrial fibrillation. Continue atenolol and digoxin for rate control, Xarelto for anticoagulation. H/O DVT and Pulmonary embolism with corpulmonale. on xarelto Nicotine dependence discussed about smoking cessation Abnormal electrocardiogram (EKG) shows sinus bradycardia, monitored on telemetry no arrhythmic events or any pauses DISCHARGE MEDICATIONS: Please see below. ALLERGIES: Please see below. PHYSICAL EXAMINATION ON DISCHARGE: VITAL SIGNS: Please see below. GENERAL: No distress HEENT: Normocephalic, atraumatic, moist mucous membranes, anicteric eyes NECK: Supple CARDIOVASCULAR EXAMINATION: S1, S2 regular, no murmurs, rub or gallop RESPIRATORY EXAMINATION: Clear to auscultation, no wheezing or ronchi ABDOMINAL EXAMINATION: Soft, non tenderness, nondistended, normal bowel sounds EXTREMITIES: Range of motion intact, no edema. SKIN: No rash NEUROLOGICAL EXAMINATION: Alert and oriented 3, no focal deficits PSYCHIATRIC EXAMINATION: Calm and cooperative LABORATORY DATA: Please see below. IMAGING: CT showing T8 compression fracture of undeterminable age. CT or CXR did not show any rib fractures. ACTIVITY: [As tolerated]. DIET: Regular DISCHARGE PLAN: Home DISPOSITION: . DISCHARGE INSTRUCTIONS: Follow up with PMD in 1 week Advised to abstain from drinking. DISCHARGE CONDITION: [Stable]. TIME SPENT ON DISCHARGE: 35 minutes. Vital Signs/I&Os Vital Signs Date Time Temp Pulse Resp B/P (MAP) Pulse Ox O2 Delivery O2 Flow Rate FiO2 03/27/19 08:39 20 03/27/19 08:36 62 135/83 03/27/19 06:00 97.4 99 03/25/19 12:09 Room Air I&O- Last 24 Hours up to 6 AM 03/27/19 06:00 Intake Total 1410 ml Output Total 2500 ml Balance -1090 ml Laboratory Data Labs 24H Laboratory Tests 2 03/27/19 05:22: Immature Granulocyte % (Auto) 0.3, Neutrophils (%) (Auto) 66.8H, Lymphocytes (%) (Auto) 18.6L, Monocytes (%) (Auto) 13.0H, Eosinophils (%) (Auto) 0.9, Basophils (%) (Auto) 0.4, Neutrophils # (Auto) 5.0, Lymphocytes # (Auto) 1.4L, Monocytes # (Auto) 1.0H, Eosinophils # (Auto) 0.1, Basophils # (Auto) 0.0, Nucleated Red Blood Cells % (auto) 0.0, Anion Gap 8, Glomerular Filtration Rate > 60.0, Calcium Level 8.7, Total Bilirubin 0.9, Aspartate Amino Transf (AST/SGOT) 70H, Alanine Aminotransferase (ALT/SGPT) 60, Alkaline Phosphatase 132H, Total Protein 6.8, Albumin 3.0L, Albumin/Globulin Ratio 0.79L CBC/BMP Laboratory Tests 03/27/19 05:22 Microbiology Microbiology 03/24/19 Blood Culture - Preliminary, Resulted No Growth after 48 hours. All Specime... 03/24/19 Blood Culture - Preliminary, Resulted No Growth after 48 hours. All Specime... Discharge Medications Scheduled Aspirin (Aspir 81) 81 Mg Tablet.dr, 81 MG PO DAILY, (Reported) Atenolol (Atenolol) 25 Mg Tab, 25 MG PO BID, (Reported) Digoxin (Digoxin) 250 Mcg Tab, 250 MCG PO DAILY, (Reported) Folic Acid (Folic Acid) 1 Mg Tablet, 1 MG PO DAILY Magnesium Oxide (Magnesium Oxide) 400 Mg Tablet, 400 MG PO DAILY Multivitamins (Thera M Plus Tablet) 1 Each Tablet, 1 TAB PO DAILY Omeprazole (Omeprazole) 40 Mg Cap, 40 MG PO DAILY, (Reported) Oxazepam (Oxazepam) 10 Mg Capsule, 10 MG PO DAILY Rivaroxaban (Xarelto) 20 Mg Tab, 20 MG PO DAILY, (Reported) Thiamine Hcl (Vitamin B-1) 100 Mg Tablet, 100 MG PO BID Allergies Coded Allergies: No Known Allergies (Verified Allergy, Unknown, 03/12/19) ASHU SANTIZO MD Mar 27, 2019 08:59
== END 2019-03-27 11:15 | disposition home or self-care (01) | DRG 101 ==
LOC: M ED 18:29 → M ED INP 03-25 02:28 → M PCU 03-25 04:47 → M MSPAV 03-25 15:23
PROVIDERS: ADMIT Internal Medicine; ATTEND Internal Medicine Nephrology
DX: R56.9 Unspecified convulsions (principal); F10.230 Alcohol dependence with withdrawal, uncomplicated; K70.10 Alcoholic hepatitis without ascites; S22.060S Wedge compression fracture of T7-T8 vertebra, sequela; F17.210 Nicotine dependence, cigarettes, uncomplicated; K70.30 Alcoholic cirrhosis of liver without ascites; I48.0 Paroxysmal atrial fibrillation; Z79.01 Long term (current) use of anticoagulants; Z86.711 Personal history of pulmonary embolism; I27.81 Cor pulmonale (chronic); E86.0 Dehydration; Z79.82 Long term (current) use of aspirin; Z79.899 Other long term (current) drug therapy; R74.0 Nonspecific elevation of levels of transaminase and lactic acid dehydrogenase [LDH]; K31.89 Other diseases of stomach and duodenum; E83.42 Hypomagnesemia; X58.XXXS Exposure to other specified factors, sequela

== ENCOUNTER 2019-03-27 21:01 | Emergency (ER) | payer MEDICARE, OTHER ==
[~2019-03-27] VITALS: Ht 172.7 cm; Wt 59.1 kg
[2019-03-27 21:01] VITALS: BP 115/81
[~2019-03-27 21:01] MED LIST changes: +MAG400TA PO; +OXAZ10CA3 PO
== END 2019-03-27 22:20 | disposition left against medical advice (07) ==
LOC: M ED 21:01
DX: Z53.21 Procedure and treatment not carried out due to patient leaving prior to being seen by health care provider (principal)

== ENCOUNTER 2019-08-22 01:20 | Inpatient (IN) | payer MEDICARE, OTHER ==
[~2019-08-22] VITALS: Ht 172.7 cm; Wt 61.7 kg
[2019-08-22] VITALS (9 sets, daily range): BP systolic 118–136; BP diastolic 75–87
[2019-08-22 02:02] LABS: BASO # 0.1 10^3/uL (0.0-0.2); BASO % 0.7 % (0.0-1.0); EOS # 0.1 10^3/uL (0.0-0.5); HEMATOCRIT 39.9 % (42.0-52.0); HEMOGLOBIN 13.6 g/dl (13.5-17.5); LYMPH # 1.4 10^3/uL (1.5-5.0); LYMPH % 15.1 % (24.0-44.0); MEAN CORPUSCULAR HEMOGLOBIN 31.3 pg (27.0-33.0); MEAN CORPUSCULAR HGB CONC 34.1 g/dl (32.0-36.5); MEAN CORPUSCULAR VOLUME 91.7 fl (80.0-96.0); MONO # 1.4 10^3/uL (0.0-0.8); MONO % 15.1 % (0.0-5.0); NEUTROPHILS # 6.1 10^3/uL (1.5-8.5); NEUTROPHILS % 67.8 % (36.0-66.0); PLATELET COUNT, AUTOMATED 360 10^3/uL (150-450); RED BLOOD COUNT 4.35 10^6/uL (4.30-6.10)
[2019-08-22 02:13] LABS: INR 1.25; PROTHROMBIN TIME 15.4 SECONDS (11.8-14.0)
[2019-08-22] MEDS ORDERED: GI COCKTAIL 50ML BTL(HYOSCYAMINE/MAALOX/LIDOCAINE VISCOUS)(1:3:1) PO ONE (02:30)
[2019-08-22] MEDS ORDERED: PANTOPRAZOLE 40MG VIAL (C9113 PER 1) IV ONE (02:30)
[2019-08-22 02:57] LABS: ALT/SGPT 98 U/L (12-78); AMYLASE 255 U/L (25-115); BILIRUBIN,DIRECT 0.5 MG/DL (0.0-0.2); BLOOD UREA NITROGEN 4 MG/DL (7-18); CALCIUM LEVEL 8.6 MG/DL (8.5-10.1); CARBON DIOXIDE LEVEL 30 MEQ/L (21-32); CHLORIDE LEVEL 94 MEQ/L (98-107); CPK CREATINE PHOSPHOKINASE 43 U/L (39-308); CREATININE FOR GFR 0.63 MG/DL (0.70-1.30); ETHYL ALCOHOL (ETHANOL) < 0.003 % (0.000-0.010); GLOMERULAR FILTRATION RATE > 60.0 (>56); GLUCOSE, FASTING 116 MG/DL (70-100); LIPASE 5906 U/L (73-393); MB/CK RELATIVE INDEX 4.65 (< OR =4); POTASSIUM SERUM 3.5 MEQ/L (3.5-5.1); SODIUM LEVEL 133 MEQ/L (136-145); TROPONIN I 0.02 NG/ML (< 0.10)
[2019-08-22 03:02] LABS: D-DIMER QUANT > 4000 ng/ml (<500)
[2019-08-22] MEDS ORDERED: ISOVUE-370 76% 100ML VIAL As Ordered ONE (03:12)
--- NOTE | 2019-08-22 03:47 | REPVR ---
PROCEDURE INFORMATION: Exam: CT Abdomen And Pelvis With Contrast Exam date and time: 08/22/2019 3:06 AM Age: 58 years old Clinical indication: Abdominal pain; Generalized; Additional info: Gen abd pain, elevated lipase TECHNIQUE: Imaging protocol: Computed tomography of the abdomen and pelvis with intravenous contrast. Radiation optimization: All CT scans at this facility use at least one of these dose optimization techniques: automated exposure control; mA and/or kV adjustment per patient size (includes targeted exams where dose is matched to clinical indication); or iterative reconstruction. Contrast material: ISO; Contrast volume: 100 ml; Contrast route: AC; COMPARISON: CT ANGIO ABD/PEL 03/24/2019 8:13 PM FINDINGS: Lungs: Calcified granuloma in the left lower lobe. Liver: Hepatomegaly and steatosis. Gallbladder and bile ducts: Mild intra and extrahepatic biliary as well as the pancreatic ductal dilatation with appearance of several small noncalcified filling defects in the distal common bile duct near the ampulla. Noncalcified gallstones versus mass is considered. Pancreas: Pancreatic tail and body edema with complex fluid in the lesser sac and in the left upper quadrant inseparable from the lesser curvature of the stomach. Small focus of diminished attenuation in the pancreatic tail body junction may represent an area of focal pancreatic necrosis. Suggestion of pancreas divisum. Spleen: Normal. No splenomegaly. Adrenals: Normal. No mass. Kidneys and ureters: Normal. No hydronephrosis. Stomach and bowel: Unremarkable. No obstruction. No mucosal thickening. Appendix: No evidence of appendicitis. Intraperitoneal space: Unremarkable. No free air. No significant fluid collection. Vasculature: Atherosclerotic disease of the abdominal aorta. Lymph nodes: Unremarkable. No enlarged lymph nodes. Bladder: Unremarkable as visualized. Reproductive: Unremarkable as visualized. Bones/joints: Mild multilevel degenerative disease of the lumbar spine. Stenosis of the spinal canal at L3-L4. Soft tissues: Unremarkable. IMPRESSION: Evidence of acute pancreatitis with findings suggestive of small focus of pancreatic necrosis as discussed above. Mild intra and extrahepatic biliary as well as the pancreatic ductal dilatation with appearance of several small noncalcified filling defects in the distal common bile duct near the ampulla. Noncalcified gallstones versus mass is considered. Electronically signed by: Andres Robins On 08/22/2019 03:46:33 AM
--- NOTE | 2019-08-22 03:52 | REPVR ---
PROCEDURE INFORMATION: Exam: CT Angiography Chest With Contrast Exam date and time: 08/22/2019 3:06 AM Age: 58 years old Clinical indication: Chest pain; Type not specified TECHNIQUE: Imaging protocol: Computed tomographic angiography of the chest with intravenous contrast. 3D rendering: MIP and/or 3D reconstructed images were created by the technologist. Radiation optimization: All CT scans at this facility use at least one of these dose optimization techniques: automated exposure control; mA and/or kV adjustment per patient size (includes targeted exams where dose is matched to clinical indication); or iterative reconstruction. Contrast material: ISO; Contrast volume: 100 ml; Contrast route: AC; COMPARISON: CT ANGIO CHEST 03/24/2019 8:13 PM FINDINGS: Pulmonary arteries: Normal. No pulmonary emboli. Aorta: Atherosclerotic disease of the thoracic aorta. Lungs: Calcified granuloma in the left lower lobe. Calcified granuloma in the right middle lobe. Mild centrilobular emphysema. Mild dependent atelectasis at the lung bases. Atelectasis or scarring in the lingula. Pleural space: Unremarkable. No pneumothorax. No pleural effusion. Heart: Atherosclerotic disease of the coronary arteries. Lymph nodes: Calcified left hilar lymph nodes. Bones/joints: Old healed fracture deformity of the right lateral 6th and 7th ribs. Multilevel degenerative disease of the thoracic spine. Chronic compression fractures of T5 and T8 with progressive vertebral body height loss. Mild stable anterior wedge compression deformity of T7. Soft tissues: Unremarkable. IMPRESSION: No acute pulmonary embolic disease. Chronic compression fractures of T5 and T8 with progressive vertebral body height loss. Electronically signed by: Andres Robins On 08/22/2019 03:51:56 AM
[2019-08-22] MEDS ORDERED: MULTCHW12 PO (03:57)
[2019-08-22] MEDS ORDERED: ECOT81TA5 PO (03:57)
[2019-08-22] MEDS ORDERED: OMEP-218 PO (03:57)
--- NOTE | 2019-08-22 05:05 | HPEPDOC ---
[facility] Medical History & Physical Date of Admission August 22, 2019 Date of Service: August 22, 2019 Attending Physician: Alysia Arechiga MD History and Physical CHIEF COMPLAINT: abdominal pain HISTORY OF PRESENT ILLNESS: Patient is a 58 y/o PMH of alcohol abuse, atrial fibrillation, HTN, GERD, hx of seizure who presented with worsening diffuse abdominal pain for the past 1 month, 9/10 on pain scale, radiated to the upper chest, back. Last night at 6 PM, he developed sudden left shoulder and rib pain. Pain in his ribs and shoulder correlated with his abdominal pain, possibly referred. Today the pain was so severe he decided to come to the ER for further evaluation. Associated symptoms included nausea, vomiting, decreased PO intake (last meal 48 hrs ago), fevers, chills, weakness, lightheadedness, diaphoresis. Denies shortness of breath, chest pain. CT abd/pelvis done in ER showed evidence of acute pancreatitis with findings suggestive of small focus of pancreatic necrosis. It also showed mild intra and extrahepatic biliary as well as the pancreatic ductal dilatation with appearance of several small noncalcified filling defects in the distal common bile duct near the ampulla. Noncalcified gallstones versus mass is considered. Sodium 133, chloride 94, blood sugar 116. D bili located at 0.5, T bili normal. AST 111, ALP 98. Alkaline phosphatase 239. Amylase 255 and elevated, lipase 5906 high. Troponin negative, ECG unchanged from prior on file. CTA chest: no acute pulmonary embolic disease. Patient was admitted for acute pancreatitis r/o gallstones vs. mass as cause with pancreatic necrosis. ROS: Negative except for what is mentioned above. PAST MEDICAL HISTORY: 1. Atrial fibrillation 2. HTN 3. GERD 4. Alcohol abuse 5. Hx of seizure (unknown cause) PAST SURGICAL HISTORY: 1. left thumb surgery SOCIAL HISTORY: Smoker 1 PDD, 40 years. Drinks 6 pack of beer daily, last drink 4 PM on 08/21/19. Denies illicit drugs. Lives with gf in local area. Full Code. FAMILY HISTORY: Father: none, 92 y/o Mother: cirrhosis, at 68 y/o ALLERGIES: Please see below. HOME MEDICATIONS: Please see below. PHYSICAL EXAMINATION: CONSTITUTIONAL: In pain, uncomfortable and in mild distress, AAO x 3 EYES: PERRLA, EOM intact HENT, MOUTH: Normocephalic, atraumatic, moist mucous membranes, NECK: SUPPLE, no JVD, no lymphadenopathy, no carotid bruit CV: Regular rate and rhythm, S1S2 normal, no murmurs/rubs/gallops RESPIRATORY: Clear to auscultation bilaterally, no rales/rhonchi/wheezes GI: Pain to palpation of diffuse abdomen, BS positive in 4 quadrants, soft, nondistended, + guarding, no organomegaly : Deferred MUSCULOSKELETAL: Normal ROM. No cyanosis, clubbing, swelling, joint deformity, extremity edema INTEGUMENTARY: Intact, no rashes, no lesions, no erythema NEUROLOGIC: Cranial Nerves II-XII are intact, no focal deficits LABORATORY DATA: Please see below IMAGING: CT abd/pelvis: Evidence of acute pancreatitis with findings suggestive of small focus of pancreatic necrosis as discussed above. Mild intra and extrahepatic biliary as well as the pancreatic ductal dilatation with appearance of several small noncalcified filling defects in the distal common bile duct near the ampulla. Noncalcified gallstones versus mass is considered. CTA chest: No acute pulmonary embolic disease. Chronic compression fractures of T5 and T8 with progressive vertebral body height loss. ASSESSMENT: 58 y/o M admitted for acute pancreatitis r/o gallstones vs. mass as cause with pancreatic necrosis. PLAN: 1. Acute pancreatitis r/o gallstones vs. mass as cause with pancreatic necrosis. NPO, IVFs, PPI, pain regimen. GI and Surgery consulted. F/u CMP daily. 2. Left shoulder pain, possibly referred pain? Concomitant with left flank/abdominal pain. Consider left shoulder XR, pain regimen. 3. Alcohol abuse. Not currently in withdrawl. CIWA, MV, IVF, thiamine, folic acid. 4. HTN. BP stable 5. ATrial fibrillation. Rate controlled. Stopped PO eliquis due to NPO status. Started on enoxaparin SC BID, therapeutic dosing. 6. GI px. PPI. 7. DVT px. Enoxaparin SC daily. DISPOSITION: Admitted as acute inpatient, plan is discharge home when medically improved. Vital Signs Vital Signs Date Time Temp Pulse Resp B/P (MAP) Pulse Ox O2 Delivery O2 Flow Rate FiO2 08/22/19 03:00 68 137/90 (106) 99 Room Air 08/22/19 01:26 98.5 18 Laboratory Data Labs 24H Laboratory Tests 2 08/22/19 01:51: Immature Granulocyte % (Auto) 0.3, Neutrophils (%) (Auto) 67.8H, Lymphocytes (%) (Auto) 15.1L, Monocytes (%) (Auto) 15.1H, Eosinophils (%) (Auto) 1.0, Basophils (%) (Auto) 0.7, Neutrophils # (Auto) 6.1, Lymphocytes # (Auto) 1.4L, Monocytes # (Auto) 1.4H, Eosinophils # (Auto) 0.1, Basophils # (Auto) 0.1, Nucleated Red Blood Cells % (auto) 0.0, Prothrombin Time 15.4H, Prothromb Time International Ratio 1.25, D-Dimer, Quantitative > 4000H, Anion Gap 9, Glomerular Filtration Rate > 60.0, Calcium Level 8.6, Total Bilirubin 1.0, Direct Bilirubin 0.5H, Aspartate Amino Transf (AST/SGOT) 111H, Alanine Aminotransferase (ALT/SGPT) 98H, Alkaline Phosphatase 239H, Total Creatine Kinase 43, Creatine Kinase MB 2.0, Creatine Kinase MB Relative Index 4.65H, Troponin I 0.02, Total Protein 7.0, Albumin 3.0L, Albumin/Globulin Ratio 0.8, Amylase Level 255H, Lipase 5906H, Ethyl Alcohol Level < 0.003 08/22/19 01:52: POC Glucose (Misc Panel) 118H, POC Sodium (Misc Panel) 131L, POC Potassium (Misc Panel) 3.4L, POC Chloride (Misc Panel) 92L, POC Total CO2 (Misc Panel) 27.0, POC Blood Urea Nitrogen (Misc Panel < 3L, POC Ionized Calcium (Misc Panel) 4.4L, POC Creatinine (Misc Panel) 0.5L, POC Hematocrit (Misc Panel) 42.0 CBC/BMP Laboratory Tests 08/22/19 01:51 Home Medications Scheduled Aspirin (Ecotrin) 81 Mg Tablet.dr, 81 MG PO DAILY Atenolol (Atenolol) 25 Mg Tab, 25 MG PO BID Digoxin (Digoxin) 250 Mcg Tab, 250 MCG PO DAILY Folic Acid/Multivit-Min/Lutein (Multi-Vitamin Gummies) 1 Each Tab.chew, 1 CHW PO DAILY Omeprazole (Omeprazole) 20 Mg Capsule.dr, 20 MG PO DAILY Rivaroxaban (Xarelto) 20 Mg Tab, 20 MG PO DAILY Allergies Coded Allergies: No Known Allergies (Verified Allergy, Unknown, 03/12/19) A-FIB/CHADSVASC A-FIB History Current/History of A-Fib/PAF?: Yes Current PO Anticoag Therapy: Yes Age/Risk Factor Scoring CHADSVASC: CHADSVASC Response (Comments) Value Age Risk Factor Age < 65 years old 0 Gender Risk Factor Male 0 Hx of CHF No 0 Hx of HTN Yes 1 Hx of Stroke/TIA/or VTE No 0 Hx of Diabetes No 0 Hx of Vascular Disease No 0 Total 1 Treatment Treatment ordered: Other Other anticoagulant ordered: enoxparin SC BID Alysia Arechiga MD August 22, 2019 05:05
[2019-08-22] MEDS ORDERED: MORPHINE 2 MG/ML 1ML VIAL (J2270) IV PRN (05:15)
[2019-08-22] MEDS ORDERED: ONDANSETRON 4MG/2ML VIAL IV PRN ×2 (05:30→11:00)
[2019-08-22] MEDS ORDERED: LORazepam 2 MG TAB PO PRN (05:30)
[2019-08-22] MEDS: NS 1,000 ML IV SCH ×2 (06:13→16:41)
[2019-08-22] MEDS: PANTOPRAZOLE 40MG VIAL (C9113 PER 1) IV SCH (08:02)
--- NOTE | 2019-08-22 08:08 | ECGEPIP ---
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
[2019-08-22] MEDS ORDERED: MULTIVITAMINS/MINERALS THERAP 1 TAB PO SCH (09:00)
[2019-08-22] MEDS ORDERED: FOLIC ACID 1 MG TAB PO SCH (09:00)
[2019-08-22] MEDS ORDERED: THIAMINE 100 MG TAB PO SCH (09:00)
[2019-08-22] MEDS ORDERED: ENOXAPARIN 60MG/0.6ML SYRINGE (J1650 PER 10MG) SC SCH (10:00)
[2019-08-22] MEDS ORDERED: NS 1,000 ML IV SCH (10:51)
[2019-08-22] MEDS ORDERED: EPIDURAL/PCA KEYS XX PRN (11:00)
[2019-08-22] MEDS ORDERED: MULTIVITAMIN -ADULT INJECTION 10 ML, THIAMINE INJection 100 MG, FOLIC ACID 1 MG in NS 1... IV ONE (11:00)
[2019-08-22] MEDS ORDERED: MORPHINE 1MG/ML IN 0.9% NACL 100ML IV BAG IV PRN (11:00)
[2019-08-22] MEDS ORDERED: NALOXONE INJ 0.4MG/1ML VIAL (J2310 PER 1MG) IV PRN (11:00)
[2019-08-22] MEDS ORDERED: diphenhydrAMINE 50MG/ML VIAL (J1200) IV PRN (11:00)
--- NOTE | 2019-08-22 11:17 | IPNPDOC ---
Date Seen The patient was seen on 08/22/19. Progress Note PANCREATIC DIVISUM/pancreatic necrosis -per Dr. Holloway, reasonable to start on gram negative coverage. Thus, started on IV meropenem -per Dr. Markham, ERCP, but will need to review MRCP. Thus, hold off on anticoagulation off eliquis. no history of CVA. VS, I&O, 24H, Fishbone Vital Signs/I&O Vital Signs Date Time Temp Pulse Resp B/P (MAP) Pulse Ox O2 Delivery O2 Flow Rate FiO2 08/22/19 08:00 97.7 63 18 130/82 (98) 97 Room Air Laboratory Data 24H LABS Laboratory Tests 2 08/22/19 01:51: Immature Granulocyte % (Auto) 0.3, Neutrophils (%) (Auto) 67.8H, Lymphocytes (%) (Auto) 15.1L, Monocytes (%) (Auto) 15.1H, Eosinophils (%) (Auto) 1.0, Basophils (%) (Auto) 0.7, Neutrophils # (Auto) 6.1, Lymphocytes # (Auto) 1.4L, Monocytes # (Auto) 1.4H, Eosinophils # (Auto) 0.1, Basophils # (Auto) 0.1, Nucleated Red Blood Cells % (auto) 0.0, Prothrombin Time 15.4H, Prothromb Time International Ratio 1.25, D-Dimer, Quantitative > 4000H, Anion Gap 9, Glomerular Filtration Rate > 60.0, Calcium Level 8.6, Total Bilirubin 1.0, Direct Bilirubin 0.5H, Aspartate Amino Transf (AST/SGOT) 111H, Alanine Aminotransferase (ALT/SGPT) 98H, Alkaline Phosphatase 239H, Total Creatine Kinase 43, Creatine Kinase MB 2.0, Creatine Kinase MB Relative Index 4.65H, Troponin I 0.02, Total Protein 7.0, Albumin 3.0L, Albumin/Globulin Ratio 0.8, Amylase Level 255H, Lipase 5906H, Ethyl Alcohol Level < 0.003 08/22/19 01:52: POC Glucose (Misc Panel) 118H, POC Sodium (Misc Panel) 131L, POC Potassium (Misc Panel) 3.4L, POC Chloride (Misc Panel) 92L, POC Total CO2 (Misc Panel) 27.0, POC Blood Urea Nitrogen (Misc Panel < 3L, POC Ionized Calcium (Misc Panel) 4.4L, POC Creatinine (Misc Panel) 0.5L, POC Hematocrit (Misc Panel) 42.0 CBC/BMP Laboratory Tests 08/22/19 01:51 FERCHO WEIR MD August 22, 2019 11:17
[2019-08-22] MEDS: MEROPENEM INJ 1 GM in IV 1 EA IV SCH ×2 (12:41→19:52)
[2019-08-22] MEDS: NICOTINE 14 MG/24 HR TRANSDERMAL TD SCH (12:41)
--- NOTE | 2019-08-22 18:29 | REPVR ---
PROCEDURE INFORMATION: Exam: MR Abdomen Without Contrast; Liver Exam date and time: 08/22/2019 5:22 PM Age: 58 years old Clinical indication: Other: Pancreatitis; Additional info: Choledocholithiasis TECHNIQUE: Imaging protocol: MRCP Abdomen without contrast. Exam focused on the biliary system. 3D rendering: MIP and/or 3D reconstructed images were created by the technologist. COMPARISON: LIVER US 08/26/2018 7:49 AM FINDINGS: Liver: There is diffuse loss of hepatic signal on T2 weighted images. Findings consistent with steatosis. No focal abnormalities demonstrated. Liver size is increased. There is several small non complicated intrahepatic hepatic cysts measuring up to 9 mm within the left lobe of the liver. Gallbladder and bile ducts: 10 mm filling defect in the distal common bile duct suggests the presence of choledocholithiasis. Distal biliary neoplasm or stricture not excluded. Correlation with biliary chemistries and ERCP or endoscopic ultrasonography suggested. No significant dilatation of the intrahepatic biliary tree. Pancreas: Inflammation demonstrated along the greater curvature of the stomach and along the anterior margin of the pancreatic body and tail extending into the left paracolic gutter. Findings may indicate the presence of pancreatitis although a gastric etiology is not excluded. Main pancreatic duct dilated to 5.5 mm. Inflammatory changes demonstrated in the region of the distal pancreatic body and tail as described above. Remainder of the pancreas unremarkable. Clinical correlation to exclude pancreatitis suggested. Kidneys and ureters: Normal kidneys. Visualized ureters are unremarkable. Intraperitoneal space: There is a small amount of free intraperitoneal fluid present. IMPRESSION: 1. Inflammation demonstrated along the greater curvature of the stomach and along the anterior margin of the pancreatic body and tail extending into the left paracolic gutter. Findings may indicate the presence of pancreatitis although a gastric etiology is not excluded. 2. Main pancreatic duct dilated to 5.5 mm. Inflammatory changes demonstrated in the region of the distal pancreatic body and tail as described above. Remainder of the pancreas unremarkable. Clinical correlation to exclude pancreatitis suggested. 3. There is diffuse loss of hepatic signal on T2 weighted images. Findings consistent with steatosis. No focal abnormalities demonstrated. Liver size is increased. 4. There is a small amount of free intraperitoneal fluid present. 5. There is several small non complicated intrahepatic hepatic cysts measuring up to 9 mm within the left lobe of the liver. Electronically signed by: Korey Moncada On 08/22/2019 18:29:15 PM
[2019-08-23] VITALS (11 sets, daily range): BP systolic 111–139; BP diastolic 70–87
[2019-08-23] MEDS: NS 1,000 ML IV SCH ×2 (00:56→08:58)
[2019-08-23] MEDS: MEROPENEM INJ 1 GM in IV 1 EA IV SCH ×3 (03:11→20:19)
[2019-08-23 06:06] LABS: MEAN CORPUSCULAR HEMOGLOBIN 31.7 pg (27.0-33.0); MEAN CORPUSCULAR HGB CONC 33.3 g/dl (32.0-36.5); MEAN CORPUSCULAR VOLUME 95.1 fl (80.0-96.0); PLATELET COUNT, AUTOMATED 275 10^3/uL (150-450); RED BLOOD COUNT 3.47 10^6/uL (4.30-6.10); WHITE BLOOD COUNT 7.6 10^3/uL (4.0-10.0)
[2019-08-23 06:29] LABS: ALBUMIN 2.3 GM/DL (3.2-5.2); ALT/SGPT 52 U/L (12-78); BILIRUBIN,TOTAL 0.5 MG/DL (0.2-1.0); BLOOD UREA NITROGEN 5 MG/DL (7-18); CALCIUM LEVEL 7.6 MG/DL (8.5-10.1); CARBON DIOXIDE LEVEL 30 MEQ/L (21-32); CHLORIDE LEVEL 102 MEQ/L (98-107); CREATININE FOR GFR 0.48 MG/DL (0.70-1.30); GLOMERULAR FILTRATION RATE > 60.0 (>56); GLUCOSE, FASTING 78 MG/DL (70-100); POTASSIUM SERUM 3.8 MEQ/L (3.5-5.1); SODIUM LEVEL 136 MEQ/L (136-145); TOTAL PROTEIN 5.4 GM/DL (6.4-8.2)
[2019-08-23] MEDS: PANTOPRAZOLE 40MG VIAL (C9113 PER 1) IV SCH (08:57)
[2019-08-23] MEDS: NICOTINE 14 MG/24 HR TRANSDERMAL TD SCH (08:58)
[2019-08-23] MEDS: THIAMINE 200MG/2ML VIAL (J3411 PER 100MG) IV SCH (08:58)
[2019-08-23] MEDS ORDERED: GLUCAGON INJ 1MG VIAL SC PRN (10:15)
[2019-08-23] MEDS ORDERED: GLUCOSE 4GM CHEW TABLET PO PRN (10:15)
[2019-08-23] MEDS ORDERED: DEXTROSE 50% 50 ML SYRINGE IV PRN (10:15)
[2019-08-23] MEDS: D5W/0.45% SODIUM CHLORIDE 1,000 ML IV SCH (10:25)
[2019-08-23] MEDS ORDERED: fentaNYL 100 MCG/2 ML INJECTION (J3010) As Ordered ONE (10:42)
[2019-08-23] MEDS ORDERED: MIDAZOLAM INJ 2MG/2ML VIAL (J2250 PER 1MG) As Ordered ONE (10:42)
[2019-08-23] MEDS ORDERED: LIDOCAINE 2% 100MG/5ML SDV (FOR ANES.) As Ordered ONE (12:02)
[2019-08-23] MEDS ORDERED: ROCURONIUM BROMIDE 50 MG/5 ML VIAL As Ordered ONE (12:02)
[2019-08-23] MEDS ORDERED: propofoL 200 MG/20 ML VIAL As Ordered ONE (12:02)
[2019-08-23] MEDS ORDERED: ONDANSETRON 4MG/2ML VIAL As Ordered ONE (12:02)
[2019-08-23] MEDS ORDERED: dexameTHASONE 4 MG/ML 1ML VIAL (J1100 PER 1MG) As Ordered ONE (12:02)
[2019-08-23] MEDS ORDERED: ISOVUE-300 61% 50ML VIAL As Ordered ONE (12:18)
[2019-08-23] MEDS ORDERED: PHENYLephrine HCL 500 MCG/5 ML (100MCG/ML) SYRINGE (J2370) As Ordered ONE (13:20)
[2019-08-23] MEDS ORDERED: ePHEDrine SULFATE 25 MG/5 ML(5MG/ML) SYRINGE As Ordered ONE (13:20)
[2019-08-23] MEDS ORDERED: SUGAMMADEX SODIUM 500 MG/5 ML VIAL (BRIDION) As Ordered ONE (13:21)
--- NOTE | 2019-08-23 13:28 | CR ---
DATE OF CONSULTATION: 08/23/2019 REQUESTING PHYSICIAN: Hospitalist service. REASON FOR CONSULTATION: Pancreatitis, alcohol, possible gallstone. HISTORY OF PRESENT ILLNESS: This is a 58-year-old gentleman with a history of alcohol abuse, chronic liver disease related to such. He also has atrial fibrillation, CVA or transient ischemic attack in the past. He is on blood thinners chronically. The patient presents to the hospital with sudden new onset of severe epigastric abdominal pain associated with nausea and vomiting. On admission CAT scan, he was noted to have acute pancreatitis with a small focus of pancreatic necrosis. The pancreatic duct was noted to be dilated as well as mild intra and extrahepatic biliary ductal dilatation. On the CT, a possible small defect in the distal common bile duct was seen near the ampulla. Gallstones versus a mass was considered. The patient subsequently underwent an MRCP suggesting essentially the same findings as the CT showed. The radiologist appears to favor a stone, but cannot entirely rule out mass or a stricture in this area. PAST MEDICAL HISTORY: 1. Hypertension. 2. Atrial fibrillation. 3. TIA or CVA. 4. History of seizure disorder. 5. History of alcohol abuse and chronic liver disease. PAST SURGICAL HISTORY: 1. Esophagogastroduodenoscopy (EGD). 2. Thumb surgery. SOCIAL HISTORY: Positive for tobacco. Positive for heavy alcohol use up to two six packs of beer per day depending on the day. He drinks at least one six pack of beer daily. FAMILY HISTORY: Negative for colorectal carcinoma, inflammatory bowel disease. MEDICATIONS AT HOME: - Xarelto - omeprazole - folic acid - digoxin - atenolol - aspirin ALLERGIES: No known drug allergies. PHYSICAL EXAMINATION: Temperature 98.9, pulse 59, respiratory rate 17, blood pressure 130/70, pulse oximetry 95% in room air. General: He is awake, alert, oriented x3, in no acute distress. He is a cachectic, thin appearing white male. HEENT: Grossly without abnormality. There is no jaundice. Chest: Coarse distant breath sounds. No rhonchi or crackles. Abdomen is soft. Tender in epigastrium to palpation. No rebound tenderness. No masses appreciated. No ascites. Extremities: Negative for edema. Rectal examination is being deferred. LABORATORY FINDINGS: Hemoglobin 11.0, hematocrit 33, MCV 95, platelet count is 275. BUN 5, creatinine is 0.48. AST is 111/54, ALT 98/52, alkaline phosphatase 239/153, amylase 255, lipase 89039. Sodium 136, potassium 3.8, total bilirubin 1.0/0.5. MRI and CT scans as discussed in history of present illness (HPI). IMPRESSION: 1. Acute pancreatitis. 2. Obstruction of bile duct as seen on imaging. 3. Rule out choledocholithiasis,stricture, malignancy. RECOMMENDATIONS: In view of the possibility of gallstone pancreatitis, I would recommend we proceed with an ERCP today to further delineate. Risks, benefits and options have been discussed with the patient. He is accepting the small chance of worsening his current pancreatitis. The chance of pancreatitis with ERCP ranges in the range of 3-5% as baseline. However, in his case, this may be significantly higher with the present ongoing pancreatitis. STACIE
--- NOTE | 2019-08-23 14:41 | REP ---
ERCP: Six views. HISTORY: Acute pancreatitis. 4 minutes 22 seconds of fluoroscopy time is reported. FINDINGS: A sequence of six last image hold fluoroscopically obtained right upper quadrant spot radiographs of the right upper quadrant taken during ERCP document cannulation, contrast injection, balloon catheter manipulation, and stenting of the common bile duct. Electronically Signed by Leonidas Ceballos MD 08/23/2019 03:00 P
--- NOTE | 2019-08-23 14:41 | ROOR ---
Patient Name: Jayro Delgado Procedure Date: 08/23/2019 12:50 PM Date of : 1960 Age: 58 Room: Main OR Gender: Male Note Status: Finalized Procedure: ERCP Indications: Common bile duct stone(s), Common bile duct stricture, Biliary dilation on Computed Tomogram Scan, Bile duct stone on Computed Tomogram Scan, Abnormal MRCP, Acute pancreatitis, Ethanol induced acute pancreatitis, Gallstone associated acute pancreatitis, Ampullary obstruction associated acute pancreatitis Providers: Rajat MARKHAM MD Referring MD: 2. Inpatient 2. Inpatient Requesting Provider: Medicines: Monitored Anesthesia Care, General Anesthesia Complications: No immediate complications. Procedure: Pre-Anesthesia Assessment: - The heart rate, respiratory rate, oxygen saturations, blood pressure, adequacy of pulmonary ventilation, and response to care were monitored throughout the procedure. The Duodenoscope was introduced through the mouth, and advanced to the duodenum and used to inject contrast into the bile duct. The ERCP was accomplished without difficulty. The patient tolerated the procedure well. Findings: The production estimator film was normal. The esophagus was successfully intubated under direct vision. The scope was advanced to a normal major papilla in the descending duodenum without detailed examination of the pharynx, larynx and associated structures, and upper GI tract. The upper GI tract was grossly normal. A wire was passed into the biliary tree. The bile duct was then deeply cannulated over the guidewire. Contrast was injected. I personally interpreted the bile duct images. Ductal flow of contrast was adequate. Image quality was adequate. Contrast extended to the gallbladder. Contrast extended to the entire biliary tree. Opacification of the entire opacified area was successful. The maximum diameter of the ducts was 11 mm. The lower third of the main bile duct was partially obstructed by a narrowing that did not appear to be a stone or a mass. There is a smooth but fairly abrupt termination of the bile duct. I see no nodularity or irregularity. The stricture is 1.5 cm to 2 cm long. A 7 mm biliary sphincterotomy was made with a traction (standard) sphincterotome using ERBE electrocautery. There was no post-sphincterotomy bleeding. The biliary tree was swept with a 10 mm balloon starting at the bifurcation. Nothing was found. Cells for cytology were obtained by brushing in the lower third of the main bile duct. The lower third of the main bile duct was biopsied with a cold forceps for histology. The biliary tree does not drain spontaneously after sphincterotomy. One 10 Fr by 7 cm temporary stent with a single external flap and a single internal flap was placed into the common bile duct. Bile flowed through the stent. The stent was in good position. Impression: - A biliary tract obstruction/1.5 cm smooth stricture was found in the lower third of the main duct. - A biliary sphincterotomy was performed. - The biliary tree was swept and nothing was found. - Cells for cytology obtained in the lower third of the main duct. - Biopsy was performed in the lower third of the main duct. - One temporary stent was placed into the common bile duct. Recommendation: - Await path results. - Return patient to [facility] for ongoing care. - Stent may stay in place for 3-4 months, but will need removal or exchange at that time. - Further management dep on pathology. - Ok to resume Lovenox in am 08/23. Would hold xarelto for 48 hrs. Rajat Markham MD Rajat MARKHAM MD 08/23/2019 2:41:01 PM Electronically signed by Rajat MARKHAM MD Number of Addenda: 0 Note Initiated On: 08/23/2019 12:50 PM Estimated Blood Loss: Estimated blood loss: none.
[2019-08-23] MEDS ORDERED: fentaNYL 100 MCG/2 ML INJECTION (J3010) IV PRN (14:45)
[2019-08-23] MEDS ORDERED: PERCOCET 5MG/325MG TAB PO PRN ×2 (14:45→16:15)
[2019-08-23] MEDS ORDERED: ONDANSETRON 4MG/2ML VIAL IV PRN (14:45)
[2019-08-23] MEDS ORDERED: LR 1,000 ML IV SCH (14:45)
[2019-08-23] MEDS: PERCOCET 5MG/325MG TAB PO PRN (20:20)
[2019-08-24] MEDS: PERCOCET 5MG/325MG TAB PO PRN ×4 (01:47→22:50)
[2019-08-24 02:00] VITALS: BP 129/80
[2019-08-24] MEDS: MEROPENEM INJ 1 GM in IV 1 EA IV SCH ×3 (04:12→19:32)
[2019-08-24] MEDS: D5W/0.45% SODIUM CHLORIDE 1,000 ML IV SCH ×2 (04:12→07:48)
[2019-08-24 06:00] VITALS: BP 138/79
[2019-08-24 06:47] LABS: BASO % 0.1 % (0.0-1.0); EOS # 0.1 10^3/uL (0.0-0.5); EOS % 0.7 % (0.0-3.0); HEMATOCRIT 35.2 % (42.0-52.0); HEMOGLOBIN 11.6 g/dl (13.5-17.5); LYMPH # 1.7 10^3/uL (1.5-5.0); MEAN CORPUSCULAR HEMOGLOBIN 30.5 pg (27.0-33.0); MEAN CORPUSCULAR VOLUME 92.6 fl (80.0-96.0); MONO % 11.7 % (0.0-5.0); NEUTROPHILS % 67.9 % (36.0-66.0); PLATELET COUNT, AUTOMATED 315 10^3/uL (150-450); WHITE BLOOD COUNT 8.8 10^3/uL (4.0-10.0)
[2019-08-24 07:18] LABS: ALBUMIN 2.5 GM/DL (3.2-5.2); ALT/SGPT 52 U/L (12-78); BILIRUBIN,TOTAL 0.5 MG/DL (0.2-1.0); BLOOD UREA NITROGEN 3 MG/DL (7-18); CALCIUM LEVEL 8.3 MG/DL (8.5-10.1); CARBON DIOXIDE LEVEL 33 MEQ/L (21-32); CHLORIDE LEVEL 95 MEQ/L (98-107); CREATININE FOR GFR 0.52 MG/DL (0.70-1.30); GLOMERULAR FILTRATION RATE > 60.0 (>56); GLUCOSE, FASTING 95 MG/DL (70-100); POTASSIUM SERUM 3.4 MEQ/L (3.5-5.1); SODIUM LEVEL 137 MEQ/L (136-145); TOTAL PROTEIN 5.9 GM/DL (6.4-8.2)
[2019-08-24] MEDS: PANTOPRAZOLE 40MG VIAL (C9113 PER 1) IV SCH (09:00)
[2019-08-24] MEDS ORDERED: POTASSIUM CHLORIDE 10 MEQ SR TABLET PO ONE (09:00)
[2019-08-24] MEDS: ENOXAPARIN 40MG/0.4ML SYRINGE (J1650 PER 10MG) SC SCH (09:00)
[2019-08-24] MEDS ORDERED: OMEPRAZOLE 20 MG CAP PO SCH (09:00)
[2019-08-24] MEDS: NICOTINE 14 MG/24 HR TRANSDERMAL TD SCH (09:01)
[2019-08-24] MEDS: THIAMINE 200MG/2ML VIAL (J3411 PER 100MG) IV SCH (09:01)
[2019-08-24 10:00] VITALS: BP 132/84
--- NOTE | 2019-08-24 10:30 | CR ---
DATE OF CONSULTATION: 08/22/2019 REASON FOR CONSULTATION: Question of pancreatic necrosis associated with pancreatitis. BRIEF HISTORY OF PRESENT ILLNESS: The patient is a 58-year-old male, with a history of alcohol abuse, who presents with worsening diffuse abdominal pain for about a month. This has been severe and he had increasing pain over the last 12 hours prior to admission and presents to the emergency room for further evaluation. He had some nausea, vomiting and has had some poor oral intake. He has not had any acholic stools. No bilirubinuria. No evidence of weight loss. No evidence of melanotic stools. No evidence of blood per rectum. The patient had a CAT scan that was performed in the emergency room during his workup with a elevated lipase of 5906 consistent with pancreatitis and a CAT scan then showed evidence of acute pancreatitis with some mild intra and extra hepatic biliary duct dilatation but there is some ductal dilatation in the pancreas. There is some irregularities in the common bile duct the report says, although I am not seeing specifically this area. The area in the pancreas when I view that area I am not sure if that is an abnormality associated with the images per se or if it is true necrosis. I feel that it may even be a possible cystic structure in this area, but in any case, with this pancreatitis that is ongoing I was asked to see him and report on this. PAST MEDICAL HISTORY: Is significant for history of hypertension, history of gastroesophageal reflux disease, history of alcohol abuse, history of seizures, history of AFib, history of left thumb surgery. PHYSICAL EXAMINATION: Reveals a thin male who looks much older than stated age. HEENT: Is unremarkable. Neck: Supple without lymphadenopathy. Lungs: Are clear to auscultation anteriorly. Decreased at the bases posteriorly. Heart: Is regular. Abdomen: Is softly distended, mildly tender throughout the epigastric area. Mostly he is complaining of pain more so than tenderness per se. IMPRESSION/PLAN: The patient has evidence of acute pancreatitis, but at this point, I do not feel that this is significant pancreatic and an MRI of the pancreas is reasonable to perform this. With the dilated duct I wonder if this is a chronic finding and I would recommend GI for additional recommendations concerning this as well as a possible ductal dilatation. From an antibiotic standpoint, this does not specifically require antibiotics from a pancreatic necrosis standpoint. However, it is always difficult to tell if the patient is developing cholecystitis or ascending cholangitis when they are first evaluated, and thus it may be reasonable to start him on it and in 24 hours if there are fevers, chills or increasing white count, then I would discontinue that. Otherwise, from a surgical standpoint, I will be available should any other issues arise. Otherwise, please contact us if he would like to be reevaluated.
[2019-08-24 14:00] VITALS: BP 141/89
[2019-08-24] MEDS: DIGOXIN 0.25 MG TAB PO SCH (14:42)
[2019-08-24 18:00] VITALS: BP 140/90
--- NOTE | 2019-08-24 19:48 | IPN ---
DATE: 08/23/2019 Patient complains of 3/10 pain at the bedside. Nothing by mouth for ERCP. Patient had a common bile duct stone found on MRCP with subsequent gallstone associated pancreatitis and ampullary obstruction for ERCP. Biliary sphincterotomy and stent placement today. Patient has had no fever. On empiric antibiotics for now. White count is normal. PHYSICAL EXAMINATION: Temperature 97.3, pulse 83, respiratory rate 17, blood pressure 135/84, 95% on room air. Generally: Patient is awake, alert, oriented to person, place, and time. Cachectic appearing. No jaundice or icterus. Diminished breath sounds with coarse rhonchi. Heart: S1, S2, irregularly irregular. Abdomen: Soft, tender epigastric and left upper quadrant, no rebound or guarding. Positive bowel sounds. Extremities: No cyanosis, clubbing, or pitting edema. LABORATORY DATA: White count 7.6, hemoglobin 11, hematocrit 33, platelet count 275, sodium 136, potassium 3.8, chloride 102, bicarbonate 30, BUN 5, creatinine 0.48, glucose of 78. ASSESSMENT AND PLAN: This is a 58-year-old male with history of atrial fibrillation on chronic anticoagulation, hypertension, reflux, alcohol abuse, and seizure disorder unknown cause with known history of drinking six-packs of beer daily, last drink was 08/21/2019 at 4 p.m., presented with abdominal pain, found to have gallstone-induced pancreatitis. Patient underwent ERCP with sweeping and stent placement. CURRENT ISSUES: 1. Ethanol-induced acute pancreatitis as well as gallstone associated pancreatitis with ampullary obstruction status post ERCP 08/23/2019, sweeping and stent placement to the common bile duct. Patient's stent is to remain in place for 3-4 months, it will need to be exchanged after that time. Patient may resume Lovenox on 08/24/2019, but hold Xarelto for 48 hours per gastrointestinal (GI) recommendations, Dr. Rajat Markham. Still on empiric antibiotics with no signs of cholangitis at this time. Will continue during the hospital stay. If patient is stable, can be discharged after tolerates diet. Currently on clears. Still on Protonix. 2. Alcohol abuse. On Clinical [place] Withdrawal Assessment (CIWA) protocol with thiamine and folic acid. 3. Cigarette abuse. On Nicotine patch. 4. History of atrial fibrillation. Rate controlled currently. May start Lovenox on 08/24/2019. Hold Eliquis for 2 days. DISPOSITION: Discharge Wednesday or Wednesday. MTDD
[2019-08-24] MEDS: atenoloL 25 MG TAB PO SCH (20:03)
[2019-08-24 22:00] VITALS: BP 137/90
[2019-08-25 02:00] VITALS: BP 138/82
[2019-08-25] MEDS: MEROPENEM INJ 1 GM in IV 1 EA IV SCH (04:15)
[2019-08-25] MEDS: PERCOCET 5MG/325MG TAB PO PRN (05:37)
[2019-08-25 06:00] VITALS: BP 126/83
[2019-08-25 06:11] LABS: BASO % 0.5 % (0.0-1.0); EOS # 0.2 10^3/uL (0.0-0.5); EOS % 2.8 % (0.0-3.0); HEMATOCRIT 35.7 % (42.0-52.0); HEMOGLOBIN 11.7 g/dl (13.5-17.5); LYMPH # 1.7 10^3/uL (1.5-5.0); LYMPH % 20.7 % (24.0-44.0); MEAN CORPUSCULAR HEMOGLOBIN 30.5 pg (27.0-33.0); MEAN CORPUSCULAR HGB CONC 32.8 g/dl (32.0-36.5); MEAN CORPUSCULAR VOLUME 93.2 fl (80.0-96.0); MONO % 12.4 % (0.0-5.0); NEUTROPHILS # 5.2 10^3/uL (1.5-8.5); NEUTROPHILS % 63.2 % (36.0-66.0); PLATELET COUNT, AUTOMATED 347 10^3/uL (150-450); RED BLOOD COUNT 3.83 10^6/uL (4.30-6.10); WHITE BLOOD COUNT 8.2 10^3/uL (4.0-10.0)
[2019-08-25 06:33] LABS: ALBUMIN 2.5 GM/DL (3.2-5.2); ALT/SGPT 57 U/L (12-78); BILIRUBIN,TOTAL 0.7 MG/DL (0.2-1.0); BLOOD UREA NITROGEN 3 MG/DL (7-18); CALCIUM LEVEL 8.2 MG/DL (8.5-10.1); CARBON DIOXIDE LEVEL 33 MEQ/L (21-32); CHLORIDE LEVEL 97 MEQ/L (98-107); CREATININE FOR GFR 0.42 MG/DL (0.70-1.30); GLOMERULAR FILTRATION RATE > 60.0 (>56); GLUCOSE, FASTING 86 MG/DL (70-100); POTASSIUM SERUM 3.3 MEQ/L (3.5-5.1); SODIUM LEVEL 133 MEQ/L (136-145); TOTAL PROTEIN 5.7 GM/DL (6.4-8.2)
[2019-08-25] MEDS ORDERED: BACITAB PO (07:11)
[2019-08-25] MEDS ORDERED: AUGM875T28 PO (07:11)
[2019-08-25] MEDS ORDERED: POTASSIUM CHLORIDE 10 MEQ SR TABLET PO ONE (08:00)
[2019-08-25 08:44] VITALS: BP 118/76
[2019-08-25] MEDS: atenoloL 25 MG TAB PO SCH (08:44)
[2019-08-25] MEDS: DIGOXIN 0.25 MG TAB PO SCH (08:45)
[2019-08-25] MEDS: NICOTINE 14 MG/24 HR TRANSDERMAL TD SCH (08:45)
[2019-08-25] MEDS: ENOXAPARIN 40MG/0.4ML SYRINGE (J1650 PER 10MG) SC SCH (08:45)
[2019-08-25] MEDS: PANTOPRAZOLE 40MG VIAL (C9113 PER 1) IV SCH (08:45)
[2019-08-25] MEDS ORDERED: OMEPRAZOLE 20 MG CAP PO SCH (09:00)
[2019-08-25 10:00] VITALS: BP 116/76
--- NOTE | 2019-08-25 15:31 | DS.PDOC ---
Discharge Summary General Date of Admission August 22, 2019 at 05:05 Date of Discharge 08/25/19 Discharge Summary DISCHARGE DIAGNOSES: Ethanol-induced acute pancreatitis gallstone associated pancreatitis ampullary obstruction status post ERCP 08/23/2019, sweeping and stent placement to the common bile duct Alcohol abuse. Cigarette abuse CHRONIC atrial fibrillation. protein calorie malnutrition DISCHARGE MEDICATIONS: PLS SEE BELOW SHAREPOINT ADMIN: DR. MARKHAM GENERAL SURGEON: DR. HOLLOWAY HOSPITAL COURSE: This is a 58-year-old male with history of atrial fibrillation on chronic anticoagulation, hypertension, reflux, alcohol abuse, and seizure disorder unknown cause with known history of drinking six-packs of beer daily, last drink was 08/21/2019 at 4 p.m., presented with abdominal pain, found to have gallstone-induced pancreatitis. Patient was evaluated by General surgeon Dr. Holloway due to concerns of ?necrotic pancreas, and recommended IVAbx. GI Dr. Markham reviewed MRCP which showed gallstone pancreatitis, and pt underwent ERCP with sweeping and stent placement. Ethanol-induced acute pancreatitis as well as gallstone associated pancreatitis with ampullary obstruction status post ERCP 08/23/2019, sweeping and stent placement to the common bile duct. Patient's stent is to remain in place for 3-4 months, it will need to be exchanged after that time. Patientwas resumed on Lovenox on 08/24/2019, but held Xarelto for 48 hours per gastrointestinal (GI) recommendations, Dr. Rajat Markham. Pt was given empiric antibiotics with merem. augmentin to be continued for a full course as outpt. Alcohol abuse. On Clinical [place] Withdrawal Assessment (CIWA) protocol with thiamine and folic acid. Cigarette abuse. On Nicotine patch. History of atrial fibrillation. Rate controlled currently. restarted eliquis 48hrs after ercp . DISCHARGE PHYSICAL EXAMINATION: VITALS:PLS SEE BELOW Generally: Patient is awake, alert, oriented to person, place, and time. Cachectic appearing. No jaundice or icterus. Diminished breath sounds with coarse rhonchi. Heart: S1, S2, irregularly irregular. Abdomen: Soft, nontender nondistended no rebound or guarding. Positive bowel sounds. Extremities: No cyanosis, clubbing, or pitting edema. DISCHARGE LABORATORY DATA/IMAGING STUDIES: PLS SEE BELOW TIME SPENT ON DISCHARGE: 30 MIN Vital Signs/I&Os Vital Signs Date Time Temp Pulse Resp B/P (MAP) Pulse Ox O2 Delivery O2 Flow Rate FiO2 08/25/19 10:00 98.0 74 18 116/76 (89) 96 Room Air 08/24/19 17:27 10.0 I&O- Last 24 Hours up to 6 AM 08/25/19 05:59 Intake Total 2595 ml Output Total 1480 ml Balance 1115 ml Laboratory Data Labs 24H Laboratory Tests 2 08/25/19 05:47: Immature Granulocyte % (Auto) 0.4, Neutrophils (%) (Auto) 63.2, Lymphocytes (%) (Auto) 20.7L, Monocytes (%) (Auto) 12.4H, Eosinophils (%) (Auto) 2.8, Basophils (%) (Auto) 0.5, Neutrophils # (Auto) 5.2, Lymphocytes # (Auto) 1.7, Monocytes # (Auto) 1.0H, Eosinophils # (Auto) 0.2, Basophils # (Auto) 0.0, Nucleated Red Blood Cells % (auto) 0.0, Anion Gap 3L, Glomerular Filtration Rate > 60.0, Calcium Level 8.2L, Total Bilirubin 0.7, Aspartate Amino Transf (AST/SGOT) 70H, Alanine Aminotransferase (ALT/SGPT) 57, Alkaline Phosphatase 181H, Total Protein 5.7L, Albumin 2.5L, Albumin/Globulin Ratio 0.8 CBC/BMP Laboratory Tests 08/25/19 05:47 Discharge Medications Scheduled Amoxicillin/Potassium Clav (Augmentin 875-125 Tablet) 1 Each Tablet, 875 MG PO BID Atenolol (Atenolol) 25 Mg Tab, 25 MG PO BID, (Reported) Digoxin (Digoxin) 250 Mcg Tab, 250 MCG PO DAILY, (Reported) Folic Acid/Multivit-Min/Lutein (Multi-Vitamin Gummies) 1 Each Tab.chew, 1 CHW PO DAILY, (Reported) L.acidoph/L.bulg/B.bif/S.therm (Bacid Caplet) 1 Each Tablet, 1 TAB PO BIDPC Omeprazole (Omeprazole) 20 Mg Capsule.dr, 20 MG PO DAILY, (Reported) Rivaroxaban (Xarelto) 20 Mg Tab, 20 MG PO DAILY, (Reported) Allergies Coded Allergies: No Known Allergies (Verified Allergy, Unknown, 03/12/19) FERCHO WEIR MD August 25, 2019 15:31
[2019-08-26] MEDS ORDERED: THIAMINE 100 MG TAB PO SCH (09:00)
--- NOTE | 2019-08-26 09:10 | IPN ---
DATE: 08/24/2019 Patient is tolerating his liquid diet. He complains of a little bit of slight abdominal discomfort, says that he is passing gas. No fever or chills. No nausea or vomiting. Anxious to go home and advance his diet, but slightly worried about the abdominal discomfort he is exhibiting in the epigastric region and across the abdomen. Temperature 98, pulse 86, respiratory rate 19, blood pressure 132/84, 97% on room air. Generally, awake, alert, oriented to time, place and person. No jugular venous distention (JVD)/thyromegaly. No icterus, no jaundice. Lungs are clear to auscultation without wheezing or rales. Heart: S1, S2, irregularly irregular. Abdomen is soft, slightly tender in the epigastrium. No rebound or guarding. Extremities: No cyanosis or clubbing. ASSESSMENT AND PLAN: This is a 58-year-old with a history of alcohol abuse, presented with abdominal pain, found to have gallstone and alcohol abuse induced pancreatitis, started on IV meropenem due to concerns of questionable necrosis, underwent endoscopic retrograde cholangiopancreatography (ERCP) due to common bile duct stricture and common duct obstruction, stent placement. Patient's anticoagulation had been held due to recent ERCP and has been resumed on Lovenox times one today and Eliquis in the morning. IMPRESSION: 1. Gallstone and alcohol-induced pancreatitis, status post ERCP on 08/23/2019 with biliary sphincterotomy, sweeping, biopsy, and temporary stent placed in the common bile duct by [employer], Dr. Markham. Patient's diet can be advanced as tolerated to a regular diet. Stent is to remain in place for 3-4 months after which it could be removed or exchanged at that time. Per GI, the patient may have Lovenox today on 08/24/2019 but will hold off on Xarelto until 08/25/2019. 2. Atrial fibrillation. Currently rate controlled. His anticoagulation with Eliquis has been held due to recent ERCP, sphincterotomy and stent placement. He is currently on subcutaneous Lovenox for now and can resume Eliquis in the morning. Patient's heart rate has been rate controlled. He has no complaints of lightheadedness or dizziness. His diet has been advanced. He may be resumed on his home medications, atenolol, digoxin but will hold off on his Xarelto until 08/25/2019. 3. Alcohol abuse. Cessation counseling has been provided. Patient is being monitored for withdrawal. 4. Hypertension. May resume home dose of atenolol with holding parameters. 5. Reflux. On proton pump inhibitor (PPI). MTDD
== END 2019-08-25 11:47 | disposition home or self-care (01) | DRG 438 ==
LOC: M ED 01:20 → M ED INP 05:05 → ENRESERV 05:22 → M PCU 06:02 → M MSPAV 17:34
PROVIDERS: ADMIT Internal Medicine; ATTEND General Practice
PROC: 0F798DZ Dilation of Common Bile Duct with Intraluminal Device, Via Natural or Artificial Opening Endoscopic (ICD-10-PCS; 2019-08-23)
PROC: 0FB98ZX Excision of Common Bile Duct, Via Natural or Artificial Opening Endoscopic, Diagnostic (ICD-10-PCS; principal; 2019-08-23 12:30)
DX: K85.20 Alcohol induced acute pancreatitis without necrosis or infection (principal); K83.1 Obstruction of bile duct; I48.20 Chronic atrial fibrillation, unspecified; E46 Unspecified protein-calorie malnutrition; F10.10 Alcohol abuse, uncomplicated; I10 Essential (primary) hypertension; K21.9 Gastro-esophageal reflux disease without esophagitis; G40.909 Epilepsy, unspecified, not intractable, without status epilepticus; F17.210 Nicotine dependence, cigarettes, uncomplicated; Z79.82 Long term (current) use of aspirin; Z79.01 Long term (current) use of anticoagulants; Z79.899 Other long term (current) drug therapy

== ENCOUNTER 2019-09-15 16:12 | Emergency (ER) | payer MEDICARE ==
[~2019-09-15] VITALS: Ht 172.7 cm; Wt 60.4 kg
[~2019-09-15 16:12] MED LIST changes: +AUGM875T28 PO; +BACITAB PO; +ECOT81TA5 PO; +MULTCHW12 PO; +OMEP-218 PO
[2019-09-15] MEDS ORDERED: ONDANSETRON 4MG/2ML VIAL IV ONE (17:15)
[2019-09-15 17:25] LABS: BASO # 0.1 10^3/uL (0.0-0.2); BASO % 0.2 % (0.0-1.0); HEMATOCRIT 39.1 % (42.0-52.0); HEMOGLOBIN 13.7 g/dl (13.5-17.5); LYMPH # 1.2 10^3/uL (1.5-5.0); LYMPH % 4.4 % (24.0-44.0); MEAN CORPUSCULAR HEMOGLOBIN 30.6 pg (27.0-33.0); MEAN CORPUSCULAR VOLUME 87.3 fl (80.0-96.0); MONO # 2.2 10^3/uL (0.0-0.8); NEUTROPHILS # 22.9 10^3/uL (1.5-8.5); NEUTROPHILS % 84.4 % (36.0-66.0); PLATELET COUNT, AUTOMATED 548 10^3/uL (150-450); RED BLOOD COUNT 4.48 10^6/uL (4.30-6.10); WHITE BLOOD COUNT 27.2 10^3/uL (4.0-10.0)
[2019-09-15] MEDS: MORPHINE 4 MG/ML 1ML VIAL/SYRINGE (J2270) IV PRN ×2 (17:34→20:01)
[2019-09-15 17:41] LABS: INR 1.26; PROTHROMBIN TIME 15.5 SECONDS (11.8-14.0)
[2019-09-15 17:42] LABS: PARTIAL THROMBOPLASTIN TIME 27.4 SECONDS (25.0-38.4)
[2019-09-15] MEDS ORDERED: PIPERACILLIN/TAZOBACTAM SOD 4.5 GM in D5W MINI-BAG PLUS 50 ML IV ONE (17:45)
[2019-09-15 18:10] LABS: ALT/SGPT 39 U/L (12-78); BILIRUBIN,DIRECT 0.4 MG/DL (0.0-0.2); BILIRUBIN,TOTAL 0.8 MG/DL (0.2-1.0); CK-MB VALUE MASS 1.5 NG/ML (<3.6); CPK CREATINE PHOSPHOKINASE 26 U/L (39-308); DIGOXIN LEVEL 1.4 NG/ML (0.5-2.0); LIPASE 8186 U/L (73-393); MB/CK RELATIVE INDEX 5.77 (< OR =4); TROPONIN I < 0.02 NG/ML (< 0.10)
[2019-09-15] MEDS: NS 1,000 ML IV SCH ×2 (18:16→22:38)
[2019-09-15] MEDS ORDERED: ISOVUE-370 76% 100ML VIAL As Ordered ONE (18:19)
--- NOTE | 2019-09-15 19:15 | REPVR ---
PROCEDURE INFORMATION: Exam: CT Abdomen And Pelvis With Contrast Exam date and time: 09/15/2019 6:32 PM Age: 58 years old Clinical indication: Abdominal pain; Generalized; Additional info: Abd pain TECHNIQUE: Imaging protocol: Computed tomography of the abdomen and pelvis with intravenous contrast. Radiation optimization: All CT scans at this facility use at least one of these dose optimization techniques: automated exposure control; mA and/or kV adjustment per patient size (includes targeted exams where dose is matched to clinical indication); or iterative reconstruction. Contrast material: ISOVUE 370; Contrast volume: 100 ml; Contrast route: INTRAVENOUS (IV); COMPARISON: CT ABD/PEL W/IV CONTRAST ONLY 08/22/2019 3:19 AM FINDINGS: Lungs: Probable pulmonary granulomas right middle and left lower lobes . Lung bases are otherwise clear. Liver: There is a diffuse decrease in hepatic parenchymal density, consistent with fatty infiltration. Gallbladder and bile ducts: A biliary stent has been placed since the prior examination. No calculi are seen in the gallbladder. Pancreas: There is mild dilatation of the pancreatic duct. Spleen: The spleen is unremarkable although there is perisplenic fluid. Adrenals: The right adrenal gland is unremarkable. The left adrenal gland is prominent but unchanged. Kidneys and ureters: The kidneys are normal. Stomach and bowel: Inflammation is again seen along the greater curvature of the stomach and anterior margin of the pancreas and splenic flexure of the colon with an adjacent walled-off probable pseudocyst measuring 10 cm in width x 5.3 cm AP x 5 cm cc. There is no evidence of intestinal obstruction. Thickening of small bowel loops in the left upper quadrant likely due to inflammation. Appendix: No evidence of appendicitis. Intraperitoneal space: In comparison the prior study there is now ascites. Vasculature: There is no evidence of an infrarenal abdominal aortic aneurysm. The arteries demonstrates diffuse moderate atherosclerotic calcification. Lymph nodes: No enlarged lymph nodes. Bladder: The bladder is unremarkable. Reproductive: Mild prostatic enlargement. Bones/joints: Skeletal degeneration. Soft tissues: Ascites. IMPRESSION: In comparison the prior study a biliary stent has been placed and there is now ascites as well as a 10 cm pseudocyst along the greater curvature of the stomach. Electronically signed by: Tiffany Banuelos On 09/15/2019 19:14:37 PM
[2019-09-15 23:00] VITALS: BP 129/91
--- NOTE | 2019-09-16 08:08 | ECGEPIP ---
[facility] - ED Test Date: 2019-09-15 Pat Name: LAILA BLEDSOE Department: Room: - Gender: Male [employer]: : 1960 Requested By: Meg Awan Order Number: [id number] Reading MD: Meg Awan Measurements Intervals [place] Rate: 130 P: 64 NE: 151 QRS: 44 QRSD: 94 T: 51 QT: 287 QTc: 423 Interpretive Statements SINUS TACHYCARDIA MINIMAL ST DEPRESSION ABNORMAL RHYTHM ECG INCREASED RATE 08/22/19 Electronically Signed on 09-16-2019 8:07:47 EDT by Meg Awan
--- NOTE | 2019-09-16 08:24 | REP ---
PORTABLE CHEST X-RAY: SINGLE VIEW. HISTORY: Abdomen pain. COMPARISON STUDY: March 24, 2019 FINDINGS: Monitoring electrodes overlie the chest. The lungs are symmetrically aerated and clear. There is a granulomatous calcification projecting in the left base. Pleural angles are sharp. Pulmonary vasculature is not increased. IMPRESSION: No active disease. Electronically Signed by Leonidas Ceballos MD 09/16/2019 10:31 A
== END 2019-09-15 23:18 | disposition short-term general hospital (02) ==
LOC: M ED 16:12
DX: E87.1 Hypo-osmolality and hyponatremia (principal); K85.90 Acute pancreatitis without necrosis or infection, unspecified; R00.0 Tachycardia, unspecified; I10 Essential (primary) hypertension; I48.91 Unspecified atrial fibrillation; K21.9 Gastro-esophageal reflux disease without esophagitis; R56.9 Unspecified convulsions; F17.200 Nicotine dependence, unspecified, uncomplicated; Z96.89 Presence of other specified functional implants; Z79.899 Other long term (current) drug therapy; Z79.01 Long term (current) use of anticoagulants
CPT/HCPCS: 71045; 74177; 80047; 80076; 80162; 82140; 82550; 82553; 83605; 83690; 84484; 85025; 85610; 85730; 87040; 93005; 93041; 96361; 96365; 96375; 96376; 99285; J2270; J2405; J2543; Q9967

== ENCOUNTER 2019-10-15 17:30 | Inpatient (IN) | payer MEDICARE ==
[~2019-10-15] VITALS: Ht 172.7 cm; Wt 49.3 kg
[~2019-10-15 17:30] MED LIST changes: -ASPI81TA85 PO; +ASPI81TA86 PO
[2019-10-15] MEDS ORDERED: FAMOTIDINE INJ 20MG/2ML VIAL (S0028 PER 1) IVP ONE (17:45)
[2019-10-15] MEDS ORDERED: NS 1,000 ML IV ONE (17:45)
[2019-10-15 18:29] LABS: BASO # 0.1 10^3/uL (0.0-0.2); BASO % 0.3 % (0.0-1.0); HEMOGLOBIN 13.8 g/dl (13.5-17.5); LYMPH # 1.3 10^3/uL (1.5-5.0); LYMPH % 6.7 % (24.0-44.0); MEAN CORPUSCULAR HEMOGLOBIN 28.9 pg (27.0-33.0); MEAN CORPUSCULAR HGB CONC 32.9 g/dl (32.0-36.5); MEAN CORPUSCULAR VOLUME 88.1 fl (80.0-96.0); MONO # 1.5 10^3/uL (0.0-0.8); MONO % 7.9 % (0.0-5.0); NEUTROPHILS % 83.7 % (36.0-66.0); PLATELET COUNT, AUTOMATED 554 10^3/uL (150-450); RED BLOOD COUNT 4.77 10^6/uL (4.30-6.10); WHITE BLOOD COUNT 19.1 10^3/uL (4.0-10.0)
[2019-10-15] MEDS ORDERED: METO1TAB87 PO (18:30)
[2019-10-15] MEDS ORDERED: IRON27TA2 PO (18:30)
[2019-10-15] MEDS ORDERED: FURO40TA2 PO (18:30)
[2019-10-15] MEDS ORDERED: FOLI1TAB11 PO (18:30)
[2019-10-15] MEDS ORDERED: VITA100T28 PO (18:30)
[2019-10-15] MEDS ORDERED: VENTAER INH (18:30)
[2019-10-15 18:41] LABS: INR 1.13; PROTHROMBIN TIME 14.2 SECONDS (11.8-14.0)
--- NOTE | 2019-10-15 18:43 | REPVR ---
PROCEDURE INFORMATION: Exam: CT Abdomen And Pelvis Without Contrast Exam date and time: 10/15/2019 5:43 PM Age: 59 years old Clinical indication: Abdominal pain; Additional info: Abd pain TECHNIQUE: Imaging protocol: Computed tomography of the abdomen and pelvis without contrast. Radiation optimization: All CT scans at this facility use at least one of these dose optimization techniques: automated exposure control; mA and/or kV adjustment per patient size (includes targeted exams where dose is matched to clinical indication); or iterative reconstruction. COMPARISON: CT ABD/PEL W/IV CONTRAST ONLY 09/15/2019 6:21 PM FINDINGS: Liver: There is a diffuse decrease in hepatic parenchymal density, consistent with fatty infiltration. Gallbladder and bile ducts: Biliary stent appears unchanged in position. No calculi are seen within the gallbladder. Pancreas: The previously noted large pseudocyst has possibly been drained in the interim. There is persistent inflammation along the greater curvature of the stomach and anterior margin of the pancreas consistent with pancreatitis. Spleen: The spleen is normal. Adrenals: The right adrenal gland is unremarkable, the left adrenal gland remains prominent. Kidneys and ureters: The kidneys are normal. Stomach and bowel: There is no evidence of intestinal obstruction. Appendix: No evidence of appendicitis. Intraperitoneal space: The volume of ascites appears to have diminished in comparison the prior study. Vasculature: There is no evidence of an infrarenal abdominal aortic aneurysm. The arteries demonstrates diffuse moderate atherosclerotic calcification. Lymph nodes: Unremarkable. No enlarged lymph nodes. Bladder: The bladder is unremarkable. Reproductive: Prostatic calcifications without significant enlargement. Bones/joints: Skeletal degeneration. Soft tissues: Unremarkable. Other findings: Calcified granulomas are again seen in the right middle and left lower lobes. IMPRESSION: 1. There is persistent edema and/or inflammation surrounding the pancreas anterior margin which may be due to pancreatitis however the edema could also be due to the ascites. The volume of ascites has diminished in comparison to the prior study. 2. The pancreatic pseudocyst has either been drained or almost completely resolved in the interim. Electronically signed by: Tiffany Banuelos On 10/15/2019 18:43:02 PM
[2019-10-15 19:02] LABS: ALBUMIN 2.7 GM/DL (3.2-5.2); ALT/SGPT 23 U/L (12-78); BILIRUBIN,DIRECT 0.3 MG/DL (0.0-0.2); BILIRUBIN,TOTAL 0.7 MG/DL (0.2-1.0); BLOOD UREA NITROGEN 7 MG/DL (7-18); CALCIUM LEVEL 8.8 MG/DL (8.8-10.2); CARBON DIOXIDE LEVEL 23 MEQ/L (21-32); CHLORIDE LEVEL 90 MEQ/L (98-107); CK-MB VALUE MASS 1.4 NG/ML (<3.6); CPK CREATINE PHOSPHOKINASE 16 U/L (39-308); CREATININE FOR GFR 0.68 MG/DL (0.70-1.30); ETHYL ALCOHOL (ETHANOL) 0.003 % (0.000-0.010); GLOMERULAR FILTRATION RATE > 60.0 (>49); GLUCOSE, FASTING 101 MG/DL (70-100); LIPASE 3567 U/L (73-393); MB/CK RELATIVE INDEX 8.75 (< OR =4); POTASSIUM SERUM 3.5 MEQ/L (3.5-5.1); SODIUM LEVEL 128 MEQ/L (136-145); TOTAL PROTEIN 6.4 GM/DL (6.4-8.2); TROPONIN I 0.02 NG/ML (< 0.10)
[2019-10-15] MEDS ORDERED: THIAMINE 100 MG TAB PO ONE (20:45)
[2019-10-15] MEDS ORDERED: LORazepam 2 MG TAB PO PRN (20:45)
[2019-10-15] MEDS ORDERED: ACETAMINOPHEN TAB 650MG DOSE (2X325MG) PO PRN (20:45)
[2019-10-15 20:55] LABS: OSMOLALITY URINE 368 MOSM/KG (500-800)
[2019-10-15 20:56] LABS: OSMOLALITY SERUM 263 MOSM/KG (275-295)
[2019-10-15] MEDS ORDERED: PANTOPRAZOLE 40MG VIAL (C9113 PER 1) IV SCH (21:00)
[2019-10-15 21:23] LABS: SODIUM,RANDOM URINE < 10 MEQ/L
--- NOTE | 2019-10-15 21:41 | HPEPDOC ---
General Date of Admission 10/15/2019 Date of Service: Oct 15, 2019 Chief Complaint The patient is a 59-year-old male Who presented to the hospital with complaints of abdominal pain History of Present Illness Patient is a 59-year-old male with a PMHx of A. fib (on Xarelto), HTN, Seizure history, Alcohol abuse, GERD, prior admissions for pancreatitis, who is present at the hospital with complaints of abdominal pain. Patient reports that hes been experiencing mid abdominal pain for about 1 month duration. It has worsened over the last couple days. Patient reports the pain as a 6/10, aching, stabbing nature, worse with movement. No alleviating factors. Patient does report associated nausea and vomiting and is reportedly still greater than 5 episodes of vomiting. Patient denies any blood within the vomitus. Patient was that he does consume alcohol. Still, and his most recent use was a few days ago with beer. Patient denies any chest pain churns of breath or palpitations. Denies any constipation, reports 1 episode of watery diarrhea today. Denies any urinary discomfort. Patient reports his appetite has been poor and may have noted some weight loss. Home Medications Scheduled Digoxin (Digoxin) 250 Mcg Tab, 250 MCG PO DAILY, (Reported) Ferrous Gluconate (Iron) 236 Mg Tablet, 65 MG PO DAILY, (Reported) Folic Acid (Folic Acid) 1 Mg Tablet, 1 MG PO DAILY, (Reported) Furosemide (Furosemide) 40 Mg Tablet, 40 MG PO DAILY, (Reported) Metoprolol Tartrate (Metoprolol Tartrate) 25 Mg Tablet, 25 MG PO BID, (Reported) Thiamine Mononitrate (Vit B1) (Vitamin B-1) 100 Mg Tablet, 1 TAB PO BID, (Reported) Scheduled PRN Albuterol Sulfate (Ventolin Hfa) 18 Gm Hfa.aer.ad, 2 PUFFS INH Q4-6HP PRN for SHORTNESS OF BREATH, (Reported) Allergies Coded Allergies: No Known Allergies (Verified Allergy, Unknown, 03/12/19) Past Medical History Medical History A. fib (on Xarelto), HTN, Seizure history, Alcohol abuse, GERD Surgical History Left thumb surgery Family History - No history of malignancies Social History - Denies the use of illicit drugs; patient is a smoker of 40 years at 1 PPD; also, reports alcohol use. Most recent which was 2 days ago with beer - Denies recent travel or sick contacts - Lives with girl friend Review of Systems Other systems 10 point review of systems complete, all negative otherwise stated in HPI Vital Signs - Vitals: BP [139/100], HR [125], RR [18], Sat [96], Temp [97.6F] - General: Lying in bed, complaining of abdominal pain, Speaking in full sentences, AAOx3 - HEENT: NC, AT, PERRLA, - CVS:+S1S2 - Lungs: Fair air entry bilaterally, no appreciable wheezing / rales / rhonchi - Abdomen: Soft, Non-distended, epigastric tenderness noted - Extremities: No lower extremity edema, No calf tenderness - Neuro: No focal motor or sensory deficit - Skin: No visible rashes Laboratory Data Labs 24H Laboratory Tests 2 10/15/19 18:19: Immature Granulocyte % (Auto) 1.4, Neutrophils (%) (Auto) 83.7H, Lymphocytes (%) (Auto) 6.7L, Monocytes (%) (Auto) 7.9H, Eosinophils (%) (Auto) 0.0, Basophils (%) (Auto) 0.3, Neutrophils # (Auto) 16.0H, Lymphocytes # (Auto) 1.3L, Monocytes # (Auto) 1.5H, Eosinophils # (Auto) 0.0, Basophils # (Auto) 0.1, Nucleated Red Blood Cells % (auto) 0.0, Prothrombin Time 14.2H, Prothromb Time International Ratio 1.13, Anion Gap 15, Glomerular Filtration Rate > 60.0, Osmolality 263L, Calcium Level 8.8, Total Bilirubin 0.7, Direct Bilirubin 0.3H, Aspartate Amino Transf (AST/SGOT) 36, Alanine Aminotransferase (ALT/SGPT) 23, Alkaline Phosphatase 233H, Total Creatine Kinase 16L, Creatine Kinase MB 1.4, Creatine Kinase MB Relative Index 8.75H, Troponin I 0.02, Total Protein 6.4, Albumin 2.7L, Albumin/Globulin Ratio 0.7, Lipase 3567H, Ethyl Alcohol Level 0.003 10/15/19 20:42: Urine Color YELLOW, Urine Appearance HAZY, Urine pH 6.0, Urine Specific [place] 1.013, Urine Protein 1+H, Urine Glucose (UA) NEGATIVE, Urine Ketones 1+H, Urine Blood NEGATIVE, Urine Nitrite NEGATIVE, Urine Bilirubin NEGATIVE, Urine Urobilinogen 2.0H, Urine Leukocyte Esterase NEGATIVE, Urine WBC (Auto) 2, Urine RBC (Auto) 2, Urine Hyaline Casts (Auto) 5, Urine Bacteria (Auto) NEGATIVE, Urine Squamous Epithelial Cells 0, Urine Mucus (Auto) SMALL, Urine Sperm (Auto) , Urine Random Osmolality 368L, Urine Random Creatinine 161.0, Urine Random Sodium < 10 CBC/BMP Laboratory Tests 10/15/19 18:19 Plan / VTE VTE Prophylaxis Ordered?: Yes Plan Plan Abdominal pain / Nausea and Vomiting - likely 2/2 acute pancreatitis - likely 2/2 ETOH - Presented to the emergency room with symptoms of abdominal pain that is worsened over the last few days - Physical reveals epigastric tenderness / hemodynamically stable and afebrile - Mild leukocytosis noted - Elevated lipase - CT abdomen / pelvis 10/14: 1. There is persistent edema and/or inflammation surrounding the pancreas anterior margin which may be due to pancreatitis however the edema could also be due to the ascites. The volume of ascites has diminished in comparison to the prior study. 2. The pancreatic pseudocyst has either been drained or almost completely resolved in the interim. - Will start IV fluid hydration and pain control - Allow bowel rest; NPO for now Hyponatremia - Possibly 2/2 nausea and vomiting - Will check urine and serum osmolality and urine electrolytes - Continue with IV fluid hydration A. fib - Continue with rate and rhythm control with metoprolol and digoxin - Will continue with full anticoagulation with Xarelto HTN - Continue with metoprolol with holding parameters Seizure history - Suspect likely secondary to alcohol withdrawal - Currently not on any medications Alcohol abuse - Continue with thiamine, folate and multivitamins - Will start CPAP protocol GERD - Will start Protonix DVT prophylaxis - Will continue with full anticoagulation with Xarelto KEIKO COSTA MD Oct 15, 2019 21:41
[2019-10-15 21:50] LABS: TRIGLYCERIDES LEVEL 111 MG/DL (<150)
[2019-10-15 22:25] LABS: BLOOD UREA NITROGEN 6 MG/DL (7-18); CALCIUM LEVEL 8.1 MG/DL (8.8-10.2); CARBON DIOXIDE LEVEL 22 MEQ/L (21-32); CHLORIDE LEVEL 97 MEQ/L (98-107); CREATININE FOR GFR 0.34 MG/DL (0.70-1.30); GLOMERULAR FILTRATION RATE > 60.0 (>49); GLUCOSE, FASTING 76 MG/DL (70-100); POTASSIUM SERUM 3.4 MEQ/L (3.5-5.1); SODIUM LEVEL 129 MEQ/L (136-145)
[2019-10-15] MEDS: METOPROLOL TART 25 MG TABLET PO SCH (22:59)
[2019-10-15] MEDS: NS 1,000 ML IV SCH (23:00)
[2019-10-16 00:05] VITALS: BP 142/87
[2019-10-16] MEDS: MORPHINE 2 MG/ML 1ML VIAL (J2270) IV PRN ×3 (00:36→20:25)
[2019-10-16] MEDS ORDERED: POTASSIUM CHLORIDE 10 MEQ SR TABLET PO ONE ×2 (01:45→03:15)
[2019-10-16] MEDS: NS 1,000 ML IV SCH ×3 (01:59→17:09)
[2019-10-16 02:38] LABS: BLOOD UREA NITROGEN 7 MG/DL (7-18); CALCIUM LEVEL 7.6 MG/DL (8.8-10.2); CARBON DIOXIDE LEVEL 22 MEQ/L (21-32); CHLORIDE LEVEL 101 MEQ/L (98-107); CREATININE FOR GFR 0.32 MG/DL (0.70-1.30); GLOMERULAR FILTRATION RATE > 60.0 (>49); GLUCOSE, FASTING 81 MG/DL (70-100); POTASSIUM SERUM 3.3 MEQ/L (3.5-5.1); SODIUM LEVEL 132 MEQ/L (136-145)
[2019-10-16 06:00] VITALS: BP 107/78
[2019-10-16 06:13] LABS: BASO % 0.3 % (0.0-1.0); EOS # 0.1 10^3/uL (0.0-0.5); EOS % 0.5 % (0.0-3.0); HEMATOCRIT 34.4 % (42.0-52.0); LYMPH # 1.9 10^3/uL (1.5-5.0); MEAN CORPUSCULAR HEMOGLOBIN 28.6 pg (27.0-33.0); MEAN CORPUSCULAR VOLUME 89.6 fl (80.0-96.0); MONO # 1.2 10^3/uL (0.0-0.8); MONO % 9.6 % (0.0-5.0); NEUTROPHILS # 9.3 10^3/uL (1.5-8.5); NEUTROPHILS % 73.7 % (36.0-66.0); PLATELET COUNT, AUTOMATED 379 10^3/uL (150-450); RED BLOOD COUNT 3.84 10^6/uL (4.30-6.10); WHITE BLOOD COUNT 12.6 10^3/uL (4.0-10.0)
[2019-10-16 06:31] LABS: BLOOD UREA NITROGEN 7 MG/DL (7-18); CALCIUM LEVEL 7.7 MG/DL (8.8-10.2); CARBON DIOXIDE LEVEL 22 MEQ/L (21-32); CHLORIDE LEVEL 100 MEQ/L (98-107); CREATININE FOR GFR 0.36 MG/DL (0.70-1.30); GLOMERULAR FILTRATION RATE > 60.0 (>49); GLUCOSE, FASTING 73 MG/DL (70-100); MAGNESIUM LEVEL 1.5 MG/DL (1.8-2.4); POTASSIUM SERUM 3.5 MEQ/L (3.5-5.1); SODIUM LEVEL 130 MEQ/L (136-145)
[2019-10-16] MEDS: MULTIVITAMINS/MINERALS THERAP 1 TAB PO SCH (09:11)
[2019-10-16] MEDS: FOLIC ACID 1 MG TAB PO SCH (09:11)
[2019-10-16] MEDS: THIAMINE 100 MG TAB PO SCH (09:11)
[2019-10-16] MEDS: METOPROLOL TART 25 MG TABLET PO SCH ×2 (09:12→20:25)
[2019-10-16] MEDS: DIGOXIN 0.25 MG TAB PO SCH (09:12)
[2019-10-16] MEDS ORDERED: MORPHINE 2 MG/ML 1ML VIAL (J2270) IV PRN (12:00)
[2019-10-16] MEDS: PANTOPRAZOLE 40MG VIAL (C9113 PER 1) IV SCH ×2 (12:35→20:25)
[2019-10-16 14:00] VITALS: BP 109/75
[2019-10-16] MEDS ORDERED: MAG SULF 1GM/100ML (MAG RUN) 1 GM in IV 1 EA IV ONE (21:00)
--- NOTE | 2019-10-16 21:20 | IPNPDOC ---
Date Seen The patient was seen on 10/16/19. Progress Note SUBJECTIVE: Patient continued to complain about abdominal pain today, WBC improved under NPO status. Sodium low at 130, potassium low at 3.5, magnesium low at 1.5. Denies nausea, vomiting, diarrhea, fevers or chills OBJECTIVE: VITAL SIGNS: Please see below PHYSICAL EXAMINATION: General: Lying in bed, complaining of abdominal pain, AAOx3 HEENT: NC, AT, PERRLA, CVS:+S1S2 Lungs: Fair air entry bilaterally, no appreciable wheezing / rales / rhonchi Abdomen: Soft, Non-distended, diffuse abdominal pain on palpation, localized in epigastric area mostly BS + in 4 quadrants Extremities: No lower extremity edema, No calf tenderness Neuro: No focal motor or sensory deficit Skin: No visible rashes LABORATORY: Please see below IMAGING: No new imaging ASSESSMENT: 59 y/o M with PMH of pancreatitis, alcohol abuse, atrial fibrillation, HTN, seizure history who was admitted with diagnosis of acute pancreatitis likely 2/2 to ETOH, acute hyponatremia PLAN: 1. Acute pancreatitis 2/2 ETOH abuse, sepsis - WBC 12.6, mildly increased. Mild tachycardia with HR 95 - BCx x 2 sets drawn today - C/w IV fluid hydration and pain control - Allow bowel rest; NPO for now 2. Acute hyponatremia possible 2/2 to hypovolemic, hyponatremia - Na 130-132, urine osmolality- 368, urine sodium <10 - C/w IVFs today - Recheck urine osmolality and urine Na, labs in AM 3. Epigastric pain/chest pain likely 2/2 to uncontrolled GERD - Repeat trop neg - PPI IV BID 4. A. fib - Controlled - C/w BB, digoxin, Xarelto 5. HTN - C/w BB, holding parameter s 6. Seizure hx 2/2 to alcohol withdrawal - Currently not on any medications 7. Alcohol abuse - Continue with thiamine, folate and multivitamins - Will start CIWA protocol 8. DVT prophylaxis - Will continue with full anticoagulation with Xarelto DISPOSITION: C/w plan above. Plan is discharge home when medically improved. VS, I&O, 24H, Fishbone Vital Signs/I&O Vital Signs Date Time Temp Pulse Resp B/P (MAP) Pulse Ox O2 Delivery O2 Flow Rate FiO2 10/16/19 20:44 18 Room Air 10/16/19 20:25 95 124/80 10/16/19 14:00 98.0 97 I&O- Last 24 Hours up to 6 AM 10/16/19 06:00 Intake Total 2190 ml Output Total 0 ml Balance 2190 ml Laboratory Data 24H LABS Laboratory Tests 2 10/15/19 21:50: Anion Gap 10, Glomerular Filtration Rate > 60.0, Calcium Level 8.1L 10/16/19 02:07: Anion Gap 9, Glomerular Filtration Rate > 60.0, Calcium Level 7.6L 10/16/19 05:25: Anion Gap 8, Glomerular Filtration Rate > 60.0, Calcium Level 7.7L, Immature Granulocyte % (Auto) 0.9, Neutrophils (%) (Auto) 73.7H, Lymphocytes (%) (Auto) 15.0L, Monocytes (%) (Auto) 9.6H, Eosinophils (%) (Auto) 0.5, Basophils (%) (Auto) 0.3, Neutrophils # (Auto) 9.3H, Lymphocytes # (Auto) 1.9, Monocytes # (Auto) 1.2H, Eosinophils # (Auto) 0.1, Basophils # (Auto) 0.0, Nucleated Red Blood Cells % (auto) 0.0, Magnesium Level 1.5L 10/16/19 12:18: Troponin I 0.02 CBC/BMP Laboratory Tests 10/15/19 21:50 10/16/19 02:07 10/16/19 05:25 Current Medications Current Medications Medications (Trade) Dose Ordered Sig/See Route PRN Reason Start Time Stop Time Status Last Admin Dose Admin Acetaminophen (Tylenol Tab) 650 mg Q4H PRN PO PAIN OR FEVER 10/15/19 20:45 Digoxin (Lanoxin) 0.25 mg DAILY PO 10/16/19 09:00 10/16/19 09:12 Folic Acid (Folic Acid) 1 mg DAILY PO 10/16/19 09:00 10/16/19 09:11 Home Med (Med Rec Complete!) ASDIRECTED XX 10/15/19 20:00 10/15/19 19:57 DC Lorazepam (Ativan) 2 mg ASDIRECTED PRN PO SEE PROTOCOL 10/15/19 20:45 Metoprolol Tartrate (Lopressor) 25 mg BID PO 10/15/19 21:00 10/16/19 20:25 Morphine Sulfate (Morphine Sulfate Inj) 1 mg Q6H PRN IV MODERATE PAIN (PS 5-7) 10/16/19 12:00 Morphine Sulfate (Morphine Sulfate Inj) 2 mg Q4H PRN IV MODERATE PAIN (PS 5-7) 10/15/19 20:45 10/16/19 12:00 DC 10/16/19 10:38 Morphine Sulfate (Morphine Sulfate Inj) 2 mg Q6HP PRN IV SEVERE PAIN (PS 8-10) 10/16/19 12:00 10/16/19 20:25 Multivitamins (Theragram-M) 1 tab DAILY PO 10/16/19 09:00 10/16/19 09:11 Pantoprazole Sodium (Protonix) 40 mg BID IV 10/16/19 09:00 10/16/19 20:25 Pantoprazole Sodium (Protonix) 40 mg Q24H IV 10/15/19 21:00 10/16/19 12:00 DC 10/15/19 22:59 Sodium Chloride 1,000 ml @ 150 mls/hr Q6H40M IV 10/15/19 20:45 10/16/19 17:09 Thiamine HCl (Thiamine HCl) 100 mg DAILY PO 10/16/19 09:00 10/16/19 09:11 Allergies Coded Allergies: No Known Allergies (Verified Allergy, Unknown, 03/12/19) Alysia Arechiga MD Oct 16, 2019 21:20
[2019-10-16 22:00] VITALS: BP_SYST 124; BP_SYST 126; BP_DIAS 79; BP_DIAS 80
[2019-10-17] MEDS: NS 1,000 ML IV SCH (01:16)
[2019-10-17] MEDS: MORPHINE 2 MG/ML 1ML VIAL (J2270) IV PRN ×2 (03:29→18:57)
[2019-10-17 05:26] LABS: BASO # 0.1 10^3/uL (0.0-0.2); BASO % 0.4 % (0.0-1.0); EOS # 0.1 10^3/uL (0.0-0.5); EOS % 1.2 % (0.0-3.0); HEMATOCRIT 31.4 % (42.0-52.0); HEMOGLOBIN 10.3 g/dl (13.5-17.5); LYMPH # 1.5 10^3/uL (1.5-5.0); LYMPH % 13.1 % (24.0-44.0); MEAN CORPUSCULAR HEMOGLOBIN 29.2 pg (27.0-33.0); MEAN CORPUSCULAR HGB CONC 32.8 g/dl (32.0-36.5); MONO # 1.2 10^3/uL (0.0-0.8); MONO % 10.4 % (0.0-5.0); NEUTROPHILS # 8.5 10^3/uL (1.5-8.5); NEUTROPHILS % 74.2 % (36.0-66.0); PLATELET COUNT, AUTOMATED 346 10^3/uL (150-450); RED BLOOD COUNT 3.53 10^6/uL (4.30-6.10); WHITE BLOOD COUNT 11.4 10^3/uL (4.0-10.0)
[2019-10-17 05:47] LABS: BLOOD UREA NITROGEN 4 MG/DL (7-18); CALCIUM LEVEL 6.8 MG/DL (8.8-10.2); CARBON DIOXIDE LEVEL 24 MEQ/L (21-32); CHLORIDE LEVEL 101 MEQ/L (98-107); CREATININE FOR GFR 0.18 MG/DL (0.70-1.30); GLOMERULAR FILTRATION RATE > 60.0 (>49); GLUCOSE, FASTING 65 MG/DL (70-100); MAGNESIUM LEVEL 1.3 MG/DL (1.8-2.4); POTASSIUM SERUM 2.6 MEQ/L (3.5-5.1); SODIUM LEVEL 134 MEQ/L (136-145)
[2019-10-17 06:00] VITALS: BP_SYST 103; BP_SYST 106; BP_DIAS 74; BP_DIAS 76
[2019-10-17] MEDS ORDERED: POTASSIUM CHLORIDE 10 MEQ SR TABLET PO ONE ×2 (06:00→17:15)
[2019-10-17] MEDS ORDERED: KCL 10MEQ/100ML SWI (KRUN) 10 MEQ in IV 1 EA IV ONE (06:00)
[2019-10-17] MEDS: KCL 40MEQ in NS 1000ML 1,000 ML IV SCH ×3 (06:16→20:06)
[2019-10-17] MEDS ORDERED: MAG SULF 1GM/100ML (MAG RUN) 1 GM in IV 1 EA IV ONE ×2 (08:15→17:15)
[2019-10-17] MEDS: METOPROLOL TART 25 MG TABLET PO SCH ×2 (09:00→20:06)
[2019-10-17] MEDS: FOLIC ACID 1 MG TAB PO SCH (09:34)
[2019-10-17] MEDS: MULTIVITAMINS/MINERALS THERAP 1 TAB PO SCH (09:34)
[2019-10-17] MEDS: THIAMINE 100 MG TAB PO SCH (09:34)
[2019-10-17] MEDS: PANTOPRAZOLE 40MG VIAL (C9113 PER 1) IV SCH ×2 (09:34→20:05)
[2019-10-17] MEDS: DIGOXIN 0.25 MG TAB PO SCH (09:42)
[2019-10-17 14:00] VITALS: BP 152/96
--- NOTE | 2019-10-17 15:27 | IPNPDOC ---
Text Note Date of Service The patient was seen on 10/17/19. NOTE SUBJECTIVE: Abd pain improved and pt would like to try to advance his diet. No N/V. Last drink 1 week ago. OBJECTIVE: VITAL SIGNS: Please see below PHYSICAL EXAMINATION: General: Lying in bed, complaining of abdominal pain, AAOx3 HEENT: NC, AT, PERRLA, CVS:+S1S2 Lungs: Fair air entry bilaterally, no appreciable wheezing / rales / rhonchi Abdomen: Soft, Non-distended, NT. BS noted. Extremities: No lower extremity edema, No calf tenderness Neuro: No focal motor or sensory deficit Skin: No visible rashes AAOx3. Strength 5/5 BUE, BLE. LABORATORY: Please see below IMAGING: No new imaging ASSESSMENT: 59 y/o M with PMH of pancreatitis, alcohol abuse, atrial f ibrillation, HTN, seizure history who was admitted with diagnosis of acute pancreatitis likely 2/2 to ETOH, acute hyponatremia PLAN: 1. Acute pancreatitis 2/2 ETOH abuse, - WBC 12.6, mildly increased. Mild tachycardia with HR 95 - BCx x 2 sets drawn today - C/w IV fluid hydration and pain control - Advance diet to clears 2. Hyponatremia possible 2/2 to hypovolemic, hyponatremia - improving - Na 130-132, urine osmolality- 368, urine sodium <10 - C/w IVFs today - Recheck urine osmolality and urine Na, labs in AM 3. Epigastric pain/chest pain likely 2/2 to uncontrolled GERD - resolved - Repeat trop neg - PPI IV BID 4. A. fib - Controlled - C/w BB, digoxin, Xarelto 5. HTN - C/w BB, holding parameter s 6. Seizure hx 2/2 to alcohol withdrawal - Currently not on any medications 7. Alcohol abuse - Continue with thiamine, folate and multivitamins - Will start CIWA protocol 8. DVT prophylaxis - Will continue with full anticoagulation with Xarelto DISPOSITION: C/w plan above. Plan is discharge home when medically improved. VS,Fishbone, I+O VS, Fishbone, I+O Laboratory Tests 10/17/19 05:10 Vital Signs Date Time Temp Pulse Resp B/P (MAP) Pulse Ox O2 Delivery O2 Flow Rate FiO2 10/17/19 14:00 97.2 119 20 152/96 (114) 97 Room Air I&O- Last 24 Hours up to 6 AM 10/17/19 06:00 Intake Total 4070 ml Output Total 925 ml Balance 3145 ml BHARATHI GALAVIZ MD Oct 17, 2019 15:27
[2019-10-17] MEDS ORDERED: METOPROLOL TART 25 MG TABLET PO ONE (16:00)
[2019-10-17 16:07] VITALS: BP 104/64
[2019-10-17 16:07] LABS: BLOOD UREA NITROGEN 3 MG/DL (7-18); CALCIUM LEVEL 7.4 MG/DL (8.8-10.2); CARBON DIOXIDE LEVEL 23 MEQ/L (21-32); CHLORIDE LEVEL 100 MEQ/L (98-107); CREATININE FOR GFR 0.25 MG/DL (0.70-1.30); GLOMERULAR FILTRATION RATE > 60.0 (>49); GLUCOSE, FASTING 111 MG/DL (70-100); MAGNESIUM LEVEL 1.5 MG/DL (1.8-2.4); POTASSIUM SERUM 2.8 MEQ/L (3.5-5.1); SODIUM LEVEL 132 MEQ/L (136-145)
[2019-10-17] MEDS: NICOTINE 14 MG/24 HR TRANSDERMAL TD SCH (17:50)
[2019-10-17 22:00] VITALS: BP 103/71
[2019-10-17 22:35] LABS: BLOOD UREA NITROGEN 2 MG/DL (7-18); CALCIUM LEVEL 7.1 MG/DL (8.8-10.2); CARBON DIOXIDE LEVEL 27 MEQ/L (21-32); CHLORIDE LEVEL 102 MEQ/L (98-107); CREATININE FOR GFR 0.24 MG/DL (0.70-1.30); GLOMERULAR FILTRATION RATE > 60.0 (>49); GLUCOSE, FASTING 79 MG/DL (70-100); MAGNESIUM LEVEL 1.5 MG/DL (1.8-2.4); SODIUM LEVEL 134 MEQ/L (136-145)
--- NOTE | 2019-10-17 23:10 | ECGEPIP ---
[facility] Test Date: 2019-10-17 Pat Name: LAILA BLEDSOE Department: Room: [place] [address] Gender: Male [employer]: BI : 1960 Requested By: BHARATHI GALAVIZ Order Number: [id number] Reading MD: Rajat Bright Measurements Intervals [place] Rate: 101 P: 18 NE: 156 QRS: 45 QRSD: 103 T: 39 QT: 341 QTc: 443 Interpretive Statements SINUS TACHYCARDIA WITH An atrial couplet with aberrancy. ABNORMAL RHYTHM ECG Decreased heart rate and atrial couplet new compared with 09/15/2019; ST a abnormalities resolved. Electronically Signed on 10-17-2019 23:10:18 EDT by Rajat Bright
[2019-10-18] MEDS: KCL 40MEQ in NS 1000ML 1,000 ML IV SCH ×4 (01:27→20:46)
[2019-10-18 05:50] LABS: BASO # 0.1 10^3/uL (0.0-0.2); BASO % 0.5 % (0.0-1.0); EOS # 0.2 10^3/uL (0.0-0.5); EOS % 1.7 % (0.0-3.0); HEMOGLOBIN 10.5 g/dl (13.5-17.5); LYMPH # 1.9 10^3/uL (1.5-5.0); LYMPH % 19.4 % (24.0-44.0); MEAN CORPUSCULAR HEMOGLOBIN 28.9 pg (27.0-33.0); MEAN CORPUSCULAR HGB CONC 32.8 g/dl (32.0-36.5); MEAN CORPUSCULAR VOLUME 88.2 fl (80.0-96.0); MONO # 1.2 10^3/uL (0.0-0.8); MONO % 11.9 % (0.0-5.0); NEUTROPHILS # 6.4 10^3/uL (1.5-8.5); NEUTROPHILS % 65.9 % (36.0-66.0); PLATELET COUNT, AUTOMATED 344 10^3/uL (150-450); RED BLOOD COUNT 3.63 10^6/uL (4.30-6.10); WHITE BLOOD COUNT 9.7 10^3/uL (4.0-10.0)
[2019-10-18 06:00] VITALS: BP 110/81
[2019-10-18 06:09] LABS: BLOOD UREA NITROGEN 1 MG/DL (7-18); CALCIUM LEVEL 7.2 MG/DL (8.8-10.2); CARBON DIOXIDE LEVEL 30 MEQ/L (21-32); CHLORIDE LEVEL 99 MEQ/L (98-107); CREATININE FOR GFR 0.18 MG/DL (0.70-1.30); GLOMERULAR FILTRATION RATE > 60.0 (>49); GLUCOSE, FASTING 78 MG/DL (70-100); MAGNESIUM LEVEL 1.2 MG/DL (1.8-2.4); POTASSIUM SERUM 3.4 MEQ/L (3.5-5.1); SODIUM LEVEL 132 MEQ/L (136-145)
[2019-10-18] MEDS: FOLIC ACID 1 MG TAB PO SCH (08:37)
[2019-10-18] MEDS: THIAMINE 100 MG TAB PO SCH (08:37)
[2019-10-18] MEDS: MULTIVITAMINS/MINERALS THERAP 1 TAB PO SCH (08:37)
[2019-10-18] MEDS: PANTOPRAZOLE 40MG VIAL (C9113 PER 1) IV SCH ×2 (08:37→20:46)
[2019-10-18] MEDS: MAG SULF 1GM/100ML (MAG RUN) 1 GM in IV 1 EA IV SCH ×2 (08:37→09:43)
[2019-10-18] MEDS: MORPHINE 2 MG/ML 1ML VIAL (J2270) IV PRN ×3 (08:38→22:08)
[2019-10-18] MEDS: METOPROLOL TART 25 MG TABLET PO SCH ×2 (08:41→20:46)
[2019-10-18] MEDS: DIGOXIN 0.25 MG TAB PO SCH (08:41)
[2019-10-18] MEDS: NICOTINE 14 MG/24 HR TRANSDERMAL TD SCH (08:42)
[2019-10-18] MEDS ORDERED: POTASSIUM CHLORIDE 10 MEQ SR TABLET PO ONE (09:00)
[2019-10-18] MEDS: DOCUSATE SODIUM 100 MG CAP PO SCH ×2 (11:50→20:47)
[2019-10-18 14:00] VITALS: BP 90/62
--- NOTE | 2019-10-18 15:43 | IPNPDOC ---
Text Note Date of Service The patient was seen on 10/18/19. NOTE SUBJECTIVE: Abd pain improving; would like to advance diet. No N/V. No CP/SOB. 1 episode of vomiting last night; nonbilious, nonbloody. OBJECTIVE: VITAL SIGNS: Please see below PHYSICAL EXAMINATION: General: Lying in bed, complaining of abdominal pain, AAOx3 HEENT: NC, AT, PERRLA, CVS:+S1S2 Lungs: Fair air entry bilaterally, no appreciable wheezing / rales / rhonchi Abdomen: Soft, Non-distended, NT. BS noted. Extremities: No lower extremity edema, No calf tenderness Neuro: No focal motor or sensory deficit Skin: No visible rashes AAOx3. Strength 5/5 BUE, BLE. LABORATORY: Please see below IMAGING: No new imaging ASSESSMENT: 59 y/o M with PMH of pancreatitis, alcohol abuse, atrial fibrillation, HTN, seizure history who was admitted with diagnosis of acute pancreatitis likely 2/2 to ETOH, acute hyponatremia PLAN: 1. Acute pancreatitis 2/2 ETOH abuse, - WBC 12.6, mildly increased. Mild tachycardia with HR 95 - BCx x 2 sets drawn today - C/w IV fluid hydration and pain control - Advance diet to full liquid 2. Hyponatremia possible 2/2 to hypovolemic, hyponatremia - improving - Na 130-132, urine osmolality- 368, urine sodium <10 - C/w IVFs today - Recheck urine osmolality and urine Na, labs in AM 3. Epigastric pain/chest pain likely 2/2 to uncontrolled GERD - resolved - Repeat trop neg - PPI IV BID 4. Hypokalemia - replaced. 5. A. fib - Controlled - C/w BB, digoxin, Xarelto 6. HTN - C/w BB, holding parameter s 7. Seizure hx 2/2 to alcohol withdrawal - Currently not on any medications 8. Alcohol abuse -Continue with thiamine, folate and multivitamins - Will start CIWA protocol DVT prophylaxis - Will continue with full anticoagulation with Xarelto VS,Fishbone, I+O VS, Fishbone, I+O Laboratory Tests 10/17/19 22:05 10/18/19 05:31 Vital Signs Date Time Temp Pulse Resp B/P (MAP) Pulse Ox O2 Delivery O2 Flow Rate FiO2 10/18/19 14:00 98.0 93 18 90/62 (71) 98 Room Air I&O- Last 24 Hours up to 6 AM 10/18/19 06:00 Intake Total 3910 ml Output Total 3275 ml Balance 635 ml BHARATHI GALAVIZ MD Oct 18, 2019 15:43
[2019-10-18 17:55] VITALS: BP 102/58
[2019-10-18 22:00] VITALS: BP 110/68
[2019-10-19] MEDS: KCL 40MEQ in NS 1000ML 1,000 ML IV SCH ×2 (03:41→10:00)
[2019-10-19 06:00] VITALS: BP 110/78
[2019-10-19 06:03] LABS: BASO # 0.1 10^3/uL (0.0-0.2); BASO % 0.8 % (0.0-1.0); EOS # 0.2 10^3/uL (0.0-0.5); EOS % 2.8 % (0.0-3.0); HEMATOCRIT 30.7 % (42.0-52.0); HEMOGLOBIN 10.1 g/dl (13.5-17.5); LYMPH % 26.5 % (24.0-44.0); MEAN CORPUSCULAR HEMOGLOBIN 29.4 pg (27.0-33.0); MEAN CORPUSCULAR HGB CONC 32.9 g/dl (32.0-36.5); MEAN CORPUSCULAR VOLUME 89.5 fl (80.0-96.0); MONO # 0.9 10^3/uL (0.0-0.8); NEUTROPHILS # 4.3 10^3/uL (1.5-8.5); NEUTROPHILS % 57.6 % (36.0-66.0); PLATELET COUNT, AUTOMATED 367 10^3/uL (150-450); RED BLOOD COUNT 3.43 10^6/uL (4.30-6.10); WHITE BLOOD COUNT 7.4 10^3/uL (4.0-10.0)
[2019-10-19 06:18] LABS: BLOOD UREA NITROGEN 1 MG/DL (7-18); CALCIUM LEVEL 7.6 MG/DL (8.8-10.2); CARBON DIOXIDE LEVEL 26 MEQ/L (21-32); CHLORIDE LEVEL 103 MEQ/L (98-107); GLOMERULAR FILTRATION RATE > 60.0 (>49); GLUCOSE, FASTING 80 MG/DL (70-100); MAGNESIUM LEVEL 1.4 MG/DL (1.8-2.4); POTASSIUM SERUM 3.9 MEQ/L (3.5-5.1); SODIUM LEVEL 135 MEQ/L (136-145)
[2019-10-19] MEDS: PANTOPRAZOLE 40MG VIAL (C9113 PER 1) IV SCH (09:49)
[2019-10-19] MEDS: NICOTINE 14 MG/24 HR TRANSDERMAL TD SCH (09:50)
[2019-10-19] MEDS: MULTIVITAMINS/MINERALS THERAP 1 TAB PO SCH (09:50)
[2019-10-19] MEDS: DOCUSATE SODIUM 100 MG CAP PO SCH (09:50)
[2019-10-19] MEDS: FOLIC ACID 1 MG TAB PO SCH (09:58)
[2019-10-19] MEDS: THIAMINE 100 MG TAB PO SCH (09:58)
[2019-10-19] MEDS: DIGOXIN 0.25 MG TAB PO SCH (09:59)
[2019-10-19] MEDS: MAG SULF 1GM/100ML (MAG RUN) 1 GM in IV 1 EA IV SCH ×2 (09:59→11:10)
[2019-10-19 10:02] VITALS: BP 108/60
[2019-10-19] MEDS: METOPROLOL TART 25 MG TABLET PO SCH (10:02)
[2019-10-19] MEDS: MORPHINE 2 MG/ML 1ML VIAL (J2270) IV PRN (10:02)
--- NOTE | 2019-10-19 11:10 | IPNPDOC ---
Text Note Date of Service The patient was seen on 10/19/19. NOTE SUBJECTIVE: Abd pain improving; would like to advance diet again today. No N/V. No CP/SOB. has episode of asymptomatic NSVT. OBJECTIVE: VITAL SIGNS: Please see below PHYSICAL EXAMINATION: General: Lying in bed, complaining of abdominal pain, AAOx3 HEENT: NC, AT, PERRLA, CVS:+S1S2 Lungs: Fair air entry bilaterally, no appreciable wheezing / rales / rhonchi Abdomen: Soft, Non-distended, NT. BS noted. Extremities: No lower extremity edema, No calf tenderness Neuro: No focal motor or sensory deficit Skin: No visible rashes AAOx3. Strength 5/5 BUE, BLE. LABORATORY: Please see below IMAGING: No new imaging ASSESSMENT: 59 y/o M with PMH of pancreatitis, alcohol abuse, atrial fibrillation, HTN, seizure history who was admitted with diagnosis of acute pancreatitis likely 2/2 to ETOH, acute hyponatremia PLAN: 1. Acute pancreatitis 2/2 ETOH abuse, - WBC 12.6, mildly increased. Mild tachycardia with HR 95 - BCx x 2 sets drawn today - C/w IV fluid hydration and pain control - Advance diet to full liquid 2. NSVT - Cont BB -Replace K/Mg - Check Echo - Monitor on Tele 3. Epigastric pain/chest pain likely 2/2 to uncontrolled GERD - resolved - Repeat trop neg - PPI IV BID 4. Hyponatremia possible 2/2 to hypovolemic, hyponatremia - improving - Na 130-132, urine osmolality- 368, urine sodium <10 - s/p C/w IVFs 5. Hypokalemia - replaced. 5. A. fib - Controlled - C/w BB, digoxin, Xarelto 6. HTN - C/w BB, holding parameter s 7. Seizure hx 2/2 to alcohol withdrawal - Currently not on any medications 8. Alcohol abuse -Continue with thiamine, folate and multivitamins - Will start CIWA protocol DVT prophylaxis - Will continue with full anticoagulation with Xarelto VS,Fishbone, I+O VS, Fishbone, I+O Laboratory Tests 10/19/19 05:24 Vital Signs Date Time Temp Pulse Resp B/P (MAP) Pulse Ox O2 Delivery O2 Flow Rate FiO2 10/19/19 10:12 16 10/19/19 10:02 108/60 10/19/19 09:59 82 10/19/19 06:00 98.5 94 Room Air I&O- Last 24 Hours up to 6 AM 10/19/19 06:00 Intake Total 3360 ml Output Total 2750 ml Balance 610 ml BHARATHI GALAVIZ MD Oct 19, 2019 11:10
== END 2019-10-20 12:05 | disposition home or self-care (01) | DRG 439 ==
LOC: M ED 17:30 → M ED INP 20:32 → ENRESERV 22:35 → M MSPAV 10-16 00:05
PROVIDERS: ADMIT Internal Medicine; ATTEND Internal Medicine
DX: K85.20 Alcohol induced acute pancreatitis without necrosis or infection (principal); E87.1 Hypo-osmolality and hyponatremia; I47.2 Ventricular tachycardia; I48.91 Unspecified atrial fibrillation; I10 Essential (primary) hypertension; F10.10 Alcohol abuse, uncomplicated; E87.6 Hypokalemia; K21.9 Gastro-esophageal reflux disease without esophagitis; Z87.891 Personal history of nicotine dependence; Z79.899 Other long term (current) drug therapy; Z79.01 Long term (current) use of anticoagulants

== ENCOUNTER 2019-10-24 09:40 | Inpatient (IN) | payer MEDICARE, OTHER ==
[~2019-10-24 09:40] MED LIST changes: +ASPI81TA85 PO; -ASPI81TA86 PO; +FURO40TA2 PO; +IRON27TA2 PO; +VENTAER INH; +VITA100T28 PO
[2019-10-24] MEDS ORDERED: MVI -ADULT INJECTION 10ML VIAL ONE (09:41)
[2019-10-24] MEDS ORDERED: FOLIC ACID 1MG/0.2ML VIAL ONE (09:41)
[2019-10-24] MEDS ORDERED: THIAMINE 200MG/2ML VIAL (J3411 PER 100MG) ONE (09:41)
[2019-10-24] MEDS ORDERED: MORPHINE 4 MG/ML 1ML VIAL/SYRINGE (J2270) ONE ×3 (12:28→22:49)
[2019-10-24] MEDS ORDERED: ONDANSETRON 4MG/2ML VIAL As Ordered ONE ×2 (12:28→23:13)
[2019-10-24] MEDS ORDERED: ONDANSETRON 4MG/2ML VIAL ONE ×2 (12:28→23:13)
[2019-10-24] MEDS ORDERED: MORPHINE 4 MG/ML 1ML VIAL/SYRINGE (J2270) As Ordered ONE ×3 (12:28→22:49)
[2019-10-24] MEDS ORDERED: METOPROLOL TART 25 MG TABLET ONE (15:28)
[2019-10-24] MEDS ORDERED: DIGOXIN 0.25 MG TAB ONE (15:28)
[2019-10-24] MEDS ORDERED: DIGOXIN 0.25 MG TAB As Ordered ONE (15:28)
[2019-10-24] MEDS ORDERED: METOPROLOL TART 25 MG TABLET As Ordered ONE (15:28)
[2019-10-24] MEDS ORDERED: PANTOPRAZOLE 40MG VIAL (C9113 PER 1) As Ordered ONE (18:37)
[2019-10-24] MEDS ORDERED: NICOTINE 14 MG/24 HR TRANSDERMAL As Ordered ONE (18:37)
[2019-10-24] MEDS ORDERED: NICOTINE 14 MG/24 HR TRANSDERMAL ONE (18:37)
[2019-10-24] MEDS ORDERED: MAGNESIUM SULFATE 1GM/100ML D5W BAG (10MG/ML) ONE ×2 (18:37→20:29)
[2019-10-24] MEDS ORDERED: PANTOPRAZOLE 40MG VIAL (C9113 PER 1) ONE (18:37)
[2019-10-24] MEDS ORDERED: MAGNESIUM SULFATE 1GM/100ML D5W BAG (10MG/ML) As Ordered ONE ×2 (18:38→20:29)
[2019-10-25] MEDS ORDERED: NALOXONE INJ 0.4MG/1ML VIAL (J2310 PER 1MG) As Ordered ONE (00:09)
[2019-10-25] MEDS ORDERED: ISOVUE-370 76% 100ML VIAL As Ordered ONE (04:04)
[2019-10-25] MEDS ORDERED: ASPIRIN 300 MG SUPP ONE (09:00)
[2019-10-25] MEDS ORDERED: NALOXONE INJ 0.4MG/1ML VIAL (J2310 PER 1MG) ONE (12:09)
[2019-11-19 22:41] LABS: BLOOD UREA NITROGEN 7 MG/DL (7-18); CALCIUM LEVEL 7.9 MG/DL (8.8-10.2); CARBON DIOXIDE LEVEL 19 MEQ/L (21-32); CHLORIDE LEVEL 98 MEQ/L (98-107); DIGOXIN LEVEL 0.4 NG/ML (0.5-2.0); ETHYL ALCOHOL (ETHANOL) < 0.003 % (0.000-0.010); GLOMERULAR FILTRATION RATE > 60.0 (>49); GLUCOSE, FASTING 79 MG/DL (70-100); MAGNESIUM LEVEL 1.6 MG/DL (1.8-2.4); POTASSIUM SERUM 4.1 MEQ/L (3.5-5.1); SODIUM LEVEL 133 MEQ/L (136-145)
== END 2019-10-25 06:20 | disposition short-term general hospital (02) | DRG 438 ==
LOC: M ED 09:40 → M MSPAV 13:30
PROVIDERS: ADMIT Internal Medicine; ATTEND Internal Medicine
DX: K85.20 Alcohol induced acute pancreatitis without necrosis or infection (principal); I63.9 Cerebral infarction, unspecified; E87.1 Hypo-osmolality and hyponatremia; E46 Unspecified protein-calorie malnutrition; I48.0 Paroxysmal atrial fibrillation; F17.200 Nicotine dependence, unspecified, uncomplicated; I27.20 Pulmonary hypertension, unspecified; I10 Essential (primary) hypertension; K74.69 Other cirrhosis of liver; J44.9 Chronic obstructive pulmonary disease, unspecified; K21.9 Gastro-esophageal reflux disease without esophagitis; Z86.718 Personal history of other venous thrombosis and embolism; Z79.899 Other long term (current) drug therapy; I27.81 Cor pulmonale (chronic); K76.0 Fatty (change of) liver, not elsewhere classified; F10.20 Alcohol dependence, uncomplicated; E83.42 Hypomagnesemia